=== PATIENT | female | born 1995 | race Hispanic/Latino ===

== ENCOUNTER 2017-08-23 21:55 | Emergency (ER) | payer OTHER, SELFPAY ==
--- NOTE | 2017-08-24 00:22 | EDPHYS ---
Physician Documentation [facility] Unit Name: Patricia Monroe Age: 21 yrs Sex: Female : 1995 Arrival Date: 08/23/2017 Time: 21:58 Bed 25 Private MD: ED Physician Cricket Umanzor HPI: 08/23 23:00 This 21 yrs old Female presents to ER via Ambulatory with complaints of Fever, jr8 Sore Throat, BODY ACHES 13 WEEKS PREG. 23:00 The patient reports fever, not measured (subjective). Onset: The symptoms/episode jr8 began/occurred acutely, today. Modifying factors: there are no obvious modifying factors. Associated signs and symptoms: Pertinent positives: chills, earache, sinus congestion, sore throat. Severity of symptoms: At their worst the symptoms were mild in the emergency department the symptoms are unchanged. The patient has not experienced similar symptoms in the past. The patient has not recently seen a physician. 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 - Social history:: Smoking status: Patient/guardian denies using tobacco. - Ebola Screening: : Patient denies travel to an Ebola-affected area in the 21 days before illness onset. ROS: 23:00 Eyes: Negative for injury, pain, redness, and discharge, Neck: Negative for injury, jr8 pain, and swelling, Cardiovascular: Negative for chest pain, palpitations, and edema, Respiratory: Negative for shortness of breath, cough, wheezing, and pleuritic chest pain, Abdomen/GI: Negative for abdominal pain, nausea, vomiting, diarrhea, and constipation, Back: Negative for injury and pain, MS/Extremity: Negative for injury and deformity, Skin: Negative for injury, rash, and discoloration, Neuro: Negative for headache, weakness, numbness, tingling, and seizure. 23:00 Constitutional: Positive for body aches, chills. 23:00 ENT: Positive for sinus congestion, sore throat. Exam: 23:00 Head/Face: Normocephalic, atraumatic. Eyes: Pupils equal round and reactive to light, jr8 extra-ocular motions intact. Lids and lashes normal. Conjunctiva and sclera are non-icteric and not injected. Cornea within normal limits. Periorbital areas with no swelling, redness, or edema. ENT: Nares patent. No nasal discharge, no septal abnormalities noted. Tympanic membranes are normal and external auditory canals are clear. Oropharynx with no redness, swelling, or masses, exudates, or evidence of obstruction, uvula midline. Mucous membranes moist. Neck: Trachea midline, no thyromegaly or masses palpated, and no cervical lymphadenopathy. Supple, full range of motion without nuchal rigidity, or vertebral point tenderness. No Meningismus. Cardiovascular: Regular rate and rhythm with a normal S1 and S2. No gallops, murmurs, or rubs. Normal PMI, no JVD. No pulse deficits. Respiratory: Lungs have equal breath sounds bilaterally, clear to auscultation and percussion. No rales, rhonchi or wheezes noted. No increased work of breathing, no retractions or nasal flaring. Abdomen/GI: Soft, non-tender, with normal bowel sounds. No distension or tympany. No guarding or rebound. No evidence of tenderness throughout. Back: No spinal tenderness. No costovertebral tenderness. Full range of motion. Skin: Warm, dry with normal turgor. Normal color with no rashes, no lesions, and no evidence of cellulitis. MS/ Extremity: Pulses equal, no cyanosis. Neurovascular intact. Full, normal range of motion. Neuro: Awake and alert, GCS 15, oriented to person, place, time, and situation. Cranial nerves II-XII grossly intact. Motor strength 5/5 in all extremities. Sensory grossly intact. Cerebellar exam normal. Normal gait. Vital Signs: 22:09 BP 105 / 67; Pulse 108; Resp 20; Temp 97.9(O); Pulse Ox 96% on R/A; Weight 51.26 kg aj1 (R); Height 4 ft. 11 in. (149.86 cm) (R); Pain 10/10; 23:49 BP 109 / 70; Pulse 102; Resp 17; Pulse Ox 100% ; kr2 07/09 00:19 BP 117 / 74; Pulse 80; Resp 17; Pulse Ox 98% on R/A; kr2 08/23 22:09 Body Mass Index 22.82 (51.26 kg, 149.86 cm) aj1 MDM: 08/23 22:[address] [facility] 08/24 00:21 Data reviewed: vital signs, nurses notes, lab test result(s), and as a result, I will jr8 discharge patient. Data interpreted: Pulse oximetry: on room air is 98 %. Interpretation: normal. Counseling: I had a detailed discussion with the patient and/or guardian regarding: the historical points, exam findings, and any diagnostic results supporting the discharge/admit diagnosis, lab results, the need for outpatient follow up, a family practitioner, to return to the emergency department if symptoms worsen or persist or if there are any questions or concerns that arise at home. 08/23 22:47 Order name: Influenza Screen (a \T\ B); Complete Time: 23:58 [facility] 08/23 23:21 Order name: Urine Dipstick--Ancillary (enter results) rg2 08/23 22:47 Order name: Urine Dipstick-Ancillary (obtain specimen); Complete Time: 23:14 [facility] 08/23 23:21 Order name: Urine --Ancillary (enter results) rg2 Administered Medications: No medications were administered Disposition: 09:30 Co-signature as Attending Physician, Cricket Umanzor MD I agree with the assessment and [facility] plan of care. Disposition: 08/24/17 00:21 Discharged to Home. Impression: Viral infection, unspecified. - Condition is Stable. - Discharge Instructions: Viral Infections. - Medication Reconciliation Form, Thank You Letter, Antibiotic Education, Prescription Opioid Use form. - Follow up: Private Physician; When: 2 - 3 days; Reason: Recheck today's complaints, Continuance of care, Re-evaluation by your physician. - Problem is new. - Symptoms have improved. Signatures: Dispatcher [employer] Christiane Barrera, RN RN aj1 Cricket Umanzor MD MD cha Roszak, Josh, PA PA jr8 Enedelia Lucero RN RN kr2 Corrections: (The following items were deleted from the chart) 00:29 00:21 08/24/2017 00:21 Discharged to Home. Impression: Viral infection, unspecified. kr2 Condition is Stable. Forms are Medication Reconciliation Form, Thank You Letter, Antibiotic Education, Prescription Opioid Use. Follow up: Private Physician; When: 2 - 3 days; Reason: Recheck today's complaints, Continuance of care, Re-evaluation by your physician. Problem is new. Symptoms have improved. jr8
--- NOTE | 2017-08-24 00:22 | ER ---
Nurse's Notes [facility] Name: Patricia Monroe Age: 21 yrs Sex: Female : 1995 Arrival Date: 08/23/2017 Time: 21:58 Bed 25 Private MD: Diagnosis: Viral infection, unspecified Presentation: 08/23 22:05 Presenting complaint: Patient states: "I have runny nose, runny eyes, I feel congested. aj1 I was running fever, I have the chills. I've been taking Mucinex all day." Reports the highest her fever got was to 100.0 Patient reports that she is 13 weeks [address] see Dr. Darby in [place]. Denies N/V/D. Transition of care: patient was not received from another setting of care. Onset of symptoms was August 22, 2017. Risk Assessment: Do you want to hurt yourself or someone else? Patient reports no desire to harm self or others. Initial Sepsis Screen: Does the patient meet any 2 criteria? HR > 90 bpm. No. Patient's initial sepsis screen is negative. Does the patient have a suspected source of infection? No. Patient's initial sepsis screen is negative. Care prior to arrival: None. 22:05 Method Of Arrival: Ambulatory aj1 22:05 Acuity: WALTER 4 aj1 Triage Assessment: 22:09 General: Appears in no apparent distress. uncomfortable, Behavior is calm, cooperative, aj1 appropriate for age. Pain: Complains of pain in face Pain currently is 10 out of 10 on a pain scale. Quality of pain is described as sore, aching. EENT: Reports nasal congestion nasal discharge sore throat, ear pain. Neuro: Level of Consciousness is awake, alert, obeys commands, Speech is normal, Facial symmetry appears normal. Cardiovascular: Patient's skin is warm and dry. Respiratory: Airway is patent Respiratory effort is even, unlabored, Respiratory pattern is regular, symmetrical. GI: Patient currently denies diarrhea, nausea, vomiting. Derm: Skin is pink, warm \\T\\ dry. normal. 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 - Social history:: Smoking status: Patient/guardian denies using tobacco. - Ebola Screening: : Patient denies travel to an Ebola-affected area in the 21 days before illness onset. Screenin:42 Abuse screen: Denies threats or abuse. Denies injuries from another. Nutritional kr2 screening: No deficits noted. Tuberculosis screening: No symptoms or risk factors identified. Fall Risk None identified. Assessment: 22:40 General: Appears in no apparent distress. uncomfortable, well groomed, well developed, kr2 well nourished, Behavior is calm, cooperative, appropriate for age. Pain: Complains of pain in entire body Pain currently is 5 out of 10 on a pain scale. Quality of pain is described as aching, Is continuous, Alleviated by medications, rest. Neuro: Level of Consciousness is awake, alert, obeys commands, Oriented to person, place, time, situation, Appropriate for age. Cardiovascular: Capillary refill < 3 seconds in bilateral fingers Patient's skin is warm and dry. Respiratory: Reports cough that is non-productive, dry, since yesterday Airway is patent Respiratory effort is even, unlabored, Respiratory pattern is regular, symmetrical, Breath sounds are clear bilaterally. GI: Abdomen is round non-distended. : Denies burning with urination. EENT: Oral mucosa is moist. Throat is pink. Derm: Skin is intact, is healthy with good turgor, Skin is pink, warm \\T\\ dry. Musculoskeletal: Circulation, motion, and sensation intact. 23:14 Reassessment: Patient appears in no apparent distress at this time. Patient and/or kr2 family updated on plan of care and expected duration. Pain level reassessed. Patient is alert, oriented x 3, equal unlabored respirations, skin warm/dry/pink. 23:49 Reassessment: Patient appears in no apparent distress at this time. Patient and/or kr2 family updated on plan of care and expected duration. Pain level reassessed. Patient is alert, oriented x 3, equal unlabored respirations, skin warm/dry/pink. 08/24 00:19 Reassessment: Patient appears in no apparent distress at this time. Patient and/or kr2 family updated on plan of care and expected duration. Pain level reassessed. Patient is alert, oriented x 3, equal unlabored respirations, skin warm/dry/pink. Pain has decreased. Vital Signs: 08/23 22:09 BP 105 / 67; Pulse 108; Resp 20; Temp 97.9(O); Pulse Ox 96% on R/A; Weight 51.26 kg aj (R); Height 4 ft. 11 in. (149.86 cm) (R); Pain 10/10; 23:49 BP 109 / 70; Pulse 102; Resp 17; Pulse Ox 100% ; kr2 08/24 00:19 BP 117 / 74; Pulse 80; Resp 17; Pulse Ox 98% on R/A; kr2 08/23 22:09 Body Mass Index 22.82 (51.26 kg, 149.86 cm) [facility] ED Course: 08/23 21:58 Patient arrived in ED. al2 22:07 Triage completed. aj1 22:09 Arm band placed on Patient placed in an exam room. aj1 22:27 Enedelia Lucero RN is Primary Nurse. kr2 22:29 Kenn Hays PA is PHCP. jr8 22:29 Cricket Umanzor MD is Attending Physician. jr8 22:42 Patient has correct armband on for positive identification. Bed in low position. Call kr2 light in reach. Side rails up X 1. Pulse ox on. NIBP on. Door closed. Verbal reassurance given. Head of bed elevated. 23:14 Urine collected: clean catch specimen, clear, Flu and/or RSV swab sent to lab. kr2 08/24 00:28 No provider procedures requiring assistance completed. Patient did not have IV access kr2 during this emergency room visit. Administered Medications: No medications were administered Outcome: 00:21 Discharge ordered by . jr8 00:28 Discharged to home ambulatory, with family. kr2 00:28 Condition: good 00:28 Discharge instructions given to patient, family, Instructed on discharge instructions, follow up and referral plans. Demonstrated understanding of instructions, follow-up care. 00:29 Patient left the ED. kr2 Signatures: Christiane Perkins RN RN aj1 Kenn Hays PA PA jr8 Enedelia Lucero RN RN kr2 Claudine Rousseau [facility]
[2017-08-24 01:21] LABS: Urine Blood NEGATIVE (NEG); Urine Glucose NEGATIVE (NEG); Urine Protein NEGATIVE (NEG); Urine Specific Gravity 1.015 (1.005-1.030); Urine pH 6.5 (5.0-7.0)
== END 2017-08-24 00:29 | disposition home or self-care (01) ==
LOC: ER 21:55
DX: O98.511 Other viral diseases complicating pregnancy, first trimester (principal); J45.909 Unspecified asthma, uncomplicated; Z3A.13 13 weeks gestation of pregnancy
CPT/HCPCS: 81003; 81025; 87804; 99283

== ENCOUNTER 2019-07-03 01:15 | Emergency (ER) | payer OTHER, SELFPAY ==
--- OUTSIDE RECORDS SUMMARY | 2019-07-03 01:17 | XMS REPORT | Summary of Care ---
:1995 Author Organization [facility] Address [address] [place] [id number] Care Team Providers Name Role Phone Tere Ventura [facility] Primary Care Provider Reason for Visit Reason Comments Appointment Encounter Details Date Type Department Care Team Description [facility] [address] [place] [address] [address] [facility] [phone] [facility] [place] [place] [address] Allergies No Known Allergiesdocumented as of this encounter (statuses as of 06/28/2019) Medications Medication Sig Dispensed Refills Start Date End Date Status PNV 67-iron ps-folate Take 1 tablet 30 capsule 12 06/25/2017 Active no.1-dha (VITAFOL ULTRA) by mouth daily. 29 mg iron- 1 mg-200 mg CapIndications: Supervision of high risk , antepartum docusate calcium 240 mg Take 1 capsule 60 capsule 1 02/21/2018 Active capsule by mouth once daily as needed for Constipation. ibuprofen 600 mg tablet Take 1 tablet 60 tablet 1 02/21/2018 Active by mouth every 6 (six) hours as needed for Pain (scale 1-3) or Pain (scale 4-6) (Pain). Take with food or milk. ferrous sulfate 325 mg Take 1 tablet 90 tablet 2 02/21/2018 Active (65 mg iron) tablet by mouth 3 (three) times daily with meals. cyclobenzaprine HCl Take by mouth. 0 Active (FLEXERIL ORAL) butalbital-acetaminophen Take 1 tablet 0 Active -caff 50-325-40 mg by mouth every tablet 4 (four) hours as needed for Headache. documented as of this encounter (statuses as of 06/28/2019) Active Problems Problem Noted Date Well woman exam 04/05/2018 Contraceptive management 04/05/2018 Asthma 02/20/2018 Obesity (BMI 30-39.9) 02/11/2018 Neck muscle spasm 09/02/2017 documented as of this encounter (statuses as of 06/28/2019) Resolved Problems Problem Noted Date Resolved Date 39 weeks gestation of 02/20/2018 04/05/19 19 Anemia, 02/20/2018 04/05/2018 34 weeks gestation of 01/21/2018 04/05/19 19 33 weeks gestation of 01/14/2018 01/22/20 18 25 weeks gestation of 11/18/2017 01/15/20 18 12 weeks gestation of 08/17/2017 11/19/19 18 11 weeks gestation of 08/13/2017 11/19/19 18 Threatened miscarriage in early 07/21/2017 04/05/2018 headache, second trimester 07/02/2017 History of labor 07/02/2017 04/05/2018 Spina bifida, child of prior , currently , 06/25/2017 04/05/2018 unspecified trimester Prior with congenital cardiac defect, antepartum 0 06/25/2017 04/05/2018 Depo-Provera contraceptive status 07/23/20162017 Heartburn during , antepartum 07/23/2016 0 04/05/2018 Normal spontaneous vaginal delivery 05/29/201603/19 Liveborn infant by vaginal delivery 05/28/201603/19 Late deceleration of heart rate 05/27/2016 37 weeks gestation of 05/27/2016 07/24/19 17 Vaginal discharge during in third trimester 201607/23/2016 Heartburn during in third trimester 05/21/2016 04/05/2018 Difficulty swallowing pills 05/21/2016 04/05/2018 34 weeks gestation of 05/08/2016 05/28/19 17 Gastroenteritis presumed infectious 05/08/2016 06/08/2016 Hypokalemia, gastrointestinal losses 05/08/201608/2016 High-risk , third trimester 05/02/201608/2016 Supervision of high risk in second trimester 05/0201/21/2018 Influenza A 04/12/2016 07/23/2016 Pelvic pressure in , second trimester 03/28/2016 05/27/2016 Abnormal MSAFP (maternal serum alpha-fetoprotein), elevated 02/01/2016 04/05/2018 High-risk , second trimester 01/29/2016 History of delivery, currently in second 05/02/2016 trimester Supervision of high risk in first trimester 201502/26/2016 History of neural tube defect in in prior , 11/23/2015 04/05/2018 currently Supervision of other normal 10/25/2015 documented as of this encounter (statuses as of 06/28/2019) Immunizations Name Administration Dates Next Due Influenza Virus Vaccine Quad IM 3+ YRS 11/23/2015 Influenza Virus Vaccine Quad IM Multi-dose 6+ MO 12/21/2017 Tdap 12/07/2017, 03/28/2016 documented as of this encounter Social History Tobacco Use Types Packs/Day Years Used Date Never Smoker Smokeless Tobacco: Never Used Alcohol Use Drinks/Week oz/Week Comments No 0 Standard drinks or equivalent 0.0 Sex Assigned at Date Recorded Not on file Job Start Date Occupation Industry Not on file Not on file Not on file Travel History Travel Start Travel End No recent travel history available. documented as of this encounter Last Filed Vital Signs Not on filedocumented in this encounter Plan of Treatment Date Type Specialty Care Team Description 06/28/2019 Office Visit [facility] Amina Brown, ADOPTION COORDINATOR [address] [place] [address] [phone] Health Maintenance Due Date Last Done Comments PNEUMOCOCCAL 0-64 YEARS 2002 COMBINED SERIES (1 of 1 - PPSV23) MENINGOCOCCAL B VACCINES (1 2006 of 2 - Risk Bexsero 2-dose series) HPV VACCINES (1 - Female 12/26/2007 2-dose series) CHLAMYDIA SCREENING 04/05/2019 04/05/2018, 06/25/2017, 05/14/2016, Additional history exists INFLUENZA VACCINE (Season 10/18/2019 12/21/2017, 11/23/2015 Ended) PAP SMEAR 04/05/2021 04/05/2018 DTaP,Tdap,and Td Vaccines (3 12/08/2027 12/07/2017, 017 - Td) MENINGOCOCCAL VACCINE Aged Out No longer eligible based on patient 's age to complete this topic documented as of this encounter Results Not on filedocumented in this encounter Insurance Payer Benefit Plan Subscriber ID Effective Phone Address Typ e / Group Dates [place] [place] [employer] [place] xxxxxxxxx 2019-Prese [phone] [place] X Medicaid WOMEN WOMEN nt 00 [id number] [place] [address] documented as of this encounter Advance Directives Name Relationship Healthcare Agent Communication Relationship Hema Monroe Spouse Primary healthcare agent Marques Carrillo Father First [facility] agent (Mobile)
--- OUTSIDE RECORDS SUMMARY | 2019-07-03 01:17 | XMS REPORT ---
:1995 Author Organization [facility] t Address [address] [place] [place] [address] Care Team Providers Name Role Phone Provider, Temp Attending Clinician Unavailable Problems This patient has no known problems. Allergies, Adverse Reactions, Alerts This patient has no known allergies or adverse reactions. Medications This patient has no known medications. Procedures This patient has no known procedures. Encounters Start End Encounter Admission Attending Care Care Encounter Source Date/Time Date/Time Type Type Clinicians Facility Department ID 2019-07-01 2019-07-01 Office Provider, [facility] [id number] 09:04:44 09:45:26 Visit Marianna MECHANICAL INTEGRITY SPECIALIST [id number] [facility] [id number] MATERNAL [id number] & CHILD [address] [place] [address] Results This patient has no known results.
--- OUTSIDE RECORDS SUMMARY | 2019-07-03 01:18 | XMS REPORT | Summary of Care ---
:1995 Author Organization [facility] Address [address] [place] [id number] Care Team Providers Name Role Phone Tere Ventura SAMIRA Primary Care Provider Reason for Visit Reason Comments Pelvic Pain Encounter Details Date Type Department Care Team Description 06/28/2019 Telemedicine Visit [facility]- Amina Brown Pain pelvic [place] R, PATIENT CARE PROVIDER (Primary Dx) [address] [place] [address] [place], [place] [phone] Allergies No Known Allergiesdocumented as of this [...] 04/05/2018 Normal spontaneous vaginal delivery 05/29/201603/19 Liveborn by vaginal delivery 05/28/201603/19 Late deceleration of [...] 201502/26/2016 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 Communication with patient was conducted via Telephone due to patient unable to obtain video call option. Location of Patient: Home Location of Provider: Home Date of Service: 06/28/2019 Chief Complaint: Pelvic Pain via Tele Health HPI: Patricia Monroe is a 23 year old female with Past Medical History: Diagnosis Date 25 weeks gestation of 11/18/2017 Abnormal uterine bleeding Anemia 02/20/2018 Asthma ROS See Note TELEHEALTH EXAM Constitutional: Alert and no distress Respiratory: Breathing comfortably Neurology: Answers questions appropriately Psychological: Affect Normal ASSESSMENT/ PLAN After visit summary (AVS ) documentation will be available through [employer] for this encounter. A total of 15 minutes was spent on the Telephone due to patient unable to obtain video call option. Amina Brown, PATIENT CARE PROVIDER HPI Patient is a LAF here for a tele health visit for pelvic pain. Patient reports she went to an urgent care last night (06/27/2019) due to severe pelvic pain. Patient states she was told she had severe swollen veins near both of her ovaries. Patient reports she has DVD of CT findings from visit.Patient also verbalized that they told her she needed to have immediate surgery to get the veins clipped. Patient advised to report to clinic to sign release of medical records. Patient also advised that WWE is due. Patient denies current or past physical, sexual or emotional abuse. Histories OB History Para Term AB Living 3 3 2 1 0 3 SAB TAB Ectopic Multiple Live Births 0 0 0 0 3 # Outcome Date GA Lbr Rush/2nd Weight Sex Delivery Anes PTL Lv 3 Term 02/20/18 39w0d 7 lb 7.2 oz (3.38 kg) F VAGINAL EPI SHABANA Comments: screen #1: 02/21/2018 NORMAL. (IDS) Maternal Age: 21; :3; Parity:3 Mother's Blood Type:O pos Baby's Blood Type:O pos, MORAIMA negative Maternal Serological Test:normal Maternal Group B Strep Screening:negative; Adequate Treatment:not 2 Term 05/28/16 37w2d 5 lb (2.268 kg) F VAGINAL IV narcotic SHABANA Comments: Maternal Age: 19 years old, G 2, P 2 Mother's Blood Type: O+ Baby's Blood Type: Cord blood not sent Maternal Serological Test: Negative Maternal Group B Strep Screening: Negative Complications: Elevated maternal serum AFP SROM at delivery with clear fluid. Labor Complications: None problems: None OAE: passed Hepatitis B Vaccine: Most Recent Immunizations Administered Date(s) Administered Hep B, Adol or Pedi Dosage 05/28/2016 [place] screen drawn, results pending. CCHD screen: passed 1 01/26/14 36w0d 5 lb 2 oz (2.325 kg) F NORMAL SP[place] Y [place]NA Past Medical History: Diagnosis Date 25 weeks gestation of 11/18/2017 Abnormal uterine bleeding Anemia 02/20/2018 Asthma Family History Problem Relation Age of Onset Diabetes Paternal Grandmother Hypertension Paternal Grandmother Cancer Paternal Grandfather unsure what kind Hypertension Maternal Uncle Diabetes Maternal Uncle Diabetes Paternal Uncle Arthritis NoFHx Asthma NoFHx defects NoFHx Breast Cancer NoFHx Colon Cancer NoFHx Ovarian Cancer NoFHx Uterine Cancer NoFHx Depression NoFHx Genetic NoFHx Heart NoFHx High cholesterol NoFHx Mental retardation NoFHx Neurological NoFHx Osteoporosis NoFHx Psychiatry NoFHx Family Status Relation Name Status PGMo Alive PGFa Alive Mo Alive Fa Alive MUnc Alive PUnc Alive NoFHx (Not Specified) No past surgical history on file. Social History Socioeconomic History Marital status: Spouse name: Not on file Number of children: Not on file Years of education: Not on file Highest education level: Not on file Occupational History Not on file Social Needs Financial resource strain: Not on file Food insecurity: Worry: Not on file Inability: Not on file Transportation needs: Medical: Not on file Non-medical: Not on file Tobacco Use Smoking status: Never Smoker Smokeless tobacco: Never Used Substance and Sexual Activity Alcohol use: No Alcohol/week: 0.0 standard drinks Drug use: No Sexual activity: Yes Partners: Male control/protection: Condom Comment: last sexual intercourse 04/02/2018 Lifestyle Physical activity: Days per week: Not on file Minutes per session: Not on file Stress: Not on file Relationships Social connections: Talks on phone: Not on file Gets together: Not on file Attends catholic service: Not on file Active member of club or organization: Not on file Attends meetings of clubs or organizations: Not on file Relationship status: Not on file Intimate partner violence: Fear of current or ex partner: Not on file Emotionally abused: Not on file Physically abused: Not on file Forced sexual activity: Not on file Other Topics Concern Not on file Social History Narrative Restoration: Holiness Patient lives with family. Patient has 2 dogs. Social History Substance and Sexual Activity Sexual Activity Yes Partners: Male control/protection: Condom Comment: last sexual intercourse 04/02/2018 Labs No new labs Radiology No new radiology. Allergies Patricia has No Known Allergies. Medications Patricia has a current medication list which includes the following prescription(s): gylznldjne-bdgwsgimbcytt-lool, cyclobenzaprine hcl, docusate calcium, ferrous sulfate, ibuprofen, and pnv 67-iron ps-folate no.1-dha. Review of Systems Genitourinary: Positive for pelvic pain. There were no vitals taken for this visit. Pregravid BMI: Could not be calculated Physical Exam See Tele Health Assessment/Plan Pain pelvic (primary encounter diagnosis) Comment: See HPI Plan: Patient advised to continue pain medication that urgent care gave and schedule for WWE on Thursday08/01/2019). Return to clinic for WWE. Discussed treatment options. Medications as ordered. This visit did not involve counseling and coordination that comprised more than 50% of the visit time. LUCIANO Rojas 06/28/2019 3:43 PM documented in this encounter Plan of Treatment Date Type Specialty Care Team Description 07/01/2019 [facility] Due Date Last Done Comments [...] Results Not on filedocumented in this encounter Visit Diagnoses Diagnosis Pain pelvic - Primary Unspecified symptom associated with fema le genital organs documented in this encounter Insurance Payer Benefit Plan Subscriber ID Effective Phone Address Typ e / Group Dates [facility] xxxxxxxxx 2019-Prese [phone] Medicaid WOMEN [address] [place] [address] documented as of this encounter Advance Directives Name Relationship Healthcare Agent Communication Relationship Hema Monroe Spouse Primary healthcare agent Marques Carrillo Father [place] [phone] agent (Mobile)
--- OUTSIDE RECORDS SUMMARY | 2019-07-03 01:19 | XMS REPORT | Summary of Care ---
:1995 Author Organization [facility] Address [address] [place] [id number] Care Team Providers Name Role Phone Tere Ventura [facility] Primary Care Provider Reason for Visit Reason Comments Well Woman Exam Encounter Details Date Type Department Care Team Description 07/01/2019 Office Visit [facility] Jaja Gorman [facility] [address] [place], [place] [id number] Well woman exam (Primary Dx); [place] [facility] [address] [place] [address] Allergies No Known Allergiesdocumented as of this encounter (statuses as of 07/01/2019) Medications Medication Sig Dispensed Refills Start Date End Date Status PNV 67-iron ps-folate Take 1 tablet 30 capsule 06/25/2017 Active no.1-dha (VITAFOL ULTRA) by mouth [...] as of this encounter (statuses as of 07/01/2019) Active Problems Problem Noted Date Well woman exam 04/05/2018 Contraceptive management 04/05/2018 Asthma 02/20/2018 Obesity (BMI 30-39.9) 02/11/2018 Neck muscle spasm 09/02/2017 documented as of this encounter (statuses as of 07/01/2019) Resolved Problems Problem Noted Date Resolved Date [...] 04/05/2018 34 weeks gestation of 05/08/2016 05/28/19 Gastroenteritis presumed infectious 05/08/201608/2016 Hypokalemia, gastrointestinal losses 05/08/201608/2016 High-risk , third [...] as of this encounter (statuses as of 07/01/2019) Immunizations Name Administration Dates Next Due Influenza [...] Travel End No recent travel history available. COVID-19 Exposure Response Date Recorded In the last month, have you been in contact with No / Unsure 07/01/2019 9:08 AM CDT someone who was confirmed or suspected to have Coronavirus / COVID-19? documented as of this encounter Last Filed Vital Signs Vital Sign Reading Time Taken Comments Blood Pressure 110/78 07/01/2019 9:18 AM CDT Pulse 77 07/01/2019 9:18 AM CDT Temperature 36.4 C (97.5 F) 07/01/2019 9:18 AM CDT Respiratory Rate 16 07/01/2019 9:18 AM CDT Oxygen Saturation - - Inhaled Oxygen Concentration - - Weight 55.6 kg (122 lb 8 oz) 07/01/2019 9:18 AM CDT Height 149.9 cm (4' 11") 07/01/2019 9:18 AM CDT Body Mass Index 24.74 07/01/2019 9:18 AM CDT documented in this encounter Patient Instructions Patient InstructionsRiya Mehta LVN - 07/01/2019 9:00 AM CDT Patient Education Clinical Breast Exam Many health organizations recommend a yearly clinical breast exam. This exam may be done by a medical art therapist, family healthcare provider, nurse practitioner, nurse ship erector, or specially trained nurse. Yearly breast exams help tomake surethat breast conditions are found early. Your healthcare providers role A healthcare professional knows the tests and follow-up care needed if a problem is found. Your clinical exam is also a great time to ask questions about breast self-exams. You can find out if yourechecking your breasts in the best way. Or you may want to ask how , breast implants, or breast reduction surgery affect the way you should check your breasts. Diagnostic tests If a clinical exam reveals a breast change, you may have other tests to find out more. These tests may include: Mammography. A low-dose X-ray of your breast tissue. Ultrasound. An imaging test that uses sound waves to create images of your breast. Biopsy. A small amount of breast tissue is removed by needle or by a cut (incision). The tissue is then checked under a microscope. Guidelines for having clinical breast exams The [employer] recommends that starting at age 29, you should have a clinical breast exam every 1 to 3 years. After age 40, have a clinical breast exam each year. If youre at higher risk for breast cancer, you may need exams more often. Risk factors for breast cancer may include: Being over 50 or postmenopausal Having a family history of breast cancer Having the BRCA1 or BRCA2 gene mutation or certain other gene mutations Having more menstrual periods due to starting menstruation early(before age 12) or having a late menopause (after age 55) Having no pregnancies Having a first after age 30 Being obese Having a history of radiation treatment to your chest area Exposure to CONNIE during your mother's Not being active Drinking too much alcohol Having dense breast tissue Taking hormone therapy after menopause Other health organizations have different recommendations. Talk with your healthcare provider about what is best for you. [employer] reviewed this educational content on 09/16/201619995078-4996 [employer] [address] [place] [address]. All rights reserved. This information is not intended as a substitute for professional medical care. Always follow your healthcare professional's instructions. Patient Education Breast Health: Breast Self-Awareness What is breast self-awareness? Breast self-awareness is knowing how your breasts normally look and feel. Your breasts change as yougo through different stages of your life. So its important to learn what is normal for your breasts. Knowing about your breasts helps you spot any changes in them right away. Tell your healthcare provider about any changes. Why is breast self-awareness important? Many experts now say that women should focus on breast self-awareness instead of doing a breast self-examination (BSE). These experts include the [employer] and the [place] [employer]. Some experts even advise not teaching women to do a BSE. Thats because research hasnt shown a clear benefit to doing BSEs. Breast self-awareness is different than a BSE. It isnt about following a certain method and schedule. Its about knowing what's normal for your breasts. That way you can spot even small changes right away. If you see any changes, tell your healthcare provider. Changes to look for Call your healthcare provider if you find any changes in your breasts that worry you. These changes may be: A lump Nipple discharge other than breastmilk, especially if it's bloody Swelling A change in size or shape Skin changes, such as redness, thickening, or dimpling of the skin Swollen lymph nodes in the armpit Nipple problems, such as pain or redness If you find a lump Call your provider if you find lumpiness in one breast. Also call if you feel something different inthe tissue or feel a definite lump. Sometimes lumpiness may be due to menstrual changes. But there may be reason for concern. Your provider may want to see you right away if you have: Nipple discharge that is bloody Skin changes on your breast, such as dimpling or puckering Its okay to be upset if you find a lump. Be sure to call your provider right away. Remember that most breast lumps are benign. This means they are not cancer. [employer] last reviewed this educational content on 09/16/201619990786-9633 [employer]. [address] [place] [address], [place] [address]. All rights reserved. This information is not intended as a substitute for professional medical care. Always follow your healthcare professional's instructions. Patient Education Prevention Guidelines,Women Ages 18 to 39 Screening tests and vaccines are an important part of managing your health. A screening test is doneto find possible disorders or diseases in people who don't have any symptoms. The goal is to find a disease early so lifestyle changes can be made and you can be watched more closely to reduce the riskof disease, or to detect it early enough to treat it most effectively. Screening tests are not considered diagnostic, but are used to determine if more testing is needed. Health counseling is essential, too. Below are guidelines for these, for women ages 18 to 39. Talk with your healthcare provider tomake sure youre up-to-date on what you need. Screening Who needs it How often Alcohol misuse All women in this age group At routine exams Blood pressure All women in this age group Yearly checkup if your blood pressure is normal Normal blood pressure is less than 120/80 mm Hg If your blood pressure reading is higher than normal, follow the advice of your healthcare provider Breast cancer All women in this age group should talk with their healthcare providers about the needfor clinical breast exams (CBE)1 Clinical breast exam every 3 years1 Cervical cancer Women ages 21 and older Women between ages 21 and 29 should have a Pap test every 3 years; women between ages 30 and 65 are advised to have a Pap test plus an HPV test every 5 years Chlamydia Sexually active women ages 25 and younger, and women at increased risk for infection (suchas having multiple sex partners) Every year if you're at risk or have symptoms Depression All women in this age group At routine exams Type 2 diabetes, prediabetes All women with no symptoms who are overweight or obese and have 1 or more other risk factors for diabetes At least every 3 years. Also, testing for diabetes during after the 24th week. Type 2 diabetes, prediabetes All women diagnosed with gestational diabetes Lifelong testing every 3 years Type 2 diabetes All women with prediabetes Every year Gonorrhea Sexually active women at increased risk for infection At routine exams Hepatitis C Anyone at increased risk At routine exams HIV All women should be tested at least once for HIV between the ages of 13 and 64 At routine exams.Those with risk factors for HIV should be tested at least annually. Obesity All women in this age group At routine exams Syphilis Women at increased risk for infection should talk with their healthcare provider At routineexams Tuberculosis Women at increased risk for infection should talk with their healthcare provider Ask your healthcare provider Vision All women in this age group At least 1 complete exam in your 20s, and 2 in your 30s Vaccine2 Who needs it How often Chickenpox (varicella) All women in this age group who have no record of this infection or vaccine 2doses; the second dose should be given 4 to 8 weeks after the first dose Hepatitis A Women at increased risk for infection should talk with their healthcare provider 2 dosesgiven at least 6 months apart Hepatitis B Women at increased risk for infection should talk with their healthcare provider 3 dosesover 6 months; second dose should be given 1 month after the first dose; the third dose should be given at least 2 months after the second dose and at least 4 months after the first dose Haemophilus influenzaeType B (HIB) Women at increased risk for infection should talk with their healthcare provider 1 to 3 doses Human papillomavirus (HPV) All women in this age group up to age 26 3 doses; the second dose should be given 1 to 2 months after the first dose and the third dose given 6 months after the first dose Influenza (flu) All women in this age group Once a year Measles, mumps, rubella (MMR) All women in this age group who have no record of these infections or vaccines 1 or 2 doses Meningococcal Women at increased risk for infection should talk with their healthcare provider 1 or more doses Pneumococcal conjugate vaccine (PCV13)and pneumococcal polysaccharidevaccine(PPSV23) Women at increased risk for infection should talk with their healthcare provider PCV13: 1 dose ages 19 to 65 (protects against 13 types of pneumococcal bacteria) PPSV23: 1 to2 doses through age 64, or 1 dose at 65 or older (protects against 23 types of pneumococcal bacteria) Tetanus/diphtheria/pertussis (Td/Tdap) booster All women in this age group Td every 10 years, or a one-time dose of Tdap instead of a Td booster after age 18, then Td every 10 years Counseling Who needs it How often BRCA gene mutation testing for breast and ovarian cancer susceptibility Women with increased risk for having gene mutation When your risk is known Breast cancer and chemoprevention Women at high risk for breast cancer When your risk is known Diet and exercise Women who are overweight or obese When diagnosed, and then at routine exams Domestic violence Women at the age in which they are able to have children At routine exams Sexually transmitted infection prevention Women who are sexually active At routine exams Skin cancer Prevention of skin cancer in fair-skinned adults At routine exams Use of tobacco and the health effects it can cause All women in this age group Every visit 1 According to the ACS, women ages 20 to 39 years should have a clinical breast exam (CBE) as part of their routine health exam every 3 years. Breast self-exams are an option for women starting in their 20s.But the USPSTF does not recommend CBE. [employer] last reviewed this educational content on 11/16/201619995337-7304 [employer]. [address] [place] [address]. All rights reserved. This information is not intended as a substitute for professional medical care. Always follow your healthcare professional's instructions. Patient Education Understanding STIs When it comes to sex, nothing is risk-free. Any sexual contact with the penis, vagina, anus, or mouth can spread a sexually transmitted infection (STI). These include chlamydia, gonorrhea, herpes, HIV,and genital warts. STIs are also known as sexually transmitted diseases (STDs). The only sure way toprevent STIs is not having sex (abstinence). But there are ways to make sex safer. Use a latex condom each time you have sex. And choose your partner wisely. Use condoms for safer sex If you have sex, latex condoms provide the best protection against STIs. Latex condoms stop the exchange of body fluids that carry certain STIs. They also limit contact with affected skin. Be aware that a condom doesnt cover all skin. So affected skin that isn't covered can still transfer disease. But youre safer with a condom than without one. Use a condom even if you use other control. control methods such as the pill or IUD help prevent , but they don't protect against STIs. Choose the right condom Condoms made of latex prevent disease best. If youre allergic to latex, use polyurethane condoms instead. Male condoms fit over the penis. Female condoms line the vagina. Before buying a condom, read the label to be sure it prevents disease. Some novelty condoms dont. The right lubricant helps Buy lubricated condoms or use lubricant. This provides greater comfort and reduces the risk for condom breakage. Use only water-based lubricants. Dont use oil, lotion, or petroleum jelly. They can weaken the condom, causing breakage. Also, you may want to choose lubricants without nonoxynol-9. This spermicide may cause irritation. It can raise the risk for certain STIs. Use condoms correctly For condoms to work, they must be used the right way. Keep these tips in mind: Use a new latex condom each time you have sex. Slip the condom on the penis before any contact ismade. When ready to withdraw, hold the rim of the condom as the penis pulls out. This prevents the condom from slipping off. Check the expiration date before using a condom. Dont store condoms in places that can get hot, such as a car or a wallet that is carried in a back pocket. Get to know your partner Safer sex is a process. It involves getting to know your partner and making informed choices. Ask each other how many partners you have had in the past, and how many you have now. Find out if either ofyou has HIV or any other STI. If you decide to have sex, use a condom each time. Dont stop using condoms unless youre sure neither of you has other partners and youve both been tested to confirm you dont have HIV or other STIs. Then stay free of disease by having sex only with each other (monogamy). Keep your cool Dont let alcohol or drugs cloud your judgment. They could lead you to have sex with someone you wouldnt have chosen if you were sober. Or you might forget to use a condom. If you do plan to have sex, keep a latex condom with you. Dont wait until youre in the heat of passion to try to find one. Consider abstinence The only way to be sure you wont get an STI is to abstain from sex. Abstinence is a choice that many people make at some point in their life. Maybe you want to wait until you are sure youre readybefore you have sex. Maybe youd like a break from the responsibilities of sex for a while. Or maybe you just want to know your partner better before taking the next step. Abstinence is a choice you can make now to protect your future. [employer] last reviewed this educational content on 01/16/201819996437-3350 [employer] [address] [place] [address], [place] [address]. All rights reserved. This information is not intended as a substitute for professional medical care. Always follow your healthcare professional's instructions. Patient Education Understanding HIV and AIDS It's important to know how HIV can get into your body and what happens once its there. Then youll be better prepared to protect yourself or others against this virus. A person with HIV can look and feel perfectly healthy. But that person can give HIV to others as soon as he or she is infected with the virus. Having unsafe or unprotected sex or sharing needles puts you at risk for HIV. Talk with your healthcare provider about ways to protect yourself or a loved one from getting HIV. How HIV infection progresses After HIV enters the body, it attacks the immune system in the stages below. A person with HIV can infect others once the virus gets into the blood. HIV with no symptoms. A person with HIV may have no symptoms for years. The only sign of infection may be a positive blood test for HIV 2 weeks to 3 months or later after HIV enters the body. HIV with symptoms. Some people develop an illness similar to mono (mononucleosis) 2 to 4 weeks after the virus enters the body. This is called acute retroviral syndrome. Symptoms may include swollen lymph glands, chills, fever, night sweats, weakness, weight loss, skin rashes, mouth ulcers, or sore t hroat. Symptoms may be mild or the person can feel quite sick. Even without treatment the symptoms almost always go away in a few days or up to 2 to 3 weeks. Then the person has no symptoms, often for years. But over time the immune system starts to get weaker and symptoms start appearing. People at this stage may have a yeast infection in the mouth (oral thrush), shingles, skin problems, pneumonia, diarrhea that keeps coming back, or weight loss. AIDS. AIDS is the most advanced stage of HIV infection, when the immune system is severely weakened.Certain rare diseases and cancers that normally would not occur, now can occur because the body can no longer fight them well enough. It is often these diseases that cause in people with AIDS. HIV may also directly attack the brain and nervous system. This causes seizures and loss of memory and body movement. It also affects many other parts of the body. This leads to problems such as anemia, low white blood cell count, diarrhea, belly pain, skin problems, and many others. How HIV enters the body HIV is carried in semen, vaginal fluid, blood, and breastmilk. During sex, HIV can enter the body. It gets in through the fragile tissue and linings, sores, or cuts in or around the vagina, penis, anus, and mouth. During drug use, tattooing, or body piercing, the virus can enter the blood through an infected needle. A mother who has HIV can infect her child during , childbirth, and . [employer] last reviewed this educational content on 07/17/201819995542-5039 [employer]. [address] [place] [address]. All rights reserved. This information is not intended as a substitute for professional medical care. Always follow your healthcare professional's instructions. Patient Education Eating Heart-Healthy Foods Eating has a big impact on your heart health. In fact, eating healthier can improve several of your heart risks at once. For instance, it helps you manage weight, cholesterol, and blood pressure. Here are ideas to help you make heart- healthy changes without giving up allthe foods and flavors you love. Getting started Talk with your healthcare provider about eating plans, such as the DASH or Mediterranean diet. You may also be referred to a dietitian. Change a few things at a time. Give yourself time to get used to a few eating changes before adding more. Work to create a tasty, healthy eating plan that you can stick to for the rest of your life. Goals for healthy eating Below are some tips to improve your eating habits: Limit saturated fats and trans fats. Saturated fats raise your levels of cholesterol, so keep these fats to a minimum. They are found in foods such as fatty meats, whole milk, cheese, and palm and coconut oils. Avoid trans fats because they lower good cholesterol as well as raise bad cholesterol. Trans fats are most often found in processed foods. Reduce sodium (salt) intake. Eating too much salt may increase your blood pressure. Limit your sodium intake to 2,300 milligrams (mg) per day(the amount in 1 teaspoon of salt), or less if your healthcare provider recommends it. Dining out less often and eating fewer processed foods are two great ways to decrease the amount of salt you consume. Managing calories. A calorie is a unit of energy. Your body ramirez calories for fuel, but if you eat more calories than your body ramirez, the extras are stored as fat. Your healthcare provider can help you create a diet plan to manage your calories. This will likely include eating healthier foods as well as exercising regularly. To help you track your progress, keep a diary to record what you eat and how often you exercise. Choose the right foods Aim to make these foods dell of your diet. If you have diabetes, you may have different recommendations than what is listed here: Fruits and vegetables provide plenty of nutrients without a lot of calories. At meals, fill half your plate with these foods. Split the other half of your plate between whole grains and lean protein. Whole grains are high in fiber and rich in vitamins and nutrients. Good choices include whole-wheat bread, pasta, and brown rice. Lean proteins give you nutrition with less fat. Good choices include fish, skinless chicken, and beans. Low-fat or nonfat dairy provides nutrients without a lot of fat. Try low-fat or nonfat milk, cheese, or yogurt. Healthy fats can be good for you in small amounts. These are unsaturated fats, such as olive oil,nuts, and fish. Try to have at least 2 servings per week of fatty fish, such as salmon, sardines, mackerel, rainbow trout, and albacore tuna. These contain omega-3 fatty acids, which are good for your heart. Flaxseed is another source of a heart-healthy fat. More on heart-healthy eating Read food labels Healthy eating starts at the grocery store. Be sure to pay attention to food labels on packaged foods. Look for products that are high in fiber and protein, and low in saturated fat, cholesterol, and sodium. Avoid products that contain trans fat. And pay close attention to serving size. For instance, if you plan to eat two servings, double all the numbers on the label. Prepare food right A vogel part of healthy cooking is cutting down on added fat and salt. Look on the internet for lower-fat, lower-sodium recipes. Also, try these tips: Remove fat from meat and skin from poultry before cooking. Skim fat from the surface of soups and sauces. Broil, boil, bake, steam, grill, and microwave food without added fats. Choose ingredients that spice up your food without adding calories, fat, or sodium. Try these items: horseradish, hot sauce, lemon, mustard, nonfat salad dressings, and vinegar. For salt-free herbs and spices, try basil, cilantro, cinnamon, pepper, and megan. [employer] last reviewed this educational content on 11/16/201619999998-1273 [employer]. [address] [place] [address]. All rights reserved. This information is not intended as a substitute for professional medical care. Always follow your healthcare professional's instructions. Patient Education Understanding [employer] MyPlate The USDA (U.S. Department of Agriculture) has guidelines to help you make healthy food choices. These are called MyPlate. MyPlate shows the food groups that make up healthy meals using the image of a place setting. Before you eat, think about the healthiest choices for what to put onto your plate or into your cup or bowl. To learn more about building a healthy plate, visit www.choosemyplate.gov. The food groups Fruits. Any fruit or 100% fruit juice counts as part of the Fruit Group. Fruits may be fresh, canned, frozen, or dried, and may be whole, cut-up, or pureed. Make half your plate fruits and vegetables. Vegetables. Any vegetable or 100% vegetable juice counts as a member of the Vegetable Group. Vegetables may be fresh, frozen, canned, or dried. They can be served raw or cooked and may be whole, cut-up, or mashed. Make half your plate fruits and vegetables. Grains. All foods made from grains are part of the Grains Group. These include wheat, rice, oats,cornmeal, and barley such as bread, pasta, oatmeal, cereal, tortillas, and grits. Grains should be no more than a quarter of your plate. At least half of your grains should be whole grains. Protein. This group includes meat, poultry, seafood, beans and peas, eggs, processed soy products(like tofu), nuts (including nut butters), and seeds. Make protein choices no more than a quarter ofyour plate. Meat and poultry choices should be lean or low fat. Dairy. All fluid milk products and foods made from milk that contain calcium, like yogurt and cheese, are part of the Dairy Group. (Foods that have little calcium, such as cream, butter, and cream cheese, are not part of the group.) Most dairy choices should be low-fat or fat-free. Oils. These are fats that are liquid at room temperature. They include canola, corn, olive, soybean, and sunflower oil. Foods that are mainly oil include mayonnaise, certain salad dressings, and soft margarines. You should have only 5 to 7 teaspoons of oils a day. You probably already get this muchfrom the food you eat. [employer] last reviewed this educational content on 09/16/201619991001-2127 The [employer]. [address] [place] [address]. All rights reserved. This information is not intended as a substitute for professional medical care. Always follow your healthcare professional's instructions. documented in this encounter Progress Notes Pattie Gorman, WHSAMIRA - 07/01/2019 9:00 AM CDT Chief complaint: Chief Complaint Patient presents with Well Woman Exam HPI Patient presents for WWE today. She uses condoms for BCM. She does not desire to change methods today. Patient was seen in local urgent care recently, and per patient was told she needs urgent pelvic surgery for venous congestion. Patient brought DVD from urgent care which I was unable to review. I advised that if this patient begins to have severe pain again, that she should report to the ER. Histories OB History Para Term AB Living 3 3 2 1 0 3 SAB TAB Ectopic Multiple Live Births 0 0 0 0 3 # Outcome Date GA Lbr Rush/2nd Weight Sex Delivery Anes PTL Lv 3 Term 02/20/18 39w0d 7 lb 7.2 oz (3.38 kg) F VAGINAL EPI SHABANA Comments: [place] screen #1: 02/21/2018 NORMAL. (IDS) Maternal Age: [...] Hep B, Adol or Pedi Dosage 05/28/2016 screen drawn, results pending. CCHD screen: passed [...] MUnc Alive PUnc Alive NoFHx (Not Specified) History reviewed. No pertinent surgical history. Social History Socioeconomic History Marital status: Spouse [...] Male control/protection: Condom Comment: last sexual intercourse 06/27/2019 Lifestyle Physical activity: Days per week: Not on file Minutes per session: Not on file Stress: Not on file Relationships Social connections: Talks on phone: Not on file Gets together: Not on file Attends taoist service: Not on file Active member of [...] Concern Not on file Social History Narrative Religious: Jehovah'S Witness Patient lives with family. Patient has 2 dogs. Social History Substance and Sexual Activity Sexual Activity Yes Partners: Male control/protection: Condom Comment: last sexual intercourse 06/27/2019 Labs Labs are pending. Radiology No new radiology. Allergies Patricia has No Known Allergies. Medications Patricia has a current medication list which includes the following prescription(s): mnlchlmnqv-tckxlcbgctqqd-aplx, cyclobenzaprine hcl, docusate calcium, ferrous sulfate, ibuprofen, and pnv 67-iron ps-folate no.1-dha. Review of Systems Constitutional: Negative. HENT: Negative. Respiratory: Negative. Cardiovascular: Negative. Gastrointestinal: Negative. Genitourinary: Negative. Musculoskeletal: Negative. Psychiatric/Behavioral: Negative. BP 110/78 (BP Location: Right arm, Patient Position: Sitting, BP CUFF SIZE: Adult Medium) | Pulse 77 | Temp 36.4 C (97.5 F) (Oral) | Resp 16 | Ht 4' 11" (1.499 m) | Wt 122 lb 8 oz (55.6 kg) |LMP 06/17/2019 (Exact Date) | No | BMI 24.74 kg/m Pregravid BMI: Could not be calculated Physical Exam Vitals reviewed. Constitutional: She is oriented to person, place, and time. She appears well- developed, well-nourished and well-groomed. Cardiovascular: Regular rate and rhythm. Pulmonary/Chest: Normal inspiratory effort. Neuro/Psychiatric: She has a normal mood and affect. She is oriented to person, place, and time. Assessment/Plan Well woman exam (primary encounter diagnosis) Comment: Appears to be in stable condition at this time Plan: GC & CHLAMYDIA AMPLIFIED ASSAY, URINE CULTURE Pain pelvic Comment: Pelvic venous congestion Plan: Referral to ER if pain increases This visit did not involve counseling and coordination that comprised more than 50% of the visit time. Riya Mehta LVN - 07/01/2019 9:00 AM CDT23 year old presented to the clinic for WWE. 1) Previous BCM:condoms 2) Desired BCM:condoms 3) LMP:06/17/2019 4) Last [place]: 06/27/2019 5) Last Pap:04/05/2018 Results:negative 6) Tdap in last 10 years?12/07/2017 HPV?not interested 7) C/O Was told in ER had swollen veins around ovaries on 06/27/2019 , pelvic pain and abdomen, clear thick to thin discharge x 3 days. 8) Patient denies history of physical, emotional, or sexual abuse. Patient states she currently feels safe at home. documented in this encounter Plan of Treatment Name Type Priority Associated Diagnoses Date/Ti me GC & CHLAMYDIA AMPLIFIED LAB Routine Well woman exam 07/01/2019 10:27 AM CDT ASSAY URINE CULTURE LAB Routine Well woman exam 07/01/2019 10:27 AM CDT Name Type Priority Associated Diagnoses Order S chedule GC & CHLAMYDIA AMPLIFIED LAB Routine Well woman exam Expected: 07/01/2019, ASSAY Expires: 2020 Health Maintenance Due Date Last Done Comments [...] filedocumented in this encounter Visit Diagnoses Diagnosis Well woman exam - Primary Routine general medical examination at a health care facility Pain pelvic Unspecified symptom associated with fema le genital organs documented in this encounter Insurance Payer Benefit Plan Subscriber ID Effective Phone Address Typ e / Group Dates [facility] xxxxxxxxx 2019-Prese [phone] Medicaid WOMEN nt [address] [place] [address] documented as of this encounter Advance Directives Name Relationship Healthcare Agent Communication Relationship Hema Monroe Spouse Primary healthcare agent Marques Carrillo Father [place] [phone] agent (Mobile)
--- OUTSIDE RECORDS SUMMARY | 2019-07-03 01:19 | XMS REPORT | Summary of Care ---
:1995 Author Organization [facility] Address [address] [place] [id number] Care Team Providers Name Role Phone Tere Ventura [facility] Primary Care Provider Reason for Visit Reason Comments Well Woman Exam Encounter Details Date Type Department Care Team Description 07/01/2019 Office Visit [facility]- Jaja Gorman [facility] [address] [place], [place] [id number] Well woman exam (Primary Dx); [place] [facility] Temp Pain pelvic [address] [place] [address] Allergies No Known Allergiesdocumented as [...] This exam may be done by a mulling machine operator, family healthcare provider, nurse practitioner, nurse clinical resource manager, or specially trained nurse. Yearly breast exams [...] Guidelines for having clinical breast exams The [employer] recommends that [...] provider about what is best for you. [employer] win[employer] reviewed this educational content on 09/16/201619998102-5341 The [employer]asing [employer]. [address] [place] [address]. All rights reserved. This information is not [...] breast self-examination (BSE). These experts include the [employer] and the [place] [employer] Gynecologists. Some experts [...] benign. This means they are not cancer. [employer] last reviewed this educational content on 09/16/201619991434-6026 [employer]. [address] [place] [address], [place] [address]. All rights reserved. This information is not [...] 20s.But the USPSTF does not recommend CBE. [employer] last reviewed this educational content on 11/16/201619994357-7381 [employer]. [address] [place] [address]. All rights reserved. This information is not [...] can make now to protect your future. [employer] last reviewed this educational content on 01/16/201819993893-8383 [employer]. [address] [place] [address], [place] [address]. All rights reserved. This information is not [...] her child during , childbirth, and . [employer] last reviewed this educational content on 07/17/201819994106-9375 [employer]. [address] [place] [address]. All rights reserved. This information is not [...] try basil, cilantro, cinnamon, pepper, and megan. [employer] last reviewed this educational content on 11/16/201619996635-5115 [employer]. [address] [place] [address]. All rights reserved. This information is not intended as a substitute for professional medical care. Always follow your healthcare professional's instructions. Patient Education Understanding [employer] MyPlate The USDA (U.S. Department of Agriculture) [...] get this muchfrom the food you eat. [employer] last reviewed this educational content on 09/16/201619998410-4668 [employer]. [address] [place] [address]. All rights reserved. This information is not [...] (3.38 kg) F VAGINAL EPI SHABANA Comments: [place] screen #1: 02/21/2018 NORMAL. (IDS) Maternal Age: [...] file Gets together: Not on file Attends restorationism service: Not on file Active member of [...] Concern Not on file Social History Narrative Jew: Yarsanism Patient lives with family. Patient has 2 dogs. Social History Substance and Sexual Activity Sexual Activity Yes Partners: Male control/protection: Condom Comment: last sexual intercourse 06/27/2019 Labs Labs are pending. Radiology No new radiology. Allergies Patricia has No Known Allergies. Medications Patricia has a current medication list which includes the following prescription(s): nxzohqksba-xloauxmlvbjlg-ahgg, cyclobenzaprine hcl, docusate calcium, ferrous sulfate, ibuprofen, [...] 2) Desired BCM:condoms 3) LMP:06/17/2019 4) Last [place]: 06/27/2019 5) Last Pap:04/05/2018 Results:negative 6) Tdap [...] Address Typ e / Group Dates [facility] xxxxxxxxx 2019-Prese [phone] Medicaid WOMEN nt [address] [place] [address] documented as of this encounter Advance Directives Name Relationship Healthcare Agent Communication Relationship Hema Monroe Spouse Primary healthcare agent Marques Carrillo Father First [place] [phone] agent (Mobile)
[2019-07-03 01:47] LABS: Absolute Lymphocytes (CBC) 2.6 K/uL (0.7-4.9); Basophils % 0.6 % (0-1.3); Hematocrit 40.5 % (36.0-45.0); Lymphocytes % 30.1 % (15.3-44.8); MPV 9.2 fL (7.6-11.3); RBC Red Blood Cell Count 4.55 M/uL (3.86-4.86)
[2019-07-03] MEDS ORDERED: NA CHLORIDE 0.9% 1,000 ML ONE (01:53)
[2019-07-03 02:01] LABS: BUN Blood Urea Nitrogen 16 mg/dL (7-18); Bicarbonate 25 mmol/L (21-32); Glucose Level 100 mg/dL (74-106); Potassium 3.8 mmol/L (3.5-5.1); Sodium Level 139 mmol/L (136-145)
[2019-07-03 02:02] LABS: Urine Blood NEGATIVE (NEG); Urine Glucose NEGATIVE (NEG); Urine Protein NEGATIVE (NEG); Urine Specific Gravity 1.025 (1.005-1.030); Urine pH 7.5 (5.0-7.0)
[2019-07-03 02:07] LABS: Urine Bacteria >50 /HPF (<20); Urine Culture Reflex Order NOT NEEDED; Urine Mucus 2+ /HPF (NONE SEEN)
--- NOTE | 2019-07-03 03:44 | EDPHYS ---
Physician Documentation [facility] Name: Patricia Carrillo Age: 23 yrs Sex: Female : 1995 Arrival Date: 07/03/2019 Time: 01:19 Bed 8 Private MD: LAZARUS Physician Cricket Umanzor HPI: 07/02 01:33 This 23 yrs old Female presents to ER via Unassigned with complaints of maru Ovarian Pain. 01:33 The patient presents with pelvic pain, that is located in/on the right lower quadrant maru and left lower quadrant, urinary symptoms. Onset: The symptoms/episode began/occurred 3 day(s) ago. Modifying factors: The symptoms are alleviated by remaining still, the symptoms are aggravated by movement. Associated signs and symptoms: Pertinent positives: cramping. Severity of symptoms: At their worst the symptoms were mild, moderate, in the emergency department the symptoms are unchanged. The patient is sexually active, reportedly has a single partner. The patient's method of control includes nothing. The patient has not experienced similar symptoms in the past. 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 - Social history:: Smoking status: Patient denies any tobacco usage or history of. - Family history:: not pertinent. ROS: 01:35 Constitutional: Negative for fever, chills, and weight loss, Eyes: Negative for injury, maru pain, redness, and discharge, ENT: Negative for injury, pain, and discharge, Neck: Negative for injury, pain, and swelling, Cardiovascular: Negative for chest pain, palpitations, and edema, Respiratory: Negative for shortness of breath, cough, wheezing, and pleuritic chest pain, Abdomen/GI: Negative for abdominal pain, nausea, vomiting, diarrhea, and constipation, Back: Negative for injury and pain, MS/Extremity: Negative for injury and deformity, Skin: Negative for injury, rash, and discoloration, Neuro: Negative for headache, weakness, numbness, tingling, and seizure, Psych: Negative for depression, anxiety, suicide ideation, homicidal ideation, and hallucinations, Allergy/Immunology: Negative for hives, rash, and allergies, Endocrine: Negative for neck swelling, polydipsia, polyuria, polyphagia, and marked weight changes, Hematologic/Lymphatic: Negative for swollen nodes, abnormal bleeding, and unusual bruising. 01:35 : Positive for pelvic pain. Exam: 01:35 Constitutional: This is a well developed, well nourished patient who is awake, alert, maru and in no acute distress. Head/Face: Normocephalic, atraumatic. Eyes: Pupils equal round and reactive to light, extra-ocular motions intact. Lids and lashes normal. Conjunctiva and sclera are non-icteric and not injected. Cornea within normal limits. Periorbital areas with no swelling, redness, or edema. ENT: Nares patent. No nasal discharge, no septal abnormalities noted. Tympanic membranes are normal and external auditory canals are clear. Oropharynx with no redness, swelling, or masses, exudates, or evidence of obstruction, uvula midline. Mucous membranes moist. Neck: Trachea midline, no thyromegaly or masses palpated, and no cervical lymphadenopathy. Supple, full range of motion without nuchal rigidity, or vertebral point tenderness. No Meningismus. Chest/axilla: Normal chest wall appearance and motion. Nontender with no deformity. No lesions are appreciated. Cardiovascular: Regular rate and rhythm with a normal S1 and S2. No gallops, murmurs, or rubs. Normal PMI, no JVD. No pulse deficits. Respiratory: Lungs have equal breath sounds bilaterally, clear to auscultation and percussion. No rales, rhonchi or wheezes noted. No increased work of breathing, no retractions or nasal flaring. Back: No spinal tenderness. No costovertebral tenderness. Full range of motion. Skin: Warm, dry with normal turgor. Normal color with no rashes, no lesions, and no evidence of cellulitis. MS/ Extremity: Pulses equal, no cyanosis. Neurovascular intact. Full, normal range of motion. Neuro: Awake and alert, GCS 15, oriented to person, place, time, and situation. Cranial nerves II-XII grossly intact. Motor strength 5/5 in all extremities. Sensory grossly intact. Cerebellar exam normal. Normal gait. Psych: Awake, alert, with orientation to person, place and time. Behavior, mood, and affect are within normal limits. 01:35 Abdomen/GI: Inspection: abdomen appears normal, Bowel sounds: normal, Palpation: mild abdominal tenderness, in the right lower quadrant and left lower quadrant, Liver: no appreciated palpable abnormalities, Hernia: not appreciated. 03:45 Back: pain, is absent, ROM is normal, normal spinal alignment noted, CVA tenderness, is maru absent, muscle spasm, is not present. Vital Signs: 01:34 BP 115 / 77; Pulse 101; Resp 16; Temp 98.5(O); Pulse Ox 100% ; Weight 54.43 kg; Height tl1 4 ft. 11 in. (149.86 cm); Pain 10/10; 02:41 BP 105 / 75; Pulse 95; Resp 18; Pulse Ox 100% on R/A; mg2 03:40 BP 110 / 68; Pulse 89; Resp 18; Pulse Ox 100% on R/A; mg2 01:34 Body Mass Index 24.24 (54.43 kg, 149.86 cm) tl1 MDM: 01:22 Patient medically screened. maru 01:36 Data reviewed: vital signs, nurses notes, diagnostic data from outside facility, [facility] radiologic studies, CT scan, lab test result(s), EKG, radiologic studies, plain films, ultrasound. 03:40 Differential diagnosis: dysmenorrhea, menometrorrhagia, menorrhea, nonspecific maru abdominal pain, ovarian cyst, pelvic inflammatory disease, urinary tract infection. Data interpreted: auto service dispatcher: not applicable for this patient encounter. Pulse oximetry: on room air is 100 %. Test interpretation: by ED physician or midlevel provider: usg, pelvic, small ovarian cyst. Counseling: I had a detailed discussion with the patient and/or guardian regarding: the historical points, exam findings, and any diagnostic results supporting the discharge/admit diagnosis, lab results, radiology results, the need for outpatient follow up, for definitive care, an OB/Gyne specialist. Medication response: Toradol markedly relieved the patient's pain. 03:42 ED course: pt explained results, will follow up , return if worse. [facility] 07/02 01:32 Order name: Abo/rh Typing; Complete Time: 03:[address] [facility] 07/02 01:32 Order name: Basic Metabolic Panel; Complete Time: 03:[address] [facility] 07/02 01:32 Order name: CBC with Diff; Complete Time: 03:[address] [facility] 07/02 01:32 Order name: Sed Rate; Complete Time: 03:[address] [facility] 07/02 01:47 Order name: Urine Culture wi 07/02 01:47 Order name: Urine Microscopic Only; Complete Time: 03:39 wi 07/02 01:32 Order name: Urine Test (obtain specimen); Complete Time: 01:[address] [facility] 07/02 01:32 Order name: IV Saline Lock; Complete Time: 01:[address] [facility] 07/02 01:32 Order name: US Transvaginal Study (Probe) [facility] 07/02 01:55 Order name: Urine Dipstick--Ancillary (enter results); Complete Time: 03:39 [facility] 07/02 01:55 Order name: Urine --Ancillary (enter results); Complete Time: 03:39 [facility] 07/02 01:32 Order name: Labs collected and sent; Complete Time: 01:[address] [facility] 07/02 01:32 Order name: NPO; Complete Time: 01:[address] [facility] 07/02 01:32 Order name: Urine Dipstick-Ancillary (obtain specimen); Complete Time: 01:[address] [facility] Administered Medications: 01:53 Drug: NS 0.9% 1000 ml Route: IV; Rate: 1 bolus; Site: right antecubital; mg2 03:18 Follow up: Response: No adverse reaction; IV Status: Completed infusion; IV Intake: mg2 1000ml 03:48 Drug: Rocephin 1 grams Route: IV; Rate: per protocol; Site: right antecubital; mg2 04:02 Follow up: Response: No adverse reaction; IV Status: Completed infusion mg2 04:02 Not Given (Patient Refused): TORadol 30 mg IVP once mg2 Disposition: 07/03/19 03:44 Discharged to Home. Impression: Unspecified ovarian cysts, Urinary tract infection, site not specified. - Condition is Stable. - Discharge Instructions: Dysuria, Ovarian Cyst, Urinary Tract Infection, Adult, Urinary Tract Infection, Adult, Zmcz-nu-Sutp, Ovarian Cyst, Kczk-rl-Kbus. - Prescriptions for Cipro 250 mg Oral Tablet - take 1 tablet by ORAL route every 12 hours; 14 tablet. Motrin IB 200 mg Oral Tablet - take 2 tablet by ORAL route every 6 hours As needed as needed with food; 30 tablet. - Medication Reconciliation Form, Thank You Letter, Antibiotic Education, Prescription Opioid Use form. - Follow up: Private Physician; When: 2 - 3 days; Reason: Recheck today's complaints, Continuance of care, Re-evaluation by your physician. Follow up: Indigo Myers MD; When: 2 - 3 days; Reason: Recheck today's complaints, Re-evaluation by your physician. - Problem is new. - Symptoms have improved. Signatures: Dispatcher [employer] EDMS Cricket Umanzor MD MD cha Lasagna, Tonya RN RN tl1 Ilir Rubio RN RN mg2 Corrections: (The following items were deleted from the chart) 04:03 03:44 07/03/2019 03:44 Discharged to Home. Impression: Unspecified ovarian cysts; mg2 Urinary tract infection, site not specified. Condition is Stable. Forms are Medication Reconciliation Form, Thank You Letter, Antibiotic Education, Prescription Opioid Use. Follow up: Private Physician; When: 2 - 3 days; Reason: Recheck today's complaints, Continuance of care, Re-evaluation by your physician. Follow up: Indigo Myers; When: 2 - 3 days; Reason: Recheck today's complaints, Re-evaluation by your physician. Problem is new. Symptoms have improved. maru
--- NOTE | 2019-07-03 03:44 | ER ---
Nurse's Notes [facility] Name: Patricia Carrillo Age: 23 yrs Sex: Female : 1995 Arrival Date: 07/03/2019 Time: :19 Bed 8 Private MD: Diagnosis: Unspecified ovarian cysts;Urinary tract infection, site not specified Presentation: 07/02 01:31 Chief complaint: Patient states: I was diagnosed with pelvic congestion and was told to 1 go to the ER with any pain. Coronavirus screen: Proceed with normal triage. Patient denies a cough. Patient denies shortness of breath or difficulty breathing. Patient denies measured and/or subjective temperature greater than 100.4F prior to today's visit. Patient denies travel on a cruise ship or to a country the [facility] currently lists as an affected area. Patient denies contact with known and/or suspected case of COVID-19. Ebola Screen: Patient negative for fever greater than or equal to 101.5 degrees Fahrenheit, and additional compatible Ebola Virus Disease symptoms Patient denies exposure to infectious person. Patient denies travel to an Ebola-affected area in the 21 days before illness onset. Initial Sepsis Screen: Does the patient meet any 2 criteria? HR > 90 bpm. Does the patient have a suspected source of infection? No. Patient's initial sepsis screen is negative. Risk Assessment: Do you want to hurt yourself or someone else? Patient reports no desire to harm self or others. Onset of symptoms. 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 - Social history:: Smoking status: Patient denies any tobacco usage or history of. - Family history:: not pertinent. Screenin:54 Abuse screen: Denies threats or abuse. Denies injuries from another. Nutritional mg2 screening: No deficits noted. Tuberculosis screening: No symptoms or risk factors identified. Fall Risk IV access (20 points). Assessment: 01:53 General: Appears in no apparent distress. comfortable, Behavior is calm, cooperative. mg2 Pain: Complains of pain in abdomen. Neuro: Level of Consciousness is awake, alert, obeys commands, Oriented to person, place, time, situation. Cardiovascular: Capillary refill < 3 seconds. Respiratory: Airway is patent Respiratory effort is even, unlabored, Respiratory pattern is regular, symmetrical. GI: Abdomen is. :. : Reports pain in bilateral lower quadrant(s). EENT: No signs and/or symptoms were reported regarding the EENT system. Derm: Skin is intact, is healthy with good turgor, Skin is pink, warm \T\ dry. normal. Musculoskeletal: Circulation, motion, and sensation intact. Capillary refill < 3 seconds. 02:35 Reassessment: Patient appears in no apparent distress at this time. Patient and/or mg2 family updated on plan of care and expected duration. Pain level reassessed. Patient is alert, oriented x 3, equal unlabored respirations, skin warm/dry/pink. 02:41 Reassessment: patient states pain is tolerable. mg2 03:40 Reassessment: Patient appears in no apparent distress at this time. Patient and/or mg2 family updated on plan of care and expected duration. Pain level reassessed. Patient is alert, oriented x 3, equal unlabored respirations, skin warm/dry/pink. Vital Signs: 01:34 BP 115 / 77; Pulse 101; Resp 16; Temp 98.5(O); Pulse Ox 100% ; Weight 54.43 kg; Height tl1 4 ft. 11 in. (149.86 cm); Pain 10/10; 02:41 BP 105 / 75; Pulse 95; Resp 18; Pulse Ox 100% on R/A; mg2 03:40 BP 110 / 68; Pulse 89; Resp 18; Pulse Ox 100% on R/A; mg2 01:34 Body Mass Index 24.24 (54.43 kg, 149.86 cm) tl1 ED Course: 01:19 Patient arrived in ED. ds1 01:22 Cricket Umanzor MD is Attending Physician. maru 01:34 Triage completed. tl1 01:35 Arm band placed on right wrist. tl1 01:43 Gardose, Ilir, RN is Primary Nurse. mg2 01:48 Inserted saline lock: 20 gauge in right antecubital area, using aseptic technique. pa Blood collected. 01:54 Patient has correct armband on for positive identification. mg2 01:54 No provider procedures requiring assistance completed. mg2 03:33 Ultrasound completed. Patient tolerated well. Notified ED Physician cuco. sg3 03:33 US Transvaginal Study (Probe) In Process Unspecified. EDMS 03:43 Indigo Myers MD is Referral Physician. maru 04:02 IV discontinued, intact, bleeding controlled, No redness/swelling at site. Pressure mg2 dressing applied. Administered Medications: 01:53 Drug: NS 0.9% 1000 ml Route: IV; Rate: 1 bolus; Site: right antecubital; mg2 03:18 Follow up: Response: No adverse reaction; IV Status: Completed infusion; IV Intake: mg2 1000ml 03:48 Drug: Rocephin 1 grams Route: IV; Rate: per protocol; Site: right antecubital; mg2 04:02 Follow up: Response: No adverse reaction; IV Status: Completed infusion mg2 04:02 Not Given (Patient Refused): TORadol 30 mg IVP once mg2 Intake: 03:18 IV: 1000ml; Total: 1000ml. mg2 Outcome: 03:44 Discharge ordered by . maru 04:02 Discharged to home ambulatory. mg2 04:02 Condition: stable 04:02 Discharge instructions given to patient, Instructed on discharge instructions, follow up and referral plans. medication usage, Demonstrated understanding of instructions, follow-up care, medications, Prescriptions given X 2. 04:03 Patient left the ED. mg2 Addendum: 07/06/2019 07:46 Addendum: Culture Results: Positive urine culture. No further action required. Bacteria i w sensitive to prescribed antibiotic. Signatures: Dispatcher [employer] EDNH Cricket Umanzor MD MD cha Sanford, Demi ds1 Yelitza Marley, JOZEF HASKINS Helen Hobson RN RN tl1 Aminta Lopez pa Jeff Felizah sg3 Ilir Rubio, JOZEF HASKINS mg2
[2019-07-03] MEDS ORDERED: CEFTRIAXONE/SWI 1gm 1 GM/10 ML SYR ONE (03:51)
[2019-07-03] MEDS ORDERED: KETOROLAC 30 MG/ML INJ ONE (03:56)
[2019-07-03 04:24] VITALS: TEMP 98.5; O2SAT 100
[2019-07-03 04:27] VITALS: BP 110/68
--- NOTE | 2019-07-03 09:39 | RAD REPORT ---
EXAM DESCRIPTION: US - Transvaginal Study Probe - 07/03/2019 3:33 am CLINICAL HISTORY: Pelvic pain COMPARISON: none FINDINGS: The uterus measures 8 x 4 x 5cm. A fibroid is not seen. Endometrial stripe measures 7 mill imeters The ovaries are normal in size and echotexture. 1.8 centimeter right ovarian follicle No significant free fluid is seen. Right and left adnexal unremarkable IMPRESSION: No significant abnormalities displayed
== END 2019-07-03 04:03 | disposition home or self-care (01) ==
LOC: ER 01:15
DX: N83.209 Unspecified ovarian cyst, unspecified side (principal); N39.0 Urinary tract infection, site not specified
CPT/HCPCS: 36415; 76830; 80048; 81003; 81015; 81025; 85025; 85652; 86900; 86901; 87077; 87086; 87088; 87186; 96361; 96374; 99284; J0696; J7030

== ENCOUNTER 2020-12-19 04:33 | Emergency (ER) | payer OTHER, SELFPAY ==
[2020-12-19] MEDS ORDERED: ACETAMINOPHEN 325 MG TABLET ONE (05:07)
[2020-12-19] MEDS ORDERED: ACETAMINOPHEN 160 MG/5 ML UCUP ONE (05:13)
[2020-12-19 06:22] LABS: SARS-COV-2 RT PCR NEGATIVE (NEGATIVE)
--- NOTE | 2020-12-19 06:38 | ER ---
Nurse's Notes [facility] Name: Patricia Carrillo Age: 24 yrs Sex: Female : 1995 Arrival Date: 12/19/2020 Time: 04:38 Bed 13 Private MD: Diagnosis: Acute sinusitis, unspecified;Viral Syndrome Presentation: 12/19 04:42 Chief complaint: Patient states: sinus congestion and vomiting. Coronavirus screen: df1 Vaccine status: Patient reports being unvaccinated. Client presents with at least one sign or symptom that may indicate coronavirus-19. Standard/surgical mask placed on the client. Coronavirus screen: Client denies travel out of the [place] in the last 14 days. Ebola Screen: Patient negative for fever greater than or equal to 101.5 degrees Fahrenheit, and additional compatible Ebola Virus Disease symptoms Patient denies exposure to infectious person. Patient denies travel to an Ebola-affected area in the 21 days before illness onset. Initial Sepsis Screen: Does the patient meet any 2 criteria? No. Patient's initial sepsis screen is negative. Does the patient have a suspected source of infection? No. Patient's initial sepsis screen is negative. Risk Assessment: Do you want to hurt yourself or someone else? Patient reports no desire to harm self or others. Onset of symptoms was December 13, 2020. 04:42 Method Of Arrival: Ambulatory df1 04:46 Note Pt states sinus congestion x 1 week. Yesterday had virtual appt and started on df1 Amoxicillin and steroids. Today pt states today vomiting, right ear pain, lumbar pain, headache. States can't keep prescriptions down. 04:49 Acuity: WALTER 3 df1 Triage Assessment: 04:50 General: Appears in no apparent distress. slender, well groomed, Behavior is calm, dc2 cooperative. Pain: Complains of pain in throat , face. 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 - Social history:: Smoking status: Patient denies any tobacco usage or history of. Screenin:50 Abuse screen: Denies threats or abuse. Denies injuries from another. Nutritional dc2 screening: No deficits noted. Tuberculosis screening: No symptoms or risk factors identified. Never had TB. Fall Risk None identified. No fall in past 12 months (0 pts). Vital Signs: 04:42 BP 120 / 81; Pulse 86; Resp 18; Temp 97.8; Pulse Ox 100% on R/A; Weight 54.43 kg; df1 Height 4 ft. 11 in. (149.86 cm); Pain 10/10; 06:28 BP 118 / 76; Pulse 68; Resp 16; Pulse Ox 99% ; Pain 7/10; dc2 06:48 BP 115 / 78; Pulse 84; Resp 16; Temp 97.9; Pulse Ox 100% ; Pain 3/10; dc2 04:42 Body Mass Index 24.24 (54.43 kg, 149.86 cm) df1 ED Course: 04:38 Patient arrived in ED. bp1 04:44 Triage completed. df1 04:50 No provider procedures requiring assistance completed. dc2 04:50 Patient did not have IV access during this emergency room visit. dc2 04:50 Arm band placed on right wrist. dc2 04:50 Bed in low position. Call light in reach. Side rails up X 1. Pulse ox on. NIBP on. dc2 04:51 Miguel Vasques MD is Attending Physician. mh7 04:52 Sheela Campos, RN is Primary Nurse. dc2 05:19 X-ray(s) taken. dc2 05:25 Chest Single View XRAY In Process Unspecified. EDMS Administered Medications: 05:21 Not Given (Patient Refused; cannot swallow pills ): Tylenol 650 mg PO once dc2 05:39 Drug: Acetaminophen 650 mg {Note: given in liquid form .} Route: PO; dc2 06:50 Follow up: Response: No adverse reaction dc2 Outcome: 06:38 Discharge ordered by . 7 06:48 Discharged to home ambulatory. dc2 06:48 Condition: stable 06:48 Discharge instructions given to Instructed on discharge instructions, follow up and referral plans. Demonstrated understanding of instructions, follow-up care, medications, Prescriptions given X 1. 06:48 Patient left the ED. dc2 Signatures: Dispatcher [employer] EDMS Shanna Booker [facility] Miguel Vasques MD MD 7 Joselin Quiros df1 Sheela Campos RN RN dc2 Corrections: (The following items were deleted from the chart) 04:45 04:44 Home Meds: Tylenol #3 Oral; df1 df1 04:49 04:42 Acuity: WALTER 4 df1 df1 05:20 05:06 Tylenol 650 mg PO dc2 dc2 05:22 05:21 To radiology for Chest Single View+RAD.RAD.BRZ. dc2 dc2
--- NOTE | 2020-12-19 06:39 | EDPHYS ---
Physician Documentation [facility] Name: Patricia Carrillo Age: 24 yrs Sex: Female : 1995 Arrival Date: 12/19/2020 Time: 04:38 Bed 13 Private MD: ED Physician Miguel Vasques HPI: 12/19 05:07 This 24 yrs old Female presents to ER via Ambulatory with complaints of Sinus mh7 Congestion. 05:07 The patient or guardian reports cough, that is intermittent, described as mild, with no mh7 sputum, Sore throat, sinus congestion. Onset: The symptoms/episode began/occurred 2 week(s) ago. Severity of symptoms: At their worst the symptoms were moderate, 7 day(s) ago, in the emergency department the symptoms have improved, moderately. Modifying factors: The symptoms are alleviated by nothing, the symptoms are aggravated by nothing. Associated signs and symptoms: Pertinent positives: earache, rhinorrhea, sore throat, vomiting, After taking amoxicillin and steroids x1, Pertinent negatives: chest pain, diarrhea, fever, nausea. Patient states that she is a sinus congestion, sore throat, cough, runny nose for about 2 weeks. She recently had a virtual visit with a doctor who prescribed amoxicillin and steroids for sinusitis. She states that she had 1 episode of vomiting after taking the medication last night. She currently denies any nausea, vomiting, fever, chest pain, abdominal pain, diarrhea, shortness of breath, dysuria, dizziness, numbness/tingling, weakness.. 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 - Social history:: Smoking status: Patient denies any tobacco usage or history of. ROS: 05:07 Back: Negative for injury and pain, : Negative for injury, bleeding, discharge, and mh7 swelling, MS/Extremity: Negative for injury and deformity, Skin: Negative for injury, rash, and discoloration, Neuro: Negative for headache, weakness, numbness, tingling, and seizure, Psych: Negative for depression, anxiety, suicide ideation, homicidal ideation, and hallucinations, Allergy/Immunology: Negative for hives, rash, and allergies, Endocrine: Negative for neck swelling, polydipsia, polyuria, polyphagia, and marked weight changes, Hematologic/Lymphatic: Negative for swollen nodes, abnormal bleeding, and unusual bruising. 05:07 Constitutional: Negative for fever, chills, and weight loss, Eyes: Negative for injury, pain, redness, and discharge, Neck: Negative for injury, pain, and swelling, Cardiovascular: Negative for chest pain, palpitations, and edema. 05:07 Respiratory: Negative for dyspnea on exertion, hemoptysis, orthopnea, pleurisy, shortness of breath, sputum production, wheezing. 05:07 Abdomen/GI: Negative for abdominal pain, diarrhea, constipation, abdominal cramps, abdominal distension, anorexia, dysphagia, hematemesis, black/tarry stool, rectal pain, rectal bleeding, bowel incontinence, flatulence. Exam: 05:07 Constitutional: This is a well developed, well nourished patient who is awake, alert, mh7 and in no acute distress. 05:07 Eyes: Pupils equal round and reactive to light, extra-ocular motions intact. Lids and lashes normal. Conjunctiva and sclera are non-icteric and not injected. Cornea within normal limits. Periorbital areas with no swelling, redness, or edema. ENT: Nares patent. No nasal discharge, no septal abnormalities noted. Tympanic membranes are normal and external auditory canals are clear. Oropharynx with no redness, swelling, or masses, exudates, or evidence of obstruction, uvula midline. Mucous membranes moist. Neck: Trachea midline, no thyromegaly or masses palpated, and no cervical lymphadenopathy. Supple, full range of motion without nuchal rigidity, or vertebral point tenderness. No Meningismus. Chest/axilla: Normal chest wall appearance and motion. Nontender with no deformity. No lesions are appreciated. Cardiovascular: Regular rate and rhythm with a normal S1 and S2. No gallops, murmurs, or rubs. Normal PMI, no JVD. No pulse deficits. Respiratory: Lungs have equal breath sounds bilaterally, clear to auscultation and percussion. No rales, rhonchi or wheezes noted. No increased work of breathing, no retractions or nasal flaring. Abdomen/GI: Soft, non-tender, with normal bowel sounds. No distension or tympany. No guarding or rebound. No evidence of tenderness throughout. Back: No spinal tenderness. No costovertebral tenderness. Full range of motion. Skin: Warm, dry with normal turgor. Normal color with no rashes, no lesions, and no evidence of cellulitis. MS/ Extremity: Pulses equal, no cyanosis. Neurovascular intact. Full, normal range of motion. Neuro: Awake and alert, GCS 15, oriented to person, place, time, and situation. Cranial nerves II-XII grossly intact. Motor strength 5/5 in all extremities. Sensory grossly intact. Cerebellar exam normal. Normal gait. Psych: Awake, alert, with orientation to person, place and time. Behavior, mood, and affect are within normal limits. 05:07 Head/face: Sinus tenderness, that is mild, is located over the right frontal sinus, left frontal sinus, right maxillary sinus and left maxillary sinus. Vital Signs: 04:42 BP 120 / 81; Pulse 86; Resp 18; Temp 97.8; Pulse Ox 100% on R/A; Weight 54.43 kg; df1 Height 4 ft. 11 in. (149.86 cm); Pain 10/10; 06:28 BP 118 / 76; Pulse 68; Resp 16; Pulse Ox 99% ; Pain 7/10; dc2 06:48 BP 115 / 78; Pulse 84; Resp 16; Temp 97.9; Pulse Ox 100% ; Pain 3/10; dc2 04:42 Body Mass Index 24.24 (54.43 kg, 149.86 cm) df1 MDM: 06:34 Differential Diagnosis: Bronchitis Influenza Upper Respiratory Infection Sinusitis mh7 Pharyngitis Viral Syndrome Pneumonia. Data reviewed: vital signs, nurses notes, lab test result(s), Flu: negative radiologic studies, plain films. Data interpreted: Pulse oximetry: on room air is 99 %. Interpretation: normal. Counseling: I had a detailed discussion with the patient and/or guardian regarding: the historical points, exam findings, and any diagnostic results supporting the discharge/admit diagnosis, lab results, radiology results, to return to the emergency department if symptoms worsen or persist or if there are any questions or concerns that arise at home. Response to treatment: the patient's symptoms have resolved after treatment, the patient's blood pressure is in an acceptable range, mental status has returned to baseline, the patient no longer shows bradycardia, the patient is not short of breath, the patient is not tachycardic, the patient's pain is gone, the patient's temperature has normalized. 06:38 Patient medically screened. [facility] 12/19 05:06 Order name: Rapid Strep; Complete Time: 05:44 [facility] 12/19 05:06 Order name: Chest Single View XRAY [facility] 12/19 05:24 Order name: COVID-19/FLU A+B; Complete Time: 06:24 [facility] 12/19 05:44 Order name: Throat Culture [facility] 12/19 05:53 Order name: PO challenge; Complete Time: 06:21 [facility] Administered Medications: 05:21 Not Given (Patient Refused; cannot swallow pills ): Tylenol 650 mg PO once dc2 05:39 Drug: Acetaminophen 650 mg {Note: given in liquid form .} Route: PO; dc2 06:50 Follow up: Response: No adverse reaction dc2 Disposition Summary: 12/19/20 06:38 Discharge Ordered Location: Home [facility] Problem: an ongoing problem [facility] Symptoms: have improved [facility] Condition: Stable [facility] Diagnosis - Acute sinusitis, unspecified [facility] - Viral Syndrome [facility] Followup: [facility] - With: Private Physician - When: 1 - 2 days - Reason: Worsening of condition, Recheck today's complaints, Re-evaluation by your physician Discharge Instructions: - Discharge Summary Sheet [facility] - Sinusitis, Adult, [id number] [facility] - Viral Respiratory Infection, [id number] [facility] Forms: - Medication Reconciliation Form [facility] - Thank You Letter [facility] - Antibiotic Education [facility] - Prescription Opioid Use [facility] Prescriptions: - Afrin (oxymetazoline) 0.05 % Nasal spray,non-aerosol - spray 2 spray by INTRANASAL route 2 times per day for 3 days; 1 bottle; [facility] Refills: 0, Product Selection Permitted Signatures: Dispatcher [employer] Miguel Grayson MD MD [facility] Joselin Quiros df1 Sheela Campos RN RN dc2 Corrections: (The following items were deleted from the chart) 04:45 04:44 Home Meds: Tylenol #3 Oral; df1 df1 05:24 05:07 Influenza Screen (A \T\ B)+BA.LAB.TANK ordered. EDMS EDMS 05:24 05:07 CORONAVIRUS+MR.LAB.TANK ordered. EDMS EDMS
[2020-12-19 06:57] VITALS: BP 115/78; TEMP 97.9; O2SAT 100
--- NOTE | 2020-12-19 07:52 | RAD REPORT ---
EXAM DESCRIPTION: [place] Single View12/19/2020 5:25 am CLINICAL HISTORY: Cough COMPARISON: none FINDINGS: The lungs appear clear of acute infiltrate. The heart is normal size IMPRESSION: No acute abnormalities displayed
--- OUTSIDE RECORDS SUMMARY | 2020-12-29 08:46 | XMS REPORT | Continuity of Care Document ---
:1995 Author Organization [facility] t Address Formerly [facility], [facility] [place] [address] Care Team Providers Name Role Phone Aline MARIE R Attending Clinician Doctor Unassigned, Name Attending Clinician Unavailable Cy Gandara DO Attending Clinician Kevin WOLF R Attending Clinician Audrey WHCNP, C Attending Clinician Sherif WHCNP Attending Clinician Provider, Temp Attending Clinician Unavailable SHERIF Attending Clinician Unavailable Yessy DHILLON Attending Clinician Unavailable Payers Payer Name Policy Type Policy Number Effective Date Expiration Date S ource Advance Directives Directive Decision Effective Termination Comments Source Date Date Healthcare Agents on N/A [facility] FileNameRelationshipHealthcare [facility] Agent Medical RelationshipCommunicationSt. Rose [facility] Care [phone] (Mobile) [facility] [phone] (Mobile) Problems Condition Condition Condition Status Onset Resolution Last Treating Co mments Source Name Details Category Date Date Treatment Clinician Date Contracept Contracept Disease Active 2019-0 U nivleighann helga helga 2-18 [place] [address] [place] [address] Branch Asthma Asthma Disease Active 2019-0 Univers 1-05 ity of 00:00: [address] Obesity Obesity Disease Active 2017-02 Univers (BMI (BMI 2-27 ity of 30-39.9) 30-39.9) 00:00: [address] Neck Neck Disease Active Univers muscle muscle 7-18 ity of spasm spasm 00:00: [address] Allergies, Adverse Reactions, Alerts Allergy Allergy Status Severity Reaction(s) Onset Inactive Treating Comm ents Source Name Type Date Date Clinician NO KNOWN Drug Active Univers ALLERGIE Class ity of S [facility] Social History Social Habit Start Date Stop Date Quantity Comments Source Exposure to Not sure [facility] SARS-CoV-2 [facility] (event) [place] Tobacco use and 2020-07-04 2020-07-04 Never used Universit y of exposure 00:00:00 00:00:00 [facility] Alcohol intake 2020-07-04 2020-07-04 Current University of 00:00:00 00:00:00 non-drinker of [facility] alcohol [place] (finding) Sex Ass[birth year] At [birth year] Universit y of 00:00:00 00:00:00 [facility] Smoking Status Start Date Stop Date Source Never smoker [facility] Medications Ordered Filled Start Stop Current Ordering Indication Dosage Frequency Signature Comments Components Source Medication Medication Date Date Medication? Clinician (SIG) Name Name iopamidol 2020- No [id number] 120mL 120 mL, Univers (ISOVUE 07-04 Intravenou ity o f 370-500 mL) 23:15: 23:15 s, ONCE, 1 [place] injection 00 :00 dose, Thu Medic al 120 mL 07/04/20 at Branch 1815, Routine NaCl 0.9% 2020- No 1000mL at 999 Uni vers (NS) bolus 07-04 mL/hr, ity of infusion 21:45: 23:54 1,000 mL, [place] 1,000 mL 00 :00 IV Medical Infusion, [place] ONCE, 1 dose, 07/04/20 at 1645, EDITH ketorolac 2020- No 15mg 15 mg, Unive rs (TORADOL) 07-04 Slow IV ity of injection 21:45: 20:40 Push, [place] 15 mg 00 :00 ONCE, 1 Medical dose, Wed Branch 07/04/20 at 1645, [facility] : NURY MONTOYA NaCl 0.9% 1000mL at 999 Uni vers (NS) bolus 07-04 05-19 mL/hr, ity of infusion 20:45: 21:47 1,000 mL, [place] 1,000 mL 00 :00 IV Medical Infusion, Branch ONCE, 1 dose, 07/04/20 at 1545, EDITH sodium Yes 5mL 5 mL, Univers chloride - Intravenou ity o f (NS) 20:30: s, PRN, [place] injection 5 16 Starting Medi nadira mL Wed Branch 07/04/20 at 1530, Until Discontinu ed, Routine, IV line flushing ibuprofen Yes [id number] 600mg Take 1 U nivers 600 mg 5- tablet by ity of tablet 00:00: mouth [place] 00 every 6 Medical (six) Branch hours as needed for Pain (scale 4-6). ciprofloxac 2020- No [id number] 500mg Take 1 Univers in HCl 500 07-04-27 tablet by ity of mg tablet 00:00: 04:59 [place] (two) Medical times Branch daily for 7 days. amoxicillin No [id number] 500mg Take 1 Univers 500 mg 5-20 05-31 capsule by ity of capsule 00:00: 04:59 mouth 2 [place] 00 :00 (two) Medical times Branch daily for 10 days. amoxicillin 2019- No [id number] 500mg Take 1 Univers 500 mg 5-20 05-31 capsule by ity of capsule 00:00: 04:59 mouth 2 [place] 00 :00 (two) Medical times Branch daily for 10 days. amoxicillin 2019- No [id number] 500mg Take 1 Univers 500 mg 5-20 05-31 capsule by ity of capsule 00:00: 04:59 mouth 2 [place] 00 :00 (two) Medical times Branch daily for 10 days. butalbital- Yes 1{tbl} Take 1 Un cindy acetaminoph 2-18 tablet by ity of en-caff 21:48: mouth [place] 50-325-40 41 every 4 Medical mg tablet (four) Branch hours as needed for Headache. butalbital- 0 Yes 1{tbl} Take 1 Un cindy acetaminoph 2-18 tablet by ity of en-caff 21:48: mouth [place] 50-325-40 41 every 4 Medical mg tablet (four) Branch hours as needed for Headache. butalbital- 0 Yes 1{tbl} Take 1 Un cindy acetaminoph 2-18 tablet by ity of en-caff 21:48: mouth [place] 50-325-40 41 every 4 Medical mg tablet (four) Branch hours as needed for Headache. butalbital- 0 Yes 1{tbl} Take 1 Un cindy acetaminoph 2-18 tablet by ity of en-caff 21:48: mouth [place] 50-325-40 41 every 4 Medical mg tablet (four) Branch hours as needed for Headache. butalbital- 0 Yes 1{tbl} Take 1 Un cindy acetaminoph 2-18 tablet by ity of en-caff 21:48: mouth [place] 50-325-40 41 every 4 Medical mg tablet (four) Branch hours as needed for Headache. butalbital- 0 Yes 1{tbl} Take 1 Un cindy acetaminoph 2-18 tablet by ity of en-caff 21:48: mouth [place] 50-325-40 41 every 4 Medical mg tablet (four) Branch hours as needed for Headache. butalbital- 0 Yes 1{tbl} Take 1 Un cindy acetaminoph 2-18 tablet by ity of en-caff 21:48: mouth [place] 50-325-40 41 every 4 Medical mg tablet (four) Branch hours as needed for Headache. butalbital- 2018-0 Yes 1{tbl} Take 1 Un cindy acetaminoph 2-18 tablet by ity of en-caff 21:48: mouth [place] 50-325-40 41 every 4 Medical mg tablet (four) Branch hours as needed for Headache. butalbital- 0 Yes 1{tbl} Take 1 Un cindy acetaminoph 2-18 tablet by ity of en-caff 21:48: mouth [place] 50-325-40 41 every 4 Medical mg tablet (four) Branch hours as needed for Headache. butalbital- 2018-0 Yes 1{tbl} Take 1 Un cindy acetaminoph 2-18 tablet by ity of en-caff 21:48: mouth [place] 50-325-40 41 every 4 Medical mg tablet (four) Branch hours as needed for Headache. butalbital- 2018- Yes 1{tbl} Take 1 Un cindy acetaminoph 2-18 tablet by ity of en-caff 21:48: mouth [place] 50-325-40 41 every 4 Medical mg tablet (four) Branch hours as needed for Headache. butalbital- Yes 1{tbl} Take 1 Un cindy acetaminoph 2-18 tablet by ity of en-caff 21:48: mouth [place] 50-325-40 41 every 4 Medical mg tablet (four) Branch hours as needed for Headache. butalbital- Yes 1{tbl} Take 1 Un cindy acetaminoph 2-18 tablet by ity of en-caff 21:48: mouth [place] 50-325-40 41 every 4 Medical mg tablet (four) Branch hours as needed for Headache. butalbital- Yes 1{tbl} Take 1 Un cindy acetaminoph 2-18 tablet by ity of en-caff 21:48: mouth [place] 50-325-40 41 every 4 Medical mg tablet (four) Branch hours as needed for Headache. butalbital- 0 Yes 1{tbl} Take 1 Un cindy acetaminoph 2-18 tablet by ity of en-caff 21:48: mouth [place] 50-325-40 41 every 4 Medical mg tablet (four) Branch hours as needed for Headache. cyclobenzap 2018- Yes Take by Un cindy rine HCl 2-18 mouth. ity of (FLEXERIL 21:47: [place] ORAL) 38 Medical Branch cyclobenzap 2019-0 Yes Take by Un cindy rine HCl 2-18 mouth. ity of (FLEXERIL 21:47: [place] ORAL) 38 Medical Branch cyclobenzap 2018-0 Yes Take by Un cindy rine HCl 2-18 mouth. ity of (FLEXERIL 21:47: [place] ORAL) 38 Medical Branch cyclobenzap 2019-0 Yes Take by Un cindy rine HCl 2-18 mouth. ity of (FLEXERIL 21:47: [place] ORAL) 38 Medical Branch cyclobenzap Yes Take by Un cindy rine HCl 2-18 mouth. ity of (FLEXERIL 21:47: [place] ORAL) 38 Medical Branch cyclobenzap Yes Take by Un cindy rine HCl 2-18 mouth. ity of (FLEXERIL 21:47: [place] ORAL) 38 Medical Branch cyclobenzap Yes Take by Un cindy rine HCl 2-18 mouth. ity of (FLEXERIL 21:47: [place] ORAL) 38 Medical Branch cyclobenzap Yes Take by Un cindy rine HCl 2-18 mouth. ity of (FLEXERIL 21:47: [place] ORAL) 38 Medical Branch cyclobenzap Yes Take by Un cindy rine HCl 2-18 mouth. ity of (FLEXERIL 21:47: [place] ORAL) 38 Medical Branch cyclobenzap Yes Take by Un cindy rine HCl 2-18 mouth. ity of (FLEXERIL 21:47: [place] ORAL) 38 Medical Branch cyclobenzap Yes Take by Un cindy rine HCl 2-18 mouth. ity of (FLEXERIL 21:47: [place] ORAL) 38 Medical Branch cyclobenzap Yes Take by Un cindy rine HCl 2-18 mouth. ity of (FLEXERIL 21:47: [place] ORAL) 38 Medical Branch cyclobenzap Yes Take by Un cindy rine HCl 2-18 mouth. ity of (FLEXERIL 21:47: [place] ORAL) 38 Medical Branch cyclobenzap Yes Take by Un cindy rine HCl 2-18 mouth. ity of (FLEXERIL 21:47: [place] ORAL) 38 Medical Branch cyclobenzap Yes Take by Un cindy rine HCl 2-18 mouth. ity of (FLEXERIL 21:47: [place] ORAL) 38 Medical Branch docusate Yes 240mg Take 1 Univer s calcium 240 1-06 capsule by it y of mg capsule 00:00: mouth [place] 00 daily as Medical needed for Branch Constipati on. ibuprofen Yes 600mg Take 1 Unive rs 600 mg 1-06 tablet by ity of tablet 00:00: mouth [place] 00 every 6 Medical (six) Branch hours as needed for Pain (scale 1-3) or Pain (scale 4-6) (Pain). Take with food or milk. ferrous 2019-0 Yes 325mg Take 1 Univers sulfate 325 1-06 tablet by ity of mg (65 mg 00:00: mouth 3 [place] iron) 00 (three) Medical tablet times Branch daily with meals. docusate 2019-0 Yes 240mg Take 1 Univer s calcium 240 1-06 capsule by it y of mg capsule 00:00: mouth once [place] 00 daily as Medical needed for Branch Constipati on. ibuprofen 2019-0 Yes 600mg Take 1 Unive rs 600 mg 1-06 tablet by ity of tablet 00:00: mouth [place] 00 every 6 Medical (six) Branch hours as needed for Pain (scale 1-3) or Pain (scale 4-6) (Pain). Take with food or milk. ferrous 2019-0 Yes 325mg Take 1 Univers sulfate 325 1-06 tablet by ity of mg (65 mg 00:00: mouth 3 [place] iron) 00 (three) Medical tablet times Branch daily with meals. docusate 2019-0 Yes 240mg Take 1 Univer s calcium 240 1-06 capsule by it y of mg capsule 00:00: mouth [place] 00 daily as Medical needed for Branch Constipati on. ibuprofen 2019-0 Yes 600mg Take 1 Unive rs 600 mg 1-06 tablet by ity of tablet 00:00: mouth [place] 00 every 6 Medical (six) Branch hours as needed for Pain (scale 1-3) or Pain (scale 4-6) (Pain). Take with food or milk. ferrous 2019-0 Yes 325mg Take 1 Univers sulfate 325 1-06 tablet by ity of mg (65 mg 00:00: mouth 3 [place] iron) 00 (three) Medical tablet times Branch daily with meals. docusate 2019-0 Yes 240mg Take 1 Univer s calcium 240 1-06 capsule by it y of mg capsule 00:00: mouth once [place] 00 daily as Medical needed for Branch Constipati on. ibuprofen 2019-0 Yes 600mg Take 1 Unive rs 600 mg 1-06 tablet by ity of tablet 00:00: mouth [place] 00 every 6 Medical (six) Branch hours as needed for Pain (scale 1-3) or Pain (scale 4-6) (Pain). Take with food or milk. ferrous 2019-0 Yes 325mg Take 1 Univers sulfate 325 1-06 tablet by ity of mg (65 mg 00:00: mouth 3 [place] iron) 00 (three) Medical tablet times Branch daily with meals. docusate 2019-0 Yes 240mg Take 1 Univer s calcium 240 1-06 capsule by it y of mg capsule 00:00: mouth once [place] 00 daily as Medical needed for Branch Constipati on. ibuprofen 2019-0 Yes 600mg Take 1 Unive rs 600 mg 1-06 tablet by ity of tablet 00:00: mouth [place] 00 every 6 Medical (six) Branch hours as needed for Pain (scale 1-3) or Pain (scale 4-6) (Pain). Take with food or milk. ferrous 2019-0 Yes 325mg Take 1 Univers sulfate 325 1-06 tablet by ity of mg (65 mg 00:00: mouth 3 [place] iron) 00 (three) Medical tablet times Branch daily with meals. docusate 2019-0 Yes 240mg Take 1 Univer s calcium 240 1-06 capsule by it y of mg capsule 00:00: mouth once [place] 00 daily as Medical needed for Branch Constipati on. ibuprofen 2019-0 Yes 600mg Take 1 Unive rs 600 mg 1-06 tablet by ity of tablet 00:00: mouth [place] 00 every 6 Medical (six) Branch hours as needed for Pain (scale 1-3) or Pain (scale 4-6) (Pain). Take with food or milk. ferrous 2019-0 Yes 325mg Take 1 Univers sulfate 325 1-06 tablet by ity of mg (65 mg 00:00: mouth 3 [place] iron) 00 (three) Medical tablet times Branch daily with meals. docusate 2019-0 Yes 240mg Take 1 Univer s calcium 240 1-06 capsule by it y of mg capsule 00:00: mouth once [place] 00 daily as Medical needed for Branch Constipati on. ibuprofen 2019-0 Yes 600mg Take 1 Unive rs 600 mg 1-06 tablet by ity of tablet 00:00: mouth [place] 00 every 6 Medical (six) Branch hours as needed for Pain (scale 1-3) or Pain (scale 4-6) (Pain). Take with food or milk. ferrous 2019-0 Yes 325mg Take 1 Univers sulfate 325 1-06 tablet by ity of mg (65 mg 00:00: mouth 3 [place] iron) 00 (three) Medical tablet times Branch daily with meals. docusate 20190 Yes 240mg Take 1 Univer s calcium 240 1-06 capsule by it y of mg capsule 00:00: mouth once [place] 00 daily as Medical needed for Branch Constipati on. ibuprofen 2019-0 Yes 600mg Take 1 Unive rs 600 mg 1-06 tablet by ity of tablet 00:00: mouth [place] 00 every 6 Medical (six) Branch hours as needed for Pain (scale 1-3) or Pain (scale 4-6) (Pain). Take with food or milk. ferrous 2019-0 Yes 325mg Take 1 Univers sulfate 325 1-06 tablet by ity of mg (65 mg 00:00: mouth 3 [place] iron) 00 (three) Medical tablet times Branch daily with meals. docusate 0 Yes 240mg Take 1 Univer s calcium 240 1-06 capsule by it y of mg capsule 00:00: mouth once [place] 00 daily as Medical needed for Branch Constipati on. ibuprofen 2018-0 Yes 600mg Take 1 Unive rs 600 mg 1-06 tablet by ity of tablet 00:00: mouth [place] 00 every 6 Medical (six) Branch hours as needed for Pain (scale 1-3) or Pain (scale 4-6) (Pain). Take with food or milk. ferrous 2019-0 Yes 325mg Take 1 Univers sulfate 325 1-06 tablet by ity of mg (65 mg 00:00: mouth 3 [place] iron) 00 (three) Medical tablet times Branch daily with meals. docusate 0 Yes 240mg Take 1 Univer s calcium 240 1-06 capsule by it y of mg capsule 00:00: mouth once [place] 00 daily as Medical needed for Branch Constipati on. ibuprofen 2019-0 Yes 600mg Take 1 Unive rs 600 mg 1-06 tablet by ity of tablet 00:00: mouth [place] 00 every 6 Medical (six) Branch hours as needed for Pain (scale 1-3) or Pain (scale 4-6) (Pain). Take with food or milk. ferrous 2019-0 Yes 325mg Take 1 Univers sulfate 325 1-06 tablet by ity of mg (65 mg 00:00: mouth 3 [place] iron) 00 (three) Medical tablet times Branch daily with meals. docusate 2019-0 Yes 240mg Take 1 Univer s calcium 240 1-06 capsule by it y of mg capsule 00:00: mouth once [place] 00 daily as Medical needed for Branch Constipati on. ibuprofen 2019-0 Yes 600mg Take 1 Unive rs 600 mg 1-06 tablet by ity of tablet 00:00: mouth [place] 00 every 6 Medical (six) Branch hours as needed for Pain (scale 1-3) or Pain (scale 4-6) (Pain). Take with food or milk. ferrous 2019-0 Yes 325mg Take 1 Univers sulfate 325 1-06 tablet by ity of mg (65 mg 00:00: mouth 3 [place] iron) 00 (three) Medical tablet times Branch daily with meals. docusate 2019-0 Yes 240mg Take 1 Univer s calcium 240 1-06 capsule by it y of mg capsule 00:00: mouth once [place] 00 daily as Medical needed for Branch Constipati on. ibuprofen 2019-0 Yes 600mg Take 1 Unive rs 600 mg 1-06 tablet by ity of tablet 00:00: mouth [place] 00 every 6 Medical (six) Branch hours as needed for Pain (scale 1-3) or Pain (scale 4-6) (Pain). Take with food or milk. ferrous 2019-0 Yes 325mg Take 1 Univers sulfate 325 1-06 tablet by ity of mg (65 mg 00:00: mouth 3 [place] iron) 00 (three) Medical tablet times Branch daily with meals. docusate 2019-0 Yes 240mg Take 1 Univer s calcium 240 1-06 capsule by it y of mg capsule 00:00: mouth once [place] 00 daily as Medical needed for Branch Constipati on. ibuprofen 2019-0 Yes 600mg Take 1 Unive rs 600 mg 1-06 tablet by ity of tablet 00:00: mouth [place] 00 every 6 Medical (six) Branch hours as needed for Pain (scale 1-3) or Pain (scale 4-6) (Pain). Take with food or milk. ferrous 2019-0 Yes 325mg Take 1 Univers sulfate 325 1-06 tablet by ity of mg (65 mg 00:00: mouth 3 [place] iron) 00 (three) Medical tablet times Branch daily with meals. docusate 2019-0 Yes 240mg Take 1 Univer s calcium 240 1-06 capsule by it y of mg capsule 00:00: mouth once [place] 00 daily as Medical needed for Branch Constipati on. ibuprofen Yes 600mg Take 1 Unive rs 600 mg 1-06 tablet by ity of tablet 00:00: mouth [place] 00 every 6 Medical (six) Branch hours as needed for Pain (scale 1-3) or Pain (scale 4-6) (Pain). Take with food or milk. ferrous 2019 Yes 325mg Take 1 Univers sulfate 325 1-06 tablet by ity of mg (65 mg 00:00: mouth 3 [place] iron) 00 (three) Medical tablet times Branch daily with meals. docusate Yes 240mg Take 1 Univer s calcium 240 1-06 capsule by it y of mg capsule 00:00: mouth once [place] 00 daily as Medical needed for Branch Constipati on. ibuprofen Yes 600mg Take 1 Unive rs 600 mg 1-06 tablet by ity of tablet 00:00: mouth [place] 00 every 6 Medical (six) Branch hours as needed for Pain (scale 1-3) or Pain (scale 4-6) (Pain). Take with food or milk. ferrous Yes 325mg Take 1 Univers sulfate 325 1-06 tablet by ity of mg (65 mg 00:00: mouth 3 [place] iron) 00 (three) Medical tablet times Branch daily with meals. PNV 67-iron Yes [id number] 1{tbl} Take 1 Univers ps-folate 5-10 tablet by ity o f no.1-dha 00:00: mouth [place] (VITAFOL 00 daily. Medical ULTRA) 29 Branch mg iron- 1 mg-200 mg Cap PNV 67-iron Yes [id number] 1{tbl} Take 1 Univers ps-folate 5-10 tablet by ity o f no.1-dha 00:00: mouth [place] (VITAFOL 00 daily. Medical ULTRA) 29 Branch mg iron- 1 mg-200 mg Cap PNV 67-iron Yes [id number] 1{tbl} Take 1 Univers ps-folate 5-10 tablet by ity o f no.1-dha 00:00: mouth [place] (VITAFOL 00 daily. Medical ULTRA) 29 Branch mg iron- 1 mg-200 mg Cap PNV 67-iron Yes [id number] 1{tbl} Take 1 Univers ps-folate 5-10 tablet by ity o f no.1-dha 00:00: mouth [place] (VITAFOL 00 daily. Medical ULTRA) 29 Branch mg iron- 1 mg-200 mg Cap PNV 67-iron 2018-0 Yes [id number] 1{tbl} Take 1 Univers ps-folate 5-10 tablet by ity o f no.1-dha 00:00: mouth [place] (VITAFOL 00 daily. Medical ULTRA) 29 Branch mg iron- 1 mg-200 mg Cap PNV 67-iron 2018-0 Yes [id number] 1{tbl} Take 1 Univers ps-folate 5-10 tablet by ity o f no.1-dha 00:00: mouth [place] (VITAFOL 00 daily. Medical ULTRA) 29 Branch mg iron- 1 mg-200 mg Cap PNV 67-iron 2018-0 Yes [id number] 1{tbl} Take 1 Univers ps-folate 5-10 tablet by ity o f no.1-dha 00:00: mouth [place] (VITAFOL 00 daily. Medical ULTRA) 29 Branch mg iron- 1 mg-200 mg Cap PNV 67-iron 2018-0 Yes [id number] 1{tbl} Take 1 Univers ps-folate 5-10 tablet by ity o f no.1-dha 00:00: mouth [place] (VITAFOL 00 daily. Medical ULTRA) 29 Branch mg iron- 1 mg-200 mg Cap PNV 67-iron 2017-0 Yes [id number] 1{tbl} Take 1 Univers ps-folate 5-10 tablet by ity o f no.1-dha 00:00: mouth [place] (VITAFOL 00 daily. Medical ULTRA) 29 Branch mg iron- 1 mg-200 mg Cap PNV 67-iron 2018-0 Yes [id number] 1{tbl} Take 1 Univers ps-folate 5-10 tablet by ity o f no.1-dha 00:00: mouth [place] (VITAFOL 00 daily. Medical ULTRA) 29 Branch mg iron- 1 mg-200 mg Cap PNV 67-iron 2018-0 Yes [id number] 1{tbl} Take 1 Univers ps-folate 5-10 tablet by ity o f no.1-dha 00:00: mouth [place] (VITAFOL 00 daily. Medical ULTRA) 29 Branch mg iron- 1 mg-200 mg Cap PNV 67-iron 2018-0 Yes [id number] 1{tbl} Take 1 Univers ps-folate 5-10 tablet by ity o f no.1-dha 00:00: mouth [place] (VITAFOL 00 daily. Medical ULTRA) 29 Branch mg iron- 1 mg-200 mg Cap PNV 67-iron 2017-0 Yes [id number] 1{tbl} Take 1 Univers ps-folate 5-10 tablet by ity o f no.1-dha 00:00: mouth [place] (VITAFOL 00 daily. Medical ULTRA) 29 Branch mg iron- 1 mg-200 mg Cap PNV 67-iron 0 Yes [id number] 1{tbl} Take 1 Univers ps-folate 5-10 tablet by ity o f no.1-dha 00:00: mouth [place] (VITAFOL 00 daily. Medical ULTRA) 29 Branch mg iron- 1 mg-200 mg Cap PNV 67-iron Yes [id number] 1{tbl} Take 1 Univers ps-folate 5-10 tablet by ity o f no.1-dha 00:00: mouth [place] (VITAFOL 00 daily. Medical ULTRA) 29 Branch mg iron- 1 mg-200 mg Cap Immunizations Ordered Filled Immunization Date Status Comments [facility] e Immunization Name Name Influenza Virus 2017-12-21 Completed Universit y of Vaccine Quad IM 00:00:00 [place] Med ical Multi-dose 6+ MO Branch Influenza Virus 2017-12-21 Completed Universit y of Vaccine Quad IM 00:00:00 [place] Med ical Multi-dose 6+ MO Branch Influenza Virus 2017-12-21 Completed Universit y of Vaccine Quad IM 00:00:00 [place] Med ical Multi-dose 6+ MO Branch Influenza Virus 2017-12-21 Completed Universit y of Vaccine Quad IM 00:00:00 [place] Med ical Multi-dose 6+ MO Branch Influenza Virus 2017-12-21 Completed Universit y of Vaccine Quad IM 00:00:00 [place] Med ical Multi-dose 6+ MO Branch Influenza Virus 2017-12-21 Completed Universit y of Vaccine Quad IM 00:00:00 [place] Med ical Multi-dose 6+ MO Branch Influenza Virus 2017-12-21 Completed Universit y of Vaccine Quad IM 00:00:00 [place] Med ical Multi-dose 6+ MO Branch Influenza Virus 2017-12-21 Completed Universit y of Vaccine Quad IM 00:00:00 [place] Med ical Multi-dose 6+ MO Branch Influenza Virus 2017-12-21 Completed Universit y of Vaccine Quad IM 00:00:00 [place] Med ical Multi-dose 6+ MO Branch Influenza Virus 2017-12-21 Completed Universit y of Vaccine Quad IM 00:00:00 [place] Med ical Multi-dose 6+ MO Branch Influenza Virus 2017-12-21 Completed Universit y of Vaccine Quad IM 00:00:00 [place] Med ical Multi-dose 6+ MO Branch Influenza Virus 2017-12-21 Completed Universit y of Vaccine Quad IM 00:00:00 [place] Med ical Multi-dose 6+ MO Branch Influenza Virus 2017-12-21 Completed Universit y of Vaccine Quad IM 00:00:00 [place] Med ical Multi-dose 6+ MO Branch Influenza Virus 2017-12-21 Completed Universit y of Vaccine Quad IM 00:00:00 [place] Med ical Multi-dose 6+ MO Branch Influenza Virus 2017-12-21 Completed Universit y of Vaccine Quad IM 00:00:00 [place] Med ical Multi-dose 6+ MO Branch Tdap 2017-12-07 Completed University of 00:00:00 [facility] Branch Tdap 2017-12-07 Completed University of 00:00:00 [facility] Branch Tdap 2017-12-07 Completed University of 00:00:00 [facility] Branch Tdap 2017-12-07 Completed University of 00:00:00 [facility] Branch Tdap 2017-12-07 Completed University of 00:00:00 [facility] Branch Tdap 2017-12-07 Completed University of 00:00:00 [facility] Branch TDAP 2017-12-07 Completed University of 00:00:00 [place] [facility] TDAP 2017-12-07 Completed University of 00:00:00 [place] [facility] TDAP 2017-12-07 Completed University of 00:00:00 [place] [facility] TDAP 2017-12-07 Completed University of 00:00:00 [facility] Branch Tdap 2017-12-07 Completed University of 00:00:00 [place] [facility] Tdap 2017-12-07 Completed University of 00:00:00 [facility] Branch Tdap 2017-12-07 Completed University of 00:00:00 [facility] Branch Tdap 2017-12-07 Completed University of 00:00:00 [facility] Branch Tdap 2017-12-07 Completed University of 00:00:00 [facility] Branch Tdap 2016-03-28 Completed University of 00:00:00 [facility] Tdap 2016-03-28 Completed University of 00:00:00 [facility] Tdap 2016-03-28 Completed University of 00:00:00 [facility] Tdap 2016-03-28 Completed University of 00:00:00 [facility] Tdap 2016-03-28 Completed University of 00:00:00 [facility] Tdap 2016-03-28 Completed University of 00:00:00 [facility] TDAP 2016-03-28 Completed University of 00:00:00 [facility] TDAP 2016-03-28 Completed University of 00:00:00 [facility] TDAP 2016-03-28 Completed [facility] of 00:00:00 [facility] TDAP 2016-03-28 Completed [facility] of 00:00:00 [facility] Tdap 2016-03-28 Completed [facility] of 00:00:00 [facility] Tdap 2016-03-28 Completed [facility] of 00:00:00 [facility] Tdap 2016-03-28 Completed [facility] of 00:00:00 [facility] Tdap 2016-03-28 Completed [facility] of 00:00:00 [facility] Tdap 2016-03-28 Completed [facility] of 00:00:00 [facility] Influenza Virus 2015-11-23 Completed Universit y of Vaccine Quad IM 3+ 00:00:00 [facility] Influenza Virus 2015-11-23 Completed Universit y of Vaccine Quad IM 3+ 00:00:00 [facility] Influenza Virus 2015-11-23 Completed Universit y of Vaccine Quad IM 3+ 00:00:00 [facility] Influenza Virus 2015-11-23 Completed Universit y of Vaccine Quad IM 3+ 00:00:00 [facility] Influenza Virus 2015-11-23 Completed Universit y of Vaccine Quad IM 3+ 00:00:00 [facility] Influenza Virus 2015-11-23 Completed Universit y of Vaccine Quad IM 3+ 00:00:00 [facility] Influenza Virus 2015-11-23 Completed Universit y of Vaccine Quad IM 3+ 00:00:00 [facility] Influenza Virus 2015-11-23 Completed Universit y of Vaccine Quad IM 3+ 00:00:00 [facility] Influenza Virus 2015-11-23 Completed Universit y of Vaccine Quad IM 3+ 00:00:00 [facility] Influenza Virus 2015-11-23 Completed Universit y of Vaccine Quad IM 3+ 00:00:00 [facility] Influenza Virus 2015-11-23 Completed Universit y of Vaccine Quad IM 3+ 00:00:00 [facility] Influenza Virus 2015-11-23 Completed Universit y of Vaccine Quad IM 3+ 00:00:00 [facility] Influenza Virus 2015-11-23 Completed Universit y of Vaccine Quad IM 3+ 00:00:00 [facility] Influenza Virus 2015-11-23 Completed Universit y of Vaccine Quad IM 3+ 00:00:00 [facility] Influenza Virus 2015-11-23 Completed Universit y of Vaccine Quad IM 3+ 00:00:00 [facility] Vital Signs Vital Name Observation Time Observation Value Comments Source Systolic blood 2020-07-04 23:00:00 106 mm[Hg] Univer sity of pressure [facility] Diastolic blood 2020-07-04 23:00:00 75 mm[Hg] Unive rsity of pressure [facility] Heart rate 2020-07-04 23:00:00 78 /min Universi ty of [facility] Respiratory rate 2020-07-04 23:00:00 16 /min [facility] Oxygen saturation in 2020-07-04 23:00:00 100 /min [facility] Arterial blood by [facility] Pulse oximetry [place] Body temperature 2020-07-04 20:28:[address] [facility] height 2020-07-04 20:28:00 149.9 cm Universi ty [facility] Body weight 2020-07-04 20:28:00 54.432 kg Universi ty [facility] BMI 2020-07-04 20:28:00 24.24 kg/m2 Universi ty [facility] Systolic blood 2019-07-01 14:18:00 110 mm[Hg] Univer sity of pressure [facility] Diastolic blood 2019-07-01 14:18:00 78 mm[Hg] Unive rsity of pressure [facility] Heart rate 2019-07-01 14:18:00 77 /min Universi ty [facility] Body temperature 2019-07-01 14:18:[address] [facility] ersity of [facility] Respiratory rate 2019-07-01 14:18:00 16 /min [facility] Body height 2019-07-01 14:18:00 149.9 cm Universi ty of [facility] Body weight 2019-07-01 14:18:00 55.566 kg Universi ty [facility] BMI 2019-07-01 14:18:00 24.74 kg/m2 Universi ty [facility] Systolic blood 2019-07-01 14:18:00 110 mm[Hg] Univer sity of pressure [facility] Diastolic blood 2019-07-01 14:18:00 78 mm[Hg] [facility] Heart rate 2019-07-01 14:18:00 77 /min Universi ty [facility] Body temperature 2019-07-01 14:18:[address] [facility] Respiratory rate 2019-07-01 14:18:00 16 /min [facility] Body height 2019-07-01 14:18:00 149.9 cm Universi ty [facility] Body weight 2019-07-01 14:18:00 55.566 kg Universi ty [facility] BMI 2019-07-01 14:18:00 24.74 kg/m2 Universi ty [facility] Procedures Procedure Date / Time Performed Performing Clinician Sour e CT ABDOMEN PELVIS W 2020-07-04 22:06:19 Nury Montoya [facility] CBC WITH DIFF 2020-07-04 21:00:00 [place], [facility] LIPASE 2020-07-04 20:39:00 Dupree, [facility] COMP. METABOLIC PANEL 2020-07-04 20:39:[address] [facility] ([id number] URINALYSIS 2020-07-04 20:39:00 Dupree, [facility] POCT TEST 2020-07-04 20:35:00 Marques Dupree [facility] NOTICE OF PRIVACY 2020-07-04 20:23:42 Doctor Unassigned, No Univ [facility] PRACTICES Name Medical Branch CONSENT/REFUSAL FOR 2020-07-04 20:23:23 [facility]igned, [facility] AND Name Medical Branch TREATMENT Encounters Start End Encounter Admission Attending Care Care Encounter Source Date/Time Date/Time Type Type Clinicians Facility Department ID 2020-12-16 Emergency [facility] [id number] Univers 20:06:42 ity of [facility] 2020-07-04 2020-07-04 Emergency [facility] [id number] Univers 15:27:00 18:58:00 Nury [place] 350.1.13.10 i [place] [phone] [facility] 084 [place] 2020-07-04 2020-07-04 Orders Doctor YESENIA [id number] Univers 00:00:00 00:00:00 Only Unassigned, KAYE 350.1.13.10 ity of [place] [facility] 4.2.7.2.686 Petey as [phone] [facility] 009 Branch 2020-05-08 2020-05-08 [facility] [id number] Univers 00:00:00 00:00:00 Outreach Kenneth PRIMARY [id number] i ty of [facility] [place].2.[place] [phone] [address] 2019-07-20 2019-07-20 Telephone [facility] [id number] Univers 00:00:00 00:00:00 Amina Krishnamurthy [employer] [id number] ity of [facility] 4.2.7.2.686 Pet[place] as MATERNAL [phone] Med ical & CHILD [address] [place] [address] 2019-07-20 2019-07-20 Patient Doctor [facility] [id number] Univers 00:00:00 00:00:00 Secure Msg Unassigned, [employer] [id number] ity of [place] [facility] 4.2.7.2.686 Petey as MATERNAL [phone] Med ical & CHILD [address] [place] [address] 2019-07-07 2019-07-07 Telephone [facility] [id number] Univers 00:00:00 00:00:00 Dian Carranza [employer] [id number] ity of REGIONAL 4.2.7.2.686 [place] as MATERNAL [phone] Med ical & CHILD 107 [facility] 2019-07-07 2019-07-07 Letter [facility] [id number] Univers 00:00:00 00:00:00 (Out) Dian Carranza [employer] 350.1.13.10 ity of REGIONAL 4.2.7.2.686 [place] as MATERNAL [phone] Med ical & CHILD 107 [facility] 2019-07-06 2019-07-06 Case [facility] [id number] Univers 00:00:00 00:00:00 Management Pattie [employer] 350.1.13.10 ity of [facility] 4.2.7.2.686 [place] as MATERNAL [phone] Med ical & CHILD 124 [facility] 2019-07-01 2019-07-01 Office Provider, [facility] 1 .2.840.114 [id number] Univers 09:04:44 09:45:26 Visit Pattie Gorman [employer] 350.1.13.10 ity of [facility] 4.2.7.2.686 [place] as MATERNAL [phone] Med ical & CHILD [address] [place] [address] 2019-07-01 2019-07-01 Office Provider, [facility] [id number] 09:04:44 09:45:26 Visit [facility] [employer] 350.1.13.10 [facility] 4.2.7.2.686 MATERNAL [phone] & CHILD [address] [place] [address] 2019-07-01 2019-07-01 Outpatient R [facility] [id number] Univers 09:00:00 09:00:00 [id number] ity of [facility] 2019-07-01 2019-07-01 Outpatient R SHERIF [facility] [id number] Univers 09:00:00 09:00:[address] [facility] 2019-06-29 2019-06-29 Patient Doctor [facility] [id number] Univers 00:00:00 00:00:00 Secure Msg Unassigned, [employer] 350.1.13.10 ity of [place] [facility] 4.2.7.2.686 Petey as MATERNAL [phone] [address] 2019-06-28 2019-06-28 Telemedici [facility] [id number] Univers 15:04:17 15:39:02 ne Visit [facility] R [employer] 350.1.13.10 ity of [facility] 4.2.7.2.686 [place] as MATERNAL [phone] [address] 2019-06-28 2019-06-28 Outpatient [facility] [id number] Univers 15:30:00 15:30:00 [facility] [id number] ity o [facility] 2019-06-28 2019-06-28 Outpatient R [facility] [id number] Univers 15:30:00 15:30:00 [facility] itjessica [facility] 2019-06-28 2019-06-28 Telephone [facility] [place] 1.2.840.114 [id number] Univers 00:00:00 00:00:00 Dian Carranza [employer] 350.1.13.10 ity of [facility] 4.2.7.2.686 [place] as MATERNAL [phone] [address] Results Test Description Test Time Test Comments Results Result [facility] e Comments CT ABDOMEN 2020-06-16 No acute University of PELVIS W 9 intra-abdominal or [place] [facility] CONTRAST 22:46:38 pelvic abnormality. [facility] RL: [id number] Patient name: MANA VALENZUELA: 1995 24 years EXAMINATION: CT ABDOMEN PELVIS W CONTRAST Ordering Physician: NURY MONTOYA CLINICAL HISTORY:Abdominal pain, acute, nonlocalized COMPARISON:None TECHNIQUE:Helical CT images of the abdomen and pelvis were performed from the lungbases to the proximal femurs using 5 mm slice thickness after theadministration of IV contrast. Coronal and sagittal reconstruction wasperformed. Dose reduction technology was utilized.. FINDINGS:The liver is normal in size and morphology without discrete lesions. Nocalcified gallstones. The spleen is normal. No pancreatic lesions orinflammatory changes. The adrenal glands are normal. Both kidneys enhance symmetrically without discrete lesions. No stones orhydronephrosis. Urinary bladder is grossly normal. Small cyst in left ovarymeasures 2.2 cm. Uterus is normal. No hiatal hernia or esophageal thickening. No discrete gastric thickeningor surrounding inflammatory changes. The large and small bowel are normalin caliber and wall thickness. The appendix is normal. Small amount of pelvic free fluid without abscess.. No adenopathy. Aorta isnormal in caliber. No acute osseous abnormality. No acute process in the subcutaneous softtissues. The lung bases are clear. [facility], Radiant Results Inft User - 07/04/2020 5:47 PM CDTPatient name: MANA DAVISZAC: 1995 24 years EXAMINATION: CT ABDOMEN PELVIS W CONTRASTOrdering Physician: NURY MONTOYA CLINICAL HISTORY:Abdominal pain, acute, nonlocalized COMPARISON:NoneTECHNI QUE:Helical CT images of the abdomen and pelvis were performed from the lungbases to the proximal femurs using 5 mm slice thickness after theadministration of IV contrast. Coronal and sagittal reconstruction wasperformed. Dose reduction technology was utilized..FINDINGS:Th e liver is normal in size and morphology without discrete lesions. Nocalcified gallstones. The spleen is normal. No pancreatic lesions orinflammatory changes. The adrenal glands are normal.Both kidneys enhance symmetrically without discrete lesions. No stones orhydronephrosis. Urinary bladder is grossly normal. Small cyst in left ovarymeasures 2.2 cm. Uterus is normal.No hiatal hernia or esophageal thickening. No discrete gastric thickeningor surrounding inflammatory changes. The large and small bowel are normalin caliber and wall thickness. The appendix is normal.Small amount of pelvic free fluid without abscess.. No adenopathy. Aorta isnormal in caliber.No acute osseous abnormality. No acute process in the subcutaneous softtissues. The lung bases are clear.IMPRESSIONNo acute intra-abdominal or pelvic abnormality.RL: [id number] Urinalysis 2020-07-04 21:17:07 Test Item Value Reference Range Interpretation Comme nts APPEARANCE (test code = Hazy Clear A 3840302337) COLOR (test code = 3128275007) Yellow Yellow PH (test code = 9365595188) 4.8-8.0 SP GRAVITY (test code = 1.003-1.030 0872350032) GLU U QUAL (test code = Normal Normal 9592857237) BLOOD (test code = 5657372836) Negative Negative KETONES (test code = 6429597987) 80 mg/dL Negative A PROTEIN (test code = 2887-8) Negative Negative UROBILIN (test code = Normal Normal 4757202378) BILIRUBIN (test code = Negative Negative 9849528647) NITRITE (test code = 9471298956) Negative Negative LEUK ROBBI (test code = 500/uL Negative A 1063604170) RBC/HPF (test code = 4639293486) See_Comment H [Automated message] The system which ge nerated this result transmit carole reference range: 0 - 3 HP F. The reference range was not used to interpret th is result as normal/abnormal . WBC/HPF (test code = 9052827139) See_Comment H [Automated message] The system which ge nerated this result transmit carole reference range: 0 - 5 HP F. The reference range was not used to interpret th is result as normal/abnormal . BACTERIA (test code = Few Negative A 3400068982) MUCOUS (test code = 1136738339) Marked Negative LPF A SQ EPITH (test code = HPF 9547141073) Lab Interpretation (test code = Abnormal 77604-0) [facility] [id number] 21:08:25 Test Item Value Reference Range Interpretation Comments NA (test code = 138 mmol/L 135-145 3102741550) K (test code = 3.9 mmol/L 3.5-5.0 8664675822) CL (test code = 102 mmol/L 98-108 8515843730) CO2 TOTAL (test code = 25 mmol/L 23-31 8825053917) AGAP (test code = 2-16 8559467645) BUN (test code = 12 mg/dL 7-23 8962214912) GLUCOSE (test code = 110 mg/dL 70-110 5930499072) CREATININE (test code = 0.61 mg/dL 0.50-1.04 8355043365) TOTAL BILI (test code = 1.0 mg/dL 0.1-1.1 6922013941) CALCIUM (test code = 10.1 mg/dL 8.6-10.6 4862385980) T PROTEIN (test code = 8.5 g/dL 6.3-8.2 H 7691151423) ALBUMIN (test code = 5.0 g/dL 3.5-5.0 3652276172) ALK PHOS (test code = 75 U/L 34-122 2956163775) ALTv (test code = 16 U/L 5-35 2-6) AST(SGOT) (test code = 39 U/L 13-40 0575327723) eGFR (test code = mL/min/1.73m2 0377102421) CHARU (test code = CHARU) Association of Glomerular Filtration Rate (GFR) and Staging of Kidney Disease* + --+ --+ ------+| GFR (mL/min/1.73 m2) ?| With Kidney Damage ?| ?Without Kidney Damage+ --------+ --------+ +| ?>90 ?| ?Stage one ?| ? Normal ?+ ---+ ---+ -------+| ?60-89 ?| ?Stage two ?| ? Decreased GFR ? + --+ --+ ------+| ?30-59 ?| ?Stage three ?| ? Stage three ? + --+ --+ ------+| ?15-29 ?| ?Stage four ? | ? Stage four ?+ ---+ ---+ -------+| ?<15 (or dialysis) ? ?| ?Stage five ? | ? Stage five ?+ ---+ ---+ -------+ *Each stage assumes the associated GFR level has been in effect for at least three months. ?Stages 1 to 5, with or without kidney disease, indicate chronic kidney disease. Notes: Determination of stages one and two (with eGFR >59mL/min/1.73 m2) requires estimation of kidney damage for at least three months as defined by structural or functional abnormalities of the kidney, manifested by either:Pathological abnormalities or Markers of kidney damage (including abnormalities in the composition of the blood or urine or abnormalities in imaging tests). Lab Interpretation Abnormal (test code = 41262-5) [facility], [id number] 21:08:04 Test Item Value Reference Range Interpretation Comments LIPASE (test code = 0695686583) 24 U/L 0-220 Lab Interpretation (test code = Normal 15514-9) [facility] with [id number] 21:07:18 Test Item Value Reference Range Interpretation Comments WBC (test code = See_Comment L [Automated 6690-2) message] The sy stem which generated this result transmitted reference range : 4.30 - 11.10 10*3/?L. The reference range was not used to interpret this result as normal/abnormal . RBC (test code = See_Comment [Automated 789-8) message] The sy stem which generated this result transmitted reference range : 3.93 - 5.25 10*6/?L. The reference range was not used to interpret this result as normal/abnormal . HGB (test code = 12.2 g/dL 11.6-15.0 718-7) HCT (test code = 36.2 % 35.7-45.2 4544-3) MCV (test code = 90.7 fL 80.6-95.5 787-2) MCH (test code = 30.6 pg 25.9-32.8 785-6) MCHC (test code = 33.7 g/dL 31.6-35.1 786-4) RDW-SD (test code = 39.7 fL 39.0-49.9 27982-2) RDW-CV (test code = 11.9 % 12.0-15.5 L 788-0) PLT (test code = See_Comment [Automated 777-3) message] The sy stem which generated this result transmitted reference range : 166 - 358 10*3/ ?L. The reference r mickey was not used to interpret this result as normal/abnormal . MPV (test code = 11.0 fL 9.5-12.9 74966-6) NRBC/100 WBC (test See_Comment [Automat ed code = 2222280396) message] The system which generated this result transmitted reference range : 0.0 - 10.0 /100 WBCs. The refer ence range was not u sed to interpret th is result as normal/abnormal . NRBC x10^3 (test code <0.01 See_Comment [Auto mated = 1840592374) message] The s ystem which generated this result transmitted reference range : 10*3/?L. The reference range was not used to interpret this result as normal/abnormal . GRAN MAT (NEUT) % 69.8 % (test code = 770-8) IMM GRAN % (test code 1.00 % = 5235377422) LYMPH % (test code = 20.4 % 736-9) MONO % (test code = 7.5 % 5905-5) EOS % (test code = 1.0 % 713-8) BASO % (test code = 0.3 % 706-2) GRAN MAT x10^3(ANC) 2.78 10*3/uL 1.88-7.09 (test code = 9646721740) IMM GRAN x10^3 (test 0.04 10*3/uL 0.00-0.06 code = 3070537306) LYMPH x10^3 (test code 0.81 10*3/uL 1.32-3.29 L = 731-0) MONO x10^3 (test code 0.30 10*3/uL 0.33-0.92 L = 742-7) EOS x10^3 (test code = 0.04 10*3/uL 0.03-0.39 711-2) BASO x10^3 (test code <0.03 0.01-0.07 = 704-7) Lab Interpretation Abnormal (test code = 50353-7) [facility] [id number] 20:35:00 Test Item Value Reference Range Interpretation Comments POCT PREG (test code = 1605) negative On board controls acceptable with present C Line (test code = 3574) POCT PREG LOT # (test code = 3575) [id number] POCT PREG TEST DATE (test 2022-01-15 code = 3576) Lab Interpretation (test code = Normal 23893-7) [facility]"
== END 2020-12-19 06:48 | disposition home or self-care (01) ==
LOC: ER 04:33
DX: J01.90 Acute sinusitis, unspecified (principal); B34.9 Viral infection, unspecified; Z20.822 Contact with and (suspected) exposure to COVID-19
CPT/HCPCS: 87070; 87081; 0240U; 71045; 99284

== ENCOUNTER 2021-03-06 06:44 | Emergency (ER) | payer OTHER ==
--- OUTSIDE RECORDS SUMMARY | 2021-03-06 06:47 | XMS REPORT | Continuity of Care Document ---
:1995 Author Organization [facility] t Address [address] [place]incon [address] [place] [address] Care Team Providers Name Role Phone [email or web address]_D Attending Clinician Unavailable [email or web address]_D Admitting Clinician Unavailable Payers Payer Name Policy Type Policy Number Effective Date Expiration Date [facility] [id number] Problems This patient has no known problems. Allergies, Adverse Reactions, Alerts This patient has no known allergies or adverse reactions. Medications This patient has no known medications. Procedures This patient has no known procedures. Encounters Start End Encounter Admission Attending Care Care Encounter Source Date/Time Date/Time Type Type Clinicians Facility Department ID 2020-08-15 2020-08-15 Outpatient GC_[facility]_ PRIV PRIV [id number] [facility] 04:42:00 04:42:00 Black_D [id number] Medica l Results This patient has no known results.
[2021-03-06] MEDS ORDERED: NA CHLORIDE 0.9% 1,000 ML ONE (07:06)
[2021-03-06] MEDS ORDERED: ACETAMINOPHEN 500 MG TAB ONE (07:06)
[2021-03-06 07:27] LABS: Urine Blood Negative (Negative); Urine Glucose Negative (Negative); Urine Protein Negative (Negative)
[2021-03-06 07:32] LABS: Absolute Lymphocytes (CBC) 0.3 K/uL (0.7-4.9); Hematocrit 33.3 % (36.0-45.0); Lymphocytes % 6.3 % (15.3-44.8); MPV 9.5 fL (7.6-11.3); RBC Red Blood Cell Count 3.68 M/uL (3.86-4.86)
[2021-03-06 07:33] LABS: Protime INR 1.09
[2021-03-06 07:35] LABS: Urine Bacteria NONE SEEN /HPF (<20); Urine RBC NONE SEEN /HPF (NONE SEEN)
[2021-03-06 07:43] LABS: BUN Blood Urea Nitrogen 12 mg/dL (7-18); Bicarbonate 22 mmol/L (21-32); Glucose Level 102 mg/dL (74-106); Potassium 3.5 mmol/L (3.5-5.1); Sodium Level 137 mmol/L (136-145)
--- NOTE | 2021-03-06 08:23 | RAD REPORT ---
EXAM DESCRIPTION: RAD - Chest Single View - 03/06/2021 8:04 am CLINICAL HISTORY: Cough;Fever COMPARISON: Chest Single View dated 12/19/2020 FINDINGS: Lines: None. Lungs: No evidence of edema or pneumonia. Pleural: No significant pleural effusions or pneumothorax. Cardiac: The heart size is within normal limits. Bones: No acute fractures. Other: IMPRESSION: No acute cardiopulmonary disease.
[2021-03-06 09:33] LABS: SARS-COV-2 RT PCR POSITIVE (NEGATIVE)
--- NOTE | 2021-03-06 09:45 | ER ---
Nurse's Notes [facility] Name: Patricia Monroe Age: 25 yrs Sex: Female : 1995 Arrival Date: 03/06/2021 Time: 06:45 Bed 18 Private MD: Diagnosis: SARS-associated coronavirus as the cause of diseases classified elsewhere;Headache Presentation: 03/06 06:46 Chief complaint: Patient states: "I've had a fever and a cough...yeah, I was here a few zoya weeks ago...I thought I had Covid...". Coronavirus screen: Vaccine status: Patient reports being unvaccinated. Ebola Screen: Patient negative for fever greater than or equal to 101.5 degrees Fahrenheit, and additional compatible Ebola Virus Disease symptoms Patient denies exposure to infectious person. Patient denies travel to an Ebola-affected area in the 21 days before illness onset. Initial Sepsis Screen: Does the patient meet any 2 criteria? No. Patient's initial sepsis screen is negative. Risk Assessment: Do you want to hurt yourself or someone else? Patient reports no desire to harm self or others. Onset of symptoms was March 05, 2021. 06:46 Method Of Arrival: EMS: [facility] zoya 06:46 Acuity: WALTER 3 zoya 06:57 Initial Sepsis Screen: Does the patient have a suspected source of infection? No. zoya Patient's initial sepsis screen is negative. Triage Assessment: 06:50 General: Appears in no apparent distress. General: Behavior is calm, cooperative. Pain: zoya Complains of pain in face. 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 - Social history:: Smoking status: Patient/guardian denies using. Screenin:51 Abuse screen: Denies threats or abuse. Denies injuries from another. Nutritional zoya screening: No deficits noted. Tuberculosis screening: No symptoms or risk factors identified. Fall Risk None identified. Assessment: 06:51 General: Appears in no apparent distress. comfortable, Behavior is calm, cooperative. zoya General: The pt reports having KAUR and fever x 1 day. She took Ibuprofen \\T\\ approx 0600, prior to EMS arriving to bring her to us. They gave her Toradol and about 500cc of NS. Pt was afebrile when we recv'd her and her VS are unremarkable. She traveled to us about 2 weeks ago, as she "thought she had Covid". . Pain: Complains of pain in face. Neuro: No deficits noted. Cardiovascular: No deficits noted. Respiratory: No deficits noted. 07:48 Reassessment: pt decline strep test. kaur Vital Signs: 06:46 BP 102 / 70; Pulse 118; Resp 18; Temp 98.6; Pulse Ox 99% on R/A; zoya 06:51 BP 103 / 60; Pulse 116; Resp 18; Temp 98.6; Pulse Ox 98% on R/A; zoya 07:49 BP 95 / 64; Pulse 98; Resp 18; Pulse Ox 100% on R/A; kaur ED Course: 06:45 Patient arrived in ED. wm 06:45 Anabela Villatoro RN is Primary Nurse. zoya 06:49 Cricket Yan PA is PHCP. cp 06:49 Jose Aquino MD is Attending Physician. cp 06:50 Triage completed. zoya 06:51 Patient has correct armband on for positive identification. Bed in low position. Side zoya rails up X 1. Pulse ox on. NIBP on. 06:51 [address] Placed by EMS, to pt's left AC. 18gauge. zoya 06:57 No provider procedures requiring assistance completed. zoya 07:19 Kelton Herrera MD is Attending Physician. cp 07:27 Crowley Screen Profile Sent. kaur 07:27 BMP Sent. kaur 07:27 CBC with Diff Sent. kaur 07:27 PT-INR Sent. kaur 07:27 Urine Microscopic Only Sent. kaur 07:29 Arm band placed on. kaur 08:04 XRAY Chest (1 view) In Process Unspecified. EDMS 09:58 IV discontinued, bleeding controlled, Pressure dressing applied. kaur Administered Medications: 07:27 Drug: Tylenol 1000 mg Route: PO; kaur 07:28 Follow up: Response: No adverse reaction kaur 07:28 Drug: NS 0.9% 1000 ml Route: IV; Rate: 1 bolus; Site: left antecubital; kaur 08:33 Follow up: IV Status: Completed infusion kaur Outcome: 06:57 Condition: stable zoya 09:44 Discharge ordered by MD. diamond 09:58 Discharged to home kaur 09:58 Condition: good 09:58 Discharge instructions given to patient, Prescriptions given X 1. 09:59 Patient left the ED. kaur Signatures: Dispatcher [employer] EDMS Cricket Yan PA PA cp Marsh, Wendy wm O'Farrell, Brenda, RN RN bo Au-Mya Augustine RN RN ha
--- NOTE | 2021-03-06 09:45 | EDPHYS ---
Physician Documentation [facility] Name: Patricia Monroe Age: 25 yrs Sex: Female : 1995 Arrival Date: 03/06/2021 Time: 06:45 Bed 18 Private MD: ED Physician Kelton Herrera HPI: 03/06 07:00 This 25 yrs old Female presents to ER via EMS with complaints of Pain - SPINE, cp Fever. 07:00 Onset: The symptoms/episode began/occurred yesterday. cp 07:00 Associated signs and symptoms: Pertinent negatives: abdominal pain, altered mental cp status, chest pain, diarrhea, skin rash, shortness of breath, vomiting. 07:00 Patient reports she has not been vaccinated against COVID-19. 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 - Social history:: Smoking status: Patient/guardian denies using. ROS: 07:10 Constitutional: Positive for body aches, Negative for fever, poor PO intake. cp 07:10 Eyes: Negative for injury, pain, redness, and discharge. cp 07:10 ENT: Positive for sore throat, Negative for drainage from ear(s), ear pain, difficulty swallowing, difficulty handling secretions. 07:10 Cardiovascular: Negative for chest pain. 07:10 Respiratory: Negative for cough, shortness of breath, wheezing. 07:10 Abdomen/GI: Negative for abdominal pain, vomiting, diarrhea, constipation. 07:10 Back: Positive for pain at rest, pain with movement. 07:10 Skin: Negative for rash. 07:10 Neuro: Positive for headache, Negative for altered mental status, weakness. 07:10 All other systems are negative. Exam: 07:15 Constitutional: The patient appears in no acute distress, alert, awake, non-toxic, well cp developed, well nourished. 07:15 Head/Face: Normocephalic, atraumatic. cp 07:15 Eyes: Periorbital structures: appear normal, Conjunctiva: normal, no exudate, no injection, Lids and lashes: appear normal, bilaterally. 07:15 ENT: External ear(s): are unremarkable, Ear canal(s): are normal, clear, TM's: dullness, bilaterally, Nose: is normal, Mouth: Lips: moist, Oral mucosa: moist, Posterior pharynx: Airway: no evidence of obstruction, patent, Tonsils: no enlargement, no exudate, erythema, that is mild, exudate, is not appreciated. 07:15 Neck: ROM/movement: pain, that is mild, with any movement, limited range of motion, is not appreciated, Meningeal signs: are not present, nuchal rigidity, is not appreciated. 07:15 Chest/axilla: Inspection: normal. 07:15 Cardiovascular: Rate: tachycardic, Rhythm: regular. 07:15 Respiratory: the patient does not display signs of respiratory distress, Respirations: normal, no use of accessory muscles, no retractions, labored breathing, is not present, Breath sounds: are clear throughout, no decreased breath sounds, no stridor, no wheezing. 07:15 Abdomen/GI: Inspection: abdomen appears normal, Palpation: abdomen is soft and non-tender, in all quadrants. 07:15 Neuro: Orientation: to person, place \T\ time. Mentation: is normal, Motor: moves all fours, strength is normal, Sensation: is normal. Vital Signs: 06:46 BP 102 / 70; Pulse 118; Resp 18; Temp 98.6; Pulse Ox 99% on R/A; zoya 06:51 BP 103 / 60; Pulse 116; Resp 18; Temp 98.6; Pulse Ox 98% on R/A; zoya 07:49 BP 95 / 64; Pulse 98; Resp 18; Pulse Ox 100% on R/A; finley MDM: 06:53 Patient medically screened. cp 07:15 Differential diagnosis: viral Infection, bacterial infection, URI, bronchitis, cp pneumonia UTI, gastroenteritis, meningitis. 09:42 Data reviewed: vital signs, nurses notes, lab test result(s), radiologic studies, plain cp films. Counseling: I had a detailed discussion with the patient and/or guardian regarding: the historical points, exam findings, and any diagnostic results supporting the discharge/admit diagnosis, lab results, radiology results, to return to the emergency department if symptoms worsen or persist or if there are any questions or concerns that arise at home. ED course: VSS. Patient resting comfortably in exam room. Appears non-toxic and no signs of respiratory distress. Will discharge to home for continued monitoring. 03/06 06:53 Order name: Urine Microscopic Only; Complete Time: 09:38 cp 03/06 09:38 Interpretation: Reviewed. 03/06 06:53 Order name: Strep cp 03/06 06:53 Order name: Howard Screen Profile; Complete Time: 08:23 03/06 09:14 Interpretation: MONO NEG; Reviewed. 03/06 06:53 Order name: CBC with Diff; Complete Time: 07:36 03/06 07:36 Interpretation: Normal except: RBC 3.68; HGB 11.3; HCT 33.3; LEANN% 82.0; LYM% 6.3; LYMA cp 0.3. 03/06 06:53 Order name: BMP; Complete Time: 08:23 03/06 09:14 Interpretation: CA 8.3; Reviewed. 03/06 06:53 Order name: Urine Dipstick-Ancillary (obtain specimen); Complete Time: 07:27 03/06 06:53 Order name: PT-INR; Complete Time: 07:36 03/06 06:54 Order name: Urine Microscopic Only; Complete Time: 07:36 EDMS 03/06 07:36 Interpretation: Reviewed. 03/06 07:11 Order name: XRAY Chest (1 view); Complete Time: 08:37 03/06 08:37 Interpretation: Report review. 03/06 07:27 Order name: Urine Dipstick-Ancillary; Complete Time: 07:36 EDMS 03/06 07:36 Interpretation: Normal except: UKET 3+. 03/06 06:53 Order name: Urine Test (obtain specimen); Complete Time: 07:27 cp Administered Medications: 07:27 Drug: Tylenol 1000 mg Route: PO; finley 07:28 Follow up: Response: No adverse reaction finley 07:28 Drug: NS 0.9% 1000 ml Route: IV; Rate: 1 bolus; Site: left antecubital; finley 08:33 Follow up: IV Status: Completed infusion finley Disposition: 15:38 Co-signature as Attending Physician, Kelton Herrera MD I agree with the assessment and kdr plan of care. Disposition Summary: 01/19/22 09:44 Discharge Ordered Location: Home cp Problem: new cp Symptoms: have improved cp Condition: Stable cp Diagnosis - SARS-associated coronavirus as the cause of diseases classified elsewhere cp - Headache cp Followup: cp - With: Private Physician - When: 2 - 3 days - Reason: Worsening of condition Discharge Instructions: - Discharge Summary Sheet cp - Migraine Headache cp - COVID-19 cp - Things to Know about the COVID-19 Pandemic - [facility] cp - 10 Things You Can Do to Manage Your COVID-19 Symptoms at Home - [facility] cp - COVID-19: Quarantine vs. 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 cp cp
[2021-03-06 10:06] VITALS: TEMP 98.6
[2021-03-06 10:09] VITALS: BP 95/64; O2SAT 100
== END 2021-03-06 09:59 | disposition home or self-care (01) ==
LOC: ER 06:44
DX: U07.1 COVID-19 (principal)
CPT/HCPCS: 85025; 80048; 36415; 86308; 85610; 0241U; 71045; J7030; 81003; 81015; 96360; 99284

== ENCOUNTER 2021-10-25 17:06 | Emergency (ER) | payer BC, OTHER ==
--- OUTSIDE RECORDS SUMMARY | 2021-10-25 17:09 | XMS REPORT | Continuity of Care Document ---
:1995 Author Organization [facility] t Address [address] [place] [address] Care Team Providers Name Role Phone MARIO SANCHEZ Primary Care Physician Unavailable Karyna CANSECO Attending Clinician Unavailable Karyna Read Attending Clinician Symone Booker MD Attending Clinician AMBREEN_FARHANA Attending Clinician Unavailable GC_SWHAOMC_Black_D Attending Clinician Unavailable sebastian_k Attending Clinician Unavailable Provider, Ang-Rmchp Temp Attending Clinician Unavailable AMBREEN_FARHANA Admitting Clinician Unavailable GC_SWHAOMC_Black_D Admitting Clinician Unavailable sebastian_k Admitting Clinician Unavailable Payers Payer Name Policy Type Policy Number Effective Date Expiration Date S jackherman [facility] - [id number] 2021 OUT OF STATE 00:00:00 [facility] [id number] Problems Condition Condition Condition Status Onset Resolution Last Treating Co mments Source Name Details Category Date Date Treatment Clinician Date Dyspnea on Dyspnea on Disease Active 2021-0 U nivers exertion exertion 10-18 ity of 00:00: [address] Branch Palpitatio Palpitatio Disease Active 2021-0 U nivers ns ns 10-18 ity of 00:00: [address] Branch Contracept Contracept Disease Active 2018-0 U nivers helga helag 2-18 [place] [address] [facility] Asthma Asthma Disease Active Univers 1-05 ity of 00:00: [place] [facility] Obesity Obesity Disease Active 2017-02 Univers (BMI (BMI 2-27 ity of 30-39.9) 30-39.9) 00:00: [place] [facility] Neck Neck Disease Active Univers muscle muscle 7-18 ity of spasm spasm 00:00: [address] Allergies, Adverse Reactions, Alerts Allergy Allergy Status Severity Reaction(s) Onset Inactive Treating Comm ents Source Name Type Date Date Clinician NO KNOWN Drug Active Univers ALLERGIE Class ity of S [facility] Social History Social Habit Start Date Stop Date Quantity Comments Source Exposure to 2021-10-14 2021-10-24 Yes [facility] SARS-CoV-2 00:00:00 15:31:00 [facility] [place] [facility] (event) [place] Alcohol intake 2021-10-18 2021-10-18 0 /d University of 00:00:00 00:00:00 [facility] Tobacco use and 2021-10-18 2021-10-18 Smokeless tobacco Un iversity of exposure 00:00:00 00:00:00 non-user [facility] Sex Ass[birth year] Universit y of 00:00:00 00:00:00 [facility] Smoking Status Start Date Stop Date Source Never smoked tobacco [facility] Medications Ordered Filled Start Stop Current Ordering Indication Dosage Frequency Signature Comments Components Source Medication Medication Date Date Medication? Clinician (SIG) Name Name benzonatate Yes [id number] 200mg Take 1 Univers 200 mg 9-08 capsule by ity of capsule 00:00: mouth 3 [place] 00 (three) Medical times Branch daily as needed for Cough for up to 20 doses. ibuprofen Yes [id number] 600mg Take 1 Univers 600 mg 9-08 tablet by ity of tablet 00:00: mouth [place] 00 every 6 Medical (six) Branch hours as needed for Pain (scale 4-6). metoprolol Yes [id number] 25mg Take 1 Univers succinate 9-02 tablet by ity o f XL 25 mg 24 00:00: [place] tablet 00 the Medical morning. Branch metoprolol Yes [id number] 25mg Take 1 Univers succinate 9-02 tablet by ity o f XL 25 mg 24 00:[place] 00 the Medical morning. Branch metoprolol 2021- No [id number] 12.5mg Take 0.5 Univers succinate 6-28 - tablets by ity of XL 25 mg 24 00:[place] :00 daily. Medical Branch vitamin Yes [id number] 1{tbl} Take 1 U nivers D3-folic 6-26 tablet by ity of acid 125 00:00: mouth [place] mcg (5,000 00 daily. Medical unit)-1 mg Branch Tab nirmatrelvi Yes [id number] 3{tbl} Take 3 Univers r-ritonavir 6-26 tablets by it y of (PAXLOVID, 00:00[place] EUA,) 150 00 (two) Medical mg x 2- 100 times Branch mg tablet daily. chlorphenir Yes [id number] 4mg Take 1 Univers amine 4 mg 6-26 tablet by ity of tablet 00:00: mouth [place] 00 every 6 Medical (six) Branch hours as needed for Allergies or Runny nose. calcium/mag Yes [id number] 1{each} Take 1 Univers nesium/zinc 6-26 Each by ity o f (CALCIUM-MA 00:00: mouth [place] GNESUIUM-ZI 00 daily. Medica l NC) Branch 333-133-5 mg Tab benzonatate Yes [id number] 100mg Take 1 Univers 100 mg 6-26 capsule by ity of capsule 00:00: mouth 3 [place] 00 (three) Medical times Branch daily as needed for Cough. vitamin Yes [id number] 1{tbl} Take 1 U nivers D3-folic 6-26 tablet by ity of acid 125 00:00: mouth [place] mcg (5,000 00 daily. Medical unit)-1 mg Branch Tab nirmatrelvi 0 Yes [id number] 3{tbl} Take 3 Univers r-ritonavir 6-26 tablets by it y of (PAXLOVID, 00:00: [place] EUA,) 150 00 (two) Medical mg x 2- 100 times Branch mg tablet daily. chlorphenir Yes [id number] 4mg Take 1 Univers amine 4 mg 6-26 tablet by ity of tablet 00:00: mouth [place] 00 every 6 Medical (six) Branch hours as needed for Allergies or Runny nose. calcium/mag Yes [id number] 1{each} Take 1 Univers nesium/zinc 6-26 Each by ity o f (CALCIUM-MA 00:00: mouth [place] GNESUIUM-ZI 00 daily. Medica l NC) Branch 333-133-5 mg Tab benzonatate Yes [id number] 100mg Take 1 Univers 100 mg 6-26 capsule by ity of capsule 00:00: mouth 3 [place] 00 (three) Medical times Branch daily as needed for Cough. ibuprofen Yes [id number] 600mg Take 1 U nivers 600 mg 5-19 tablet by ity of tablet 00:00: mouth [place] 00 every 6 Medical (six) Branch hours as needed for Pain (scale 4-6). ibuprofen Yes [id number] 600mg Take 1 U nivers 600 mg 5-19 tablet by ity of tablet 00:00: mouth [place] 00 every 6 Medical (six) Branch hours as needed for Pain (scale 4-6). butalbital- Yes 1{tbl} Take 1 Un cindy acetaminoph 2-18 tablet by ity of en-caff 15:48: mouth [place] 50-325-40 41 every 4 Medical mg tablet (four) Branch hours as needed for Headache. butalbital- Yes 1{tbl} Take 1 Un [place]indy acetaminoph 2-18 tablet by ity of en-caff 15:48: mouth [place] 50-325-40 41 every 4 Medical mg tablet (four) Branch hours as needed for Headache. cyclobenzap Yes Take by Uni vers rine HCl 2-18 mouth. ity of (FLEXERIL 15:47: [place] ORAL) 38 Medical Branch cyclobenzap Yes Take by Uni vers rine HCl 2-18 mouth. ity of (FLEXERIL 15:47: [place] ORAL) 38 Medical Branch docusate Yes [...] Branch daily with meals. PNV 67-iron Yes [id number] 1{tbl} Take 1 Univers ps-folate 5-10 tablet by ity o f no.1-dha 00:00: mouth [place] (VITAFOL 00 daily. Medical ULTRA) 29 Branch mg iron- 1 mg-200 mg Cap PNV 67-iron Yes [id number] 1{tbl} Take 1 Univers ps-folate 5-10 tablet by ity o f no.1-dha 00:00: mouth [place] (VITAFOL 00 daily. Medical ULTRA) 29 Branch mg iron- 1 mg-200 mg Cap Immunizations Ordered Filled Immunization Date Status Comments [facility] Immunization Name Name Influenza Virus 2017-12-21 Completed Universit y of Vaccine Quad IM 00:00:00 [place] Med ical Multi-dose 6+ MO Branch Influenza Virus 2017-12-21 Completed Universit y of Vaccine Quad IM 00:00:00 [place] Med ical Multi-dose 6+ MO Branch TDAP 2017-12-07 Completed University of 00:00:00 [facility] TDAP 2017-12-07 Completed University of 00:00:00 [facility] TDAP 2016-03-28 Completed University of 00:00:00 [facility] TDAP 2016-03-28 Completed University of 00:00:00 [facility] Influenza Virus 2015-11-23 Completed Universit y of Vaccine Quad IM 3+ 00:00:00 [facility] Influenza Virus 2015-11-23 Completed Universit y of Vaccine Quad IM 3+ 00:00:00 [facility] Vital Signs Vital Name Observation Time Observation Value Comments Source Systolic blood 2021-10-24 22:56:34 104 mm[Hg] Univer sity of pressure [facility] Diastolic blood 2021-10-24 22:56:34 82 mm[Hg] Unive rsity of [facility] Heart rate 2021-10-24 22:56:34 105 /min Universi ty [facility] [place] [facility] Respiratory rate 2021-10-24 22:56:34 18 /min [facility] Oxygen saturation in 2021-10-24 22:56:34 98 /min [facility] Arterial blood by [facility] [place] [facility] Pulse oximetry Branch Body temperature 2021-10-24 20:31:[address] [facility] Body height 2021-10-24 20:31:00 149.9 cm Universi ty [facility] [place] [facility] Body weight 2021-10-24 20:31:00 54.432 [facility] BMI 2021-10-24 20:31:00 24.24 kg/m2 Universi [facility] Systolic blood 2021-10-18 14:26:00 113 mm[Hg] Univer sity of pressure [facility] Diastolic blood 2021-10-18 14:26:00 74 mm[Hg] Unive rsity of pressure [facility] Heart rate 2021-10-18 14:26:00 84 /min Universi ty [facility] [place] [facility] Body temperature 2021-10-18 14:26:[address] [facility] Body height 2021-10-18 14:26:00 149.9 cm Universi ty [facility] [place] [facility] Body weight 2021-10-18 14:26:00 56.7 kg Universi ty [facility] [place] [facility] BMI 2021-10-18 14:26:00 25.25 kg/m2 Universi [facility] Oxygen saturation in 2021-10-18 14:26:00 99 /min University Arterial blood by [facility] [place] [facility] Pulse oximetry [place] Procedures Procedure Date / Time Performed Performing Clinician Sourc e XR CHEST 1 VW 2021-10-24 21:51:00 Karyna Canseco [facility] o f [facility] POCT TEST 2021-10-24 20:47:00 Karyna Canseco [facility] URINALYSIS 2021-10-24 20:46:00 Karyna Canseco [facility] o f [facility] RAPID STREP SCREEN FOR 2021-10-24 20:46:00 Karyna Canseco [facility] GROUP A [facility] Branch COVID-19 (ID NOW RAPID 2021-10-24 20:46:00 Karyna Canseco [facility] TESTING) [facility] CONSENT/REFUSAL FOR 2021-10-24 20:21:12 Doctor Unassigned, No Un [facility] DIAGNOSIS AND Name Medical [place] TREATMENT Encounters Start End Encounter Admission Attending Care Care Encounter Source Date/Time Date/Time Type Type Clinicians Facility Department ID 2021-10-24 2021-10-24 Emergency X Karyna CANSECO [facility] ERT [id number] Univers 15:37:00 17:57:00 ity of [facility] 2021-10-24 2021-10-24 Emergency Karyna Canseco [facility] [id number] Univers 15:37:00 17:57:00 Alejandra WRIGHT [id number] i ty of [id number] [id number] [facility] 084 Branch 2021-10-18 2021-10-18 Office Jhony, [facility] [id number] Univers 09:40:00 09:41:47 Visit Symone WRIGHT [id number] ity [facility] [id number] PROF[place] [id number] [facility] 059 [facility] 2021-08-28 2021-08-28 Outpatient AMBREEN_[facility] [id number] [place] 04:20:00 04:20:00 RAHAT [id number] [facility] 2021-06-19 2021-06-19 Outpatient GC_S[facility]AOM[facility]_ PRIV PRIV [id number] [facility] 10:10:00 10:10:00 Black_D [id number] Medica l 2021-06-18 2021-06-18 Outpatient GC_SWHAOM[facility]_ PRIV PRIV [id number] [facility] 10:09:00 10:09:00 Black_D [id number] Medica l 2021-06-17 2021-06-17 Outpatient GC_[facility]OM[facility]_ PRIV PRIV [id number] [facility] 11:36:00 11:36:00 Black_D [id number] Medica l 2020-08-15 2020-08-15 Outpatient GC_SWHAOMC_ PRIV PRIV [id number] [facility] 04:42:00 04:42:00 Black_D [id number] Medica l 2020-06-11 2020-06-11 Outpatient sebastian_k MMG MM[facility] [id number] 01:17:00 01:17:00 [id number] Medical Group 2019-07-01 2019-07-01 Office Provider, [facility] [id number] 09:04:44 09:45:26 Visit [facility] DIGITAL ASSET MANAGER [id number] [facility] [id number] MATERNAL [id number] & CHILD [address] [place] [address] Results Test Description Test Time Test Comments Results Result Comments Source POCT TEST 2021-10-24 20:47:00 Test Item Value Reference Range Interpretation Comme nts POCT PREG (test code = 1605) Negative On board controls acceptable with C Line (test code = 3574) Present POCT PREG LOT # (test code = 3575) [id number] POCT PREG TEST DATE (test code = 3576) 01/15/2023 Lab Interpretation (test code = 74130-5) Normal [facility], THINPREP, [id number] 17:38:20 Test Item Value Reference Range Interpretation Comments SOURCE: (test Cervical/Endo code = 8001) cervical SLIDES: (test 1 code = 8011) LMP: (test code = 06/30/2021 8021) SPECIMEN (NOTE) Satisfactory f or ADEQUACY: (test evaluation. Endocervical code = 48980) cells/transfor mation zone component present. INTERPRETATION: NILM/NO (test code = EPITH. --------- 02882) ABNORMALITY;S -------- EE BELOW NEGATIVE FO R INTRAEPITHELIAL LESION OR MALIGNANCY ( NILM) --------- --------- --------- - MIDDLE SCHOOL COUNSELOR: Cherie Neal (test code = 8101) LOCATION: (test (NOTE) Specimens pr ocessed and code = 13629) interpreted at [facility] [address], , CLIA: [id number] CPT: (test code = (NOTE) 97509 UNLE SS OTHERWISE 8140) INDICATED, COMP UTER AIDED AND CYTOTECHNOLOGIS T SCREENING PERFO RMED. The Pap test is a s creening test with an in herent, but low probabi lity of error. Your pat ient should be remin ded to consult you imm ediately if she experien susy any suspicious sign s or symptoms, regar dless of her Pap test re sult. An alternate repor t format containing imag es or consolidated pr ior Pap history is prashanth johnston as applicable. HPV HIGH RISK WITH GENOTYPE, [id number] 17:35:09 Test Item Value Reference Range Interpretation Comments HPV HIGH RISK INTERP NEGATIVE NEGATIVE (test code = 98272) HPV 16 (test code = NEGATIVE 12396) HPV 18 (test code = NEGATIVE 80017) HPV, HR, OTHER NEGATIVE Testing meth odology is GENOTYPES (test code real-ti me PCR utilizing = 54033) hydrolysis prob es with the Bianka Chucky 4800 system. The morales t individually de tects genotypes 16 an d 18, as well as the oth er 12 high risk types (31,33,35,39,45 ,51,52,56 ,58,59,66,68). The expected result is negative. A neg ative result does not rule out the presence of HPV not included in the genotype set, a low leve l of infection or sp ecimen sampling error. UNLESS OTHERWISE INDIC ATED, ALL TESTING PERFORM ED ATCLINICAL PATH [facility], [facility]. [address] [place] [address] LABORATORY DIRE CTOR: Desiree CHRISTIAN NUMBER [id number] [facility] NO. VAGINAL PATHOGENS DNA [id number] 16:12:33 Test Item Value Reference Range Interpretation Comments VENKAT SPECIES (test NEGATIVE NEGATIVE code = 76637) G. VAGINALIS (test NEGATIVE NEGATIVE code = 65711) T. VAGINALIS (test NEGATIVE NEGATIVE UNLESS O THERWISE code = 01158) INDICATED, ALL TESTING PERFORMED ATCLI NICAL PATHOLOGY LABOR [facility], [facility], [facility]. [address], [place] [address] LABORATORY DIRE CTOR: EVERARDO BRANTLEY M.D. CLIA NUMBER [id number] [facility] ACCREDIT[facility] ON NO.
[2021-10-25 19:39] LABS: Urine Blood Trace-intact (Negative); Urine Glucose Negative (Negative); Urine Protein Negative (Negative); Urine Specific Gravity 1.025 (1.005-1.030)
[2021-10-25 20:44] LABS: Urine Specific Gravity/Preg 1.025 (1.005-1.030)
[2021-10-25] MEDS ORDERED: ACETAMINOPHEN 160 MG/5 ML UCUP ONE (21:26)
--- NOTE | 2021-10-25 22:32 | RAD REPORT ---
EXAM DESCRIPTION: US - Transvaginal OB - 10/25/2021 10:18 pm CLINICAL HISTORY: with abdominal pain COMPARISON: None. FINDINGS: The uterus measures 8 x 5 x 6 centimeters. The endometrial stripe measures 4 millimeters. A gestational sac is not seen. The right ovary not seen secondary to overlying bowel gas. Left ovary normal in size and echotexture The right and left adnexa unremarkable Small amount of free fluid in the cul-de-sac IMPRESSION: Nonvisualization of a gestational sac within the endometrium. These findings could represent an early intrauterine in which the gestational sac is not se en. and even an ectopic can also result in this appearance. This all should be cor related clinically and with serial beta HCG levels. Followup endovaginal sonogram in 1 week recommend ed
--- NOTE | 2021-10-25 22:36 | ER ---
Nurse's Notes [facility] Name: Patricia Monroe Age: 25 yrs Sex: Female : 1995 Arrival Date: 10/25/2021 Time: 17:10 Bed 10 Private MD: Diagnosis: state, incidental;Acute upper respiratory infection, unspecified;Threatened Presentation: 10/25 18:09 Chief complaint: Patient states: I went to [facility] yesterday because I have been bm7 feeling really bad. I have been having cramps and spotting. I took three at home tests and they were all positive. When I went to [facility] they told me that I wasn't but I know I am. Coronavirus screen: Client presents with at least one sign or symptom that may indicate coronavirus-19. Standard/surgical mask placed on the client. Ebola Screen: No symptoms or risks identified at this time. Initial Sepsis Screen: Does the patient meet any 2 criteria? No. Patient's initial sepsis screen is negative. Does the patient have a suspected source of infection? No. Patient's initial sepsis screen is negative. Risk Assessment: Do you want to hurt yourself or someone else? Patient reports no desire to harm self or others. Onset of symptoms is unknown. 18:09 Method Of Arrival: Ambulatory 7 18:09 Acuity: WALTER 3 bm7 Triage Assessment: 18:11 General: Appears in no apparent distress. uncomfortable, Behavior is calm, cooperative, bm7 appropriate for age. Pain: Complains of pain in groin and suprapubic area. EENT: No deficits noted. No signs and/or symptoms were reported regarding the EENT system. Neuro: No deficits noted. Cardiovascular: No deficits noted. Respiratory: No deficits noted. GI: Abdomen is round non-distended, Bowel sounds present X 4 quads. Abd is soft X 4 quads Abdomen is tender to palpation in suprapubic area, right lower quadrant and left lower quadrant Reports nausea. : Reports cramping, vaginal bleeding that is bright red. Derm: No deficits noted. No signs and/or symptoms reported regarding the dermatologic system. Musculoskeletal: No deficits noted. No signs and/or symptoms reported regarding the musculoskeletal system. 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 - Social history:: Smoking status: Patient denies any tobacco usage or history of. Screenin:10 Abuse screen: Denies threats or abuse. Nutritional screening: No deficits noted. bb Tuberculosis screening: No symptoms or risk factors identified. Fall Risk None identified. Assessment: 20:10 General: Appears in no apparent distress. uncomfortable, Behavior is cooperative, bb anxious. Neuro: Level of Consciousness is awake, alert, obeys commands, Oriented to person, place, time, situation. Cardiovascular: Capillary refill < 3 seconds Patient's skin is warm and dry. Respiratory: Respiratory effort is even, unlabored, Respiratory pattern is regular. GI: Abdomen is non-distended. Derm: Skin is pink, warm \T\ dry. Musculoskeletal: Circulation, motion, and sensation intact. 22:25 Reassessment: Patient is alert, oriented x 3, equal unlabored respirations, skin bb warm/dry/pink. pt awaiting diagnostic results. 22:58 Reassessment: Patient is alert, oriented x 3, equal unlabored respirations, skin bb warm/dry/pink. pt running low temp provider notified is aware pt has acute respiratory infection will continue tylenol at home. Pt verbalized understanding of and agrees to plan of care discharge instructions given pt ambulated with steady gait to exit. Vital Signs: 18:09 BP 108 / 77; Pulse 108; Resp 18; Temp 99.4(O); Pulse Ox 100% on R/A; Weight 56.7 kg bm7 (R); Height 4 ft. 11 in. (149.86 cm); Pain 9/10; 22:59 BP 107 / 69; Pulse 118; Resp 18 S; Temp 100.8(O); Pulse Ox 98% on R/A; bb 18:09 Body Mass Index 25.25 (56.70 kg, 149.86 cm) bm7 ED Course: 17:10 Patient arrived in ED. rg4 17:56 [facility]C [facility] snw 17:56 Cricket Umanzor MD is Attending Physician. snw 18:11 Triage completed. bm7 18:11 Arm band placed on right wrist. Patient placed in waiting room, Patient notified of bm7 wait time. 20:10 Patient has correct armband on for positive identification. Call light in reach. bb 20:16 Anabela Olivera, RN is Primary Nurse. bb 20:40 Test, Serum Sent. zm 20:40 Urine --Ancillary (enter results) Sent. zm 22:20 Transvaginal OB US In Process Unspecified. EDMS 22:59 No provider procedures requiring assistance completed. Patient did not have IV access bb during this emergency room visit. Administered Medications: 21:17 Drug: Tylenol Liquid 320 mg Route: PO; bb 22:58 Not Given (Patient Refused): Tylenol Liquid 320 mg PO once; T 100.2 bb Medication: 20:10 VIS not applicable for this client. bb Outcome: 22:36 Discharge ordered by . snw 23:00 Discharged to home ambulatory. bb 23:00 Condition: stable 23:00 Discharge instructions given to patient, Instructed on discharge instructions, follow up and referral plans. medication usage, Demonstrated understanding of instructions, follow-up care, medications. 23:00 Patient left the ED. bb Signatures: Dispatcher [employer] EDMS Gina Russell FNP-C MATERIAL YARD CLERK-Csnw Anabela Olivera RN RN bb Garcia, Rubi 4 Shanna Alonso RN RN banner Amarilys Lawrence
--- NOTE | 2021-10-25 22:36 | EDPHYS ---
Physician Documentation [facility] Name: Patricia Monroe Age: 25 yrs Sex: Female : 1995 Arrival Date: 10/25/2021 Time: 17:10 Bed 10 Private MD: ED Physician Cricket Umanzro HPI: 10/25 20:11 This 25 yrs old Female presents to ER via Ambulatory with complaints of snw Abdominal Cramping, Unknown Weeks . 20:11 The patient presents with abdominal pain in the lower abdomen. Onset: The snw symptoms/episode began/occurred gradually. The symptoms do not radiate. Associated signs and symptoms: Pertinent positives: pt states she is . The symptoms are described as crampy. Severity of pain: At its worst the pain was moderate in the emergency department the pain is unchanged. The patient has experienced a previous episode, seen at [place] [facility] and they told her the test was negative. The patient has been recently seen by a physician: with similar presenting complaints, and apparently given a diagnosis of no . 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 - Social history:: Smoking status: Patient denies any tobacco usage or history of. ROS: 20:10 Constitutional: Negative for fever, chills, and weight loss, Eyes: Negative for injury, snw pain, redness, and discharge, ENT: Negative for injury, pain, and discharge, Neck: Negative for injury, pain, and swelling, Cardiovascular: Negative for chest pain, palpitations, and edema, Respiratory: Negative for shortness of breath, cough, wheezing, and pleuritic chest pain, Back: Negative for injury and pain, : Negative for injury, bleeding, discharge, and swelling, MS/Extremity: Negative for injury and deformity, Skin: Negative for injury, rash, and discoloration, Neuro: Negative for headache, weakness, numbness, tingling, and seizure, Psych: Negative for depression, anxiety, suicide ideation, homicidal ideation, and hallucinations. 20:10 Abdomen/GI: Positive for abdominal cramps, pt states she did 4 home tests that were positive. Exam: 20:09 Constitutional: This is a well developed, well nourished patient who is awake, alert, snw and in no acute distress. Head/Face: Normocephalic, atraumatic. Eyes: Pupils equal round and reactive to light, extra-ocular motions intact. Lids and lashes normal. Conjunctiva and sclera are non-icteric and not injected. Cornea within normal limits. Periorbital areas with no swelling, redness, or edema. ENT: Nares patent. No nasal discharge, no septal abnormalities noted. Tympanic membranes are normal and external auditory canals are clear. Oropharynx with no redness, swelling, or masses, exudates, or evidence of obstruction, uvula midline. Mucous membranes moist. Neck: Trachea midline, no thyromegaly or masses palpated, and no cervical lymphadenopathy. Supple, full range of motion without nuchal rigidity, or vertebral point tenderness. No Meningismus. Chest/axilla: Normal chest wall appearance and motion. Nontender with no deformity. No lesions are appreciated. Cardiovascular: Regular rate and rhythm with a normal S1 and S2. No gallops, murmurs, or rubs. Normal PMI, no JVD. No pulse deficits. Respiratory: Lungs have equal breath sounds bilaterally, clear to auscultation and percussion. No rales, rhonchi or wheezes noted. No increased work of breathing, no retractions or nasal flaring. Abdomen/GI: Soft, non-tender, with normal bowel sounds. No distension or tympany. No guarding or rebound. No evidence of tenderness throughout. Back: No spinal tenderness. No costovertebral tenderness. Full range of motion. Skin: Warm, dry with normal turgor. Normal color with no rashes, no lesions, and no evidence of cellulitis. MS/ Extremity: Pulses equal, no cyanosis. Neurovascular intact. Full, normal range of motion. Neuro: Awake and alert, GCS 15, oriented to person, place, time, and situation. Cranial nerves II-XII grossly intact. Motor strength 5/5 in all extremities. Sensory grossly intact. Cerebellar exam normal. Normal gait. 20:09 Psych: pt has been to two facilities with a negative urine test. Pt is adamant that she is . I told pt that we will do a blood test but if it is negative, she must hear that she is not . Vital Signs: 18:09 BP 108 / 77; Pulse 108; Resp 18; Temp 99.4(O); Pulse Ox 100% on R/A; Weight 56.7 kg bm7 (R); Height 4 ft. 11 in. (149.86 cm); Pain 9/10; 22:59 BP 107 / 69; Pulse 118; Resp 18 S; Temp 100.8(O); Pulse Ox 98% on R/A; bb 18:09 Body Mass Index 25.25 (56.70 kg, 149.86 cm) bm7 MDM: 19:24 Patient medically screened. snw 22:00 Data reviewed: vital signs, nurses notes. Data interpreted: Pulse oximetry: on room air snw is 100 %. Interpretation: normal. Counseling: I had a detailed discussion with the patient and/or guardian regarding: the historical points, exam findings, and any diagnostic results supporting the discharge/admit diagnosis, lab results, radiology results. Response to treatment: There is no appreciated change of the patient's symptoms at this time. 22:38 Special discussion: Based on the patient's Hx, exam, and Dx evaluation, there is no snw indication for emergent surgery or inpatient Tx. It is understood by the patient/guardian that if the Sx's persist or worsen they need to return immediately for re-evaluation. Based on the history and exam findings, there is no indication for further emergent testing or inpatient evaluation. I discussed with the patient/guardian the need to see the OB Gyne specialist for further evaluation of the symptoms. ED course: Pt understands need for repeat quant. We discussed abdominal pain in , risks of ectopic. Pt previously dx with viral illness yesterday. + low grade fever in ED today. 10/25 19:38 Order name: Urine --Ancillary (enter results); Complete Time: 20:54 ds4 10/25 19:39 Order name: Urine Dipstick-Ancillary; Complete Time: 19:40 EDMS 10/25 20:08 Order name: Test, Serum; Complete Time: 21:11 snw 10/25 21:26 Order name: Add On-Lab snw 10/25 21:30 Order name: HCG, Quantitative; Complete Time: 21:54 EDMS 10/25 21:14 Order name: Transvaginal OB US; Complete Time: 22:34 snw Administered Medications: 21:17 Drug: Tylenol Liquid 320 mg Route: PO; bb 22:58 Not Given (Patient Refused): Tylenol Liquid 320 mg PO once; T 100.2 bb Disposition Summary: 10/25/21 22:36 Discharge Ordered Location: Home snw Condition: Stable snw Diagnosis - state, incidental snw - Acute upper respiratory infection, unspecified snw - Threatened snw Followup: snw - With: Emergency Department - When: As needed - Reason: Worsening of condition Followup: snw - With: Private Physician - When: 2 - 3 days - Reason: Recheck today's complaints, Continuance of care, Re-evaluation by your physician Discharge Instructions: - Discharge Summary Sheet snw - Abdominal Pain During snw - Acetaminophen Dosage Chart, Pediatric snw - Threatened Miscarriage snw - Upper Respiratory Infection, Adult snw - Care snw - Ultrasound snw Forms: - Medication Reconciliation Form snw - Thank You Letter snw - Antibiotic Education snw - Prescription Opioid Use snw Signatures: Dispatcher [employer] EDMS Gina Russell FNP-C RADIATION THERAPY TECHNOLOGIST-Csnw Anabela Olivera, RN RN bb Shanan Alonso, RN RN bm7 Corrections: (The following items were deleted from the chart) 22:20 17:56 OB Limited+US.RAD.TANK ordered. EDMS EDMS
[2021-10-26 03:56] VITALS: BP 107/69; TEMP 100.8; O2SAT 98
== END 2021-10-25 23:00 | disposition home or self-care (01) ==
LOC: ER 17:06
DX: O20.0 Threatened abortion (principal); O99.511 Diseases of the respiratory system complicating pregnancy, first trimester; J06.9 Acute upper respiratory infection, unspecified; Z3A.01 Less than 8 weeks gestation of pregnancy
CPT/HCPCS: 36415; 76817; 81003; 81025; 84702; 84703; 99283

== ENCOUNTER 2021-10-28 02:09 | Emergency (ER) | payer BC ==
--- OUTSIDE RECORDS SUMMARY | 2021-10-28 02:12 | XMS REPORT | Continuity of Care Document ---
:1995 Author Organization [facility] t Address [address] [place] [address] Care Team Providers Name Role Phone MARIO SANCHEZ Primary Care Physician Unavailable PRAMOD JOHNSON Attending Clinician Unavailable PRAMOD JOHNSON Attending Clinician Unavailable Karyna CANSECO Attending Clinician Unavailable Karyna Read Attending Clinician Symone Booker MD Attending Clinician SHARMIN Attending Clinician Unavailable YESICA_ERIKA_Black_D Attending Clinician Unavailable sebastian_k Attending Clinician Unavailable Provider, Ang-Rmchp Temp Attending Clinician Unavailable AMBREEN_MARY GRACE Admitting Clinician Unavailable GC_ERIKA_Black_D Admitting Clinician Unavailable sebastian_k Admitting Clinician Unavailable Payers Payer Name Policy Type Policy Number Effective Date Expiration Date S [facility] - [id number] 2021 OUT OF STATE 00:00:00 [facility] [id number] Problems Condition Condition Condition Status Onset Resolution Last Treating Co mments Source Name Details Category Date Date Treatment Clinician Date Dyspnea on Dyspnea on Disease Active 2021-0 U nivers exertion exertion 10-18 ity of 00:00: [address] Branch Palpitatio Palpitatio Disease Active 0 U nivers ns ns 10-18 ity of 00:00: [address] Branch Contracept Contracept Disease Active 2019-0 U nivers helga helga 2-18 [place] [facility] [place] Asthma Asthma Disease Active 2018- Univers 1-05 ity of 00:00: [address] Obesity Obesity Disease Active 2017-02 Univers (BMI (BMI 2-27 ity of 30-39.9) 30-39.9) 00:00: [place] [facility] Neck Neck Disease Active Univers muscle muscle 7-18 ity of spasm spasm 00:00: [address] Allergies, Adverse Reactions, Alerts Allergy Allergy Status Severity Reaction(s) Onset Inactive Treating Comm ents Source Name Type Date Date Clinician NO KNOWN Drug Active Univers ALLERGIE Class ity of S [facility] Social History Social Habit Start Date Stop Date Quantity Comments Source Exposure to 2021-10-14 2021-10-24 Yes [facility] SARS-CoV-2 00:00:00 15:31:00 [facility] [place] [facility] (event) [place] Tobacco use and 2021-10-18 2021-10-18 Smokeless tobacco Un iversity of exposure 00:00:00 00:00:00 non-user [facility] Alcohol intake 2021-10-18 2021-10-18 0 /d University of 00:00:00 00:00:00 [facility] Sex [birth year] Universit y of 00:00:00 00:00:00 [facility] Smoking Status Start Date Stop Date Source Never smoked tobacco [facility] Medications Ordered Filled Start Stop Current Ordering Indication Dosage Frequency Signature Comments Components Source Medication Medication Date Date Medication? Clinician (SIG) Name Name benzonatate Yes [id number] 200mg Take 1 Univers 200 mg 9-08 capsule by ity of capsule 00:00: mouth 3 [place] 00 (three) Medical times Branch daily as needed for Cough for up to 20 doses. ibuprofen Yes [id number] 600mg Take 1 Univers 600 mg 9-08 tablet by ity of tablet 00:00: mouth [place] 00 every 6 Medical (six) Branch hours as needed for Pain (scale 4-6). metoprolol Yes [id number] 25mg Take 1 Univers succinate 9-02 tablet by ity o f XL 25 mg 24 00:00: mouth [place] hr tablet 00 the Medical morning. Branch metoprolol Yes [id number] 25mg Take 1 Univers succinate 9-02 tablet by ity o f XL 25 mg 24 00:00: mouth [place] tablet 00 the Medical morning. Branch metoprolol 2021- No [id number] 12.5mg Take 0.5 Univers succinate 6-28 09-02 tablets by ity of XL 25 mg 24 00:[place] :00 daily. Medical Branch vitamin Yes [id number] 1{tbl} Take 1 U nivers D3-folic 6-26 tablet by ity of acid 125 00:00: mouth [place] mcg (5,000 00 daily. Medical unit)-1 mg Branch Tab nirmatrelvi Yes [id number] 3{tbl} Take 3 Univers r-ritonavir 6-26 tablets by it y of (PAXLOVID, 00:00[place] EUA,) 150 00 (two) Medical mg x 2- 100 times Branch mg tablet daily. chlorphenir Yes [id number] 4mg Take 1 Univers amine 4 mg 6-26 tablet by ity of tablet 00:00: mouth [place] 00 every 6 Medical (six) Branch hours as needed for Allergies or Runny nose. calcium/mag Yes [id number] 1{each} Take 1 Univers nesium/zinc 6-26 Each by ity o f (CALCIUM-MA 00:00: mouth [place] GNESUIUM-ZI 00 daily. Medica l ND) Branch 333-133-5 mg Tab benzonatate Yes [id number] 100mg Take 1 Univers 100 mg 6-26 capsule by ity of capsule 00:00: mouth 3 [place] 00 (three) Medical times Branch daily as needed for Cough. vitamin Yes [id number] 1{tbl} Take 1 U nivers D3-folic 6-26 tablet by ity of acid 125 00:00: mouth [place] mcg (5,000 00 daily. Medical unit)-1 mg Branch Tab nirmatrelvi Yes [id number] 3{tbl} Take 3 Univers r-ritonavir 6-26 tablets by it y of (PAXLOVID, 00:00: [place] EUA,) 150 00 (two) Medical mg x 2- 100 times Branch mg tablet daily. chlorphenir Yes [id number] 4mg Take 1 Univers amine 4 mg 6-26 tablet by ity of tablet 00:00: mouth [place] 00 every 6 Medical (six) Branch hours as needed for Allergies or Runny nose. calcium/mag Yes [id number] 1{each} Take 1 Univers nesium/zinc 6-26 Each by ity o f (CALCIUM-MA 00:00: mouth [place] GNESUIUM-ZI 00 daily. Medica l NC) Branch 333-133-5 mg Tab benzonatate Yes [id number] 100mg Take 1 Univers 100 mg 6-26 capsule by ity of capsule 00:00: mouth 3 [place] 00 (three) Medical times Branch daily as needed for Cough. ibuprofen Yes [id number] 600mg Take 1 U nivers 600 mg 5-19 tablet by ity of tablet 00:00: mouth [place] 00 every 6 Medical (six) Branch hours as needed for Pain (scale 4-6). ibuprofen Yes [id number] 600mg Take 1 U nivers 600 mg [...] 15:47: [place] ORAL) 38 Medical Branch cyclobenzap 2018-0 Yes Take by Uni vers rine HCl 2-18 mouth. ity of (FLEXERIL 15:47: [place] ORAL) 38 Medical Branch docusate 2019-0 Yes 240mg Take 1 Univer [...] Branch daily with meals. PNV 67-iron Yes [id number] 1{tbl} Take 1 Univers ps-folate 5-10 tablet by ity o f no.1-dha 00:00: mouth [place] (VITAFOL 00 daily. Medical ULTRA) 29 Branch mg iron- 1 mg-200 mg Cap PNV 67-iron Yes [id number] 1{tbl} Take 1 Univers ps-folate 5-10 tablet by ity o f no.1-dha 00:00: mouth [place] (VITAFOL 00 daily. Medical ULTRA) 29 Branch mg iron- 1 mg-200 mg Cap Immunizations Ordered Filled Immunization Date Status Comments [facility] e Immunization Name Name Influenza Virus 2017-12-21 Completed Universit y of Vaccine Quad IM 00:00:00 [place] ical Multi-dose 6+ MO Branch Influenza Virus 2017-12-21 Completed Universit y of Vaccine Quad IM 00:00:00 [place] Med ical Multi-dose 6+ MO Branch TDAP 2017-12-07 Completed University of 00:00:00 [facility] [place] [facility] Branch TDAP 2017-12-07 Completed University of 00:00:00 [facility] [place] [facility] Branch TDAP 2016-03-28 Completed University of 00:00:00 [facility] [place] [facility] Branch TDAP 2016-03-28 Completed University of 00:00:00 [facility] Influenza Virus 2015-11-23 Completed Universit y of Vaccine Quad IM 3+ 00:00:00 [facility] Branch Influenza Virus 2015-11-23 Completed Universit y of Vaccine Quad IM 3+ 00:00:00 [facility] Vital Signs Vital Name Observation Time Observation Value Comments Source Systolic blood 2021-10-24 22:56:34 104 mm[Hg] Univer sity of pressure [facility] Diastolic blood 2021-10-24 22:56:34 82 mm[Hg] Unive rsity of [facility] Heart rate 2021-10-24 22:56:34 105 /min Universi ty [facility] Respiratory rate 2021-10-24 22:56:34 18 /min [facility] Oxygen saturation in 2021-10-24 22:56:34 98 /min [facility] Arterial blood by [facility] Pulse oximetry Branch Body temperature 2021-10-24 20:31:00 37.78 Fatemeh [facility] Body height 2021-10-24 20:31:00 149.9 cm Universi ty [facility] Body weight 2021-10-24 20:31:00 54.432 kg Universi ty [facility] BMI 2021-10-24 20:31:00 24.24 kg/m2 Universi ty [facility] Systolic blood 2021-10-18 14:26:00 113 mm[Hg] Univer sity of pressure [facility] Diastolic blood 2021-10-18 14:26:00 74 mm[Hg] Unive rsity of pressure [facility] Heart rate 2021-10-18 14:26:00 84 /min Universi ty [facility] Body temperature 2021-10-18 14:26:00 36.67 Fatemeh [facility] Body height 2021-10-18 14:26:00 149.9 cm Universi ty [facility] Body weight 2021-10-18 14:26:00 56.7 kg [facility] BMI 2021-10-18 14:26:00 25.25 kg/m2 [facility] Oxygen saturation in 2021-10-18 14:26:00 99 /min University Arterial blood by [facility] Pulse oximetry Branch Procedures Procedure Date / Time Performed Performing Clinician Sourc e XR CHEST 1 VW 2021-10-24 21:51:00 Karyna Canseco Alejandra [place] o f [facility] POCT TEST 2021-10-24 20:47:00 Karyna Canseco [facility] URINALYSIS 2021-10-24 20:46:00 Karyna Canseco Alejandra [place] [address] [place] o f [facility] RAPID STREP SCREEN FOR 2021-10-24 20:46:00 [facility] Medical Branch COVID-19 (ID NOW RAPID 2021-10-24 20:46:00 Karyna Canseco [facility] TESTING) Medical Branch CONSENT/REFUSAL FOR 2021-10-24 20:21:12 Doctor Unassigned, No Un [facility] DIAGNOSIS AND Name Medical Branch TREATMENT Encounters Start End Encounter Admission Attending Care Care Encounter Source Date/Time Date/Time Type Type Clinicians Facility Department ID 2021-10-29 2021-10-29 Outpatient R PRAMOD JOHNSON [facility] B [id number] Univers 13:00:00 13:00:00 PRAMOD JOHNSON [id number] ity of [facility] 2021-10-24 2021-10-24 Emergency X Karyna CANSECO [facility] ERT [id number] Univers 15:37:00 17:57:00 ity of [facility] 2021-10-24 2021-10-24 Emergency Karyna Canseco [facility] [id number] Univers 15:37:00 17:57:00 Alejandra WRIGHT [id number] i ty [facility] [id number] [facility] [id number] [facility] 084 Branch 2021-10-18 2021-10-18 Office Jhony [facility] [id number] Univers 09:40:00 09:41:47 Visit Symone [place] [id number] [facility] [id number] Emma ALEXANDER [id number] [facility] 059 [facility] 2021-08-28 2021-08-28 Outpatient [facility] [id number] [place] 04:20:00 04:20:00 HANA [id number] [facility] 2021-06-19 2021-06-19 Outpatient GC_SWHAOMC_ PRIV PRIV [id number] [facility] 10:10:00 10:10:00 Black_D [id number] Medica l 2021-06-18 2021-06-18 Outpatient GC_SWHAOMC_ PRIV PRIV [id number] [facility] 10:09:00 10:09:00 Black_D [id number] Medica l 2021-06-17 2021-06-17 Outpatient GC_SWHAOMC_ PRIV PRIV [id number] [facility] 11:36:00 11:36:00 Black_D [id number] Medica l 2020-08-15 2020-08-15 Outpatient GC_SWHAOMC_ PRIV PRIV [id number] [facility] 04:42:00 04:42:00 Black_D [id number] Medica l 2020-06-11 2020-06-11 Outpatient sebastian_k [facility] [id number] [place] 01:17:00 01:17:00 [id number] Medical Group 2019-07-01 2019-07-01 Office Provider, [facility] [id number] 09:04:44 09:45:26 Visit [facility] SPIRAL WINDER [id number] [facility] [id number] MATERNAL [id number] & CHILD [address] [place] [address] Results Test Description Test Time Test Comments Results Result Comments Source POCT TEST 2021-10-24 20:47:00 Test Item Value Reference Range Interpretation Comme nts POCT PREG (test code = 1605) Negative On board controls acceptable with C Line (test code = 3574) Present POCT PREG LOT # (test code = 3575) [id number] POCT PREG TEST DATE (test code = 3576) 01/15/2023 Lab Interpretation (test code = 17958-4) [facility], [id number] 17:38:20 Test Item Value Reference Range Interpretation Comments SOURCE: (test Cervical/Endo code = 8001) cervical SLIDES: (test 1 code = 8011) LMP: (test code = 06/30/2021 8021) SPECIMEN (NOTE) Satisfactory f or ADEQUACY: (test evaluation. Endocervical code = 76671) cells/transfor mation zone component present. INTERPRETATION: NILM/NO (test code = EPITH. --------- 15627) ABNORMALITY;S -------- EE BELOW NEGATIVE FO R INTRAEPITHELIAL LESION OR MALIGNANCY ( NILM) --------- --------- --------- - LOADING MACHINE OPERATOR HELPER: Cherie Neal (test code = 8101) LOCATION: (test (NOTE) Specimens pr ocessed and code = 01215) interpreted at [facility] [address], , CLIA: [id number] CPT: (test code = (NOTE) 56503 UNLE SS OTHERWISE 8140) INDICATED, COMP UTER [...] or consolidated pr ior Pap history is avai lable as applicable. HPV HIGH RISK WITH GENOTYPE, [id number] 17:35:09 Test Item Value Reference Range Interpretation Comments HPV HIGH RISK INTERP NEGATIVE NEGATIVE (test code = 15864) HPV 16 (test code = NEGATIVE 47973) HPV 18 (test code = NEGATIVE 42017) HPV, HR, OTHER NEGATIVE Testing meth odology is GENOTYPES (test code real-ti me PCR utilizing = 64815) hydrolysis prob es with the [employer] Chucky 4800 system. The morales t individually [...] ATED, ALL TESTING PERFORM ED ATCLINICAL PATH [facility], [facility]. [address] [place] [address] LABORATORY DIRE CTOR: EVERARDO BRANTLEY M.D. CLIA NUMBER [id number] [facility] ACCREDITATI ON NO. VAGINAL PATHOGENS DNA [id number] 16:12:33 Test Item Value Reference Range Interpretation Comments VENKAT SPECIES (test NEGATIVE NEGATIVE code = ) G. VAGINALIS (test NEGATIVE NEGATIVE code = 14342) T. VAGINALIS (test NEGATIVE NEGATIVE UNLESS O THERWISE code = 64737) INDICATED, ALL TESTING PERFORMED ATCLI NICAL PATHOLOGY [facility], [facility] [address] [place], [place] [address] LABORATORY DIRE CTOR: EVERARDO BRANTLEY M.D. CLIA NUMBER [id number] [place]. [id number]
--- NOTE | 2021-10-28 03:41 | ER ---
Nurse's Notes [facility] Name: Patricia Monroe Age: 25 yrs Sex: Female : 1995 Arrival Date: 10/28/2021 Time: 02:12 Bed 14 Private MD: Diagnosis: Encounter for test, result positive; related conditions, unspecified Presentation: 10/28 02:17 Chief complaint: Patient states: I was told to come back and recheck my HCG. ha1 Coronavirus screen: Vaccine status: Patient reports receiving the 2nd dose of the covid vaccine. Ebola Screen: No symptoms or risks identified at this time. Risk Assessment: Do you want to hurt yourself or someone else? Patient reports no desire to harm self or others. Onset of symptoms was October 28, 2021. 02:17 Method Of Arrival: Ambulatory [facility] 02:46 Acuity: WALTER 4 ke1 02:46 Initial Sepsis Screen: Does the patient meet any 2 criteria? No. Patient's initial ke1 sepsis screen is negative. Does the patient have a suspected source of infection? No. Patient's initial sepsis screen is negative. Triage Assessment: 02:17 General: Appears in no apparent distress. Behavior is calm, cooperative. Pain: Denies [facility] pain. 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 - Social history:: Smoking status: Patient denies any tobacco usage or history of. Screenin:26 Abuse screen: Denies threats or abuse. Nutritional screening: No deficits noted. ke1 Tuberculosis screening: No symptoms or risk factors identified. Fall Risk None identified. Vital Signs: 02:32 BP 102 / 72; Pulse 92; Resp 16 S; Temp 98.4; Pulse Ox 100% on R/A; Weight 56.7 kg; ha1 Height 5 ft. 3 in. (160.02 cm); 02:32 Body Mass Index 22.14 (56.70 kg, 160.02 cm) 1 ED Course: 02:12 Patient arrived in ED. ja2 02:13 Franklin Bradshaw DO is Attending Physician. ms3 02:17 Arm band placed on right wrist. ha1 02:24 Buck Bowers, RN is Primary Nurse. ke1 02:46 Triage completed. ke1 02:46 Inserted saline lock: 20 gauge in right antecubital area, using aseptic technique. ke1 02:47 Bed in low position. Call light in reach. ke1 Administered Medications: No medications were administered Outcome: 03:41 Discharge ordered by MD. ms3 03:55 Patient left the ED. ke1 Signatures: Franklin Bradshaw DO DO ms3 Medina Francois2 Buck Bowers, RN RN ke1 Dianelys Lundberg RN RN ha1
--- NOTE | 2021-10-28 03:41 | EDPHYS ---
Physician Documentation [facility] Name: Patricia Monroe Age: 25 yrs Sex: Female : 1995 Arrival Date: 10/28/2021 Time: 02:12 Bed 14 Private MD: ED Physician Franklin Bradshaw HPI: 10/28 02:24 This 25 yrs old Female presents to ER via Ambulatory with complaints of ms3 Recheck HCG. 02:24 25-year-old female with no past medical history presents for a repeat beta hCG level. ms3 Patient states she was seen in the ED emergency department on Thursday. At that time her beta hCG was 60. Patient was told to return to the emergency department today for a repeat. Patient states her abdominal cramping has improved since her last visit. Patient states her discomfort is a 4 out of 10 and cramping in the lower abdomen at this time. Patient denies alleviating or inciting factors.. 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 - Social history:: Smoking status: Patient denies any tobacco usage or history of. ROS: 02:24 Constitutional: Negative for fever, and chills. ENT: Negative for injury, pain, and ms3 discharge, Neck: Negative for injury, pain, and swelling, Cardiovascular: Negative for chest pain, and palpitations. Respiratory: Negative for shortness of breath, cough, wheezing, and pleuritic chest pain. 02:24 Back: Negative for injury and pain, Neuro: Negative for headache, weakness, numbness, tingling. Psych: Negative for depression, anxiety, suicide ideation, homicidal ideation, and hallucinations. 02:24 Abdomen/GI: Positive for abdominal pain. 02:24 All other systems are negative. Exam: 02:24 Constitutional: This is a well developed, well nourished patient who is awake, alert, ms3 and in no acute distress. Head/Face: Normocephalic, atraumatic. Eyes: Pupils equal round and reactive to light, extra-ocular motions intact. Lids and lashes normal. Conjunctiva and sclera are non-icteric and not injected. Periorbital areas with no swelling, redness, or edema. Neck: Trachea midline, no cervical lymphadenopathy. Supple, full range of motion without nuchal rigidity, or vertebral point tenderness. No Meningismus. Chest/axilla: Normal chest wall appearance and motion. Nontender with no deformity. Cardiovascular: Regular rate and rhythm with a normal S1 and S2. No gallops, murmurs, or rubs. Normal PMI, no JVD. No pulse deficits. Respiratory: Lungs have equal breath sounds bilaterally, clear to auscultation and percussion. No rales, rhonchi or wheezes noted. No increased work of breathing, no retractions or nasal flaring. Abdomen/GI: Soft, non-tender, with normal bowel sounds. No distension or tympany. No guarding or rebound. No evidence of tenderness throughout. Skin: Warm, dry with normal turgor. Normal color with no rashes, no lesions, and no evidence of cellulitis. MS/ Extremity: Pulses equal, no cyanosis. Neurovascular intact. Full, normal range of motion. Psych: Awake, alert, with orientation to person, place and time. Behavior, mood, and affect are within normal limits. Vital Signs: 02:32 BP 102 / 72; Pulse 92; Resp 16 S; Temp 98.4; Pulse Ox 100% on R/A; Weight 56.7 kg; ha1 Height 5 ft. 3 in. (160.02 cm); 02:32 Body Mass Index 22.14 (56.70 kg, 160.02 cm) ha1 MDM: 02:23 Patient medically screened. ms3 03:44 Data reviewed: vital signs, nurses notes, lab test result(s), and as a result, I will ms3 discharge patient. Counseling: I had a detailed discussion with the patient and/or guardian regarding: the historical points, exam findings, and any diagnostic results supporting the discharge/admit diagnosis, lab results, the need for outpatient follow up. Special discussion: I discussed with the patient/guardian in detail that at this point there is no indication for admission to the hospital. It is understood, however, that if the symptoms persist or worsen the patient needs to return immediately for re-evaluation. ED course: Appropriately rising beta hCG with patient. Patient follow-up with her order to delivery supervisor in 2 to 3 days. Patient states please plan. All questions were answered. Return precautions discussed include worsening symptoms, or any other concerns.. 10/28 02:31 Order name: HCG-Quantitative; Complete Time: 03:38 ke1 Administered Medications: No medications were administered Disposition Summary: 10/28/21 03:41 Discharge Ordered Location: Home ms3 Condition: Stable ms3 Diagnosis - Encounter for test, result positive ms3 - related conditions, unspecified ms3 Followup: ms3 - With: Private Physician - When: 2 - 3 days - Reason: Recheck today's complaints Discharge Instructions: - Discharge Summary Sheet ms3 - Abdominal Pain During ms3 - First Trimester of ms3 Forms: - Medication Reconciliation Form ms3 - Thank You Letter ms3 - Antibiotic Education ms3 - Prescription Opioid Use ms3 Signatures: Dispatcher [employer] EDFranklin Rogers DO DO ms3 Buck Bowers RN RN ke1 Dianelys Lundberg RN RN ha1
[2021-10-28 05:35] VITALS: BP 102/72; TEMP 98.4; O2SAT 100
== END 2021-10-28 03:55 | disposition home or self-care (01) ==
LOC: ER 02:09
DX: Z32.01 Encounter for pregnancy test, result positive (principal)
CPT/HCPCS: 36415; 84702; 99282

== ENCOUNTER 2022-03-20 18:59 | Emergency (ER) | payer BC ==
--- OUTSIDE RECORDS SUMMARY | 2022-03-20 19:07 | XMS REPORT | Continuity of Care Document ---
:1995 Author Organization [facility] t Address [address] [place] [address] Care Team Providers Name Role Phone PCP, PATIENT DOES NOT HAVE A Primary Care Physician UnavailZEYAD Oleary Attending Clinician Unavailable SYMONE FRANK Attending Clinician Unavailable Zeyad Miller MD Attending Clinician Doctor Unassigned, [place] Attending Clinician Unavailable Julianne Evangelista RN Attending Clinician Unavailable LINDA MAYORGA Attending Clinician Unavailable Linda Mayorga MD Attending Clinician Pob, [facility] Main Attending Clinician Unavailable PRAMOD JOHNSON Attending Clinician Unavailable PRAMOD JOHNSON Attending Clinician Unavailable Symone Frank MD Attending Clinician FELY STERN Attending Clinician Unavailable Fely Tate Attending Clinician 2, [facility] Attending Clinician Unavailable Karyna CANSECO Attending Clinician Unavailable Karyna Read Attending Clinician KERRY_MARY GRACE Attending Clinician Unavailable MARQUES DUPREE Attending Clinician Unavailable Marques Dupree DO Attending Clinician GC_[email or web address]_D Attending Clinician Unavailable Drea Hoffman Attending Clinician viry Attending Clinician Unavailable Kenneth Gandara DO Attending Clinician Kevin [facility]M [employer] TECHNICIANAmina Attending Clinician Audrey CNPDian Attending Clinician [phone] Sherif [facility] Attending Clinician Provider, [facility] Tem Attending Clinician Unavailable PATTIE GORMAN Attending Clinician Unavailable AMINA DHILLON Attending Clinician Unavailable ZEYAD MILLER Admitting Clinician Unavailable Zeyad Miller MD Admitting Clinician LINDA MAYORGA Admitting Clinician Unavailable FELY STERN Admitting Clinician Unavailable Karyna CANSECO Admitting Clinician Unavailable SHARMIN Admitting Clinician Unavailable MARQUES DUPREE Admitting Clinician Unavailable SYMONE FRANK Admitting Clinician Unavailable [email or web address] Admitting Clinician Unavailable viry Admitting Clinician Unavailable Payers Payer Name Policy Type Policy Number Effective Date Expiration Date S [facility] - [id number] 2021 OUT OF STATE 00:00:00 [facility] [id number] Problems Condition Condition Condition Status Onset Resolution Last Treating Co mments Source Name Details Category Date Date Treatment Clinician Date S/P D&C S/P D&C Disease Active 2021-02 Univers (status (status 1-18 ity of post post 00:00: [place] dilation dilation 00 Medica l and and Branch curettage) curettage) Missed Missed Disease Active 2021-02 Overview: Univer s 1-16 Formattin ity of 00:00: g of this [place] 00 note Medical might be Branch different from the original. Added automatic ally from request for surgery [id number] History of History of Disease Active 2021-02 U nivers 0-03 ity of delivery, delivery, 00:00: Emma porter currently currently 00 Medi nadira Branch Disease Active Uni vers of unknown of unknown 9-19 it y of anatomic anatomic 00:00: [place] location location 00 Medica l Branch High risk High risk Disease Active Uni vers , , 9-19 it y of antepartum antepartum 00:[place] [facility] [place] Dyspnea on Dyspnea on Disease Active U nivers exertion exertion 9- ity of 00:: [place] [facility] Palpitatio Palpitatio Disease Active U nivers ns ns 10-18 ity of 00:00: [place] [facility] Unspecifie Unspecifie Disease Active U nivers d d 2-18 ity of 00:00: [place] screening screening [facility] Asthma Asthma Disease Active Univers 1-05 ity of 00:00: [place] [address] Medical Branch Obesity Obesity Disease Active 2017-02 Univers (BMI (BMI 2-27 ity of 30-39.9) 30-39.9) 00:00: [place] [facility] Neck Neck Disease Active Univers muscle muscle 7-18 ity of spasm spasm 00:00: [address] Allergies, Adverse Reactions, Alerts Allergy Allergy Status Severity Reaction(s) Onset Inactive Treating Comm ents Source Name Type Date Date Clinician NO KNOWN Drug Active Univers ALLERGIE Class ity of S [facility] Social History Social Habit Start Date Stop Date Quantity Comments Source ASSERTION 2021-10-10 [facility] 00:00:00 [facility] Exposure to 2022-01-27 2022-02-06 Not sure [facility] SARS-CoV-2 00:00:00 13:09:00 [facility] [place] [facility] (event) [place] Alcohol intake 2022-02-06 2022-02-06 Ex-drinker [facility] 00:00:00 00:00:00 (finding) [facility] Tobacco use and 2021-10-18 2021-10-18 Smokeless tobacco Un iversity of exposure 00:00:00 00:00:00 non-user [facility] Sex Assigned At [birth year] Universit y of 00:00:00 00:00:00 [facility] Smoking Status Start Date Stop Date Source Never smoked tobacco [facility] Medications Ordered Filled Start Stop Current Ordering Indication Dosage Frequency Signature Comments Components Source Medication Medication Date Date Medication? Clinician (SIG) Name Name 2021-02- Take by Unive rs 25/iron 03-26 12-08 mouth. ity of fum/folic/d 13:47: 00:00 [place] finley 16 :00 Medical (-1 Branch ORAL) 2021-02 No Take by Unive rs 25/iron 2-08 12-08 mouth. ity of fum/folic/d 13:47: 00:00 [place] finley 16 :00 Medical (-1 Branch ORAL) acetaminoph 2021-02- No 650mg Take 650 Univers en 325 mg 2-08 12-08 mg by ity of tablet 13:47: 00:00 mouth [place] 07 :00 every 6 Medical (six) Branch hours as needed. acetaminoph 2021-02 No 650mg Take 650 Univers en 325 mg 2-08 12-08 mg by ity of tablet 13:47: 00:00 mouth [place] 07 :00 every 6 Medical (six) Branch hours as needed. doxycycline 2021-02 No 100mg 100 mg, U nivers hyclate 03-0918 Oral, ity of (Vibramycin 06:00: 13:12 PRE-PROCED [place] ) capsule 00 :00 URE ONCE, Medic al 100 mg 1 dose, Branch Starting on Thu01/07/22 at 0000, Until Thu01/03/22 at 0712, EDITH, Surgery/Pr ocedure, DSU Pre-op
Reason for Anti-Infec tive: Surgical Prophylaxi s
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
Duration of therapy: within 24 hours of surgery doxycycline 2021-02 No 100mg 100 mg, U nivers hyclate 03-09 Oral, ity of (Vibramycin 06:00: 13:12 PRE-PROCED [place] ) capsule 00 :00 URE ONCE, Medic al 100 mg 1 dose, Branch Starting on Thu01/07/22 at 0000, Until Thu01/03/22 at 0712, EDITH, Surgery/Pr ocedure, DSU Pre-op
Reason for Anti-Infec tive: Surgical Prophylaxi s
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
Duration of therapy: within 24 hours of surgery FENTanyl PF 2021-02 Yes 25ug 25 mcg, Uni vers (SUBLIMAZE 1-18 Slow IV ity of (PF)) 14:48: Push, [place] injection 16 Q5MIN PRN, Medi nadira 25 mcg 4 doses, Branch Starting on Thu01/03/22 at 0848, Until Discontinu ed, Routine, Pain (scale 7-10), PACU FENTanyl PF 2021-02 Yes 25ug 25 mcg, Uni vers (SUBLIMAZE 1-18 Slow IV ity of (PF)) 14:48: Push, [place] injection 16 Q5MIN PRN, Medi nadira 25 mcg 4 doses, Branch Starting on Thu01/03/22 at 0848, Until Discontinu ed, Routine, Pain (scale 4-6), PACU ondansetron 2021-02 Yes 4mg 4 mg, Slow Univers (ZOFRAN 1-18 IV Push, ity of (PF)) 14:48: PRN, 1 [place] injection 4 16 dose, Medical mg Starting Branch on Thu01/03/22 at 0848, Until Discontinu ed, Routine, Nausea and Vomiting (N/V), PACU FENTanyl PF 2021-02- No 25ug 25 mcg, Un cindy (SUBLIMAZE 1-18 11-18 Slow IV ity o f (PF)) 14:48: 18:27 Push, [place] injection 16 :53 Q5MIN PRN, Medi nadira 25 mcg 4 doses, Branch Starting on Thu01/03/22 at 0848, Until Thu01/03/22 at 1227, Routine, Pain (scale 7-10), PACU FENTanyl PF 2021-02- No 25ug 25 mcg, Un cindy (SUBLIMAZE 1-18 11-18 Slow IV ity o f (PF)) 14:48: 18:27 Push, [place] injection 16 :53 Q5MIN PRN, Medi nadira 25 mcg 4 doses, Branch Starting on Thu01/03/22 at 0848, Until Thu01/03/22 at 1227, Routine, Pain (scale 4-6), PACU ondansetron 2021-02- No 4mg 4 mg, Slow Univers (ZOFRAN 1-18 11-18 IV Push, ity of (PF)) 14:48: 18:27 PRN, 1 [place] injection 4 16 :53 dose, Medical mg Starting Branch on Thu01/03/22 at 0848, Until Thu01/03/22 at 1227, Routine, Nausea and Vomiting (N/V), PACU silver 2021-02 Yes PRN, Univers nitrate -18 Starting ity of applicator 14:23: on Fri [place] 00 01/03/22 Medical at 0823, Branch Until Discontinu ed, Routine, Intra-op silver 2021-02- No PRN, Univers nitrate -18 01-03 Starting ity of applicator 14:23: 18:27 [place] Fri [place] 00 :53 01/03/22 Medical at 0823, Branch Until Thu01/03/22 at 1227, Routine, Intra-op ferric 2021-02 Yes PRN, Univers subsulfate 18 Starting ity o f (MONSEL'S 14:12: on Fri [place] SOLUTION) 00 01/03/22 Medica l solution at 0812, Branch Until Discontinu ed, Routine, Intra-op sodium 2021-02 Yes PRN, Univers chloride 18 Starting ity of 0.9 % 14:12: on Fri [place] irrigation 00 01/03/22 Medic al solution at 0812, Branch Until Discontinu ed, Intra-op ferric 2021-02- No PRN, Univers subsulfate 03-05 Starting ity of (MONSEL'S 14:12: 18:27 on Fri [place] SOLUTION) 00 :53 01/03/22 Medica l solution at 0812, Branch Until Thu01/03/22 at 1227, Routine, Intra-op sodium 2021-02- No PRN, Univers chloride 18 01-03 Starting ity of 0.9 % 14:12: 18:27 on Fri [place] irrigation 00 :53 01/03/22 Medic al solution at 0812, Branch Until Thu01/03/22 at 1227, Intra-op 2021-02 Yes Take by Univer s 25/iron 1-18 mouth. ity of fum/folic/d 10:27: [place] [address] Medical (-1 Branch ORAL) acetaminoph 2021-02 Yes 650mg Take 650 U nivers en 325 mg 1-18 mg by ity of tablet 10:27: mouth [place] [id number] every 6 Medical (six) Branch hours as needed. 2021-02 Yes Take by Univer s 25/iron 1-18 mouth. ity of fum/folic/d 10:27: [facility] 51 Medical (-1 Branch ORAL) acetaminoph 2021-02 Yes 650mg Take 650 U nivers en 325 mg 1-18 mg by ity of tablet 10:27: mouth [place] 51 every 6 Medical (six) Branch hours as needed. 2021-02 Yes Take by Univer s 25/iron 1-18 mouth. ity of fum/folic/d 10:27: [place] [address] Medical (-1 Branch ORAL) acetaminoph 2021-02 Yes 650mg Take 650 U nivers en 325 mg 1-18 mg by ity of tablet 10:27: mouth [place] 51 every 6 Medical (six) Branch hours as needed. 2021-02 Yes Take by Univer s 25/iron 1-18 mouth. ity of fum/folic/d 10:27: [facility] 51 Medical (-1 Branch ORAL) acetaminoph 2021-02 Yes 650mg Take 650 U nivers en 325 mg 1-18 mg by ity of tablet 10:27: mouth [place] 51 every 6 Medical (six) Branch hours as needed. 2021-02 Yes Take by Univer s 25/iron 1-18 mouth. ity of fum/folic/d 10:27: [place] [address] Medical (-1 Branch ORAL) acetaminoph 2021-02 Yes 650mg Take 650 U nivers en 325 mg 1-18 mg by ity of tablet 10:27: mouth [place] 51 every 6 Medical (six) Branch hours as needed. ibuprofen 2021-02 Yes [id number] 600mg Take 1 Univers 600 mg 1-18 tablet by ity of tablet 00:00: mouth [place] 00 every 6 Medical (six) Branch hours as needed for Pain (scale 1-3) or Pain (scale 4-6). ibuprofen 2021-02 Yes [id number] 600mg Take 1 Univers 600 mg 1-18 tablet by ity of tablet 00:00: mouth [place] 00 every 6 Medical (six) Branch hours as needed for Pain (scale 1-3) or Pain (scale 4-6). ibuprofen 2021-02 Yes [id number] 600mg Take 1 Univers 600 mg 1-18 tablet by ity of tablet 00:00: mouth [place] 00 every 6 Medical (six) Branch hours as needed for Pain (scale 1-3) or Pain (scale 4-6). ibuprofen 2021-02 Yes [id number] 600mg Take 1 Univers 600 mg 1-18 tablet by ity of tablet 00:00: mouth [place] 00 every 6 Medical (six) Branch hours as needed for Pain (scale 1-3) or Pain (scale 4-6). ibuprofen 2021-02 Yes [id number] 600mg Take 1 Univers 600 mg 1-18 tablet by ity of tablet 00:00: mouth [place] 00 every 6 Medical (six) Branch hours as needed for Pain (scale 1-3) or Pain (scale 4-6). ibuprofen 2021-02- No [id number] 600mg Take 1 Univers 600 mg 1-18 12-08 tablet by ity of tablet 00:00: 00:00 mouth [place] 00 :00 every 6 Medical (six) Branch hours as needed for Pain (scale 1-3) or Pain (scale 4-6). ibuprofen 2021-02- No [id number] 600mg Take 1 Univers 600 mg 1-18 12-08 tablet by ity of tablet 00:00: 00:00 mouth [place] 00 :00 every 6 Medical (six) Branch hours as needed for Pain (scale 1-3) or Pain (scale 4-6). doxycycline 2021-02- Yes [id number] 200mg Take 2 Univers hyclate 100 1-18 11-19 capsules ity of mg capsule 00:00: 05:59 by mouth [place] 00 :00 once now Medical for 1 Branch dose. doxycycline 2021-02- Yes [id number] 200mg Take 2 Univers hyclate 100 1-18 11-19 capsules ity of mg capsule 00:00: 05:59 by mouth [place] 00 :00 once now Medical for 1 Branch dose. doxycycline 2021-02- No [id number] 200mg Take 2 Univers hyclate 100 1-18 11-19 capsules ity of mg capsule 00:00: 05:59 by mouth [place] 00 :00 once now Medical for 1 Branch dose. 2021-02 Yes Take by Univer s 25/iron 1-16 mouth. ity of fum/folic/d 14:51: [place] 27 Medical (-1 Branch ORAL) acetaminoph 2021-02 Yes 650mg Take 650 U nivers en 325 mg 1-16 mg by ity of tablet 14:51: mouth [place] 27 every 6 Medical (six) Branch hours as needed. 2021-02 Yes Take by Univer s 25/iron 1-16 mouth. ity of fum/folic/d 14:51: [facility] 27 Medical (-1 Branch ORAL) acetaminoph 2021-02 Yes 650mg Take 650 U nivers en 325 mg 1-16 mg by ity of tablet 14:51: mouth [place] 27 every 6 Medical (six) Branch hours as needed. 2021-02 Yes Take by Univer s 25/iron 1-16 mouth. ity of fum/folic/d 14:51: [facility] 27 Medical (-1 Branch ORAL) acetaminoph 2021-02 Yes 650mg Take 650 U nivers en 325 mg 1-16 mg by ity of tablet 14:51: mouth [place] 27 every 6 Medical (six) Branch hours as needed. 2021-02 Yes Take by Univer s 25/iron 1-16 mouth. ity of fum/folic/d 14:51: [place] [address] Medical (-1 Branch ORAL) acetaminoph 2021-02 Yes 650mg Take 650 U nivers en 325 mg 1-16 mg by ity of tablet 14:51: mouth [place] 27 every 6 Medical (six) Branch hours as needed. 2021-02 Yes Take by [employer] Holdinger s 25/iron 1-16 mouth. ity of fum/folic/d 14:51: [facility] 27 Medical (-1 Branch ORAL) acetaminoph 2021-02 Yes 650mg Take 650 U nivers en 325 mg 1-16 mg by ity of tablet 14:51: mouth [place] 27 every 6 Medical (six) Branch hours as needed. NaCl 0.9% 2021-02- No 1000mL at 999 Uni vers (NS) bolus 1-15 11-15 mL/hr, ity of infusion 14:30: 14:45 1,000 mL, [place] as 1,000 mL 00 :00 IV Medical Piggyback, Branch ONCE, 1 dose, On Thu12/31/21 at 0830, STAT ibuprofen 2021-02 Yes [id number] 600mg Take 1 U nivers 600 mg 1-15 tablet by ity of tablet 00:00: mouth [place] 00 every 6 Medical (six) Branch hours as needed for Pain (scale 1-3) or Pain (scale 4-6). ibuprofen 2021-02 Yes [id number] 600mg Take 1 U nivers 600 mg 1-15 tablet by ity of tablet 00:00: mouth [place] 00 every 6 Medical (six) Branch hours as needed for Pain (scale 1-3) or Pain (scale 4-6). ibuprofen 2021-02 Yes [id number] 600mg Take 1 U nivers 600 mg 1-15 tablet by ity of tablet 00:00: mouth [place] 00 every 6 Medical (six) Branch hours as needed for Pain (scale 1-3) or Pain (scale 4-6). ibuprofen 2021-02 Yes [id number] 600mg Take 1 U nivers 600 mg 1-15 tablet by ity of tablet 00:00: mouth [place] 00 every 6 Medical (six) Branch hours as needed for Pain (scale 1-3) or Pain (scale 4-6). ibuprofen 2021-02 Yes [id number] 600mg Take 1 U nivers 600 mg 1-15 tablet by ity of tablet 00:00: mouth [place] 00 every 6 Medical (six) Branch hours as needed for Pain (scale 1-3) or Pain (scale 4-6). ibuprofen 2021-02 Yes [id number] 600mg Take 1 U nivers 600 mg 1-15 tablet by ity of tablet 00:00: mouth [place] 00 every 6 Medical (six) Branch hours as needed for Pain (scale 1-3) or Pain (scale 4-6). ibuprofen 2021-02 Yes [id number] 600mg Take 1 U nivers 600 mg 1-15 tablet by ity of tablet 00:00: mouth [place] 00 every 6 Medical (six) Branch hours as needed for Pain (scale 1-3) or Pain (scale 4-6). ibuprofen 2021-02 Yes [id number] 600mg Take 1 U nivers 600 mg 1-15 tablet by ity of tablet 00:00: mouth [place] 00 every 6 Medical (six) Branch hours as needed for Pain (scale 1-3) or Pain (scale 4-6). ibuprofen 2021-02 No [id number] 600mg Take 1 Univers 600 mg 1-15 11-18 tablet by ity of tablet 00:00: 00:00 mouth [place] 00 :00 every 6 Medical (six) Branch hours as needed for Pain (scale 1-3) or Pain (scale 4-6). ibuprofen 2021-02- No [id number] 600mg Take 1 Univers 600 mg 1-15 11-18 tablet by ity of tablet 00:00: 00:00 mouth [place] 00 :00 every 6 Medical (six) Branch hours as needed for Pain (scale 1-3) or Pain (scale 4-6). labetaloL 2021-02 Yes [id number] 50mg Take 0.5 Univers 100 mg 0-24 tablets by ity of tablet 00:00: mouth [place] 00 every 12 Medical (twelve) Branch hours. labetaloL 2021-02 Yes [id number] 50mg Take 0.5 Univers 100 mg 0-24 tablets by ity of tablet 00:00: mouth [place] 00 every 12 Medical (twelve) Branch hours. labetaloL 1 Yes [id number] 50mg Take 0.5 Univers 100 mg 0-24 tablets by ity of tablet 00:00: mouth [place] 00 every 12 Medical (twelve) Branch hours. labetaloL 2021-02 Yes [id number] 50mg Take 0.5 Univers 100 mg 0-24 tablets by ity of tablet 00:00: mouth [place] 00 every 12 Medical (twelve) Branch hours. labetaloL 2021-02 Yes [id number] 50mg Take 0.5 Univers 100 mg 0-24 tablets by ity of tablet 00:00: mouth [place] 00 every 12 Medical (twelve) Branch hours. labetaloL 2021-02 Yes [id number] 50mg Take 0.5 Univers 100 mg 0-24 tablets by ity of tablet 00:00: mouth [place] 00 every 12 Medical (twelve) Branch hours. labetaloL 2021-02 Yes [id number] 50mg Take 0.5 Univers 100 mg 0-24 tablets by ity of tablet 00:00: mouth [place] 00 every 12 Medical (twelve) Branch hours. labetaloL 1 Yes [id number] 50mg Take 0.5 Univers 100 mg 0-24 tablets by ity of tablet 00:00: mouth [place] 00 every 12 Medical (twelve) Branch hours. labetaloL 2021-1 Yes [id number] 50mg Take 0.5 Univers 100 mg 0-24 tablets by ity of tablet 00:00: mouth [place] 00 every 12 Medical (twelve) Branch hours. labetaloL 2021-1 Yes [id number] 50mg Take 0.5 Univers 100 mg 0-24 tablets by ity of tablet 00:00: mouth [place] 00 every 12 Medical (twelve) Branch hours. labetaloL 2021-1 Yes [id number] 50mg Take 0.5 Univers 100 mg 0-24 tablets by ity of tablet 00:00: mouth [place] 00 every 12 Medical (twelve) Branch hours. labetaloL 2021-1 Yes [id number] 50mg Take 0.5 Univers 100 mg 0-24 tablets by ity of tablet 00:00: mouth [place] 00 every 12 Medical (twelve) Branch hours. labetaloL 2021-1 Yes [id number] 50mg Take 0.5 Univers 100 mg 0-24 tablets by ity of tablet 00:00: mouth [place] 00 every 12 Medical (twelve) Branch hours. labetaloL 2021-1 Yes [id number] 50mg Take 0.5 Univers 100 mg 0-24 tablets by ity of tablet 00:00: mouth [place] 00 every 12 Medical (twelve) Branch hours. labetaloL 2021-1 Yes [id number] 50mg Take 0.5 Univers 100 mg 0-24 tablets by ity of tablet 00:00: mouth [place] 00 every 12 Medical (twelve) Branch hours. labetaloL 2021-1 Yes [id number] 50mg Take 0.5 Univers 100 mg 0-24 tablets by ity of tablet 00:00: mouth [place] 00 every 12 Medical (twelve) Branch hours. labetaloL 2021-1 Yes [id number] 50mg Take 0.5 Univers 100 mg 0-24 tablets by ity of tablet 00:00: mouth [place] 00 every 12 Medical (twelve) Branch hours. labetaloL 2021-1 Yes [id number] 50mg Take 0.5 Univers 100 mg 0-24 tablets by ity of tablet 00:00: mouth [place] 00 every 12 Medical (twelve) Branch hours. labetaloL 2021-1 Yes [id number] 50mg Take 0.5 Univers 100 mg 0-24 tablets by ity of tablet 00:00: mouth [place] 00 every 12 Medical (twelve) Branch hours. labetaloL 2021-1 Yes [id number] 50mg Take 0.5 Univers 100 mg 0-24 tablets by ity of tablet 00:00: mouth [place] 00 every 12 Medical (twelve) Branch hours. labetaloL 2021-1 Yes [id number] 50mg Take 0.5 Univers 100 mg 0-24 tablets by ity of tablet 00:00: mouth [place] 00 every 12 Medical (twelve) Branch hours. labetaloL 2021-1 Yes [id number] 50mg Take 0.5 Univers 100 mg 0-24 tablets by ity of tablet 00:00: mouth [place] 00 every 12 Medical (twelve) Branch hours. labetaloL 2021-1 Yes [id number] 50mg Take 0.5 Univers 100 mg 0-24 tablets by ity of tablet 00:00: mouth [place] 00 every 12 Medical (twelve) Branch hours. labetaloL 1 Yes [id number] 50mg Take 0.5 Univers 100 mg 0-24 tablets by ity of tablet 00:00: mouth [place] 00 every 12 Medical (twelve) Branch hours. labetaloL 2021-1 Yes [id number] 50mg Take 0.5 Univers 100 mg 0-24 tablets by ity of tablet 00:00: mouth [place] 00 every 12 Medical (twelve) Branch hours. labetaloL 1 Yes [id number] 50mg Take 0.5 Univers 100 mg 0-24 tablets by ity of tablet 00:00: mouth [place] 00 every 12 Medical (twelve) Branch hours. labetaloL 1 Yes [id number] 50mg Take 0.5 Univers 100 mg 0-24 tablets by ity of tablet 00:00: mouth [place] 00 every 12 Medical (twelve) Branch hours. labetaloL 1 Yes [id number] 50mg Take 0.5 Univers 100 mg 0-24 tablets by ity of tablet 00:00: mouth [place] 00 every 12 Medical (twelve) Branch hours. labetaloL 1 Yes [id number] 50mg Take 0.5 Univers 100 mg 0-24 tablets by ity of tablet 00:00: mouth [place] 00 every 12 Medical (twelve) Branch hours. labetaloL 2021-1 Yes [id number] 50mg Take 0.5 Univers 100 mg 0-24 tablets by ity of tablet 00:00: mouth [place] 00 every 12 Medical (twelve) Branch hours. cephALEXin 2021- No 500mg 500 mg, Un cindy (KEFLEX) 11-09 Oral, ONCE ity of capsule 500 03:00: 02:08 NOW, 1 [place] as mg 00 :00 dose, On Medical Fri Branch 11/08/21 at 2200, EDITH
Re ason for Anti-Infec tive: Documented Infection< br>Documen carole Infection Site: Urine
D uration of Therapy: 7 days cephALEXin 2021- No [id number] 500mg Take 1 Univers (KEFLEX) 11-08 capsule by ity of 500 mg 00:00: 04:59 mouth in [place] capsule 00 :00 the Medical morning Branch and 1 capsule in the evening. Do all this for 7 days. cephALEXin 2021- No [id number] 500mg Take 1 Univers (KEFLEX) 11-08 capsule by ity of 500 mg 00:00: 04:59 mouth in [place] capsule 00 :00 the Medical morning Branch and 1 capsule in the evening. Do all this for 7 days. cephALEXin 2021- No [id number] 500mg Take 1 Univers (KEFLEX) 11-08 capsule by ity of 500 mg 00:00: 04:59 mouth in [place] capsule 00 :00 the Medical morning Branch and 1 capsule in the evening. Do all this for 7 days. cyclobenzap 2021- No Take by Un cindy rine HCl 11-04 mouth. ity of (FLEXERIL 18:05: 00:00 [place] ORAL) 52 :00 [facility] Branch cyclobenzap 2021- No Take by Un cindy rine HCl 11-04 mouth. ity of (FLEXERIL 18:05: 00:00 [place] ORAL) 52 :00 Medical Branch butalbital- 2021- No 1{tbl} Take 1 U nivers acetaminoph 11-04 tablet by it y of en-caff 18:05: 00:00 mouth [place] 50-325-40 49 :00 every 4 Medical mg tablet (four) Branch hours as needed for Headache. butalbital- 2021-2021- No 1{tbl} Take 1 U nivers acetaminoph 11-04 tablet by it y of en-caff 18:05: 00:00 mouth [place] 50-325-40 49 :00 every 4 Medical mg tablet (four) Branch hours as needed for Headache. 2021-0 Yes Take by Univer s 25/iron 9-19 mouth. ity of fum/folic/d 14:13: [facility] 49 Medical (-1 Branch ORAL) 202-0 Yes Take by Univer s 25/iron 9-19 mouth. ity of fum/folic/d 14:13: [facility] 49 Medical (-1 Branch ORAL) 202-0 Yes Take by Univer s 25/iron 9-19 mouth. ity of fum/folic/d 14:13: [facility] 49 Medical (-1 Branch ORAL) 202-0 Yes Take by Univer s 25/iron 9-19 mouth. ity of fum/folic/d 14:13: [facility] 49 Medical (-1 Branch ORAL) 2021-0 Yes Take by Univer s 25/iron 9-19 mouth. ity of fum/folic/d 14:13: [facility] 49 Medical (-1 Branch ORAL) 2021-0 Yes Take by Univer s 25/iron 9-19 mouth. ity of fum/folic/d 14:13: [facility] 49 Medical (-1 Branch ORAL) 2021-0 Yes Take by Univer s 25/iron 9-19 mouth. ity of fum/folic/d 14:13: [facility] 49 Medical (-1 Branch ORAL) 2021-0 Yes Take by Univer s 25/iron 9-19 mouth. ity of fum/folic/d 14:13: [facility] 49 Medical (-1 Branch ORAL) 2021-0 Yes Take by Univer s 25/iron 9-19 mouth. ity of fum/folic/d 14:13: [facility] 49 Medical (-1 Branch ORAL) 202-0 Yes Take by Univer s 25/iron 9-19 mouth. ity of fum/folic/d 14:13: [facility] 49 Medical (-1 Branch ORAL) 202-0 Yes Take by Univer s 25/iron 9-19 mouth. ity of fum/folic/d 14:13: [facility] 49 Medical (-1 Branch ORAL) 202-0 Yes Take by Univer s 25/iron 9-19 mouth. ity of fum/folic/d 14:13: [facility] 49 Medical (-1 Branch ORAL) 2022-0 Yes Take by Univer s 25/iron 9-19 mouth. ity of fum/folic/d 14:13: [place] [id number] Medical (-1 Branch ORAL) 2021-0 Yes Take by Univer s 25/iron 9-19 mouth. ity of fum/folic/d 14:13: [place] [address] Medical (-1 Branch ORAL) 2021-0 Yes Take by Univer s 25/iron 9-19 mouth. ity of fum/folic/d 14:13: [place] [id number] Medical (-1 Branch ORAL) 2021-0 Yes Take by [facility] 25/iron 9-19 mouth. ity of fum/folic/d 14:13: [place] [id number] Medical (-1 Branch ORAL) 2021-0 Yes Take by [facility] 25/iron 9-19 mouth. ity of fum/folic/d 14:13: [place] [id number] Medical (-1 Branch ORAL) 2021-0 Yes Take by [facility] 25/iron 9-19 mouth. ity of fum/folic/d 14:13: [place] [id number] Medical (-1 Branch ORAL) 2021-0 Yes Take by [facility] 25/iron 9-19 mouth. ity of fum/folic/d 14:13: [place] [id number] Medical (-1 Branch ORAL) 2021-0 Yes Take by [facility] 25/iron 9-19 mouth. ity of fum/folic/d 14:13: [place] [id number] Medical (-1 Branch ORAL) 2021-0 Yes Take by [facility] 25/iron 9-19 mouth. ity of fum/folic/d 14:13: [place] [id number] Medical (-1 Branch ORAL) 2021-0 Yes Take by [facility] 25/iron 9-19 mouth. ity of fum/folic/d 14:13: [place] [id number] Medical (-1 Branch ORAL) 2021-0 Yes Take by [facility] 25/iron 9-19 mouth. ity of fum/folic/d 14:13: [place] [id number] Medical (-1 Branch ORAL) 2022-0 Yes Take by [facility] 25/iron 9-19 mouth. ity of fum/folic/d 14:13: [place] [facility] (-1 Branch ORAL) 2021-0 Yes Take by Un[facility] 25/iron 9-19 mouth. ity of fum/folic/d 14:13: [facility] 49 Medical (-1 Branch ORAL) 2021-0 Yes Take by Univer s 25/iron 9-19 mouth. ity of fum/folic/d 14:13: [facility] 49 Medical (-1 Branch ORAL) benzonatate 2021-0 Yes [id number] 200mg Take 1 Univers 200 mg 9-08 capsule by ity of capsule 00:00: mouth 3 (three) Medical times Branch daily as needed for Cough for up to 20 doses. benzonatate 2021-0 Yes [id number] 200mg Take 1 [facility] 200 mg 9-08 capsule by ity of capsule 00:00: mouth (three) Medical times Branch daily as needed for Cough for up to 20 doses. benzonatate 2021-0 Yes [id number] 200mg Take 1 [facility] 200 mg 9-08 capsule by ity of capsule 00:00: mouth (three) Medical times Branch daily as needed for Cough for up to 20 doses. ibuprofen 2021-0 Yes [id number] 600mg Take 1 [facility] 600 mg 9-08 tablet by ity of tablet 00:00: mouth 00 every 6 Medical (six) Branch hours as needed for Pain (scale 4-6). benzonatate 2021-0 Yes [id number] 200mg Take 1 [facility] 200 mg 9-08 capsule by ity of capsule 00:00: mouth 3 (three) Medical times Branch daily as needed for Cough for up to 20 doses. ibuprofen 2022-0 Yes [id number] 600mg Take 1 [facility] 600 mg 9-08 tablet by ity of tablet 00:00: mouth [place] 00 every 6 Medical (six) Branch hours as needed for Pain (scale 4-6). benzonatate 2022-0 Yes [id number] 200mg Take 1 [facility] 200 mg 9-08 capsule by ity of capsule 00:00: mouth (three) Medical times Branch daily as needed for Cough for up to 20 doses. benzonatate 2022-0 Yes [id number] 200mg Take 1 [facility] 200 mg 9-08 capsule by ity of capsule 00:00: mouth (three) Medical times Branch daily as needed for Cough for up to 20 doses. benzonatate 2022-0 Yes [id number] 200mg Take 1 [facility] 200 mg 9-08 capsule by ity of capsule 00:00: mouth (three) Medical times Branch daily as needed for Cough for up to 20 doses. benzonatate 2022-0 Yes [id number] 200mg Take 1 [facility] 200 mg 9-08 capsule by ity of capsule 00:00: mouth (three) Medical times Branch daily as needed for Cough for up to 20 doses. benzonatate 2022-0 Yes [id number] 200mg Take 1 [facility] 200 mg 9-08 capsule by ity of capsule 00:00: mouth (three) Medical times Branch daily as needed for Cough for up to 20 doses. benzonatate 2022-0 Yes [id number] 200mg Take 1 [facility] 200 mg 9-08 capsule by ity of capsule 00:00: mouth (three) Medical times Branch daily as needed for Cough for up to 20 doses. benzonatate 2022-0 Yes [id number] 200mg Take 1 [facility] 200 mg 9-08 capsule by ity of capsule 00:00: mouth (three) Medical times Branch daily as needed for Cough for up to 20 doses. benzonatate 2022-0 Yes [id number] 200mg Take 1 [facility] 200 mg 9-08 capsule by ity of capsule 00:00: mouth (three) Medical times Branch daily as needed for Cough for up to 20 doses. benzonatate 2022-0 Yes [id number] 200mg Take 1 [facility] 200 mg 9-08 capsule by ity of capsule 00:00: mouth (three) Medical times Branch daily as needed for Cough for up to 20 doses. benzonatate 2022-0 Yes [id number] 200mg Take 1 [facility] 200 mg 9-08 capsule by ity of capsule 00:00: mouth (three) Medical times Branch daily as needed for Cough for up to 20 doses. benzonatate 2022-0 Yes [id number] 200mg Take 1 [facility] 200 mg 9-08 capsule by ity of capsule 00:00: mouth (three) Medical times Branch daily as needed for Cough for up to 20 doses. benzonatate 2022-0 Yes [id number] 200mg Take 1 [facility] 200 mg 9-08 capsule by ity of capsule 00:00: mouth (three) Medical times Branch daily as needed for Cough for up to 20 doses. benzonatate 2021-0 Yes [id number] 200mg Take 1 [facility] 200 mg 9-08 capsule by ity of capsule 00:00: mouth (three) Medical times Branch daily as needed for Cough for up to 20 doses. benzonatate 2021-0 Yes [id number] 200mg Take 1 [facility] 200 mg 9-08 capsule by ity of capsule 00:00: mouth (three) Medical times Branch daily as needed for Cough for up to 20 doses. benzonatate 2021-0 Yes [id number] 200mg Take 1 [facility] 200 mg 9-08 capsule by ity of capsule 00:00: mouth (three) Medical times Branch daily as needed for Cough for up to 20 doses. benzonatate 2021-0 Yes [id number] 200mg Take 1 [facility] 200 mg 9-08 capsule by ity of capsule 00:00: mouth () Medical times Branch daily as needed for Cough for up to 20 doses. benzonatate 2021-0 Yes [id number] 200mg Take 1 [facility] 200 mg 9-08 capsule by ity of capsule 00:00: mouth (three) Medical times Branch daily as needed for Cough for up to 20 doses. benzonatate 2021-0 Yes [id number] 200mg Take 1 [facility] 200 mg 9-08 capsule by ity of capsule 00:00: mouth (three) Medical times Branch daily as needed for Cough for up to 20 doses. benzonatate 2021-0 Yes [id number] 200mg Take 1 [facility] 200 mg 9-08 capsule by ity of capsule 00:00: mouth (three) Medical times Branch daily as needed for Cough for up to 20 doses. benzonatate 2021-0 Yes [id number] 200mg Take 1 [facility] 200 mg 9-08 capsule by ity of capsule 00:00: mouth (three) Medical times Branch daily as needed for Cough for up to 20 doses. benzonatate 2021-0 2022- No [id number] 200mg Take 1 [facility] 200 mg 9-08 11-15 capsule by ity of capsule 00:00: 00:00 mouth 3 [place] 00 :00 (three) Medical times Branch daily as needed for Cough for up to 20 doses. benzonatate 2021- No [id number] 200mg Take 1 [facility] 200 mg 10-24 capsule by ity of capsule 00:00: 00:00 mouth 3 [place] 00 :00 (three) Medical times Branch daily as needed for Cough for up to 20 doses. benzonatate 2021- No [id number] 200mg Take 1 [facility] 200 mg 10-24 capsule by ity of capsule 00:00: 00:00 mouth 3 [place] 00 :00 (three) Medical times Branch daily as needed for Cough for up to 20 doses. ibuprofen 2021- No [id number] 600mg Take 1 [facility] 600 mg 10-24 tablet by ity of tablet 00:00: 00:00 mouth [place] 00 :00 every 6 Medical (six) Branch hours as needed for Pain (scale 4-6). ibuprofen 2021-2021- No [id number] 600mg Take 1 [facility] 600 mg 10-24 tablet by ity of tablet 00:00: 00:00 mouth [place] 00 :00 every 6 Medical (six) Branch hours as needed for Pain (scale 4-6). metoprolol 2021-0 Yes [id number] 25mg Take 1 [facility] succinate 9-02 tablet by ity o f XL 25 mg 24 00:00: mouth in [place] hr tablet 00 the Medical morning. Branch metoprolol 2021-0 Yes [id number] 25mg Take 1 [facility] succinate 9-02 tablet by ity o f XL 25 mg 24 00:00: mouth in [place] hr tablet 00 the Medical morning. Branch metoprolol 2021-0 Yes [id number] 25mg Take 1 [facility] succinate 9-02 tablet by ity o f XL 25 mg 24 00:00: mouth in [place] hr tablet 00 the Medical morning. Branch metoprolol 2021-0 Yes [id number] 25mg Take 1 [facility] succinate 9-02 tablet by ity o f XL 25 mg 24 00:00: mouth in [place] hr tablet 00 the Medical morning. Branch metoprolol 2021-0 Yes [id number] 25mg Take 1 [facility] succinate 9-02 tablet by ity o f XL 25 mg 24 00:00: mouth in [place] hr tablet 00 the Medical morning. Branch metoprolol 2021-0 Yes [id number] 25mg Take 1 [facility] succinate 9-02 tablet by ity o f XL 25 mg 24 00:00: mouth in [place] hr tablet 00 the Medical morning. Branch metoprolol 2021-0 Yes [id number] 25mg Take 1 [facility] succinate 9-02 tablet by ity o f XL 25 mg 24 00:00: mouth in [place] hr tablet 00 the Medical morning. Branch metoprolol 2021-0 Yes [id number] 25mg Take 1 [facility] succinate 9-02 tablet by ity o f XL 25 mg 24 00:00: mouth in [place] hr tablet 00 the Medical morning. Branch metoprolol 2021-0 Yes [id number] 25mg Take 1 [facility] succinate 9-02 tablet by ity o f XL 25 mg 24 00:00: mouth in [place] hr tablet 00 the Medical morning. Branch metoprolol 2021-0 Yes [id number] 25mg Take 1 [facility] succinate 9-02 tablet by ity o f XL 25 mg 24 00:00: mouth in [place] hr tablet 00 the Medical morning. Branch metoprolol 2021-0 Yes [id number] 25mg Take 1 [facility] succinate 9-02 tablet by ity o f XL 25 mg 24 00:00: mouth in [place] hr tablet 00 the Medical morning. Branch metoprolol 2021-0 Yes [id number] 25mg Take 1 [facility] succinate 9-02 tablet by ity o f XL 25 mg 24 00:00: mouth in [place] hr tablet 00 the Medical morning. Branch metoprolol 2021-0 Yes [id number] 25mg Take 1 [facility] succinate 9-02 tablet by ity o f XL 25 mg 24 00:00: mouth in [place] hr tablet 00 the Medical morning. Branch metoprolol 2021-0 2021- No [id number] 25mg Take 1 [facility] succinate 9-02 10-24 tablet by ity of XL 25 mg 24 00:00: 00:00 mouth in [place] hr tablet 00 :00 the Medical morning. Branch metoprolol 2021-2021- No [id number] 12.5mg Take 0.5 [facility] succinate 6-28 09-02 tablets by ity of XL 25 mg 24 00:00: 00:00 mouth [place] hr tablet 00 :00 daily. Medical Branch benzonatate 0 Yes [id number] 100mg Take 1 [facility] 100 mg 6-26 capsule by ity of capsule 00:00: mouth 3 [place] 00 (three) Medical times Branch daily as needed for Cough. benzonatate 0 Yes [id number] 100mg Take 1 [facility] 100 mg 6-26 capsule by ity of capsule 00:00: mouth 3 [place] 00 (three) Medical times Branch daily as needed for Cough. vitamin 2021- Yes [id number] 1{tbl} Take 1 U nivers D3-folic 6-26 tablet by ity of acid 125 00:00: mouth [place] mcg (5,000 00 daily. Medical unit)-1 mg Branch Tab nirmatrelvi Yes [id number] 3{tbl} Take 3 [facility] r-ritonavir 6-26 tablets by it y of (PAXLOVID, 00:00: mouth [place] EUA,) 150 00 (two) Medical mg x 2- 100 times Branch mg tablet daily. chlorphenir 0 Yes [id number] 4mg Take 1 [facility] amine 4 mg 6-26 tablet by ity of tablet 00:00: mouth [place] 00 every 6 Medical (six) Branch hours as needed for Allergies or Runny nose. calcium/mag 0 Yes [id number] 1{each} Take 1 Univers nesium/zinc 6-26 Each by ity o f (CALCIUM-MA 00:00: mouth [place] GNESUIUM-ZI 00 daily. Medica l [place]) Branch 333-133-5 mg Tab benzonatate 0 Yes [id number] 100mg Take 1 [facility] 100 mg 6-26 capsule by ity of capsule 00:00: mouth 3 [place] 00 (three) Medical times Branch daily as needed for Cough. vitamin 2021-0 Yes [id number] 1{tbl} Take 1 U nivers D3-folic 6-26 tablet by ity of acid 125 00:00: mouth [place] mcg (5,000 00 daily. Medical unit)-1 mg Branch Tab nirmatrelvi 0 Yes [id number] 3{tbl} Take 3 [facility] r-ritonavir 6-26 tablets by it y of (PAXLOVID, 00:00: mouth [place] EUA,) 150 00 (two) Medical mg x 2- 100 times Branch mg tablet daily. chlorphenir 2022-0 Yes [id number] 4mg Take 1 [facility] amine 4 mg 6-26 tablet by ity of tablet 00:00: mouth [place] 00 every 6 Medical (six) Branch hours as needed for Allergies or Runny nose. calcium/mag 2022-0 Yes [id number] 1{each} Take 1 [facility] nesium/zinc 6-26 Each by ity o f (CALCIUM-MA 00:00: mouth [place] GNESUIUM-ZI 00 daily. Medica l [place]) Branch 333-133-5 mg Tab benzonatate 2022-0 Yes [id number] 100mg Take 1 [facility] 100 mg 6-26 capsule by ity of capsule 00:00: mouth 3 [place] 00 (three) Medical times Branch daily as needed for Cough. vitamin 2022-0 Yes [id number] 1{tbl} Take 1 U nivers D3-folic 6-26 tablet by ity of acid 125 00:00: mouth [place] mcg (5,000 00 daily. Medical unit)-1 mg Branch Tab nirmatrelvi 2022-0 Yes [id number] 3{tbl} Take 3 [facility] r-ritonavir 6-26 tablets by it y of (PAXLOVID, 00:00: mouth 2 [place] EUA,) 150 00 (two) Medical mg x 2- 100 times Branch mg tablet daily. chlorphenir 2022-0 Yes [id number] 4mg Take 1 [facility] amine 4 mg 6-26 tablet by ity of tablet 00:00: mouth [place] 00 every 6 Medical (six) Branch hours as needed for Allergies or Runny nose. calcium/mag 2022-0 Yes [id number] 1{each} Take 1 [facility] nesium/zinc 6-26 Each by ity o f (CALCIUM-MA 00:00: mouth [place] GNESUIUM-ZI 00 daily. Medica l [place]) Branch 333-133-5 mg Tab benzonatate 2022-0 Yes [id number] 100mg Take 1 [facility] 100 mg 6-26 capsule by ity of capsule 00:00: mouth 3 [place] 00 (three) Medical times Branch daily as needed for Cough. benzonatate 2022-0 Yes [id number] 100mg Take 1 [facility] 100 mg 6-26 capsule by ity of capsule 00:00: mouth (three) Medical times Branch daily as needed for Cough. benzonatate 2-0 Yes [id number] 100mg Take 1 [facility] 100 mg 6-26 capsule by ity of capsule 00:00: mouth 3 (three) Medical times Branch daily as needed for Cough. benzonatate 2022-0 Yes [id number] 100mg Take 1 [facility] 100 mg 6-26 capsule by ity of capsule 00:00: mouth (three) Medical times Branch daily as needed for Cough. benzonatate 2022-0 Yes [id number] 100mg Take 1 [facility] 100 mg 6-26 capsule by ity of capsule 00:00: mouth (three) Medical times Branch daily as needed for Cough. benzonatate 2-0 Yes [id number] 100mg Take 1 [facility] 100 mg 6-26 capsule by ity of capsule 00:00: mouth (three) Medical times Branch daily as needed for Cough. benzonatate 2-0 Yes [id number] 100mg Take 1 [facility] 100 mg 6-26 capsule by ity of capsule 00:00: mouth (three) Medical times Branch daily as needed for Cough. benzonatate 2-0 Yes [id number] 100mg Take 1 [facility] 100 mg 6-26 capsule by ity of capsule 00:00: mouth (three) Medical times Branch daily as needed for Cough. benzonatate 2-0 Yes [id number] 100mg Take 1 [facility] 100 mg 6-26 capsule by ity of capsule 00:00: mouth (three) Medical times Branch daily as needed for Cough. benzonatate 2-0 Yes [id number] 100mg Take 1 [facility] 100 mg 6-26 capsule by ity of capsule 00:00: mouth (three) Medical times Branch daily as needed for Cough. benzonatate 2022-0 Yes [id number] 100mg Take 1 [facility] 100 mg 6-26 capsule by ity of capsule 00:00: mouth 3 (three) Medical times Branch daily as needed for Cough. benzonatate 2022-0 Yes [id number] 100mg Take 1 [facility] 100 mg 6-26 capsule by ity of capsule 00:00: mouth [place] (three) Medical times Branch daily as needed for Cough. benzonatate 2-0 Yes [id number] 100mg Take 1 [facility] 100 mg 6-26 capsule by ity of capsule 00:00: mouth [place] (three) Medical times Branch daily as needed for Cough. benzonatate 2-0 Yes [id number] 100mg Take 1 [facility] 100 mg 6-26 capsule by ity of capsule 00:00: mouth [place] (three) Medical times Branch daily as needed for Cough. benzonatate 2-0 Yes [id number] 100mg Take 1 [facility] 100 mg 6-26 capsule by ity of capsule 00:00: mouth [place] (three) Medical times Branch daily as needed for Cough. benzonatate 2-0 Yes [id number] 100mg Take 1 [facility] 100 mg 6-26 capsule by ity of capsule 00:00: mouth [place] (three) Medical times Branch daily as needed for Cough. benzonatate 2-0 Yes [id number] 100mg Take 1 [facility] 100 mg 6-26 capsule by ity of capsule 00:00: mouth [place] (three) Medical times Branch daily as needed for Cough. benzonatate 2021-0 Yes [id number] 100mg Take 1 [facility] 100 mg 6-26 capsule by ity of capsule 00:00: mouth [place] (three) Medical times Branch daily as needed for Cough. benzonatate 2-0 Yes [id number] 100mg Take 1 [facility] 100 mg 6-26 capsule by ity of capsule 00:00: mouth [place] (three) Medical times Branch daily as needed for Cough. benzonatate 2-0 Yes [id number] 100mg Take 1 [facility] 100 mg 6-26 capsule by ity of capsule 00:00: mouth [place] (three) Medical times Branch daily as needed for Cough. benzonatate 2-0 Yes [id number] 100mg Take 1 [facility] 100 mg 6-26 capsule by ity of capsule 00:00: mouth 3 [place] (three) Medical times Branch daily as needed for Cough. benzonatate 2022-0 2022- No [id number] 100mg Take 1 [facility] 100 mg 6-26 11-15 capsule by ity of capsule 00:00: 00:00 mouth 3 [place] 00 :00 (three) Medical times Branch daily as needed for Cough. benzonatate 2021-2021- No [id number] 100mg Take 1 [facility] 100 mg 6- 11-15 capsule by ity of capsule 00:00: 00:00 mouth 3 [place] 00 :00 (three) Medical times Branch daily as needed for Cough. benzonatate 2021-0 2021- No [id number] 100mg Take 1 [facility] 100 mg 6- 11-15 capsule by ity of capsule 00:00: 00:00 mouth 3 [place] 00 :00 (three) Medical times Branch daily as needed for Cough. vitamin 2021- No [id number] 1{tbl} Take 1 [facility] D3-folic -11-04 tablet by ity o f acid 125 00:00: 00:00 mouth [place] mcg (5,000 00 :00 daily. Medical unit)-1 mg Branch Tab nirmatrelvi 2021- No [id number] 3{tbl} Take 3 [facility] r-ritonavir 08-11 tablets by i ty of (PAXLOVID, 00:00: 00:00 mouth 2 [place] EUA,) 150 00 :00 (two) Medical mg x 2- 100 times Branch mg tablet daily. chlorphenir 2021- No [id number] 4mg Take 1 [facility] amine 4 mg 08-11 tablet by ity of tablet 00:00: 00:00 mouth [place] 00 :00 every 6 Medical (six) Branch hours as needed for Allergies or Runny nose. calcium/mag 2021- No [id number] 1{each} Take 1 [facility] nesium/zinc 08-11 Each by ity of (CALCIUM-MA 00:00: 00:00 mouth [place] GNESUIUM-ZI 00 :00 daily. Medica l [place]) Branch 333-133-5 mg Tab vitamin 2021- No [id number] 1{tbl} Take 1 [facility] D3-folic -11-04 tablet by ity o f acid 125 00:00: 00:00 mouth [place] mcg (5,000 00 :00 daily. Medical unit)-1 mg Branch Tab nirmatrelvi 2021- No [id number] 3{tbl} Take 3 [facility] r-ritonavir 08-11 tablets by i ty of (PAXLOVID, 00:00: 00:00 mouth 2 [place] EUA,) 150 00 :00 (two) Medical mg x 2- 100 times Branch mg tablet daily. chlorphenir 2021- No [id number] 4mg Take 1 [facility] amine 4 mg 08-11 tablet by ity of tablet 00:00: 00:00 mouth [place] 00 :00 every 6 Medical (six) Branch hours as needed for Allergies or Runny nose. calcium/mag 2021- No [id number] 1{each} Take 1 [facility] nesium/zinc 08-11 Each by ity of (CALCIUM-MA 00:00: 00:00 mouth [place] GNESUIUM-ZI 00 :00 daily. Medica l [place]) Branch 333-133-5 mg Tab ibuprofen Yes [id number] 600mg Take 1 U nivers 600 mg 5-19 tablet by ity of tablet 00:00: mouth [place] 00 every 6 Medical (six) Branch hours as needed for Pain (scale 4-6). ibuprofen Yes [id number] 600mg Take 1 U nivers 600 mg 5-19 tablet by ity of tablet 00:00: mouth [place] 00 every 6 Medical (six) Branch hours as needed for Pain (scale 4-6). ibuprofen Yes [id number] 600mg Take 1 U nivers 600 mg 5-19 tablet by ity of tablet 00:00: mouth [place] 00 every 6 Medical (six) Branch hours as needed for Pain (scale 4-6). ibuprofen 2021- No [id number] 600mg Take 1 [facility] 600 mg 5-19 -19 tablet by ity of tablet 00:00: 00:00 mouth [place] 00 :00 every 6 Medical (six) Branch hours as needed for Pain (scale 4-6). ibuprofen 2021- No [id number] 600mg Take 1 [facility] 600 mg 5-19 -19 tablet by ity of tablet 00:00: 00:00 mouth [place] 00 :00 every 6 Medical (six) Branch hours as needed for Pain (scale 4-6). butalbital- 2019-0 Yes 1{tbl} Take 1 Un cindy acetaminoph [...] tablet times Branch daily with meals. docusate 2022- No 240mg Take 1 Unive rs calcium 240 02-21- capsule by i ty of mg capsule 00:00: 00:00 mouth once [place] 00 :00 daily as Medical needed for Branch Constipati on. ibuprofen 2021- No 600mg Take 1 Univ ers 600 mg 02-21-19 tablet by ity of tablet 00:00: 00:00 mouth [place] 00 :00 every 6 Medical (six) Branch hours as needed for Pain (scale 1-3) or Pain (scale 4-6) (Pain). Take with food or milk. ferrous 2018- 202- No 325mg Take 1 Univer s sulfate 325 -07 25-19 tablet by it y of mg (65 mg 00:00: 00:00 mouth 3 [place] iron) 00 :00 (three) Medical tablet times Branch daily with meals. docusate 2021- No 240mg Take 1 Unive rs calcium 240 -07 25- capsule by i ty of mg capsule 00:00: 00:00 mouth once [place] 00 :00 daily as Medical needed for Branch Constipati on. ibuprofen 2021- No 600mg Take 1 Univ ers 600 mg 02-21 tablet by ity of tablet 00:00: 00:00 mouth [place] 00 :00 every 6 Medical (six) Branch hours as needed for Pain (scale 1-3) or Pain (scale 4-6) (Pain). Take with food or milk. ferrous 2021- No 325mg Take 1 Univer s sulfate 325 02-21 tablet by it y of mg (65 mg 00:00: 00:00 mouth 3 [place] iron) 00 :00 (three) Medical tablet times Branch daily with meals. PNV 67-iron Yes [id number] 1{tbl} Take 1 Univers ps-folate 5-10 tablet by ity o f no.1-dha 00:00: mouth [place] (VITAFOL 00 daily. Medical ULTRA) 29 Branch mg iron- 1 mg-200 mg Cap PNV 67-iron Yes [id number] 1{tbl} Take 1 [facility] ps-folate 5-10 tablet by ity o f no.1-dha 00:00: mouth [place] (VITAFOL 00 daily. Medical ULTRA) 29 Branch mg iron- 1 mg-200 mg Cap PNV 67-iron Yes [id number] 1{tbl} Take 1 [facility] ps-folate 5-10 tablet by ity o f no.1-dha 00:00: mouth [place] (VITAFOL 00 daily. Medical ULTRA) 29 Branch mg iron- 1 mg-200 mg Cap PNV 67-iron 2021- No [id number] 1{tbl} Take 1 [facility] ps-folate 5-10 11-04 tablet by ity of no.1-dha 00:00: 00:00 mouth [place] (VITAFOL 00 :00 daily. Medical ULTRA) 29 Branch mg iron- 1 mg-200 mg Cap PNV 67-iron 2021- No [id number] 1{tbl} Take 1 [facility] ps-folate 5-10 11-04 tablet by ity of no.1-dha 00:00: 00:00 mouth [place] (VITAFOL 00 :00 daily. Medical ULTRA) 29 Branch mg iron- 1 mg-200 mg Cap Immunizations Ordered Filled Immunization Date Status Comments [facility] e Immunization Name Name Influenza Virus [...] Branch TDAP 2017-12-07 Completed [facility] of 00:00:00 [facility] TDAP 2017-12-07 Completed University of 00:00:00 [facility] TDAP 2017-12-07 Completed University of 00:00:00 [facility] TDAP 2017-12-07 Completed University of 00:00:00 [facility] TDAP 2017-12-07 Completed University of 00:00:00 [facility] [place] [facility] Branch TDAP 2017-12-07 Completed University of 00:00:00 [facility] [place] [facility] Branch TDAP 2017-12-07 Completed University of 00:00:00 [facility] TDAP 2017-12-07 Completed University of 00:00:00 [facility] TDAP 2017-12-07 Completed University of 00:00:00 [facility] TDAP 2017-12-07 Completed University of 00:00:00 [facility] TDAP 2017-12-07 Completed University of 00:00:00 [place] [facility] TDAP 2017-12-07 Completed University of 00:00:00 [place] [facility] TDAP 2017-12-07 Completed University of 00:00:00 [place] [facility] TDAP 2017-12-07 Completed University of 00:00:00 [place] [facility] TDAP 2017-12-07 Completed University of 00:00:00 [place] [facility] TDAP 2017-12-07 Completed University of 00:00:00 [place] [facility] TDAP 2017-12-07 Completed University of 00:00:00 [place] [facility] TDAP 2017-12-07 Completed University of 00:00:00 [place] [facility] TDAP 2017-12-07 Completed University of 00:00:00 [place] [facility] TDAP 2017-12-07 Completed University of 00:00:00 [place] [facility] TDAP 2017-12-07 Completed University of 00:00:00 [place] [facility] TDAP 2017-12-07 Completed University of 00:00:00 [place] [facility] TDAP 2017-12-07 Completed University of 00:00:00 [place] [facility] TDAP 2017-12-07 Completed University of 00:00:00 [place] [facility] TDAP 2017-12-07 Completed University of 00:00:00 [place] [facility] TDAP 2017-12-07 Completed University of 00:00:00 [place] [facility] TDAP 2017-12-07 Completed University of 00:00:00 [place] [facility] TDAP 2017-12-07 Completed University of 00:00:00 [place] [facility] TDAP 2017-12-07 Completed University of 00:00:00 [place] [facility] TDAP 2017-12-07 Completed University of 00:00:00 [place] [facility] TDAP 2017-12-07 Completed University of 00:00:00 [place] [facility] TDAP 2017-12-07 Completed University of 00:00:00 [place] [facility] TDAP 2017-12-07 Completed University of 00:00:00 [place] [facility] TDAP 2017-12-07 Completed University of 00:00:00 [place] [facility] TDAP 2017-12-07 Completed [facility] of 00:00:00 [facility] TDAP 2017-12-07 Completed University of 00:00:00 [facility] TDAP 2017-12-07 Completed University of 00:00:00 [facility] TDAP 2017-12-07 Completed University of 00:00:00 [facility] TDAP 2017-12-07 Completed University of 00:00:00 [facility] TDAP 2017-12-07 Completed University of 00:00:00 [facility] TDAP 2017-12-07 Completed University of 00:00:00 [facility] TDAP 2017-12-07 Completed University of 00:00:00 [facility] TDAP 2017-12-07 Completed University of 00:00:00 [facility] TDAP 2016-03-28 Completed University of 00:00:00 [facility] TDAP 2016-03-28 Completed University of 00:00:00 [facility] TDAP 2016-03-28 Completed University of 00:00:00 [facility] TDAP 2016-03-28 Completed University of 00:00:00 [facility] TDAP 2016-03-28 Completed University of 00:00:00 [facility] TDAP 2016-03-28 Completed University of 00:00:00 [facility] TDAP 2016-03-28 Completed University of 00:00:00 [facility] TDAP 2016-03-28 Completed University of 00:00:00 [facility] TDAP 2016-03-28 Completed University of 00:00:00 [facility] TDAP 2016-03-28 Completed University of 00:00:00 [facility] TDAP 2016-03-28 Completed University of 00:00:00 [facility] TDAP 2016-03-28 Completed University of 00:00:00 [facility] TDAP 2016-03-28 Completed University of 00:00:00 [facility] TDAP 2016-03-28 Completed University of 00:00:00 [facility] TDAP 2016-03-28 Completed University of 00:00:00 [facility] TDAP 2016-03-28 Completed University of 00:00:00 [facility] TDAP 2016-03-28 Completed University of 00:00:00 [facility] TDAP 2016-03-28 Completed University of 00:00:00 [facility] TDAP 2016-03-28 Completed University of 00:00:00 [facility] TDAP 2016-03-28 Completed University of 00:00:00 [facility] TDAP 2016-03-28 Completed University of 00:00:00 [facility] TDAP 2016-03-28 Completed [facility] of 00:00:00 [facility] TDAP 2016-03-28 Completed University of 00:00:00 [facility] TDAP 2016-03-28 Completed University of 00:00:00 [facility] TDAP 2016-03-28 Completed University of 00:00:00 [facility] TDAP 2016-03-28 Completed University of 00:00:00 [facility] TDAP 2016-03-28 Completed University of 00:00:00 [facility] TDAP 2016-03-28 Completed University of 00:00:00 [facility] TDAP 2016-03-28 Completed University of 00:00:00 [facility] TDAP 2016-03-28 Completed University of 00:00:00 [facility] TDAP 2016-03-28 Completed University of 00:00:00 [facility] TDAP 2016-03-28 Completed University of 00:00:00 [facility] TDAP 2016-03-28 Completed University of 00:00:00 [facility] TDAP 2016-03-28 Completed University of 00:00:00 [facility] TDAP 2016-03-28 Completed University of 00:00:00 [facility] TDAP 2016-03-28 Completed University of 00:00:00 [facility] TDAP 2016-03-28 Completed University of 00:00:00 [facility] TDAP 2016-03-28 Completed University of 00:00:00 [facility] TDAP 2016-03-28 Completed University of 00:00:00 [facility] TDAP 2016-03-28 Completed University of 00:00:00 [facility] TDAP 2016-03-28 Completed University of 00:00:00 [facility] TDAP 2016-03-28 Completed University of 00:00:00 [facility] TDAP 2016-03-28 Completed University of 00:00:00 [facility] Influenza Virus 2015-11-23 Completed Universit y of [facility]+ 00:00:00 [facility] Influenza Virus 2015-11-23 Completed Universit y of [facility] 3+ 00:00:00 [facility] Influenza Virus 2015-11-23 Completed Universit y of [facility] 3+ 00:00:00 [facility] Influenza Virus 2015-11-23 Completed Universit y of [facility] 3+ 00:00:00 [facility] Influenza Virus 2015-11-23 Completed Universit y of [facility] 3+ 00:00:00 [facility] Influenza Virus 2015-11-23 Completed Universit y of [facility] 3+ 00:00:00 [facility] Influenza Virus 2015-11-23 Completed Universit y of [facility] 3+ 00:00:00 [facility] Influenza Virus 2015-11-23 Completed Universit y of [facility] 3+ 00:00:00 [facility] Influenza Virus 2015-11-23 Completed Universit y of [facility] 3+ 00:00:00 [facility] Influenza Virus 2015-11-23 Completed Universit y of [facility] 3+ 00:00:00 [facility] Influenza Virus 2015-11-23 Completed Universit y of [facility] 3+ 00:00:00 [facility] Influenza Virus 2015-11-23 Completed Universit y of [facility] 3+ 00:00:00 [facility] Influenza Virus 2015-11-23 Completed Universit y of [facility] 3+ 00:00:00 [facility] Influenza Virus 2015-11-23 Completed Universit y of [facility] 3+ 00:00:00 [facility] Influenza Virus 2015-11-23 Completed Universit y of [facility] 3+ 00:00:00 [facility] Influenza Virus 2015-11-23 Completed Universit y of [facility] 3+ 00:00:00 [facility] Influenza Virus 2015-11-23 Completed Universit y of [facility] 3+ 00:00:00 [facility] Influenza Virus 2015-11-23 Completed Universit y of [facility] 3+ 00:00:00 [facility] Influenza Virus 2015-11-23 Completed Universit y of [facility]+ 00:00:00 [facility] Influenza Virus 2015-11-23 Completed Universit y of [facility]+ 00:00:00 [facility] Influenza Virus 2015-11-23 Completed Universit y of [facility]+ 00:00:00 [facility] Influenza Virus 2015-11-23 Completed Universit y of [facility] 3+ 00:00:00 [facility] Influenza Virus 2015-11-23 Completed Universit y of [facility] 3+ 00:00:00 [facility] Influenza Virus 2015-11-23 Completed Universit y of [facility]+ 00:00:00 [facility] Influenza Virus 2015-11-23 Completed Universit y of [facility]+ 00:00:00 [facility] Influenza Virus 2015-11-23 Completed Universit y of [facility]+ 00:00:00 [facility] Influenza Virus 2015-11-23 Completed Universit y of [facility]+ 00:00:00 [facility] Influenza Virus 2015-11-23 Completed Universit y of [facility] 3+ 00:00:00 [facility] Influenza Virus 2015-11-23 Completed Universit y of [facility] 3+ 00:00:00 [facility] Influenza Virus 2015-11-23 Completed Universit y of [facility] 3+ 00:00:00 [facility] Influenza Virus 2015-11-23 Completed Universit y of [facility]+ 00:00:00 [facility] Influenza Virus 2015-11-23 Completed Universit y of [facility]+ 00:00:00 [facility] Influenza Virus 2015-11-23 Completed Universit y of [facility]+ 00:00:00 [facility] Influenza Virus 2015-11-23 Completed Universit y of [facility]+ 00:00:00 [facility] Influenza Virus 2015-11-23 Completed Universit y of [facility]+ 00:00:00 [facility] Influenza Virus 2015-11-23 Completed Universit y of [facility]+ 00:00:00 [facility] Influenza Virus 2015-11-23 Completed Universit y of [facility] 3+ 00:00:00 [facility] Influenza Virus 2015-11-23 Completed Universit y of [facility] 3+ 00:00:00 [facility] Influenza Virus 2015-11-23 Completed Universit y of [facility]+ 00:00:00 [facility] Influenza Virus 2015-11-23 Completed Universit y of [facility] 3+ 00:00:00 [facility] Influenza Virus 2015-11-23 Completed Universit y of [facility]+ 00:00:00 [facility] Influenza Virus 2015-11-23 Completed Universit y of [facility]+ 00:00:00 [facility] Influenza Virus 2015-11-23 Completed Universit y of [facility]+ 00:00:00 [facility] Vital Signs Vital Name Observation Time Observation Value Comments Source Systolic blood 2022-02-06 19:28:00 112 mm[Hg] Univer sity of pressure [facility] Diastolic blood 2022-02-06 19:28:00 75 mm[Hg] Unive rsity of pressure [facility] Heart rate 2022-02-06 19:28:00 73 /min Universi ty of [facility] [place] Body temperature 2022-02-06 19:28:00 36.56 Fatemeh Univ ersity of [facility] Respiratory rate 2022-02-06 19:28:00 18 /min Univ ersity of [facility] Body height 2022-02-06 19:28:00 149.9 cm Universi ty of [facility] [place] Body weight 2022-02-06 19:28:00 58.968 kg Universi ty of [facility] BMI 2022-02-06 19:28:00 26.26 kg/m2 Universi ty of [facility] Systolic blood 2022-01-23 19:15:00 104 mm[Hg] Univer sity of pressure [facility] Diastolic blood 2022-01-23 19:15:00 75 mm[Hg] Unive rsity of pressure [facility] Heart rate 2022-01-23 19:15:00 90 /min Universi ty of [facility] [place] Body temperature 2022-01-23 19:15:00 36.61 Fatem[place] Univ ersity of [facility] Body weight 2022-01-23 19:15:00 57.879 kg Universi ty of [facility] BMI 2022-01-23 19:15:00 25.77 kg/m2 Universi ty of [facility] Systolic blood 2022-01-03 16:05:00 102 mm[Hg] Univer sity of pressure [facility] Diastolic blood 2022-01-03 16:05:00 61 mm[Hg] Unive rsity of pressure [facility] Heart rate 2022-01-03 16:05:00 92 /min Universi ty of [facility] Respiratory rate 2022-01-03 16:05:00 17 /min Univ ersity of [facility] Oxygen saturation in 2022-01-03 16:05:00 98 /min University of Arterial blood by [facility] Pulse oximetry Branch Body temperature 2022-01-03 14:46:00 36.5 Fatemeh Univ ersity of [facility] Systolic blood 2022-01-03 16:05:00 102 mm[Hg] Univer sity of [facility] Diastolic blood 2022-01-03 16:05:00 61 mm[Hg] Unive rsity of pressure [facility] Heart rate 2022-01-03 16:05:00 92 /min Universi ty of [facility] Respiratory rate 2022-01-03 16:05:00 17 /min Univ ersity of [facility] Oxygen saturation in 2022-01-03 16:05:00 98 /min University of Arterial blood by [place] [facility] Pulse oximetry Branch Body temperature 2022-01-03 14:46:00 36.5 Fatem[place] Univ ersity of [facility] Systolic blood 2021-12-31 21:21:00 111 mm[Hg] Univer sity of pressure [facility] Diastolic blood 2021-12-31 21:21:00 77 mm[Hg] Unive rsity of pressure [facility] Heart rate 2021-12-31 21:21:00 88 /min Universi ty of [facility] Body temperature 2021-12-31 21:21:00 36.72 Fatemeh Univ ersity [facility] Respiratory rate 2021-12-31 21:21:00 17 /min Univ ersity of [facility] Body height 2021-12-31 21:21:00 149.9 cm Universi ty of [facility] Body weight 2021-12-31 21:21:00 59.603 kg Universi ty of [facility] BMI 2021-12-31 21:21:00 26.54 kg/m2 Universi ty of [facility] Systolic blood 2021-12-31 13:39:00 107 mm[Hg] Univer sity of [facility] Diastolic blood 2021-12-31 13:39:00 63 mm[Hg] Unive rsity of pressure [facility] Heart rate 2021-12-31 13:39:00 102 /min [facility]i ty [facility] Respiratory rate 2021-12-31 13:39:00 17 /min Univ ersity of [facility] Oxygen saturation in 2021-12-31 13:39:00 100 /min University of Arterial blood by [place] Pulse oximetry Branch Body temperature 2021-12-31 11:20:00 37 Fatemeh Univ [facility] Body height 2021-12-31 11:20:00 149.9 cm Universi ty of [facility] [place] Body weight 2021-12-31 11:20:00 61.236 kg Universi ty of [facility] BMI 2021-12-31 11:20:00 27.27 kg/m2 Universi ty of [facility] Systolic blood 2021-12-16 18:04:00 110 mm[Hg] Univer sity of pressure [facility] Diastolic blood 2021-12-16 18:04:00 74 mm[Hg] Unive rsity of pressure [facility] Heart rate 2021-12-16 18:04:00 85 /min Universi ty of [facility] Body temperature 2021-12-16 18:04:00 8.11 [place] Univ ersity of [facility] Respiratory rate 2021-12-16 18:04:00 16 /min Univ ersity of [facility] Body height 2021-12-16 18:04:00 149.9 cm Universi ty of [facility] Body weight 2021-12-16 18:04:00 60.691 kg Universi ty of [facility] BMI 2021-12-16 18:04:00 27.02 kg/m2 Universi ty of [facility] Oxygen saturation in 2021-12-16 18:04:00 100 /min [facility] Arterial blood by [facility] Pulse oximetry Branch Systolic blood 2021-11-18 18:24:00 103 mm[Hg] Univer sity of pressure [facility] Diastolic blood 2021-11-18 18:24:00 70 mm[Hg] Unive rsity of pressure [facility] Heart rate 2021-11-18 18:24:00 78 /min Universi ty of [facility] [place] Body temperature 2021-11-18 18:24:00 37.06 Fatem[place] Univ ersity of [facility] Body height 2021-11-18 18:24:00 149.9 cm Universi ty of [facility] [place] Body weight 2021-11-18 18:24:00 58.06 kg Universi ty of [facility] BMI 2021-11-18 18:24:00 25.85 kg/m2 Universi ty of [facility] Systolic blood 2021-11-08 23:04:00 107 mm[Hg] Univer sity of [facility] Diastolic blood 2021-11-08 23:04:00 68 mm[Hg] Unive rsity of pressure [facility] Heart rate 2021-11-08 23:04:00 94 /min Universi ty of [facility] Body temperature 2021-11-08 23:04:00 37.11 [place] Univ ersity of [facility] Respiratory rate 2021-11-08 23:04:00 17 /min Univ ersity of [facility] Body height 2021-11-08 23:04:00 149.9 cm [facility] ty [facility] Body weight 2021-11-08 23:04:00 57.607 kg [facility] BMI 2021-11-08 23:04:00 25.65 kg/m2 Universi ty of [facility] Oxygen saturation in 2021-11-08 23:04:00 100 /min University of Arterial blood by [facility] Pulse oximetry Branch Systolic blood 2021-11-04 19:20:00 107 mm[Hg] Univer sity of pressure [facility] Diastolic blood 2021-11-04 19:20:00 69 mm[Hg] Unive rsity of pressure [facility] Heart rate 2021-11-04 19:20:00 93 /min [facility] Body temperature 2021-11-04 19:20:00 36.78 Fatem[place] Univ [facility] Respiratory rate 2021-11-04 19:20:00 18 /min Univ ersity of [facility] Body height 2021-11-04 19:20:00 149.9 cm [facility] Body weight 2021-11-04 19:20:00 57.698 kg [facility] BMI 2021-11-04 19:20:00 25.69 kg/m2 [facility] Systolic blood 2021-10-24 22:56:34 104 mm[Hg] Univer sity of [facility] Diastolic blood 2021-10-24 22:56:34 82 mm[Hg] Unive rsity of pressure [facility] Heart rate 2021-10-24 22:56:34 105 /min [facility]i ty [facility] Respiratory rate 2021-10-24 22:56:34 18 /min Univ ersity of [facility] Oxygen saturation in 2021-10-24 22:56:34 98 /min University of Arterial blood by [facility] Pulse oximetry Branch Body temperature 2021-10-24 20:31:00 37.78 Fatemeh [facility] ersity of [facility] Body height 2021-10-24 20:31:00 149.9 cm Universi ty of [facility] [place] Body weight 2021-10-24 20:31:00 54.432 kg Universi ty of [facility] [place] BMI 2021-10-24 20:31:00 24.24 kg/m2 Universi ty of [facility] Systolic blood 2021-10-18 14:26:00 113 mm[Hg] Univer sity of pressure [facility] Diastolic blood 2021-10-18 14:26:00 74 mm[Hg] [facility] Heart rate 2021-10-18 14:26:00 84 /min Universi ty of [facility] Body temperature 2021-10-18 14:26:00 36.67 Fatemeh [facility] height 2021-10-18 14:26:00 149.9 cm Universi ty [facility] [place] Body weight 2021-10-18 14:26:00 56.7 kg Universi ty of [facility] BMI 2021-10-18 14:26:00 25.25 kg/m2 Universi ty of [facility] Oxygen saturation in 2021-10-18 14:26:00 99 /min University of Arterial blood by [facility] Pulse oximetry Branch Procedures Procedure Date / Time Performing Clinician Source Performed POCT TEST 2022-02-06 00:00:00 [facility] POCT TEST 2022-01-23 00:00:00 [facility] DAY SURGERY [facility] 2022-01-07 06:01:00 Doctor Unassigned, N o [facility] DILATION AND CURETTAGE 2022-01-03 13:41:00 Zeyad Millere [facility] DAY SURGERY - [facility] 2022-01-03 06:01:00 [facility], [facility] > 2021-12-31 13:37:47 Linda Mayorga [facility] 14 WEEKS [facility] Branch HB ABO GROUPING 2021-12-31 12:06:00 Linda Mayorga [facility] TOTAL BETA HCG ASSAY 2021-12-31 12:02:00 Linda Mayorga [facility] URINALYSIS 2021-12-31 11:27:00 Linda Mayorga [facility] CONSENT/REFUSAL FOR 2021-12-31 10:58:37 Doctor Unassigned, No Un [facility] [place] [facility] SCANNED LAB RESULTS 2021-12-17 05:01:00 [facility]igned, [facility] W/O 2021-12-16 00:00:00 Pramod Johnson [facility] SPECIFIC [facility] POCT URINALYSIS W/O 2021-11-18 00:00:00 Zeyad Miller [facility] SPECIFIC GRAVITY [facility] US FIRST 2021-11-14 16:40:00 Zeyad Miller [facility] TRIMESTER LESS THAN 14 [place] WEEKS WITH TRANSVAGINAL TOTAL BETA HCG ASSAY 2021-11-09 00:53:00 Fely Stern [facility] CBC WITH DIFF 2021-11-09 00:53:00 Fely Stern [facility] URINALYSIS 2021-11-09 00:53:00 [facility] 2021-11-09 00:53:00 Fely Stern [facility] US FIRST 2021-11-09 00:02:00 Fely Stern [facility] TRIMESTER LESS THAN 14 [place] WEEKS WITH TRANSVAGINAL CONSENT/REFUSAL FOR 2021-11-08 22:29:54 Doctor Unassigned, No [facility] [place] [facility] POCT TEST 2021-11-04 00:00:00 Zeyad Miller [facility] POCT URINALYSIS W/O 2021-11-04 00:00:00 Zeyad Miller [facility] XR CHEST 1 VW 2021-10-24 21:51:00 Karyna Canseco [place] [facility] POCT TEST 2021-10-24 20:47:00 [facility] URINALYSIS 2021-10-24 20:46:00 Karyna Canseco [place] [facility] RAPID STREP SCREEN FOR 2021-10-24 20:46:00 [facility] A [facility] COVID-19 (ID NOW RAPID 2021-10-24 20:46:00 Karyna Casneco [facility] Medical Branch CONSENT/REFUSAL FOR 2021-10-24 20:21:12 Doctor Unassigned, No Un [facility] DIAGNOSIS AND TREATMENT Name Medical Branch Encounters Start End Encounter Admission Attending Care Care Encounter Source Date/Time Date/Time Type Type Clinicians Facility Department ID 2020-12-16 Emergency [facility] [id number] [facility] 2022-02-13 Outpatient R JHONY [facility] [id number] Univers 13:20:00 13:20:00 SANDEEPCAMMY [facility] 2022-02-06 2022-02-06 Outpatient R ZEYAD MILLER [facility] [id number] Univers 13:15:00 [facility]37[facility] 2022-02-06 2022-02-06 Office [facility] [id number] Univers 13:15:00 13:37:34 Visit Elliott WRIGHT [id number] i ty [facility] [id number] [id number] [place]ical [place] [address] Branch BUILDING 2022-01-23 2022-01-23 Outpatient R ZEYAD MILLER [facility] [id number] Univers 13:00:00 13:34:31 ity [facility] 2022-01-23 2022-01-23 Office Paul Zeyad [facility] [id number] Univers 13:00:00 13:34:31 Visit Elliott WRIGHT [id number] i ty [id number] [id number] Al dical NAL 134 [facility] 2022-01-07 2022-01-07 Orders Doctor YESENIA [id number] Univers 00:00:00 00:00:00 Only Unassigned, KAYE [id number] ity of [place] [facility] [id number] Pet[place] as [id number] [facility] [address] [place] 2022-01-04 2022-01-04 Nurse YESENIA Evangelista [id number] Univers 00:00:00 00:00:00 Triage Julianne KAYE [id number] it y of HOSPITAL [id number] [place] as [id number] [facility] [address] [place] 2022-01-03 2022-01-03 Surgery Zeyad Miller [facility] [id number] Univers 07:50:00 10:17:00 Cam ADRIANA [id number] i ty [id number] [id number] [facility] 020 Branch 2022-01-03 2022-01-03 Outpatient R ZEYAD [facility] ENGINE[facility] [id number] Univers 06:58:00 10:17:00 ity of [facility] 2022-01-03 2022-01-03 Hospital Zeyad Miller [facility] [id number] Univers 06:58:00 10:17:00 Encounter Elliott WRIGHT [id number] ity [id number] [id number] [facility] 071 Branch 2022-01-03 2022-01-03 Orders Doctor YESENIA [id number] Univers 00:00:00 00:00:00 Only Unassigned, KAYE [id number] ity of [place] [facility] [id number] [place] as [phone] [facility] [address] 2022-01-02 2022-01-02 Telephone Zeyad Miller [facility] 1.2.840.114 [id number] Univers 00:00:00 00:00:00 Cam [place] 350.1.13.10 i ty of [place] [phone] [address] 2022-01-02 2022-01-02 Telephone Zeyad Miller [facility] 1.2.840.114 [id number] Univers 00:00:00 00:00:00 Cam [place] 350.1.13.10 i ty of [place] [phone] [address] 2022-01-01 2022-01-01 Telephone Zeyad Miller [facility] 1.2.840.114 [id number] Univers 00:00:00 00:00:00 Cam [place] 350.1.13.10 i ty of [place] [phone] [address] 2021-12-31 2021-12-31 Outpatient R ZEYAD MILLER [facility] [id number] Univers 15:00:00 16:10:03 ity of [facility] 2021-12-31 2021-12-31 Office Meagan MillerFormerly [facility] 1.2.486.622 [id number] Univers 15:00:00 16:10:03 Visit Cam [place] 350.1.13.10 i ty [facility] 4.2.7.2.[place] [phone] [address] 2021-12-31 2021-12-31 Emergency X CASSIE [facility] ERT [id number] Univers 05:23:00 08:48:00 LINDA ity [facility] 2021-12-31 2021-12-31 Emergency [facility] 1.2.840.114 [id number] Univers 05:23:00 08:48:00 Linda S [place] 350.1.13.10 i ty [place] [id number] [address] 2021-12-312021-12-31 Telephone Zeyad Miller [facility] 1.2.840.114 [id number] Univers 00:00:00 00:00:00 Cam [place] 350.1.13.10 i ty of [place] [phone] Al dical NAL 134 [facility] 2021-12-31 2021-12-31 Prep For Zeyad Miller [facility] 1.2.840.114 [id number] Univers 00:00:00 00:00:00 Surgery Cam [place] 350.1.13.10 i ty of [place] [phone] Al dical NAL 134 [facility] 2021-12-23 2021-12-23 Telephone Zeyad Miller [facility] 1.2.840.114 [id number] Univers 00:00:00 00:00:00 Cam [place] 350.1.13.10 i ty [facility] 4.2.7.2.[place] [phone] Al dical NAL 134 [facility] 2021-12-17 2021-12-17 Gallery Host Carlos A, Adc Lab Main [facility] 1.2.8 40.114 [id number] Univers 13:45:00 14:00:00 Visit Zeyad Miller 350.1.13.10 [place] of [place] [phone] Al dical NAL 353 [facility] 2021-12-17 2021-12-17 Outpatient R ZEYAD MILLER [facility] [id number] Univers 13:45:00 13:45:00 ity of [facility] 2021-12-17 2021-12-17 Orders Doctor YESENIA 1.2.840.114 [id number] Univers 00:00:00 00:00:00 Only Unassigned, KAYE 350.1.13.10 ity of [place] [facility] 4.2.7.2.686 Petey as [phone] [address] 2021-12-16 2021-12-16 Outpatient R PRAMOD JOHNSON [facility] B [id number] Univers 13:00:00 13:27:45 TRIPRAMOD GREGORY ity of [facility] 2021-12-16 2021-12-16 Routine [facility] 1.2.840.114 [id number] Univers 13:00:00 13:27:45 Pramod QURESHI 350.1.13.10 i ty of [place] [phone] [address] 2021-12-11 2021-12-11 Telephone [facility] 1.2.840.114 [id number] Univers 00:00:00 00:00:00 Cam KIERA 350.1.13.10 it y of [place] [phone] [address] 2021-12-09 2021-12-09 Patient [facility] 1.2.840.114 [id number] Univers 00:00:00 00:00:00 Secure Msg Symone WRIGHT 350.1.13.10 ity of [place] [id number] Al dical NAL [address] [place] [address] 2021-12-09 2021-12-09 Telephone Zeyad Miller [facility] 1.2.840.114 [id number] Univers 00:00:00 00:00:00 Elliott WRIGHT 350.1.13.10 i ty of [place] [id number] Al dical NAL [address] [place] [address] 2021-12-06 2021-12-06 Telephone [facility] 1.2.660.539 [id number] Univers 00:00:00 00:00:00 Symone WRIGHT 350.1.13.10 ity of [place] [id number] Al dical NAL [address] [place] [address] 2021-11-18 2021-11-18 Outpatient R ZEYAD MILLER [facility] [id number] Univers 13:15:00 14:25:26 ity of [facility] 2021-11-18 2021-11-18 Routine [facility] 1.2.438.497 [id number] Univers 13:15:00 14:25:26 Cam [place] 350.1.13.10 ity of [place] [phone] Al dic[address] 2021-11-15 2021-11-15 Outpatient R PAUL [facility] [id number] Univers 11:00:00 11:00:00 ity of [facility] 2021-11-14 2021-11-14 Outpatient R PAUL [facility] [id number] Univers 10:59:59 23:59:00 ity of [facility] 2021-11-14 2021-11-14 [facility] 1.2.840.114 [id number] Univers 10:59:59 23:59:00 Encounter Cam [place] 350.1.13.10 ity of [place] 4[place]2.[place] [phone] [address] 2021-11-12 2021-11-12 Outpatient R PALU [facility] [id number] Univers 13:00:00 13:00:00 ity [facility] 2021-11-11 2021-11-11 Outpatient R PAUL [facility] 02797 [id number] Univers 08:00:00 08:00:00 ity [facility] 2021-11-09 2021-11-09 Telephone [facility] 1.2.840.114 [id number] Univers 00:00:00 00:00:00 Cam [place] 350.1.13.10 i ty of [place] [phone] Al dic[address] 2021-11-08 2021-11-08 Emergency X JARRED, [facility] ERT [id number] Univers 18:06:00 21:13:00 [facility] 2021-11-08 2021-11-08 Emergency [place] [facility] 1.2.840.114 [id number] Univers 18:06:00 21:13:00 Fely ADRIANA 350.1.13.10 i ty of [facility] 4.2.7.2.[place] [phone] [address] 2021-11-08 2021-11-08 Outpatient R PAUL ZEYAD [facility] [id number] Univers 11:15:00 11:15:00 ity of [facility] 2021-11-08 2021-11-08 Telephone Meagan MillerFormerly [facility] 1.2.840.114 [id number] Univers 00:00:00 00:00:00 Elliott WR[place] 350.1.13.10 i ty of [facility] 4.2.7.2.[place] [phone] Al dical NAL [address] [place] [address] 2021-11-06 2021-11-06 Gallery Host 2, Adc Lab [facility] 1.2.840.114 [id number] Univers 11:15:00 11:30:00 Visit Meagan Millerjeanie [place] 350.1.13.10 ity of [facility] 4.2.7.2.[place] [phone] Al dical NAL 353 [facility] 2021-11-06 2021-11-06 Outpatient R PAUL ZEYAD [facility] [id number] Univers 11:15:00 11:15:00 ity of [facility] 2021-11-06 2021-11-06 Case [facility] 1.2.215.206 [id number] Univers 00:00:00 00:00:00 Management Elliott WR[place] 350.1.13.10 ity of [place] [phone] Al dical NAL 134 [facility] 2021-11-04 2021-11-04 Gallery Host 2, Adc Lab [facility] 1.2.840.114 [id number] Univers 15:15:00 15:15:00 Visit Zeyad Miller ADRIANA 350.1.13.10 ity of [place] [phone] Al dical NAL 353 [facility] 2021-11-04 2021-11-04 Outpatient R ZEYAD MILLER [facility] [id number] Univers 15:15:00 15:05:11 ity of [facility] 2021-11-04 2021-11-04 Initial Zeyad Miller [facility] 1.2.866.570 [id number] Univers 14:00:00 14:59:36 Mariangel Gallagher IVONNEKRISTEN 350.1.13.10 ity of [place] [phone] Al dical NAL 134 [facility] 2021-10-29 2021-10-29 Outpatient R ELIZABETH PRAMOD [facility] B [id number] Univers 13:00:00 13:00:00 ELIZABETHMARYBENIGNO itjessica [facility] 2021-10-24 2021-10-24 Emergency X Karyna CANSECO [facility] ERT [id number] Univers 15:37:00 17:57:00 ity [facility] 2021-10-24 2021-10-24 Emergency Karyna Canseoc [facility] 1.2.840.114 [id number] Univers 15:37:00 17:57:00 Alejandra WR[place] 350.1.13.10 i ty of [place]2.7.2.[place] [phone] [facility] [address] 2021-10-18 2021-10-18 Outpatient R JHONY [facility] [id number] Univers 09:40:00 09:41:47 SYMONE ward o f [facility] 2021-10-18 2021-10-18 Office [facility] 1.2.840.114 [id number] Univers 09:40:00 09:41:47 Visit Symone WRIGHT 350.1.13.10 ity of [place] [phone] Al dical NAL 059 [facility] 2021-08-28 2021-08-28 Outpatient AMBREEN_CHIRAG FLKARYN [facility] [address] [place] 04:20:00 04:20:00 RAHAT 0713 [facility] 2021-08-28 2021-08-28 Telephone [facility] 1.2.378.574 [id number] Univers 00:00:00 00:00:00 Symone WRIGHT 350.1.13.10 ity of [place] [id number] [address] 2021-08-12 2021-08-12 Telephone [facility] 1.2.126.041 [id number] Univers 00:00:00 00:00:00 Davidadalidcammy CORONADOKRISTEN 350.1.13.10 ity of [place] [id number] [address] 2021-08-11 2021-08-11 Emergency X , [facility] ERT [id number] Univers 02:31:00 06:46:00 MARQUES ward [facility] 2021-08-11 2021-08-11 Emergency [facility] 1.2.667.575 [id number] Univers 02:31:00 06:46:00 Marques ADRIANA 350.1.13.10 i ty of [place] 4.2.[place] [phone] [facility] [address] 2021-08-11 2021-08-11 Orders Doctor YESENIA 1.2.840.114 [id number] Univers 00:00:00 00:00:00 Only Unassigned, KAYE 350.1.13.10 ity of [place] [facility] 4.2.7.2.686 Petey as [phone] [facility] [address] 2021-08-09 2021-08-09 Telephone [facility] 1.2.615.916 [id number] Univers 00:00:00 00:00:00 Sandeepcammy ADRIANA 350.1.13.10 ity of [place] [phone] [address] 2021-08-02 2021-08-02 Outpatient R JHONY [facility] [id number] Univers 08:00:00 08:00:00 SYMONE ward o f [facility] 2021-08-01 2021-08-01 Outpatient R JHONY, [facility] [id number] Univers 08:00:00 23:59:00 SYMONE antunez [facility] 2021-07-11 2021-07-11 Outpatient R [facility] [id number] Univers 09:00:00 09:33:26 SYMONE antunez [facility] 2021-07-11 2021-07-11 Office [facility] 1.2.840.114 [id number] Univers 09:00:00 09:33:26 Visit Symone WRIGHT 350.1.13.10 ity of [place] [phone] Al dical NAL [address] [place] [address] 2021-07-11 2021-07-11 Outpatient R [facility] [id number] Univers 09:00:00 09:33:26 SYMONE antunez [facility] 2021-07-11 2021-07-11 Outpatient R [facility] [id number] Univers 09:00:00 09:33:26 SYMONE antunez [facility] 2021-07-11 2021-07-11 Orders Doctor YESENIA 1.2.840.114 [id number] Univers 00:00:00 00:00:00 Only Unassigned, KAYE 350.1.13.10 ity of [place] [facility] 4.2.7.2.686 Petey as [phone] [address] 2021-07-08 2021-07-08 Telephone [facility] 1.2.113.644 [id number] Univers 00:00:00 00:00:00 Symone WRIGHT 350.1.13.10 ity of [facility] 4.2.7.2.[place] [phone] Al dical NAL 059 [facility] 2021-06-19 2021-06-19 Outpatient GC_SWHAOMC_ PRIV PRIV 220 [id number] [facility] 10:10:00 10:10:00 Black_D [id number] Medica l 2021-06-18 2021-06-18 Outpatient GC_SWHAOMC_ PRIV PRIV 220 [id number] [facility] 10:09:00 10:09:00 Black_D [id number] Medica l 2021-06-17 2021-06-17 Outpatient GC_SWOMC_ PRIV PRIV 220 [id number] [facility] 11:36:00 11:36:00 Black_D [id number] Medica l 2020-08-15 2020-08-15 Outpatient GC_SWOMC_ PRIV PRIV 220 34615-5 [facility] 04:42:00 04:42:00 Black_D [id number] Medica l 2020-07-04 2020-07-[address] [facility] 1.2.909.103 [id number] Univers 15:27:00 18:58:00 Drea Wright 350.1.13.10 i ty of [place].2.[place] [phone] [facility] [address] 2020-07-04 2020-07-04 Orders Doctor YESENIA 1.2.840.114 [id number] Univers 00:00:00 00:00:00 Only Unassigned, KAYE 350.1.13.10 [facility] 4.2.7.2.686 Petey as [phone] [facility] [address] 2020-06-11 2020-06-11 Outpatient janette_karyna [facility] [address] [place] 01:17:00 01:17:00 0426 [facility] 2020-05-08 2020-05-08 Patient [facility] 1.2.840.114 [id number] Univers 00:00:00 00:00:00 Outreach Kenneth SUBRAMANIAN 350.1.13.10 i ty of [facility] 4.2.7.2.[place] [phone] Al dical [address] 2019-07-20 2019-07-20 Telephone Kevin [facility] 1.2.451.808 [id number] Univers 00:00:00 00:00:00 Amina Krishnamurthy SENIOR MANUFACTURING TECHNICIAN 350.1.13.10 ity of [facility] 4.2.7.2.686 Petey as MATERNAL [phone] Med ical & CHILD 107 [facility] 2019-07-20 2019-07-20 Patient Doctor [facility] 1.2.840.114 [id number] Univers 00:00:00 00:00:00 Secure Msg Unassigned, SENIOR MANUFACTURING TECHNICIAN 350.1.13.10 ity of [place] [facility] 4.2.7.2.686 Petey as MATERNAL [phone] Med ical & CHILD 107 [facility] 2019-07-07 2019-07-07 Telephone Kbsydni [facility] 1.2.840.114 [id number] Univers 00:00:00 00:00:00 Dian C SENIOR MANUFACTURING TECHNICIAN 350.1.13.10 ity of [facility] 4.2.7.2.686 Petey as MATERNAL [phone] Med ical & CHILD 107 [facility] 2019-07-07 2019-07-07 Letter Kbsydni [facility] 1.2.207.982 [id number] Univers 00:00:00 00:00:00 (Out) Dian Carranza SENIOR MANUFACTURING TECHNICIAN 350.1.13.10 ity of [facility] 4.2.7.2.686 Petey as MATERNAL [phone] Med ical & CHILD [address] [place] [address] 2019-07-06 2019-07-06 Case Sherif [facility] 1.2.115.668 [id number] Univers 00:00:00 00:00:00 Management Pattie SENIOR MANUFACTURING TECHNICIAN 350.1.13.10 ity of [facility] 4.2.7.2.686 Petey as MATERNAL [phone] Med ical & CHILD 124 [facility] 2019-07-01 2019-07-01 Office Provider, [facility] 1 .2.840.114 [id number] [facility] 09:04:44 09:45:26 Visit Pattie Gorman SENIOR MANUFACTURING TECHNICIAN 350.1.13.10 ity of [facility] 4.2.7.2.686 Petey as MATERNAL [phone] Med ical & CHILD 107 [facility] 2019-07-01 2019-07-01 Office Provider, [facility] 1.2.018.629 [id number] 09:04:44 09:45:26 Visit Marianna SENIOR MANUFACTURING TECHNICIAN 350.1.13.10 Temp [facility] 4.2.7.2.686 MATERNAL [phone] & CHILD [address] [place] [address] 2019-07-01 2019-07-01 Outpatient R SHERIF [facility] [id number] Univers 09:00:00 09:00:00 PATTIE antunez [facility] 2019-06-29 2019-06-29 Patient Doctor [facility] 1.2.840.114 [id number] Univers 00:00:00 00:00:00 Secure Msg Unassigned, SENIOR MANUFACTURING TECHNICIAN 350.1.13.10 ity of [place] [facility] 4.2.7.2.686 Petey as MATERNAL [phone] [facility] & CHILD [address] [place] [address] 2019-06-28 2019-06-28 Telemedici [facility] 1.2.840.114 [id number] Univers 15:04:17 15:39:02 ne Visit Meenuguillaumeashwin Yessy SENIOR MANUFACTURING TECHNICIAN 350.1.13.10 ity of [facility] 4.2.7.2.686 Petey as MATERNAL [phone] [facility] & CHILD [address] [place] [address] 2019-06-28 2019-06-28 Outpatient R DHILLON [facility] [id number] Univers 15:30:00 15:30:00 MEENUGUILLAUMEAshwin antunez [facility] 2019-06-28 2019-06-28 Telephone [facility] 1.2.840.114 [id number] Univers 00:00:00 00:00:00 Dian Carranza SENIOR MANUFACTURING TECHNICIAN 350.1.13.10 ity of [place] [address]..7.2.686 Petey as MATERNAL [phone] [facility] & CHILD [address] [place] [address] Results Test Description Test Time Test Comments Results Result Comments Source POCT TEST 2022-02-06 19:26:00 Test Item Value Reference Range Interpretation Comme nts POCT PREG (test code = 1605) Negative On board controls acceptable with C Line (test code = 3574) Yes POCT PREG LOT # (test code = 3575) POCT PREG TEST DATE (test code = 3576) [id number] 19:26:00 Test Item Value Reference Range Interpretation Comments POCT PREG (test code = 1605) Negative On board controls acceptable with C Yes Line (test code = 3574) POCT PREG LOT # (test code = 3575) POCT PREG TEST DATE (test code = 3576) [facility] [id number] 19:31:00 Test Item Value Reference Range Interpretation Comments POCT PREG (test code = 1605) Positive On board controls acceptable with C Yes Line (test code = 3574) POCT PREG LOT # (test code = 3575) POCT PREG TEST DATE (test code = 3576) [facility] [id number] 19:31:00 Test Item Value Reference Range Interpretation Comments POCT PREG (test code = 1605) Positive On board controls acceptable with C Yes Line (test code = 3574) POCT PREG LOT # (test code = 3575) POCT PREG TEST DATE (test code = 3576) [facility]A HCG [id number] 13:00:19 Test Item Value Reference Range Interpretation Comments BETA HCG (test See_Comment [Automated m essage] code = The system [facility] [id number]) generated this result transmit carole reference range : Non- fe male and male patien ts: <5 mIU/mL. The reference range was not used to interpret this result as normal/abnormal . CHARU (test code Gestational Age ? ? = CHARU) ?Range (mIU/mL) 1-10 ?Weeks ?82-84491748-37 Weeks ?42911-02522085-26 Weeks ?9471-01578316-19 Weeks ?6176-265195 Biotin has been reported to cause a negative bias, interpret results relative to patient's use of biotin. [facility] and Screen - ONCE [id number] 12:53:38 Test Item Value Reference Range Interpretation Comments ABO & RH (test code O Positive Performe d at [facility] = 20) Laboratory Serv [facility] [address] [place] [address]Monw Free: [phone] A No. [id number] IAT (test code = Negative Performed a t [facility] 1185) Laboratory Serv [facility] [address] [place] [address]Spyl Free: [phone] A No. [id number] [facility] URINALYSIS W/O SPECIFIC [id number] 18:51:00 Test Item Value Reference Range Interpretation Comments POCT PH U (test code = 3254) n/a 5-8 POCT U LEUK EST (test code = n/a Negative - Negative 3263) POCT U NIT (test code = 3262) n/a Negative - Negative POCT U PROT (test code = 3259) negative Negative - Negative POCT U GLU (test code = 3256) negative Negative - Negative POCT U KETONE (test code = 3258) n/a Negative - Negative POCT U BLD (test code = 3257) n/a Negative - Negative [facility] URINALYSIS W/O SPECIFIC [id number] 18:22:00 Test Item Value Reference Range Interpretation Comments POCT PH U (test code = 3254) 5 mg/dl 5-8 POCT U LEUK EST (test code = Negative Negative - Negative 3263) POCT U NIT (test code = 3262) Negative Negative - Negative POCT U PROT (test code = 3259) Negative Negative - Negative POCT U GLU (test code = 3256) Normal Negative - Negative POCT U KETONE (test code = 3258) Negative Negative - Negative POCT U BLD (test code = 3257) Negative Negative - Negative [facility] [id number] 01:57:44 Test Item Value Reference Range Interpretation Comments BETA HCG (test See_Comment [Automated m essage] code = The system [employer] [id number]) generated this result transmit carole reference range : Non- fe male and male patien ts: <5 mIU/mL. The reference range was not used to interpret this result as normal/abnormal . CHARU (test code Gestational Age ? ? = CHARU) ?Range (mIU/mL) 1-10 ?Weeks ?02-10830875-99 Weeks ?13778-29197258-16 Weeks ?5346-64014118-13 Weeks ?8126-700848 Biotin has been reported to cause a negative bias, interpret results relative to patient's use of biotin. [facility] WITH [id number] 01:00:42 Test Item Value Reference Range Interpretation Comments WBC (test code = See_Comment [Automated message] 6690-2) The system [employer] generated this result transmitted ref erence range: 4.30 - 1 1.10 10*3/?L. The re ference range was not u sed to interpret this result as normal/abnor mal. RBC (test code = See_Comment [Automated message] 859-8) The system [employer] generated this result transmitted ref erence range: 3.93 - 5 .25 10*6/?L. The re ference range was not u sed to interpret this result as normal/abnor mal. HGB (test code = 13.3 g/dL 11.6-15 718-7) HCT (test code = 38.5 % 35.7-45.2 4544-3) MCV (test code = 92.1 fL 80.6-95.5 787-2) MCH (test code = 31.8 pg 25.9-32.8 785-6) MCHC (test code = 34.5 g/dL 31.6-35.1 786-4) RDW-SD (test code 41.4 fL 39-49.9 = 87173-0) RDW-CV (test code 12.3 % 12-15.5 = 788-0) PLT (test code = See_Comment [Automated message] 447-3) The system [employer] generated this result transmitted ref erence range: 166 - 35 8 10*3/?L. The re ference range was not u sed to interpret this result as normal/abnor mal. MPV (test code = 10.5 fL 9.5-12.9 74345-1) NRBC/100 WBC (test See_Comment [Automat ed message] code = 5346281086) The [employer] m which generated this result transmitted ref erence range: 0.0 - 10 .0 /100 WBCs. The refer ence range was not u sed to interpret this result as normal/abnor mal. NRBC x10^3 (test See_Comment [Automated message] code = [id number]) The syste m which generated this result transmitted ref erence range: 10*3/?L. The reference range was not used to interpr et this result as normal/abnormal . GRAN MAT (NEUT) % 64.1 % (test code = 770-8) IMM GRAN % (test 0.40 % code = [id number]) LYMPH % (test code 24.1 % = 736-9) MONO % (test code 7.4 % = 5905-5) EOS % (test code = 3.5 % 713-8) BASO % (test code 0.5 % = 706-2) GRAN MAT 5.42 10*3/uL 1.88-7.09 x10^3(ANC) (test code = [id number]) IMM GRAN x10^3 0.03 10*3/uL 0-0.06 (test code = [id number]) LYMPH x10^3 (test 2.04 10*3/uL 1.32-3.29 code = 731-0) MONO x10^3 (test 0.63 10*3/uL 0.33-0.92 code = 742-7) EOS x10^3 (test 0.30 10*3/uL 0.03-0.39 code = 711-2) BASO x10^3 (test 0.04 10*3/uL 0.01-0.07 code = 704-7) [facility] [id number] 00:53:00 Test Item Value Reference Range Interpretation Comments POCT PREG (test code = 1605) positive Lab Interpretation (test code = Normal 79824-4) [facility] URINALYSIS W/O SPECIFIC [id number] 19:18:00 Test Item Value Reference Range Interpretation Comments POCT PH U (test code = 3254) n/a 5-8 POCT U LEUK EST (test code = n/a Negative - Negative 5753) POCT U NIT (test code = 3262) n/a Negative - Negative POCT U PROT (test code = 3259) negative Negative - Negative POCT U GLU (test code = 3256) negative Negative - Negative POCT U KETONE (test code = 3258) n/a Negative - Negative POCT U BLD (test code = 3257) n/a Negative - Negative [facility] URINALYSIS W/O SPECIFIC [id number] 19:18:00 Test Item Value Reference Range Interpretation Comments POCT PH U (test code = 3254) n/a 5-8 POCT U LEUK EST (test code = n/a Negative - Negative 3263) POCT U NIT (test code = 3262) n/a Negative - Negative POCT U PROT (test code = 3259) negative Negative - Negative POCT U GLU (test code = 3256) negative Negative - Negative POCT U KETONE (test code = 3258) n/a Negative - Negative POCT U BLD (test code = 3257) n/a Negative - Negative [facility] [id number] 19:16:00 Test Item Value Reference Range Interpretation Comments POCT PREG (test code = 1605) Positive On board controls acceptable with C Yes Line (test code = 3574) POCT PREG LOT # (test code = 3575) POCT PREG TEST DATE (test code = 3576) [id number]:16:00 Test Item Value Reference Range Interpretation Comments POCT PREG (test code = 1605) Positive On board controls acceptable with C Yes Line (test code = 3574) POCT PREG LOT # (test code = 3575) POCT PREG TEST DATE (test code = 3576) [facility] [id number] 20:47:00 Test Item Value Reference Range Interpretation Comments POCT PREG (test code = 1605) Negative On board controls acceptable with Present C Line (test code = 3574) POCT PREG LOT # (test code = 3575) [id number] POCT PREG TEST DATE (test 01/15/2023 code = 3576) Lab Interpretation (test code = Normal 13357-3) [facility] TEST, THINPREP, [id number] 17:38:20 Test Item Value Reference Range Interpretation Comments SOURCE: (test Cervical/Endo code = 8001) cervical SLIDES: (test 1 code = 8011) LMP: (test code = 06/30/2021 8021) SPECIMEN (NOTE) Satisfactory f or ADEQUACY: (test evaluation. Endocervical code = 85732) cells/transfor mation zone component present. INTERPRETATION: NILM/NO (test code = EPITH. --------- 88446) ABNORMALITY;S -------- EE BELOW NEGATIVE FO R INTRAEPITHELIAL LESION OR MALIGNANCY ( NILM) --------- --------- --------- - DENTAL SERVICE TECHNICIAN: Cherie Neal (test code = 8101) LOCATION: (test (NOTE) Specimens pr ocessed and code = 44379) interpreted at [facility], [address] [place], [place] [id number], , CLIA: [id number] CPT: (test code = (NOTE) 20352 UNLE SS OTHERWISE 8140) INDICATED, COMP UTER [...] as applicable. HPV HIGH RISK WITH GENOTYPE, [id number] 17:35:09 Test Item Value Reference Range Interpretation Comments HPV HIGH RISK INTERP NEGATIVE NEGATIVE (test code = 64525) HPV 16 (test code = NEGATIVE 99649) HPV 18 (test code = NEGATIVE 79251) HPV, HR, OTHER NEGATIVE Testing meth odology is GENOTYPES (test code real-ti me PCR utilizing = 67928) hydrolysis prob es with the [employer] Chucky 4800 system. The morales t individually de tects genotypes 16 an d 18, as well as the oth er 12 high risk types (31,33,35,39,45 ,51,52,56 ,58,59,66,68). The expected resul t is negative. A neg ative result does not rule out the presence of HPV not included in the genotype set, a low leve l of infection or sp ecimen sampling error. UNLESS OTHERWISE INDIC ATED, ALL TESTING PERFORM ED ATCLINICAL PATH OLOGY [facility], [facility]. [address] [place] [id number] LABORATORY DIRE CTOR: EVERARDO BRANTLEY M.D. CLIA NUMBER [id number] [facility] [place]. [id number] VAGINAL PATHOGENS DNA [id number] 16:12:33 Test Item Value Reference Range Interpretation Comments VENKAT SPECIES (test NEGATIVE NEGATIVE code = ) G. VAGINALIS (test NEGATIVE NEGATIVE code = 72941) T. VAGINALIS (test NEGATIVE NEGATIVE UNLESS O THERWISE code = ) INDICATED, ALL TESTING PERFORMED ATCLI NICAL PATHOLOGY LABOR [facility], [facility]. [address] [place] [id number] LABORATORY DIRE CTOR: EVERARDO BRANTLEY M.D. CLIA NUMBER [id number] [facility] [place] [id number]
--- NOTE | 2022-03-20 19:51 | RAD REPORT ---
EXAM DESCRIPTION: CT - Head Brain Wo Cont - 03/20/2022 7:43 pm CLINICAL HISTORY: headache COMPARISON: No comparisons TECHNIQUE: All CT scans are performed using dose optimization technique as appropriate and may inclu de automated exposure control or mA/KV adjustment according to patient size. FINDINGS: No intracranial hemorrhage, hydrocephalus or extra-axial fluid collection.No areas of brai n edema or evidence of midline shift. The paranasal sinuses and mastoids are clear. The calvarium is intact. IMPRESSION: No acute intracranial abnormality.
[2022-03-20] MEDS ORDERED: METOCLOPRAMIDE 10 MG/2mL INJ ONE (19:55)
[2022-03-20] MEDS ORDERED: DIPHENHYDRAMINE 50 MG/ML VIAL ONE (19:55)
[2022-03-20] MEDS ORDERED: KETOROLAC 30 MG/ML INJ ONE (19:56)
[2022-03-20] MEDS ORDERED: NA CHLORIDE 0.9% 1,000 ML ONE (19:56)
[2022-03-20] MEDS ORDERED: ACETAMINOPHEN 500 MG TAB ONE (19:56)
[2022-03-20 20:15] LABS: Absolute Lymphocytes (CBC) 1.8 K/uL (0.7-4.9); Hematocrit 39.9 % (36.0-45.0); Lymphocytes % 25.9 % (15.3-44.8); MCV 92.6 fL (80-100); MPV 9.3 fL (7.6-11.3); RBC Red Blood Cell Count 4.31 M/uL (3.86-4.86)
[2022-03-20 20:51] LABS: Albumin 4.2 g/dL (3.4-5.0); Bilirubin Total 0.3 mg/dL (0.2-1.0); Protein, Total 8.7 g/dL (6.4-8.2)
[2022-03-20 20:57] LABS: Potassium 4.1 mmol/L (3.5-5.1)
--- NOTE | 2022-03-20 21:26 | ER ---
Nurse's Notes [facility] Name: Patricia Monroe Age: 26 yrs Sex: Female : 1995 Arrival Date: 03/20/2022 Time: 19:05 Bed 5 Private MD: Diagnosis: Headache Presentation: 03/20 19:06 Chief complaint: EMS states: Pt c/o migraine, hx of migraines but has not had one in ap3 many years, reports that headache started about a week ago but became worse today, pt reports pain to frontal area, back of head and R temporal area, sensitivity to light and sound, denies N/V, states, " It feels like I'm having contractions in my brain". Coronavirus screen: Vaccine status: Patient reports being unvaccinated. Ebola Screen: No symptoms or risks identified at this time. Initial Sepsis Screen: Does the patient meet any 2 criteria? No. Patient's initial sepsis screen is negative. Does the patient have a suspected source of infection? No. Patient's initial sepsis screen is negative. Risk Assessment: Do you want to hurt yourself or someone else? Patient reports no desire to harm self or others. Onset of symptoms was March 20, 2022. 19:06 Method Of Arrival: EMS: [facility] ap3 19:06 Acuity: WALTER 3 ap3 Triage Assessment: 19:10 Headache History: The patient has had previous headaches and this one is different than ap3 previous episodes, and this one is more severe than previous episodes. General: Appears in no apparent distress. uncomfortable, well groomed, Behavior is calm, cooperative, appropriate for age, Denies fever, feeling ill. Pain: Complains of pain in forehead, right holiness, left occipital area and right occipital area Pain currently is 8 out of 10 on a pain scale. Pain began approx 1 week ago. Neuro: Level of Consciousness is awake, alert, obeys commands, Oriented to person, place, time, situation, Reports blurred vision headache frontal area, occipital area, that is the "worst ever". Cardiovascular: Capillary refill < 3 seconds in bilateral fingers Patient's skin is warm and dry. Respiratory: Airway is patent Respiratory effort is even, unlabored, Respiratory pattern is regular, symmetrical. GI: No signs and/or symptoms were reported involving the gastrointestinal system. Derm: Skin is intact, is healthy with good turgor, Skin is pink, warm \\T\\ dry. Musculoskeletal: Circulation, motion, and sensation intact. Historical: - Allergies: 19:09 No Known Allergies; ap3 - Home Meds: 19:09 beta basilia [Active]; ap3 - PMHx: 19:09 Asthma; Migraines; Tachycardia; ap3 - Immunization history:: Adult Immunizations unknown. - Social history:: Smoking status: Patient denies any tobacco usage or history of. - Family history:: not pertinent. Screenin:12 [facility] ED Fall Risk Assessment (Adult) History of falling in the last 3 months, pf1 including since admission No falls in past 3 months (0 pts) Confusion or Disorientation No (0 pts) Intoxicated or Sedated No (0 pts) Impaired Gait No (0 pts) Mobility Assist Device Used No (0 pt) Altered Elimination No (0 pt) Score/Fall Risk Level 0 - 2 = Low Risk Oriented to surroundings, Maintained a safe environment, Educated pt \\T\\ family on fall prevention, incl call for assistance when getting out of bed, Assessed \\T\\ reinforced patient's understanding of fall precautions, Provided non-skid footwear, Hourly rounding (assess needs \\T\\ fall precautionary measures) done, Used ambulatory aids as needed (educated on \\T\\ assisted with), Used gait belt as appropriate. Abuse screen: Denies threats or abuse. Nutritional screening: No deficits noted. Tuberculosis screening: No symptoms or risk factors identified. Assessment: 19:20 General: Appears in no apparent distress. uncomfortable, well groomed, well developed, pf1 Behavior is calm, cooperative, appropriate for age, quiet. 19:20 Pain: Complains of pain in forehead Pain currently is 9 out of 10 on a pain scale. Pain pf1 began 1week. Neuro: Level of Consciousness is awake, alert, obeys commands, Oriented to person, place, time, situation, Pupils are PERRLA, Pupil Size: 3mm Reports headache frontal area. Cardiovascular: No deficits noted. Capillary refill < 3 seconds Patient's skin is warm and dry. Respiratory: No deficits noted. Airway is patent Trachea midline Respiratory effort is even, unlabored, Respiratory pattern is regular, symmetrical. GI: No deficits noted. No signs and/or symptoms were reported involving the gastrointestinal system. : No deficits noted. No signs and/or symptoms were reported regarding the genitourinary system. EENT: No deficits noted. No signs and/or symptoms were reported regarding the EENT system. Derm: No deficits noted. No signs and/or symptoms reported regarding the dermatologic system. Musculoskeletal: No deficits noted. No signs and/or symptoms reported regarding the musculoskeletal system. 20:30 Reassessment: Patient appears in no apparent distress at this time. Patient and/or pf1 family updated on plan of care and expected duration. Pain level reassessed. Patient states feeling better. Patient states symptoms have improved. 20:59 Reassessment: Patient appears in no apparent distress at this time. Patient and/or pf1 family updated on plan of care and expected duration. Pain level reassessed. Patient is alert, oriented x 3, equal unlabored respirations, skin warm/dry/pink. Patient states feeling better. Patient states symptoms have improved. Patient ambulated with steady gait to restroom. Vital Signs: 19:06 BP 107 / 71; Pulse 93; Resp 18; Temp 97.7(O); Pulse Ox 100% on R/A; Weight 58.97 kg; ap3 Height 4 ft. 11 in. (149.86 cm); 20:00 BP 123 / 84; Pulse 101; Resp 18; Pulse Ox 100% on R/A; Pain 9/10; pf1 20:50 BP 101 / 59; Pulse 100; Resp 18; Pulse Ox 100% on R/A; Pain 4/10; pf1 19:06 Body Mass Index 26.26 (58.97 kg, 149.86 cm) ap3 ED Course: 19:05 Patient arrived in ED. ap3 19:08 Heber French MD is Attending Physician. rt 19:09 Triage completed. ap3 19:13 Arm band placed on Patient placed in an exam room. ap3 19:27 Brenda noriega RN is Primary Nurse. pf1 19:35 Inserted saline lock: 20 gauge in right antecubital area, using aseptic technique. pf1 Blood collected. 19:43 CT Head Brain wo Cont In Process Unspecified. EDMS 20:10 No provider procedures requiring assistance completed. pf1 20:12 CMP Sent. pf1 20:12 CBC with Diff Sent. pf1 21:32 Patient has correct armband on for positive identification. Bed in low position. Call ll3 light in reach. Side rails up X 1. Client placed on continuous cardiac and pulse oximetry monitoring. NIBP monitoring applied. 21:32 IV discontinued, intact, bleeding controlled, No redness/swelling at site. Pressure ll3 dressing applied. Administered Medications: 19:55 Drug: Reglan (metoCLOPramide) 10 mg Route: IVP; Site: right antecubital; pf1 20:31 Follow up: Response: No adverse reaction; Marked relief of symptoms; Pain is decreased; pf1 RASS: Alert and Calm (0) 19:55 Drug: Benadryl (diphenhydrAMINE) 25 mg Route: IVP; Site: right antecubital; pf1 20:31 Follow up: Response: No adverse reaction; Marked relief of symptoms; Pain is decreased; pf1 RASS: Alert and Calm (0) 19:55 Drug: NS 0.9% 1000 ml Route: IV; Rate: 1 bolus; Site: right antecubital; pf1 20:31 Follow up: Response: No adverse reaction; Marked relief of symptoms pf1 21:32 Follow up: Response: No adverse reaction; IV Status: Completed infusion; IV Intake: ll3 1000ml 19:55 Drug: Tylenol 500 mg Route: PO; pf1 20:31 Follow up: Response: No adverse reaction; Marked relief of symptoms; Pain is decreased pf1 19:55 Drug: Ketorolac 15 mg Route: IVP; Site: right antecubital; pf1 20:30 Follow up: Response: No adverse reaction; Marked relief of symptoms; Pain is decreased; pf1 RASS: Alert and Calm (0) Medication: 21:32 VIS not applicable for this client. ll3 Intake: 21:32 IV: 1000ml; Total: 1000ml. ll3 Outcome: 21:25 Discharge ordered by . rt 21:32 Discharged to home ambulatory, with significant other. ll3 21:32 Condition: stable 21:32 Discharge instructions given to patient, significant other, Instructed on discharge instructions, follow up and referral plans. Demonstrated understanding of instructions, follow-up care. 21:33 Patient left the ED. ll3 Signatures: Dispatcher [employer] EDMS Yesica Mar RN RN ap3 Alxy Lai RN RN ll3 Heber French MD MD rt noriega, Brenda, RN RN pf1
--- NOTE | 2022-03-20 21:26 | EDPHYS ---
Physician Documentation [facility] Name: Patricia Monroe Age: 26 yrs Sex: Female : 1995 Arrival Date: 03/20/2022 Time: 19:05 Bed 5 Private MD: ED Physician Heber French HPI: 03/21 00:32 This 26 yrs old Female presents to ER via EMS with complaints of Headache > rt 24hrs Old. 00:32 Patient with history of migraines, currently off of her preventative presents to the ED rt with about 1 week of intermittent right-sided headache. She says is similar in character to prior migraines, somewhat more intense. She reports pain to her right shoulder, right lateral neck but denies neck stiffness. The patient reports photosensitivity as well as photosensitivity. Denies other acute complaints at this time. Symptoms are moderate severity, aching nature, nonradiating, no other aggravating elevating factors.. Historical: - Allergies: 03/20 19:09 No Known Allergies; ap3 - Home Meds: 19:09 beta basilia [Active]; ap3 - PMHx: 19:09 Asthma; Migraines; Tachycardia; ap3 - Immunization history:: Adult Immunizations unknown. - Social history:: Smoking status: Patient denies any tobacco usage or history of. - Family history:: not pertinent. ROS: 03/21 00:32 Constitutional: Negative for fever, chills, and weight loss, Eyes: Negative for injury, rt pain, redness, and discharge, Cardiovascular: Negative for chest pain, palpitations, and edema, Respiratory: Negative for shortness of breath, cough, wheezing, and pleuritic chest pain, Abdomen/GI: Negative for abdominal pain, nausea, vomiting, diarrhea, and constipation, MS/Extremity: Negative for injury and deformity, Skin: Negative for injury, rash, and discoloration, Psych: Negative for depression, anxiety, suicide ideation, homicidal ideation, and hallucinations. Neuro: Positive for headache, Negative for altered mental status. Exam: 00:32 Constitutional: This is a well developed, well nourished patient who is awake, alert, rt and in no acute distress. Head/Face: Normocephalic, atraumatic. Chest/axilla: Normal chest wall appearance and motion. Nontender with no deformity. No lesions are appreciated. Cardiovascular: Regular rate and rhythm with a normal S1 and S2. No gallops, murmurs, or rubs. Normal PMI, no JVD. No pulse deficits. Respiratory: Lungs have equal breath sounds bilaterally, clear to auscultation and percussion. No rales, rhonchi or wheezes noted. No increased work of breathing, no retractions or nasal flaring. Abdomen/GI: Soft, non-tender, with normal bowel sounds. No distension or tympany. No guarding or rebound. No evidence of tenderness throughout. Skin: Warm, dry with normal turgor. Normal color with no rashes, no lesions, and no evidence of cellulitis. MS/ Extremity: Pulses equal, no cyanosis. Neurovascular intact. Full, normal range of motion. Psych: Awake, alert, with orientation to person, place and time. Behavior, mood, and affect are within normal limits. 00:32 Neck: Full range of motion, no meningismus. 00:32 Neuro: Cranial nerves II through XII intact, strength and sensation intact in upper and lower extremities.. Vital Signs: 03/20 19:06 BP 107 / 71; Pulse 93; Resp 18; Temp 97.7(O); Pulse Ox 100% on R/A; Weight 58.97 kg; ap3 Height 4 ft. 11 in. (149.86 cm); 20:00 BP 123 / 84; Pulse 101; Resp 18; Pulse Ox 100% on R/A; Pain 9/10; pf1 20:50 BP 101 / 59; Pulse 100; Resp 18; Pulse Ox 100% on R/A; Pain 4/10; pf1 19:06 Body Mass Index 26.26 (58.97 kg, 149.86 cm) ap3 MDM: 19:10 Patient medically screened. rt 03/21 00:32 Differential diagnosis: Meningitis, encephalitis, intracranial hemorrhage, tumor. Data rt reviewed: vital signs, nurses notes, lab test result(s), radiologic studies. I considered the following discharge prescriptions or medication management in the emergency department Medications were administered in the Emergency Department. See MAR. Independent interpretation of the following test(s) in the Emergency Department CT Scan: My interpretation is No obvious bleeding. Test considered but Not performed: Other Details Normal vital signs, normal neuro exam, symptoms not consistent with meningitis, subarachnoid hemorrhage, LP is not indicated.. Care significantly affected by the following chronic conditions: Migraine. Response to treatment: the patient's symptoms have resolved after treatment. 03/20 19:57 Order name: CBC with Diff; Complete Time: 21:02 rt 03/20 19:57 Order name: CMP; Complete Time: 21:02 rt 03/20 19:18 Order name: CT Head Brain wo Cont; Complete Time: 19:57 rt Administered Medications: 03/20 19:55 Drug: Reglan (metoCLOPramide) 10 mg Route: IVP; Site: right antecubital; pf1 20:31 Follow up: Response: No adverse reaction; Marked relief of symptoms; Pain is decreased; pf1 RASS: Alert and Calm (0) 19:55 Drug: Benadryl (diphenhydrAMINE) 25 mg Route: IVP; Site: right antecubital; pf1 20:31 Follow up: Response: No adverse reaction; Marked relief of symptoms; Pain is decreased; pf1 RASS: Alert and Calm (0) 19:55 Drug: NS 0.9% 1000 ml Route: IV; Rate: 1 bolus; Site: right antecubital; pf1 20:31 Follow up: Response: No adverse reaction; Marked relief of symptoms pf1 21:32 Follow up: Response: No adverse reaction; IV Status: Completed infusion; IV Intake: ll3 1000ml 19:55 Drug: Tylenol 500 mg Route: PO; pf1 20:31 Follow up: Response: No adverse reaction; Marked relief of symptoms; Pain is decreased pf1 19:55 Drug: Ketorolac 15 mg Route: IVP; Site: right antecubital; pf1 20:30 Follow up: Response: No adverse reaction; Marked relief of symptoms; Pain is decreased; pf1 RASS: Alert and Calm (0) Disposition Summary: 03/20/22 21:25 Discharge Ordered Location: Home rt Problem: an acute exacerbation rt Symptoms: are resolved rt Condition: Stable rt Diagnosis - Headache rt Followup: rt - With: Private Physician - When: 2 - 3 days - Reason: Discharge Instructions: - Discharge Summary Sheet ll3 - General Headache Without Cause rt Forms: - Family Work Release ll3 - Medication Reconciliation Form rt - Thank You Letter rt - Antibiotic Education rt - Prescription Opioid Use rt Signatures: Dispatcher [employer] Yesica Isbell RN RN ap3 Heber French MD MD rt Brenda noriega, JOZEF RN pf1 Alyx Lai RN ll3
[2022-03-20 21:52] VITALS: TEMP 97.7; O2SAT 100
[2022-03-20 21:59] VITALS: BP 101/59
== END 2022-03-20 21:33 | disposition home or self-care (01) ==
LOC: ER 18:59
DX: R51.9 Headache, unspecified (principal); M25.511 Pain in right shoulder
CPT/HCPCS: 96361; 85025; 36415; 80053; 70450; 96375; 96374; 99284; J2765; J1200; J7030

== ENCOUNTER 2022-04-12 22:00 | Emergency (ER) | payer BC ==
--- OUTSIDE RECORDS SUMMARY | 2022-04-12 22:08 | XMS REPORT | Continuity of Care Document ---
:1995 Author Organization [facility] t Address [address] [place] [address] Care Team Providers Name Role Phone PCP, PATIENT DOES NOT HAVE A Primary Care Physician UnavailZEYAD Oleary Attending Clinician Unavailable SYMONE FRANK Attending Clinician Unavailable Zeyad Miller MD Attending Clinician Doctor Unassigned, [place] Attending Clinician Unavailable Julianne Evangelista RN Attending Clinician Unavailable LINDA MAYORGA Attending Clinician Unavailable Linda Mayorga MD Attending Clinician Po, [facility] Attending Clinician Unavailable PRAMOD [...] Unavailable Kenneth Gandara DO Attending Clinician Kevin NURSE RN BSNAmina Attending Clinician Audrey CNPDian Attending Clinician [phone] Sherif MCLAREN FLINTPPattie Attending Clinician Provider, [facility] Temp Attending Clinician Unavailable PATTIE GORMAN Attending Clinician Unavailable AMINA DHILLON Attending Clinician Unavailable ZEYAD MILLER Admitting Clinician Unavailable Zeyad Miller MD Admitting Clinician LINDA MAYORGA Admitting Clinician Unavailable FELY STERN Admitting Clinician Unavailable Karyna CANSECO Admitting Clinician Unavailable SHARMIN Admitting Clinician Unavailable MARQUES DUPREE Admitting Clinician Unavailable SYMONE FRANK Admitting Clinician Unavailable [email or web address] Admitting Clinician Unavailable viry Admitting Clinician Unavailable Payers Payer Name Policy Type Policy Number Effective Date Expiration Date S [facility] - [id number] 2021 OUT OF STATE 00:00:00 [facility] [id number] Problems Condition Condition Condition Status Onset Resolution Last Treating Co mments Source Name Details Category Date Date Treatment Clinician Date S/P D&C S/P D&C Disease Active 2021-02 Univers (status (status 1-18 ity of post post 00:00: [place] dilation dilation 00 Medica l and and Branch curettage) curettage) Missed Missed Disease Active 2021-02 Overview: Univer s 1-16 Formattin ity of 00:00: g of this [place] 00 note Medical might be Branch different from the original. Added automatic ally from request for surgery [id number] History of History of Disease Active 2021-02 U nivers 0-03 ity of delivery, delivery, 00:00: Emma porter currently currently 00 Medi nadira Branch Disease Active Uni vers of unknown of unknown 9-19 it y of anatomic anatomic 00:00: [place] location location 00 Medica l Branch High risk High risk Disease Active Uni vers , , 9-19 it y of antepartum ante[place] [facility] [place] Dyspnea on Dyspnea on Disease Active U nivers exertion exertion 9- ity of :: [place] [facility] Palpitatio Palpitatio Disease Active U nivers ns ns 10-18 ity of 00:: [place] [facility] Unspecifie Unspecifie Disease Active U nivers d d 2-18 ity of 00:00: Peteyann-marie german screening screening 00 [facility] Asthma Asthma Disease Active Univers 1-05 ity of 00:00: [place] [address] Medical Branch Obesity Obesity Disease Active 2017-02 Univers (BMI (BMI 2-27 ity of 30-39.9) 30-39.9) 00:00: [place] [facility] Neck Neck Disease Active Univers muscle muscle 7-18 ity of spasm spasm 00:00: [address] Allergies, Adverse Reactions, Alerts Allergy Allergy Status Severity Reaction(s) Onset Inactive Treating Comm ents Source Name Type Date Date Clinician NO KNOWN Drug Active Univers ALLERGIE Class ity of S [facility] Social History Social Habit Start Date Stop Date Quantity Comments Source ASSERTION 2021-10-10 [facility] 00:00:00 [facility] Exposure to 2022-01-27 2022-02-06 Not sure [facility] SARS-CoV-2 00:00:00 13:09:00 [facility] (event) [place] Alcohol intake 2022-02-06 2022-02-06 Ex-drinker [facility] 00:00:00 00:00:00 (finding) [facility] Tobacco use and 2021-10-18 2021-10-18 Smokeless tobacco Un iversity of exposure 00:00:00 00:00:00 non-user [facility] Sex Ass[birth year] At [birth year] Universit y of 00:00:00 00:00:00 [facility] Smoking Status Start Date Stop Date Source Never smoked tobacco [facility] [place] Medications Ordered Filled Start Stop Current Ordering Indication Dosage Frequency Signature Comments Components Source Medication Medication Date Date Medication? Clinician (SIG) Name Name 2021-02 Take by Unive rs 25/iron [id number] mouth. ity of fum/folic/d 13:47: 00:00 [place] finley 16 :00 Medical (-1 Branch ORAL) 2021-02 No Take by Unive rs 25/iron 2-08 12-08 mouth. ity of fum/folic/d 13:47: 00:00 [place] finley 16 :00 Medical (-1 Branch ORAL) [...] Oral, ity of (Vibramycin 06:00: 13:12 PRE-PROCED [place] ) capsule 00 :00 URE ONCE, Medic al 100 mg 1 dose, Branch Starting on Thu01/07/22 at 0000, Until Thu01/03/22 at 0712, EDITH, Surgery/Pr ocedure, DSU Pre-op
Reason for Anti-Infec tive: Surgical Prophylaxi s
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
Duration of therapy: within 24 hours of surgery doxycycline 2021-02 No 100mg 100 mg, U nivers hyclate 03-09 Oral, ity of (Vibramycin 06:00: 13:12 PRE-PROCED [place] ) capsule 00 :00 URE ONCE, Medic al 100 mg 1 dose, Branch Starting on Thu01/07/22 at 0000, Until Thu01/03/22 at 0712, EDITH, Surgery/Pr ocedure, DSU Pre-op
Reason for Anti-Infec tive: Surgical Prophylaxi s
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
Duration of therapy: within 24 hours of [...] Intra-op sodium 2021-02- No PRN, Univers chloride -18 01-03 Starting ity of 0.9 % 14:12: 18:27 on Fri [place] irrigation 00 :53 01/03/22 Medic al solution at 0812, Branch Until Thu01/03/22 at 1227, Intra-op 2021-02 Yes Take by Univer s 25/iron 1-18 mouth. ity of fum/folic/d 10:27: [place] [address] Medical (-1 Branch ORAL) acetaminoph 2021-02 Yes 650mg Take 650 U nivers en 325 mg 1-18 mg by ity of tablet 10:27: mouth [place] [id number] every 6 Medical (six) Branch hours as needed. 2021-02 Yes Take by Univer s 25/iron 1-18 mouth. ity of fum/folic/d 10:27: [place] [facility] 51 Medical (-1 Branch ORAL) acetaminoph 2021-02 Yes 650mg Take 650 U nivers en 325 mg 1-18 mg by ity of tablet 10:27: mouth [place] 51 every 6 Medical (six) Branch hours as needed. 2021-02 Yes Take by Univer s 25/iron 1-18 mouth. ity of fum/folic/d 10:27: [place] [address] Medical (-1 Branch ORAL) acetaminoph 2021-02 Yes 650mg Take 650 U nivers en 325 mg 1-18 mg by ity of tablet 10:27: mouth [place] 51 every 6 Medical (six) Branch hours as needed. 2021-02 Yes Take by Univer s 25/iron 1-18 mouth. ity of fum/folic/d 10:27: [place] [facility] 51 Medical (-1 Branch ORAL) acetaminoph 2021-02 Yes 650mg Take 650 U nivers en 325 mg 1-18 mg by ity of tablet 10:27: mouth [place] 51 every 6 Medical (six) Branch hours as needed. 2021-02 Yes Take by Univer s 25/iron 1-18 mouth. ity of fum/folic/d 10:27: [place] [address] Medical (-1 Branch ORAL) acetaminoph 2021-02 Yes 650mg Take 650 U nivers en 325 mg 1-18 mg by ity of tablet 10:27: mouth [place] 51 every 6 Medical (six) Branch hours as needed. ibuprofen 2021-02 Yes [id number] 600mg Take 1 Univers 600 mg 1-18 tablet by ity of tablet 00:00: mouth [place] 00 every 6 Medical (six) Branch hours as needed for Pain (scale 1-3) or Pain (scale 4-6). ibuprofen 2021-02 Yes [id number] 600mg Take 1 Univers 600 mg 1-18 tablet by ity of tablet 00:00: mouth [place] 00 every 6 Medical (six) Branch hours as needed for Pain (scale 1-3) or Pain (scale 4-6). ibuprofen 2021-02 Yes [id number] 600mg Take 1 Univers 600 mg 1-18 tablet by ity of tablet 00:00: mouth [place] 00 every 6 Medical (six) Branch hours as needed for Pain (scale 1-3) or Pain (scale 4-6). ibuprofen 2021-02 Yes [id number] 600mg Take 1 Univers 600 mg 1-18 tablet by ity of tablet 00:00: mouth [place] 00 every 6 Medical (six) Branch hours as needed for Pain (scale 1-3) or Pain (scale 4-6). ibuprofen 2021-02 Yes [id number] 600mg Take 1 Univers 600 mg 1-18 tablet by ity of tablet 00:00: mouth [place] 00 every 6 Medical (six) Branch hours as needed for Pain (scale 1-3) or Pain (scale 4-6). ibuprofen 2021-02- No [id number] 600mg Take 1 Univers 600 mg 1-18 12-08 tablet by ity of tablet 00:00: 00:00 mouth [place] 00 :00 every 6 Medical (six) Branch hours as needed for Pain (scale 1-3) or Pain (scale 4-6). ibuprofen 2021-02- No [id number] 600mg Take 1 Univers 600 mg 1-18 12-08 tablet by ity of tablet 00:00: 00:00 mouth [place] 00 :00 every 6 Medical (six) Branch hours as needed for Pain (scale 1-3) or Pain (scale 4-6). doxycycline 2021-02- No [id number] 200mg Take 2 Univers hyclate 100 1-18 11-19 capsules ity of mg capsule 00:00: 05:59 by mouth [place] 00 :00 once now Medical for 1 Branch dose. doxycycline 2021-02- No [id number] 200mg Take 2 Univers hyclate 100 1-18 11-19 capsules ity of mg capsule 00:00: 05:59 by mouth [place] 00 :00 once now Medical for 1 Branch dose. doxycycline 2021-02- No [id number] 200mg Take 2 Univers hyclate 100 1-18 [...] 1-16 mouth. ity of fum/folic/d 14:51: [place] [facility] 27 Medical (-1 Branch ORAL) acetaminoph 2021-02 Yes 650mg Take 650 U nivers en 325 mg 1-16 mg by ity of tablet 14:51: mouth [place] 27 every 6 Medical (six) Branch hours as needed. 2021-02 Yes Take by Univer s 25/iron 1-16 mouth. ity of fum/folic/d 14:51: [place] [facility] 27 Medical (-1 Branch ORAL) acetaminoph 2021-02 Yes 650mg Take 650 U nivers en 325 mg 1-16 mg by ity of tablet 14:51: mouth [place] 27 every 6 Medical (six) Branch hours as needed. 2021-02 Yes Take by Univer s 25/iron 1-16 mouth. ity of fum/folic/d 14:51: [place] [address] Medical (-1 Branch ORAL) acetaminoph 2021-02 Yes 650mg Take 650 U nivers en 325 mg 1-16 mg by ity of tablet 14:51: mouth [place] 27 every 6 Medical (six) Branch hours as needed. 2021-02 Yes Take by Protalexer s 25/iron 1-16 mouth. ity of fum/folic/d 14:51: [place] [facility] 27 Medical (-1 Branch ORAL) acetaminoph 2021-02 [...] Thu12/31/21 at 0830, STAT ibuprofen 2021-02 Yes [id number] 600mg Take 1 U nivers 600 mg 1-15 tablet by ity of tablet 00:00: mouth [place] 00 every 6 Medical (six) Branch hours as needed for Pain (scale 1-3) or Pain (scale 4-6). ibuprofen 2021-02 Yes [id number] 600mg Take 1 U nivers 600 mg 1-15 tablet by ity of tablet 00:00: mouth [place] 00 every 6 Medical (six) Branch hours as needed for Pain (scale 1-3) or Pain (scale 4-6). ibuprofen 2021-02 Yes [id number] 600mg Take 1 U nivers 600 mg 1-15 tablet by ity of tablet 00:00: mouth [place] 00 every 6 Medical (six) Branch hours as needed for Pain (scale 1-3) or Pain (scale 4-6). ibuprofen 2021-02 Yes [id number] 600mg Take 1 U nivers 600 mg 1-15 tablet by ity of tablet 00:00: mouth [place] 00 every 6 Medical (six) Branch hours as needed for Pain (scale 1-3) or Pain (scale 4-6). ibuprofen 2021-02 Yes [id number] 600mg Take 1 U nivers 600 mg 1-15 tablet by ity of tablet 00:00: mouth [place] 00 every 6 Medical (six) Branch hours as needed for Pain (scale 1-3) or Pain (scale 4-6). ibuprofen 2021-02 Yes 1995 600mg Take 1 U nivers 600 mg 1-15 tablet by ity of tablet 00:00: mouth [place] 00 every 6 Medical (six) Branch hours as needed for Pain (scale 1-3) or Pain (scale 4-6). ibuprofen 2021-02 Yes [id number] 600mg Take 1 U nivers 600 mg 1-15 tablet by ity of tablet 00:00: mouth [place] 00 every 6 Medical (six) Branch hours as needed for Pain (scale 1-3) or Pain (scale 4-6). ibuprofen 2021-02 Yes [id number] 600mg Take 1 U nivers 600 mg 1-15 tablet by ity of tablet 00:00: mouth [place] 00 every 6 Medical (six) Branch hours as needed for Pain (scale 1-3) or Pain (scale 4-6). ibuprofen 2021-02 No [id number] 600mg Take 1 Univers 600 mg 1-15 11-18 tablet by ity of tablet 00:00: 00:00 mouth [place] 00 :00 every 6 Medical (six) Branch hours as needed for Pain (scale 1-3) or Pain (scale 4-6). ibuprofen 2021-02 No [id number] 600mg Take 1 Univers 600 mg 1-15 11-18 tablet by ity of tablet 00:00: 00:00 mouth [place] 00 :00 every 6 Medical (six) Branch hours as needed for Pain (scale 1-3) or Pain (scale 4-6). labetaloL 2021-02 Yes [id number] 50mg Take 0.5 Univers 100 mg 0-24 tablets by ity of tablet 00:00: mouth [place] 00 every 12 Medical (twelve) Branch hours. labetaloL 2021-02 Yes [id number] 50mg Take 0.5 Univers 100 mg 0-24 tablets by ity of tablet 00:00: mouth [place] 00 every 12 Medical (twelve) Branch hours. labetaloL 1 Yes [id number] 50mg Take 0.5 Univers 100 mg 0-24 tablets by ity of tablet 00:00: mouth [place] 00 every 12 Medical (twelve) Branch hours. labetaloL 1 Yes [id number] 50mg Take 0.5 Univers 100 mg 0-24 tablets by ity of tablet 00:00: mouth [place] 00 every 12 Medical (twelve) Branch hours. labetaloL 2021-02 Yes [id number] 50mg Take 0.5 Univers 100 mg 0-24 tablets by ity of tablet 00:00: mouth [place] 00 every 12 Medical (twelve) Branch hours. labetaloL 1 Yes [id number] 50mg Take 0.5 Univers 100 mg 0-24 tablets by ity of tablet 00:00: mouth [place] 00 every 12 Medical (twelve) Branch hours. labetaloL 1 Yes [id number] 50mg Take 0.5 Univers 100 mg 0-24 tablets by ity of tablet 00:00: mouth [place] 00 every 12 Medical (twelve) Branch hours. labetaloL 1 Yes [id number] 50mg Take 0.5 Univers 100 mg 0-24 tablets by ity of tablet 00:00: mouth [place] 00 every 12 Medical (twelve) Branch hours. labetaloL 2021-1 Yes [id number] 50mg Take 0.5 Univers 100 mg 0-24 tablets by ity of tablet 00:00: mouth [place] 00 every 12 Medical (twelve) Branch hours. labetaloL 2021-1 Yes [id number] 50mg Take 0.5 Univers 100 mg 0-24 tablets by ity of tablet 00:00: mouth [place] 00 every 12 Medical (twelve) Branch hours. labetaloL 2021-1 Yes [id number] 50mg Take 0.5 Univers 100 mg 0-24 tablets by ity of tablet 00:00: mouth [place] 00 every 12 Medical (twelve) Branch hours. labetaloL 2021-1 Yes [id number] 50mg Take 0.5 Univers 100 mg 0-24 tablets by ity of tablet 00:00: mouth [place] 00 every 12 Medical (twelve) Branch hours. labetaloL 2021-1 Yes [id number] 50mg Take 0.5 Univers 100 mg 0-24 tablets by ity of tablet 00:00: mouth [place] 00 every 12 Medical (twelve) Branch hours. labetaloL 2021-1 Yes [id number] 50mg Take 0.5 Univers 100 mg 0-24 tablets by ity of tablet 00:00: mouth [place] 00 every 12 Medical (twelve) Branch hours. labetaloL 2021-1 Yes [id number] 50mg Take 0.5 Univers 100 mg 0-24 tablets by ity of tablet 00:00: mouth [place] 00 every 12 Medical (twelve) Branch hours. labetaloL 2021-1 Yes [id number] 50mg Take 0.5 Univers 100 mg 0-24 tablets by ity of tablet 00:00: mouth [place] 00 every 12 Medical (twelve) Branch hours. labetaloL 2021-1 Yes [id number] 50mg Take 0.5 Univers 100 mg 0-24 tablets by ity of tablet 00:00: mouth [place] 00 every 12 Medical (twelve) Branch hours. labetaloL 2021-1 Yes [id number] 50mg Take 0.5 Univers 100 mg 0-24 tablets by ity of tablet 00:00: mouth [place] 00 every 12 Medical (twelve) Branch hours. labetaloL 2021-1 Yes [id number] 50mg Take 0.5 Univers 100 mg 0-24 tablets by ity of tablet 00:00: mouth [place] 00 every 12 Medical (twelve) Branch hours. labetaloL 2021-1 Yes [id number] 50mg Take 0.5 Univers 100 mg 0-24 tablets by ity of tablet 00:00: mouth [place] 00 every 12 Medical (twelve) Branch hours. labetaloL 2021-1 Yes [id number] 50mg Take 0.5 Univers 100 mg 0-24 tablets by ity of tablet 00:00: mouth [place] 00 every 12 Medical (twelve) Branch hours. labetaloL 2021-1 Yes [id number] 50mg Take 0.5 Univers 100 mg 0-24 tablets by ity of tablet 00:00: mouth [place] 00 every 12 Medical (twelve) Branch hours. labetaloL 2021-1 Yes [id number] 50mg Take 0.5 Univers 100 mg 0-24 tablets by ity of tablet 00:00: mouth [place] 00 every 12 Medical (twelve) Branch hours. labetaloL 2021-1 Yes [id number] 50mg Take 0.5 Univers 100 mg 0-24 tablets by ity of tablet 00:00: mouth [place] 00 every 12 Medical (twelve) Branch hours. labetaloL 2021-1 Yes [id number] 50mg Take 0.5 Univers 100 mg 0-24 tablets by ity of tablet 00:00: mouth [place] 00 every 12 Medical (twelve) Branch hours. labetaloL 2021-1 Yes [id number] 50mg Take 0.5 Univers 100 mg 0-24 tablets by ity of tablet 00:00: mouth [place] 00 every 12 Medical (twelve) Branch hours. labetaloL 2021-1 Yes [id number] 50mg Take 0.5 Univers 100 mg 0-24 tablets by ity of tablet 00:00: mouth [place] 00 every 12 Medical (twelve) Branch hours. labetaloL 1 Yes [id number] 50mg Take 0.5 Univers 100 mg 0-24 tablets by ity of tablet 00:00: mouth [place] 00 every 12 Medical (twelve) Branch hours. labetaloL 2021-1 Yes [id number] 50mg Take 0.5 Univers 100 mg 0-24 tablets by ity of tablet 00:00: mouth [place] 00 every 12 Medical (twelve) Branch hours. labetaloL 2021-1 Yes [id number] 50mg Take 0.5 Univers 100 mg 0-24 [...] ason for Anti-Infec tive: Documented Infection< br>Documen craole Infection Site: Urine
D uration of Therapy: 7 days cephALEXin 2021- No [id number] 500mg Take 1 Univers (KEFLEX) 11-08 capsule by ity of 500 mg 00:00: 04:59 mouth in [place] capsule 00 :00 the Medical morning Branch and 1 capsule in the evening. Do all this for 7 days. cephALEXin 2021- No [id number] 500mg Take 1 Univers (KEFLEX) 11-08 capsule by ity of 500 mg 00:00: 04:59 mouth in [place] capsule 00 :00 the Medical morning Branch and 1 capsule in the evening. Do all this for 7 days. cephALEXin 2021- No [id number] 500mg Take 1 Univers (KEFLEX) 11-08 capsule by ity of 500 mg 00:00: 04:59 mouth in [place] capsule 00 :00 the Medical morning Branch and 1 capsule in the evening. Do all this for 7 days. cyclobenzap 2021- No Take by Un cindy rine HCl 11-04 mouth. ity of (FLEXERIL 18:05: 00:00 [place] ORAL) 52 :00 [facility] Branch cyclobenzap 2021- No Take [...] (four) Branch hours as needed for Headache. 2022-0 Yes Take by Univer s 25/iron 9-19 mouth. ity of fum/folic/d 14:13: [place] [facility] 49 Medical (-1 Branch ORAL) 202-0 Yes Take by Univer s 25/iron 9-19 mouth. ity of fum/folic/d 14:13: [place] [facility] 49 Medical (-1 Branch ORAL) 202-0 Yes Take by Univer s 25/iron 9-19 mouth. ity of fum/folic/d 14:13: [place] [facility] 49 Medical (-1 Branch ORAL) 2021-0 Yes Take by Univer s 25/iron 9-19 mouth. ity of fum/folic/d 14:13: [place] [facility] 49 Medical (-1 Branch ORAL) 2021-0 Yes Take by Univer s 25/iron 9-19 mouth. ity of fum/folic/d 14:13: [place] [address] Medical (-1 Branch ORAL) 2021-0 Yes Take by Univer s 25/iron 9-19 mouth. ity of fum/folic/d 14:13: [place] [facility] 49 Medical (-1 Branch ORAL) 2021-0 Yes Take by Univer s 25/iron 9-19 mouth. ity of fum/folic/d 14:13: [place] [address] Medical (-1 Branch ORAL) 2021-0 Yes Take by Univer s 25/iron 9-19 mouth. ity of fum/folic/d 14:13: [place] [address] Medical (-1 Branch ORAL) 2021-0 Yes Take by Univer s 25/iron 9-19 mouth. ity of fum/folic/d 14:13: [place] [facility] 49 Medical (-1 Branch ORAL) 202-0 Yes Take by Univer s 25/iron 9-19 mouth. ity of fum/folic/d 14:13: [place] [facility] 49 Medical (-1 Branch ORAL) 202-0 Yes Take by Univer s 25/iron 9-19 mouth. ity of fum/folic/d 14:13: [place] [facility] 49 Medical (-1 Branch ORAL) 202-0 Yes Take by Univer s 25/iron 9-19 mouth. ity of fum/folic/d 14:13: [place] [facility] 49 Medical (-1 Branch ORAL) 2022-0 Yes Take by Univer s 25/iron 9-19 mouth. ity of fum/folic/d 14:13: [place] [address] Medical (-1 Branch ORAL) 2021-0 Yes Take by Univer s 25/iron 9-19 mouth. ity of fum/folic/d 14:13: [place] [address] Medical (-1 Branch ORAL) 2021-0 Yes Take by Univer s 25/iron 9-19 mouth. ity of fum/folic/d 14:13: [place] [address] Medical (-1 Branch ORAL) 2021-0 Yes Take by Univer s 25/iron 9-19 mouth. ity of fum/folic/d 14:13: [place] [address] Medical (-1 Branch ORAL) 2021-0 Yes Take by Univer s 25/iron 9-19 mouth. ity of fum/folic/d 14:13: [place] [address] Medical (-1 Branch ORAL) 2021-0 Yes Take by Univer s 25/iron 9-19 mouth. ity of fum/folic/d 14:13: [place] [address] Medical (-1 Branch ORAL) 2021-0 Yes Take by Univer s 25/iron 9-19 mouth. ity of fum/folic/d 14:13: [place] [address] Medical (-1 Branch ORAL) 2021-0 Yes Take by Univer s 25/iron 9-19 mouth. ity of fum/folic/d 14:13: [place] [address] Medical (-1 Branch ORAL) 2021-0 Yes Take by Univer s 25/iron 9-19 mouth. ity of fum/folic/d 14:13: [place] [address] Medical (-1 Branch ORAL) 2021-0 Yes Take by Univer s 25/iron 9-19 mouth. ity of fum/folic/d 14:13: [place] [facility] 49 Medical (-1 Branch ORAL) 2021-0 Yes Take by Univer s 25/iron 9-19 mouth. ity of fum/folic/d 14:13: [place] [address] Medical (-1 Branch ORAL) 202-0 Yes Take by Univer s 25/iron 9-19 mouth. ity of fum/folic/d 14:13: [place] [address] Medical (-1 Branch ORAL) 2022-0 Yes Take by Univer s 25/iron 9-19 mouth. ity of fum/folic/d 14:13: [place] [facility] 49 Medical (-1 Branch ORAL) 2021-0 Yes Take by Univer s 25/iron 9-19 mouth. ity of fum/folic/d 14:13: [place] [facility] 49 Medical (-1 Branch ORAL) benzonatate 2021-0 Yes [id number] 200mg Take 1 Univers 200 mg 9-08 capsule by ity of capsule 00:00: mouth (three) Medical times Branch daily as needed for Cough for up to 20 doses. benzonatate 2021-0 Yes [id number] 200mg Take 1 Univers 200 mg 9-08 capsule by ity of capsule 00:00: mouth (three) Medical times Branch daily as needed for Cough for up to 20 doses. benzonatate 2021-0 Yes [id number] 200mg Take 1 Univers 200 mg 9-08 capsule by ity of capsule 00:00: mouth (three) Medical times Branch daily as needed for Cough for up to 20 doses. ibuprofen 2021-0 Yes [id number] 600mg Take 1 Univers 600 mg 9-08 tablet by ity of tablet 00:00: mouth 00 every 6 Medical (six) Branch hours as needed for Pain (scale 4-6). benzonatate 2021-0 Yes [id number] 200mg Take 1 Univers 200 mg 9-08 capsule by ity of capsule 00:00: mouth 3 (three) Medical times Branch daily as needed for Cough for up to 20 doses. ibuprofen 2021-0 Yes [id number] 600mg Take 1 Univers 600 mg 9-08 tablet by ity of tablet 00:00: mouth [place] 00 every 6 Medical (six) Branch hours as needed for Pain (scale 4-6). benzonatate 2022-0 Yes [id number] 200mg Take 1 Univers 200 mg 9-08 capsule by ity of capsule 00:00: mouth (three) Medical times Branch daily as needed for Cough for up to 20 doses. benzonatate 2022-0 Yes [id number] 200mg Take 1 Univers 200 mg 9-08 capsule by ity of capsule 00:00: mouth (three) Medical times Branch daily as needed for Cough for up to 20 doses. benzonatate 2022-0 Yes [id number] 200mg Take 1 Univers 200 mg 9-08 capsule by ity of capsule 00:00: mouth (three) Medical times Branch daily as needed for Cough for up to 20 doses. benzonatate 2022-0 Yes [id number] 200mg Take 1 Univers 200 mg 9-08 capsule by ity of capsule 00:00: mouth (three) Medical times Branch daily as needed for Cough for up to 20 doses. benzonatate 2022-0 Yes [id number] 200mg Take 1 Univers 200 mg 9-08 capsule by ity of capsule 00:00: mouth (three) Medical times Branch daily as needed for Cough for up to 20 doses. benzonatate 2022-0 Yes [id number] 200mg Take 1 Univers 200 mg 9-08 capsule by ity of capsule 00:00: mouth () Medical times Branch daily as needed for Cough for up to 20 doses. benzonatate 2022-0 Yes [id number] 200mg Take 1 Univers 200 mg 9-08 capsule by ity of capsule 00:00: mouth (three) Medical times Branch daily as needed for Cough for up to 20 doses. benzonatate 2022-0 Yes [id number] 200mg Take 1 Univers 200 mg 9-08 capsule by ity of capsule 00:00: mouth (three) Medical times Branch daily as needed for Cough for up to 20 doses. benzonatate 2022-0 Yes [id number] 200mg Take 1 Univers 200 mg 9-08 capsule by ity of capsule 00:00: mouth (three) Medical times Branch daily as needed for Cough for up to 20 doses. benzonatate 2022-0 Yes [id number] 200mg Take 1 Univers 200 mg 9-08 capsule by ity of capsule 00:00: mouth (three) Medical times Branch daily as needed for Cough for up to 20 doses. benzonatate 2022-0 Yes [id number] 200mg Take 1 Univers 200 mg 9-08 capsule by ity of capsule 00:00: mouth (three) Medical times Branch daily as needed for Cough for up to 20 doses. benzonatate 2022-0 Yes [id number] 200mg Take 1 Univers 200 mg 9-08 capsule by ity of capsule 00:00: mouth (three) Medical times Branch daily as needed for Cough for up to 20 doses. benzonatate 2-0 Yes [id number] 200mg Take 1 [facility] 200 mg 9-08 capsule by [facility] of capsule 00:00: mouth (three) Medical times Branch daily as needed for Cough for up to 20 doses. benzonatate 2-0 Yes [id number] 200mg Take 1 [facility] 200 mg 9-08 capsule by ity of capsule 00:00: mouth (three) Medical times Branch daily as needed for Cough for up to 20 doses. benzonatate 2021-0 Yes [id number] 200mg Take 1 [facility] 200 mg 9-08 capsule by ity of capsule 00:00: mouth (three) Medical times Branch daily as needed for Cough for up to 20 doses. benzonatate 2021-0 Yes [id number] 200mg Take 1 [facility] 200 mg 9-08 capsule by ity of capsule 00:00: mouth () Medical times Branch daily as needed for Cough for up to 20 doses. benzonatate 2021-0 Yes [id number] 200mg Take 1 [facility] 200 mg 9-08 capsule by ity of capsule 00:00: mouth (three) Medical times Branch daily as needed for Cough for up to 20 doses. benzonatate 2021-0 Yes [id number] 200mg Take 1 [facility] 200 mg 9-08 capsule by ity of capsule 00:00: mouth (three) Medical times Branch daily as needed for Cough for up to 20 doses. benzonatate 2021-0 Yes [id number] 200mg Take 1 [facility] 200 mg 9-08 capsule by ity of capsule 00:00: mouth (three) Medical times Branch daily as needed for Cough for up to 20 doses. benzonatate 2-0 Yes [id number] 200mg Take 1 [facility] 200 mg 9-08 capsule by ity of capsule 00:00: mouth (three) Medical times Branch daily as needed for Cough for up to 20 doses. benzonatate 2021-0 2022- No [id number] 200mg Take 1 [facility] 200 mg 9-08 11-15 capsule by ity of capsule 00:00: 00:00 mouth 3 [place] 00 :00 (three) Medical times Branch daily as needed for Cough for up to 20 doses. benzonatate 2021- No [id number] 200mg Take 1 [facility] 200 mg 10-24 capsule by ity of capsule 00:00: 00:00 mouth 3 [place] 00 :00 (three) Medical times Branch daily as needed for Cough for up to 20 doses. benzonatate 2021- No [id number] 200mg Take 1 [facility] 200 mg 10-24 capsule by ity of capsule 00:00: 00:00 mouth 3 [place] 00 :00 (three) Medical times Branch daily as needed for Cough for up to 20 doses. ibuprofen 2021- No [id number] 600mg Take 1 [facility] 600 mg 10-24 tablet by ity of tablet 00:00: 00:00 mouth [place] 00 :00 every 6 Medical (six) Branch hours as needed for Pain (scale 4-6). ibuprofen 2021-2021- No [id number] 600mg Take 1 [facility] 600 mg 10-24 tablet by ity of tablet 00:00: 00:00 mouth [place] 00 :00 every 6 Medical (six) Branch hours as needed for Pain (scale 4-6). metoprolol 2021-0 Yes [id number] 25mg Take 1 [facility] succinate 9-02 tablet by ity o f XL 25 mg 24 00:00: mouth in [place] hr tablet 00 the Medical morning. Branch metoprolol 2021-0 Yes [id number] 25mg Take 1 [facility] succinate 9-02 tablet by ity o f XL 25 mg 24 00:00: mouth in [place] hr tablet 00 the Medical morning. Branch metoprolol 2021-0 Yes [id number] 25mg Take 1 [facility] succinate 9-02 tablet by ity o f XL 25 mg 24 00:00: mouth in [place] hr tablet 00 the Medical morning. Branch metoprolol 2021-0 Yes [id number] 25mg Take 1 [facility] succinate 9-02 tablet by ity o f XL 25 mg 24 00:00: mouth in [place] hr tablet 00 the Medical morning. Branch metoprolol 2021-0 Yes [id number] 25mg Take 1 [facility] succinate 9-02 tablet by ity o f XL 25 mg 24 00:00: mouth in [place] hr tablet 00 the Medical morning. Branch metoprolol 2021-0 Yes [id number] 25mg Take 1 [facility] succinate 9-02 tablet by ity o f XL 25 mg 24 00:00: mouth in [place] hr tablet 00 the Medical morning. Branch metoprolol 2021-0 Yes [id number] 25mg Take 1 [facility] succinate 9-02 tablet by ity o f XL 25 mg 24 00:00: mouth in [place] hr tablet 00 the Medical morning. Branch metoprolol 2021-0 Yes [id number] 25mg Take 1 [facility] succinate 9-02 tablet by ity o f XL 25 mg 24 00:00: mouth in [place] hr tablet 00 the Medical morning. Branch metoprolol 2021-0 Yes [id number] 25mg Take 1 [facility] succinate 9-02 tablet by ity o f XL 25 mg 24 00:00: mouth in [place] hr tablet 00 the Medical morning. Branch metoprolol 2021-0 Yes [id number] 25mg Take 1 [facility] succinate 9-02 tablet by ity o f XL 25 mg 24 00:00: mouth in [place] hr tablet 00 the Medical morning. Branch metoprolol 2021-0 Yes [id number] 25mg Take 1 [facility] succinate 9-02 tablet by ity o f XL 25 mg 24 00:00: mouth in [place] hr tablet 00 the Medical morning. Branch metoprolol 2021-0 Yes [id number] 25mg Take 1 [facility] succinate 9-02 tablet by ity o f XL 25 mg 24 00:00: mouth in [place] hr tablet 00 the Medical morning. Branch metoprolol 2021-0 Yes [id number] 25mg Take 1 [facility] succinate 9-02 tablet by ity o f XL 25 mg 24 00:00: mouth in [place] hr tablet 00 the Medical morning. Branch metoprolol 2021-0 2021- No [id number] 25mg Take 1 [facility] succinate 9-02 10-24 tablet by ity of XL 25 mg 24 00:00: 00:00 mouth in [place] hr tablet 00 :00 the Medical morning. Branch metoprolol 2021-0 2021- No [id number] 12.5mg Take 0.5 [facility] succinate 6-28 09-02 tablets by ity of XL 25 mg 24 00:00: 00:00 mouth [place] hr tablet 00 :00 daily. Medical Branch benzonatate 0 Yes [id number] 100mg Take 1 [facility] 100 mg 6-26 capsule by ity of capsule 00:00: mouth 3 [place] 00 (three) Medical times Branch daily as needed for Cough. benzonatate 0 Yes [id number] 100mg Take 1 [facility] 100 mg 6-26 capsule by ity of capsule 00:00: mouth 3 [place] 00 (three) Medical times Branch daily as needed for Cough. vitamin Yes [id number] 1{tbl} Take 1 [facility] D3-folic 6-26 tablet by ity of acid 125 00:00: mouth [place] mcg (5,000 00 daily. Medical unit)-1 mg Branch Tab nirmatrelvi Yes [id number] 3{tbl} Take 3 [facility] r-ritonavir 6-26 tablets by it y of (PAXLOVID, 00:00: mouth [place] EUA,) 150 00 (two) Medical mg x 2- 100 times Branch mg tablet daily. chlorphenir Yes [id number] 4mg Take 1 [facility] amine 4 mg 6-26 tablet by ity of tablet 00:00: mouth [place] 00 every 6 Medical (six) Branch hours as needed for Allergies or Runny nose. calcium/mag 0 Yes [id number] 1{each} Take 1 [facility] nesium/zinc 6-26 Each by ity o f (CALCIUM-MA 00:00: mouth [place] GNESUIUM-ZI 00 daily. Medica l NC) Branch 333-133-5 mg Tab benzonatate 0 Yes [id number] 100mg Take 1 [facility] 100 mg 6-26 capsule by ity of capsule 00:00: mouth 3 [place] 00 (three) Medical times Branch daily as needed for Cough. vitamin 2021-0 Yes [id number] 1{tbl} Take 1 [facility] D3-folic 6-26 tablet by ity of acid 125 00:00: mouth [place] mcg (5,000 00 daily. Medical unit)-1 mg Branch Tab nirmatrelvi 0 Yes [id number] 3{tbl} Take 3 [facility] r-ritonavir 6-26 tablets by it y of (PAXLOVID, 00:00: mouth [place] EUA,) 150 00 (two) Medical mg x 2- 100 times Branch mg tablet daily. chlorphenir 2022-0 Yes [id number] 4mg Take 1 [facility] amine 4 mg 6-26 tablet by ity of tablet 00:00: mouth [place] 00 every 6 Medical (six) Branch hours as needed for Allergies or Runny nose. calcium/mag 2022-0 Yes [id number] 1{each} Take 1 [facility] nesium/zinc 6-26 Each by ity o f (CALCIUM-MA 00:00: mouth [place] GNESUIUM-ZI 00 daily. Medica l NC) Branch 333-133-5 mg Tab benzonatate 2022-0 Yes [id number] 100mg Take 1 [facility] 100 mg 6-26 capsule by ity of capsule 00:00: mouth 3 [place] 00 (three) Medical times Branch daily as needed for Cough. vitamin 2022-0 Yes [id number] 1{tbl} Take 1 [facility] D3-folic 6-26 tablet by ity of acid 125 00:00: mouth [place] mcg (5,000 00 daily. Medical unit)-1 mg Branch Tab nirmatrelvi 2022-0 Yes [id number] 3{tbl} Take 3 [facility] r-ritonavir 6-26 tablets by it y of (PAXLOVID, 00:00: mouth [place] EUA,) 150 00 (two) Medical mg x 2- 100 times Branch mg tablet daily. chlorphenir 2022-0 Yes [id number] 4mg Take 1 [facility] amine 4 mg 6-26 tablet by ity of tablet 00:00: mouth [place] 00 every 6 Medical (six) Branch hours as needed for Allergies or Runny nose. calcium/mag 2022-0 Yes [id number] 1{each} Take 1 [facility] nesium/zinc 6-26 Each by ity o f (CALCIUM-MA 00:00: mouth [place] GNESUIUM-ZI 00 daily. Medica l NC) Branch 333-133-5 mg Tab benzonatate 2022-0 Yes [id number] 100mg Take 1 [facility] 100 mg 6-26 capsule by ity of capsule 00:00: mouth 3 [place] 00 (three) Medical times Branch daily as needed for Cough. benzonatate 2022-0 Yes [id number] 100mg Take 1 [facility] 100 mg 6-26 capsule by ity of capsule 00:00: mouth 3 (three) Medical times Branch daily as needed for Cough. benzonatate 2-0 Yes [id number] 100mg Take 1 [facility] 100 mg 6-26 capsule by ity of capsule 00:00: mouth 3 (three) Medical times Branch daily as needed for Cough. benzonatate 2-0 Yes [id number] 100mg Take 1 [facility] 100 mg 6-26 capsule by ity of capsule 00:00: mouth (three) Medical times Branch daily as needed for Cough. benzonatate 2021-0 Yes [id number] 100mg Take 1 [facility] 100 mg 6-26 capsule by ity of capsule 00:00: mouth (three) Medical times Branch daily as needed for Cough. benzonatate 2021-0 Yes [id number] 100mg Take 1 [facility] 100 mg 6-26 capsule by ity of capsule 00:00: mouth (three) Medical times Branch daily as needed for Cough. benzonatate 2021-0 Yes [id number] 100mg Take 1 [facility] 100 mg 6-26 capsule by ity of capsule 00:00: mouth (three) Medical times Branch daily as needed for Cough. benzonatate 2021-0 Yes [id number] 100mg Take 1 [facility] 100 mg 6-26 capsule by ity of capsule 00:00: mouth (three) Medical times Branch daily as needed for Cough. benzonatate 2021-0 Yes [id number] 100mg Take 1 [facility] 100 mg 6-26 capsule by ity of capsule 00:00: mouth (three) Medical times Branch daily as needed for Cough. benzonatate 2-0 Yes [id number] 100mg Take 1 [facility] 100 mg 6-26 capsule by ity of capsule 00:00: mouth (three) Medical times Branch daily as needed for Cough. benzonatate 2-0 Yes [id number] 100mg Take 1 [facility] 100 mg 6-26 capsule by ity of capsule 00:00: mouth 3 (three) Medical times Branch daily as needed for Cough. benzonatate 2-0 Yes [id number] 100mg Take 1 [facility] 100 mg 6-26 capsule by ity of capsule 00:00: mouth [place] (three) Medical times Branch daily as needed for Cough. benzonatate 2-0 Yes [id number] 100mg Take 1 [facility] 100 mg 6-26 capsule by ity of capsule 00:00: mouth [place] (three) Medical times Branch daily as needed for Cough. benzonatate 2-0 Yes [id number] 100mg Take 1 [facility] 100 mg 6-26 capsule by ity of capsule 00:00: mouth [place] (three) Medical times Branch daily as needed for Cough. benzonatate 2021-0 Yes [id number] 100mg Take 1 [facility] 100 mg 6-26 capsule by ity of capsule 00:00: mouth [place] (three) Medical times Branch daily as needed for Cough. benzonatate 2-0 Yes [id number] 100mg Take 1 [facility] 100 mg 6-26 capsule by ity of capsule 00:00: mouth [place] (three) Medical times Branch daily as needed for Cough. benzonatate 2021-0 Yes [id number] 100mg Take 1 [facility] 100 mg 6-26 capsule by ity of capsule 00:00: mouth [place] (three) Medical times Branch daily as needed for Cough. benzonatate 2021-0 Yes [id number] 100mg Take 1 [facility] 100 mg 6-26 capsule by ity of capsule 00:00: mouth [place] (three) Medical times Branch daily as needed for Cough. benzonatate 2-0 Yes [id number] 100mg Take 1 [facility] 100 mg 6-26 capsule by ity of capsule 00:00: mouth [place] (three) Medical times Branch daily as needed for Cough. benzonatate 2021-0 Yes [id number] 100mg Take 1 [facility] 100 mg 6-26 capsule by ity of capsule 00:00: mouth [place] (three) Medical times Branch daily as needed for Cough. benzonatate 2-0 Yes [id number] 100mg Take 1 [facility] 100 mg 6-26 capsule by ity of capsule 00:00: mouth 3 [place] (three) Medical times Branch daily as needed for Cough. benzonatate 2022-0 2022- No [id number] 100mg Take 1 [facility] 100 mg 6-26 11-15 capsule by ity of capsule 00:00: 00:00 mouth 3 [place] 00 :00 (three) Medical times Branch daily as needed for Cough. benzonatate 2021-2021- No [id number] 100mg Take 1 [facility] 100 mg 6-26 11-15 capsule by ity of capsule 00:00: 00:00 mouth 3 [place] 00 :00 (three) Medical times Branch daily as needed for Cough. benzonatate 2021-0 2021- No [id number] 100mg Take 1 [facility] 100 mg 6-26 11-15 capsule by ity of capsule 00:00: 00:00 mouth 3 [place] 00 :00 (three) Medical times Branch daily as needed for Cough. vitamin 2021- No [id number] 1{tbl} Take 1 [facility] D3-folic -11 11- tablet by ity o f acid 125 00:00: 00:00 mouth [place] mcg (5,000 00 :00 daily. Medical unit)-1 mg Branch Tab nirmatrelvi 2021- No [id number] 3{tbl} Take 3 [facility] r-ritonavir 08-11 tablets by i ty of (PAXLOVID, 00:00: 00:00 mouth 2 [place] EUA,) 150 00 :00 (two) Medical mg x 2- 100 times Branch mg tablet daily. chlorphenir 2021- No [id number] 4mg Take 1 [facility] amine 4 mg -11-04 tablet by ity of tablet 00:00: 00:00 mouth [place] 00 :00 every 6 Medical (six) Branch hours as needed for Allergies or Runny nose. calcium/mag 2021- No [id number] 1{each} Take 1 [facility] nesium/zinc -11-04 Each by ity of (CALCIUM-MA 00:00: 00:00 mouth [place] GNESUIUM-ZI 00 :00 daily. Medica l NC) Branch 333-133-5 mg Tab vitamin 2021- No [id number] 1{tbl} Take 1 [facility] D3-folic -11-04 tablet by ity o f acid 125 00:00: 00:00 mouth [place] mcg (5,000 00 :00 daily. Medical unit)-1 mg Branch Tab nirmatrelvi 2021- No [id number] 3{tbl} Take 3 [facility] r-ritonavir 08-11 tablets by i ty of (PAXLOVID, 00:00: 00:00 mouth 2 [place] EUA,) 150 00 :00 (two) Medical mg x 2- 100 times Branch mg tablet daily. chlorphenir 2021- No [id number] 4mg Take 1 [facility] amine 4 mg 08-11 tablet by ity of tablet 00:00: 00:00 mouth [place] 00 :00 every 6 Medical (six) Branch hours as needed for Allergies or Runny nose. calcium/mag 2021- No [id number] 1{each} Take 1 [facility] nesium/zinc 08-11 Each by ity of (CALCIUM-MA 00:00: 00:00 mouth [place] GNESUIUM-ZI 00 :00 daily. Medica l NC) Branch 333-133-5 mg Tab ibuprofen Yes [id number] 600mg Take 1 [facility] n[facility] 600 mg 5-19 tablet by ity of tablet 00:00: mouth [place] 00 every 6 Medical (six) Branch hours as needed for Pain (scale 4-6). ibuprofen Yes [id number] 600mg Take 1 U nivers 600 mg 5-19 tablet by ity of tablet 00:00: mouth [place] 00 every 6 Medical (six) Branch hours as needed for Pain (scale 4-6). ibuprofen Yes [id number] 600mg Take 1 U nivers 600 mg 5-19 tablet by ity of tablet 00:00: mouth [place] 00 every 6 Medical (six) Branch hours as needed for Pain (scale 4-6). ibuprofen 2021- No [id number] 600mg Take 1 [facility] 600 mg 5-19 -19 tablet by ity of tablet 00:00: 00:00 mouth [place] 00 :00 every 6 Medical (six) Branch hours as needed for Pain (scale 4-6). ibuprofen 2021- No [id number] 600mg Take 1 [facility] 600 mg 5-19 -19 tablet by ity of tablet 00:00: 00:00 mouth [place] 00 :00 every 6 Medical (six) Branch hours as needed for Pain (scale 4-6). butalbital- 2018-0 Yes 1{tbl} Take 1 [facility] [...] (Pain). Take with food or milk. ferrous 0 Yes 325mg Take 1 [facility] sulfate 325 1-06 tablet by ity of mg (65 mg 00:00: mouth 3 [place] iron) 00 (three) Medical tablet times Branch daily with meals. docusate 0 Yes 240mg Take 1 Un[facility] s calcium 240 1-06 capsule by it y of mg capsule 00:00: mouth once [place] 00 daily as Medical needed for Branch Constipati on. ibuprofen 0 Yes 600mg Take 1 Unive rs 600 [...] tablet times Branch daily with meals. docusate 202- No 240mg Take 1 Unive rs calcium 240 02-21- capsule by i ty of mg capsule 00:00: 00:00 mouth once [place] 00 :00 daily as Medical needed for Branch Constipati on. ibuprofen 2021- No 600mg Take 1 Univ ers 600 mg -07 25-19 tablet by ity of tablet 00:00: 00:00 mouth [place] 00 :00 every 6 Medical (six) Branch hours as needed for Pain (scale 1-3) or Pain (scale 4-6) (Pain). Take with food or milk. ferrous 202- No 325mg Take 1 Univer s sulfate 325 -07 25-19 tablet by it y of mg (65 mg 00:00: 00:00 mouth 3 [place] iron) 00 :00 (three) Medical tablet times Branch daily with meals. docusate 2021- No 240mg Take 1 Unive rs calcium 240 02-21-19 capsule by i ty of mg capsule 00:00: 00:00 mouth once [place] 00 :00 daily as Medical needed for Branch Constipati on. ibuprofen No 600mg Take 1 Univ ers 600 [...] Branch daily with meals. PNV 67-iron Yes [id number] 1{tbl} Take 1 [facility] ps-folate 5-10 tablet by ity o f no.1-dha 00:00: mouth [place] (VITAFOL 00 daily. Medical ULTRA) 29 Branch mg iron- 1 mg-200 mg Cap PNV 67-iron Yes [id number] 1{tbl} Take 1 [facility] ps-folate 5-10 tablet by ity o f no.1-dha 00:00: mouth [place] (VITAFOL 00 daily. Medical ULTRA) 29 Branch mg iron- 1 mg-200 mg Cap PNV 67-iron Yes [id number] 1{tbl} Take 1 [facility] ps-folate 5-10 tablet by ity o f no.1-dha 00:00: mouth [place] (VITAFOL 00 daily. Medical ULTRA) 29 Branch mg iron- 1 mg-200 mg Cap PNV 67-iron 2021- No [id number] 1{tbl} Take 1 [facility] ps-folate 5-10 11-04 tablet by ity of no.1-dha 00:00: 00:00 mouth [place] (VITAFOL 00 :00 daily. Medical ULTRA) 29 Branch mg iron- 1 mg-200 mg Cap PNV 67-iron 2021- No [id number] 1{tbl} Take 1 [facility] ps-folate 5-10 11-04 tablet by ity of no.1-dha 00:00: 00:00 mouth [place] (VITAFOL 00 :00 daily. Medical ULTRA) 29 Branch mg iron- 1 mg-200 mg Cap Immunizations Ordered Filled Immunization Date Status Comments [facility] Immunization Name Name Influenza Virus 2017-12-21 [...] 2017-12-07 Completed [facility] of 00:00:00 [facility] TDAP 2017-12-07 Completed [facility] of 00:00:00 [facility] TDAP 2017-12-07 Completed University of 00:00:00 [facility] TDAP 2017-12-07 Completed University of 00:00:00 [facility] TDAP 2017-12-07 Completed University of 00:00:00 [facility] Branch TDAP 2017-12-07 Completed University of 00:00:00 [facility] Branch TDAP 2017-12-07 Completed University of 00:00:00 [facility] Branch TDAP 2017-12-07 Completed University of 00:00:00 [facility] TDAP 2017-12-07 Completed University of 00:00:00 [facility] TDAP 2017-12-07 Completed University of 00:00:00 [facility] TDAP 2017-12-07 Completed University of 00:00:00 [place] [facility] TDAP 2017-12-07 Completed [facility] of 00:00:00 [place] [facility] TDAP 2017-12-07 Completed [facility] of 00:00:00 [place] [facility] TDAP 2017-12-07 Completed [facility] of 00:00:00 [place] [facility] TDAP 2017-12-07 Completed [facility] of 00:00:00 [place] [facility] TDAP 2017-12-07 Completed [facility] of 00:00:00 [place] [facility] TDAP 2017-12-07 Completed [facility] of 00:00:00 [place] [facility] TDAP 2017-12-07 Completed [facility] of 00:00:00 [place] [facility] TDAP 2017-12-07 Completed [facility] of 00:00:00 [place] [facility] TDAP 2017-12-07 Completed [facility] of 00:00:00 [place] [facility] TDAP 2017-12-07 Completed [facility] of 00:00:00 [place] [facility] TDAP 2017-12-07 Completed [facility] of 00:00:00 [place] [facility] TDAP 2017-12-07 Completed [facility] of 00:00:00 [place] [facility] TDAP 2017-12-07 Completed [facility] of 00:00:00 [place] [facility] TDAP 2017-12-07 Completed [facility] of 00:00:00 [place] [facility] TDAP 2017-12-07 Completed [facility] of 00:00:00 [place] [facility] TDAP 2017-12-07 Completed [facility] of 00:00:00 [place] [facility] TDAP 2017-12-07 Completed [facility] of 00:00:00 [place] [facility] TDAP 2017-12-07 Completed [facility] of 00:00:00 [place] [facility] TDAP 2017-12-07 Completed [facility] of 00:00:00 [place] [facility] TDAP 2017-12-07 Completed [facility] of 00:00:00 [place] [facility] TDAP 2017-12-07 Completed [facility] of 00:00:00 [place] [facility] TDAP 2017-12-07 Completed [facility] of 00:00:00 [place] [facility] TDAP 2017-12-07 Completed [facility] of 00:00:00 [place] [facility] TDAP 2017-12-07 Completed University of 00:00:00 [place] [facility] TDAP 2017-12-07 Completed [facility] of 00:00:00 [place] [facility] TDAP 2017-12-07 Completed [facility] of 00:00:00 [place] [facility] TDAP 2017-12-07 Completed [facility] of 00:00:00 [place] [facility] TDAP 2017-12-07 Completed [facility] of 00:00:00 [place] [facility] TDAP 2017-12-07 Completed [facility] of 00:00:00 [place] [facility] TDAP 2017-12-07 Completed [facility] of 00:00:00 [place] [facility] TDAP 2017-12-07 Completed [facility] of 00:00:00 [place] [facility] TDAP 2017-12-07 Completed [facility] of 00:00:00 [place] [facility] TDAP 2016-03-28 Completed University of 00:00:00 [place] [facility] TDAP 2016-03-28 Completed University of 00:00:00 [place] [facility] TDAP 2016-03-28 Completed [facility] of 00:00:00 [place] [facility] TDAP 2016-03-28 Completed University of 00:00:00 [place] [facility] TDAP 2016-03-28 Completed University of 00:00:00 [place] [facility] TDAP 2016-03-28 Completed University of 00:00:00 [place] [facility] TDAP 2016-03-28 Completed University of 00:00:00 [place] [facility] TDAP 2016-03-28 Completed University of 00:00:00 [place] [facility] TDAP 2016-03-28 Completed University of 00:00:00 [place] [facility] TDAP 2016-03-28 Completed University of 00:00:00 [place] [facility] TDAP 2016-03-28 Completed University of 00:00:00 [place] [facility] TDAP 2016-03-28 Completed University of 00:00:00 [place] [facility] TDAP 2016-03-28 Completed University of 00:00:00 [place] [facility] TDAP 2016-03-28 Completed University of 00:00:00 [place] [facility] TDAP 2016-03-28 Completed University of 00:00:00 [place] [facility] TDAP 2016-03-28 Completed University of 00:00:00 [place] [facility] TDAP 2016-03-28 Completed University of 00:00:00 [place] [facility] TDAP 2016-03-28 Completed University of 00:00:00 [place] [facility] TDAP 2016-03-28 Completed University of 00:00:00 [place] [facility] TDAP 2016-03-28 Completed University of 00:00:00 [place] [facility] TDAP 2016-03-28 Completed University of 00:00:00 [place] [facility] TDAP 2016-03-28 Completed University of 00:00:00 [place] [facility] TDAP 2016-03-28 Completed University of 00:00:00 [facility] TDAP 2016-03-28 Completed University of 00:00:00 [facility] TDAP 2016-03-28 Completed University of 00:00:00 [facility] TDAP 2016-03-28 Completed University of 00:00:00 [facility] TDAP 2016-03-28 Completed University of 00:00:00 [facility] TDAP 2016-03-28 Completed University of 00:00:00 [facility] TDAP 2016-03-28 Completed University of 00:00:00 [facility] TDAP 2016-03-28 Completed University of 00:00:00 [facility] TDAP 2016-03-28 Completed University of 00:00:00 [facility] TDAP 2016-03-28 Completed University of 00:00:00 [facility] TDAP 2016-03-28 Completed University of 00:00:00 [facility] TDAP 2016-03-28 Completed University of 00:00:00 [facility] TDAP 2016-03-28 Completed University of 00:00:00 [facility] TDAP 2016-03-28 Completed University of 00:00:00 [facility] TDAP 2016-03-28 Completed University of 00:00:00 [facility] TDAP 2016-03-28 Completed University of 00:00:00 [facility] TDAP 2016-03-28 Completed University of 00:00:00 [facility] TDAP 2016-03-28 Completed University of 00:00:00 [facility] TDAP 2016-03-28 Completed University of 00:00:00 [facility] TDAP 2016-03-28 Completed University of 00:00:00 [facility] TDAP 2016-03-28 Completed University of 00:00:00 [facility] Influenza Virus 2015-11-23 Completed Universit y of Vaccine Quad IM 3+ 00:00:00 [facility] Influenza Virus 2015-11-23 Completed Universit y of Vaccine [facility] IM 3+ 00:00:00 [facility] Influenza Virus 2015-11-23 Completed Universit y of Vaccine [facility] IM 3+ 00:00:00 [facility] Influenza Virus 2015-11-23 Completed Universit y of Vaccine [facility] IM 3+ 00:00:00 [facility] Influenza Virus 2015-11-23 Completed Universit y of Vaccine [facility] IM 3+ 00:00:00 [facility] Influenza Virus 2015-11-23 Completed Universit y of Vaccine [facility] IM 3+ 00:00:00 [facility] Influenza Virus 2015-11-23 Completed Universit y of Vaccine [facility] IM 3+ 00:00:00 [facility] Influenza Virus 2015-11-23 Completed Universit y of [facility] IM 3+ 00:00:00 [facility] Influenza Virus 2015-11-23 Completed Universit y of Vaccine [facility] IM 3+ 00:00:00 [facility] Influenza Virus 2015-11-23 Completed Universit y of Vaccine [facility] IM 3+ 00:00:00 [facility] Influenza Virus 2015-11-23 Completed Universit y of Vaccine [facility] IM 3+ 00:00:00 [facility] Influenza Virus 2015-11-23 Completed Universit y of Vaccine [facility] IM 3+ 00:00:00 [facility] Influenza Virus 2015-11-23 Completed Universit y of Vaccine [facility] IM 3+ 00:00:00 [facility] Influenza Virus 2015-11-23 Completed Universit y of [facility]ine [facility] IM 3+ 00:00:00 [facility] Influenza Virus 2015-11-23 Completed Universit y of Vaccine [facility] IM 3+ 00:00:00 [facility] Influenza Virus 2015-11-23 Completed Universit y of Vaccine [facility] IM 3+ 00:00:00 [facility] Influenza Virus 2015-11-23 Completed Universit y of Vaccine [facility] IM 3+ 00:00:00 [facility] Influenza Virus 2015-11-23 Completed Universit y of Vaccine [facility] IM 3+ 00:00:00 [facility] Influenza Virus 2015-11-23 Completed Universit y of Vaccine [facility] IM 3+ 00:00:00 [facility] Influenza Virus 2015-11-23 Completed Universit y of Vaccine [facility] IM 3+ 00:00:00 [facility] Influenza Virus 2015-11-23 Completed Universit y of Vaccine [facility] IM 3+ 00:00:00 [facility] Influenza Virus 2015-11-23 Completed Universit y of Vaccine [facility] IM 3+ 00:00:00 [facility] Influenza Virus 2015-11-23 Completed Universit y of Vaccine [facility] IM 3+ 00:00:00 [facility] Influenza Virus 2015-11-23 Completed Universit y of Vaccine [facility] IM 3+ 00:00:00 [facility] Influenza Virus 2015-11-23 Completed Universit y of Vaccine [facility] IM 3+ 00:00:00 [facility] Influenza Virus 2015-11-23 Completed Universit y of Vaccine [facility] IM 3+ 00:00:00 [facility] Influenza Virus 2015-11-23 Completed Universit y of Vaccine [facility] IM 3+ 00:00:00 [facility] Influenza Virus 2015-11-23 Completed Universit y of Vaccine [facility] IM 3+ 00:00:00 [facility] Influenza Virus 2015-11-23 Completed Universit y of Vaccine [facility] IM 3+ 00:00:00 [facility] Influenza Virus 2015-11-23 Completed Universit y of Vaccine [facility] IM 3+ 00:00:00 [facility] Influenza Virus 2015-11-23 Completed Universit y of Vaccine [facility] IM 3+ 00:00:00 [facility] Influenza Virus 2015-11-23 Completed Universit y of Vaccine [facility] IM 3+ 00:00:00 [facility] Influenza Virus 2015-11-23 Completed [facility]it y of Vaccine [facility] IM 3+ 00:00:00 [facility] Influenza Virus 2015-11-23 Completed [facility]it y of Vaccine [facility] IM 3+ 00:00:00 [facility] Influenza Virus 2015-11-23 Completed [facility]it y of Vaccine [facility] IM 3+ 00:00:00 [facility] Influenza Virus 2015-11-23 Completed [facility]it y of Vaccine [facility] IM 3+ 00:00:00 [facility] Influenza Virus 2015-11-23 Completed [facility]it y of Vaccine [facility] IM 3+ 00:00:00 [facility] Influenza Virus 2015-11-23 Completed [facility]it y of Vaccine [facility] IM 3+ 00:00:00 [facility] Influenza Virus 2015-11-23 Completed [facility]it y of [facility]ine [facility] IM 3+ 00:00:00 [facility] Influenza Virus 2015-11-23 Completed Universit y of Vaccine [facility] IM 3+ 00:00:00 [facility] Influenza Virus 2015-11-23 Completed [facility]it y of Vaccine [facility] IM 3+ 00:00:00 [facility] Influenza Virus 2015-11-23 Completed [facility]it y of Vaccine [facility] IM 3+ 00:00:00 [facility] Influenza Virus 2015-11-23 Completed [facility]it y of Vaccine [facility] IM 3+ 00:00:00 [facility] Vital Signs Vital Name Observation Time Observation Value Comments Source Systolic blood 2022-02-06 19:28:00 112 mm[Hg] Univer sity of pressure [facility] Diastolic blood 2022-02-06 19:28:00 75 mm[Hg] Unive rsity of pressure [facility] Heart rate 2022-02-06 19:28:00 73 /min Universi ty of [facility] Body temperature 2022-02-06 19:28:00 36.56 Fatemeh Univ ersity of [facility] Respiratory rate 2022-02-06 19:28:00 18 /min Univ ersity of [facility] Body height 2022-02-06 19:28:00 149.9 cm Universi [facility] Body weight 2022-02-06 19:28:00 58.968 kg [facility] BMI 2022-02-06 19:28:00 26.26 kg/m2 [facility] Systolic blood 2022-01-23 19:15:00 104 mm[Hg] Univer sity of pressure [facility] Diastolic blood 2022-01-23 19:15:00 75 mm[Hg] Unive rsity of pressure [facility] Heart rate 2022-01-23 19:15:00 90 /min [facility]i ty [facility] Body temperature 2022-01-23 19:15:00 36.61 Fatemeh Univ ersity of [facility] Body weight 2022-01-23 19:15:00 57.879 kg Universi [facility] BMI 2022-01-23 19:15:00 25.77 kg/m2 [facility] Systolic blood 2022-01-03 16:05:00 102 mm[Hg] Univer sity of pressure [facility] Diastolic blood 2022-01-03 16:05:00 61 mm[Hg] Unive rsity of pressure [facility] Heart rate 2022-01-03 16:05:00 92 /min Universi ty of [facility] Respiratory rate 2022-01-03 16:05:00 17 /min Univ ersity of [facility] Oxygen saturation in 2022-01-03 16:05:00 98 /min University of Arterial blood by [facility] Pulse oximetry Branch Body temperature 2022-01-03 14:46:00 36.5 Fatemeh Univ ersity of [facility] Systolic blood 2022-01-03 16:05:00 102 mm[Hg] Univer sity of pressure [facility] Diastolic blood 2022-01-03 16:05:00 61 mm[Hg] Unive rsity of pressure [facility] Heart rate 2022-01-03 16:05:00 92 /min Universi ty of [facility] Respiratory rate 2022-01-03 16:05:00 17 /min Univ ersity of [facility] Oxygen saturation in 2022-01-03 16:05:00 98 /min University of Arterial blood by [place] [facility] Pulse oximetry Branch Body temperature 2022-01-03 14:46:00 36.5 Fatemeh Univ ersity of [facility] Systolic blood 2021-12-31 21:21:00 111 mm[Hg] Univer sity of pressure [facility] Diastolic blood 2021-12-31 21:21:00 77 mm[Hg] Unive rsity of pressure [facility] Heart rate 2021-12-31 21:21:00 88 /min [facility]i [facility] Body temperature 2021-12-31 21:21:00 36.72 Fatemeh Univ ersity of [facility] Respiratory rate 2021-12-31 21:21:00 17 /min Univ ersity of [facility] Body height 2021-12-31 21:21:00 149.9 cm Universi [facility] Body weight 2021-12-31 21:21:00 59.603 kg [facility] BMI 2021-12-31 21:21:00 26.54 kg/m2 [facility] Systolic blood 2021-12-31 13:39:00 107 mm[Hg] Univer sity of pressure [facility] Diastolic blood 2021-12-31 13:39:00 63 mm[Hg] Unive rsity of pressure [facility] Heart rate 2021-12-31 13:39:00 102 /min [facility]i [facility] Respiratory rate 2021-12-31 13:39:00 17 /min Univ ersity of [facility] Oxygen saturation in 2021-12-31 13:39:00 100 /min University of Arterial blood by [place] [facility] Pulse oximetry Branch Body temperature 2021-12-31 11:20:00 37 Fatemeh Univ ersity of [facility] Body height 2021-12-31 11:20:00 149.9 cm Universi [facility] Body weight 2021-12-31 11:20:00 61.236 kg [facility] BMI 2021-12-31 11:20:00 27.27 kg/m2 Universi ty of [facility] Systolic blood 2021-12-16 18:04:00 110 mm[Hg] Univer sity of pressure [facility] Branch Diastolic blood 2021-12-16 18:04:00 74 mm[Hg] Unive rsity of pressure [facility] Heart rate 2021-12-16 18:04:00 85 /min Universi ty of [facility] Body temperature 2021-12-16 18:04:00 8.11 Fatemeh Univ ersity of [facility] Respiratory rate 2021-12-16 18:04:00 16 /min Univ ersity of [facility] Body height 2021-12-16 18:04:00 149.9 cm Universi ty of [facility] Body weight 2021-12-16 18:04:00 60.691 kg [facility]i ty [facility] BMI 2021-12-16 18:04:00 27.02 kg/m2 Universi ty of [facility] Oxygen saturation in 2021-12-16 18:04:00 100 /min [facility] Arterial blood by [facility] Pulse oximetry Branch Systolic blood 2021-11-18 18:24:00 103 mm[Hg] Univer [facility]ity of pressure [facility] [place] Diastolic blood 2021-11-18 18:24:00 70 mm[Hg] Unive rsity of pressure [facility] Heart rate 2021-11-18 18:24:00 78 /min [facility]i ty [facility] Body temperature 2021-11-18 18:24:00 37.06 Fatemeh Univ ersity of [facility] Body height 2021-11-18 18:24:00 149.9 cm [facility]i [facility] Body weight 2021-11-18 18:24:00 58.06 kg [facility]i [facility] BMI 2021-11-18 18:24:00 25.85 kg/m2 Universi ty of [facility] Systolic blood 2021-11-08 23:04:00 107 mm[Hg] Univer sity of pressure [facility] Diastolic blood 2021-11-08 23:04:00 68 mm[Hg] Unive rsity of pressure [facility] Heart rate 2021-11-08 23:04:00 94 /min [facility] Body temperature 2021-11-08 23:04:00 37.11 Fatemeh Univ ers[facility] Respiratory rate 2021-11-08 23:04:00 17 /min Univ ers[facility] Body height 2021-11-08 23:04:00 149.9 cm [facility]i [facility] Body weight 2021-11-08 23:04:00 57.607 kg [facility] BMI 2021-11-08 23:04:00 25.65 kg/m2 Univers[facility] ty [facility] Oxygen saturation in 2021-11-08 23:04:00 100 /min University of Arterial blood by [facility] Pulse oximetry Branch Systolic blood 2021-11-04 19:20:00 107 mm[Hg] Univer sity of pressure [facility] Diastolic blood 2021-11-04 19:20:00 69 mm[Hg] Unive rsity of pressure [facility] Heart rate 2021-11-04 19:20:00 93 /min [facility]i ty [facility] Body temperature 2021-11-04 19:20:00 36.78 Fatemeh Univ ers[facility] Respiratory rate 2021-11-04 19:20:00 18 /min Univ ersity [facility] Body height 2021-11-04 19:20:00 149.9 [...] 2021-10-24 22:56:34 18 /min Univ ersity [facility] Oxygen saturation in 2021-10-24 22:56:34 98 /min University of Arterial blood by [facility] Pulse oximetry Branch Body temperature 2021-10-24 20:31:00 37.78 Fatemeh [facility] ersity of [facility] Body height 2021-10-24 20:31:00 149.9 cm Universi ty of [place] [facility] [place] Body weight 2021-10-24 20:31:00 54.432 kg Universi ty of [facility] BMI 2021-10-24 20:31:00 24.24 kg/m2 Universi ty of [facility] Systolic blood 2021-10-18 14:26:00 113 mm[Hg] Univer sity of pressure [facility] Diastolic blood 2021-10-18 14:26:00 74 mm[Hg] Unive [facility] Heart rate 2021-10-18 14:26:00 84 /min Universi ty of [facility] Body temperature 2021-10-18 14:26:00 36.67 Fatemeh [facility] Body height 2021-10-18 14:26:00 149.9 cm [facility]i ty [facility] [place] Body weight 2021-10-18 14:26:00 56.7 kg Universi ty [facility] BMI 2021-10-18 14:26:00 25.25 kg/m2 Universi ty of [facility] Oxygen saturation in 2021-10-18 14:26:00 99 /min University of Arterial blood by [facility] Pulse oximetry Branch Procedures Procedure Date / Time Performing Clinician Source Performed POCT TEST 2022-02-06 00:00:00 [facility] POCT TEST 2022-01-23 00:00:00 [facility] DAY SURGERY [facility] 2022-01-07 06:01:00 Doctor Unassigned, N o [facility] DILATION AND CURETTAGE 2022-01-03 13:41:00 Zeyad Miller [facility] DAY SURGERY - [facility] 2022-01-03 06:01:00 Doctor Unassigned, No [facility] PEL[facility] > 2021-12-31 13:37:47 Linda Mayorga [facility] 14 WEEKS [facility] Branch HB ABO GROUPING 2021-12-31 12:06:00 Linda Mayorga [facility] TOTAL BETA HCG ASSAY 2021-12-31 12:02:00 Linda Mayorga [facility] URINALYSIS 2021-12-31 11:27:00 Linda Mayorga [facility] CONSENT/REFUSAL FOR 2021-12-31 10:58:37 Doctor Unassigned, No Un [facility] [place] DI[facility]NOS[facility] AND TREATMENT [facility] SCANNED LAB RESULTS 2021-12-17 05:01:00 Doctor Unassigned, No [facility] POCT URINALYSIS W/O 2021-12-16 00:00:00 Pramod Johnson [facility] SPECIFIC [facility] POCT URINALYSIS W/O 2021-11-18 00:00:00 Zeyad Miller [facility] SPECIFIC [facility] US FIRST 2021-11-14 16:40:00 Zeyad Miller [facility] TRIMESTER LESS THAN 14 [place] WEEKS WITH TRANSVAGINAL TOTAL BETA HCG ASSAY 2021-11-09 00:53:00 Fely Stern [facility] CBC WITH DIFF 2021-11-09 00:53:00 [facility] 2021-11-09 00:53:00 [facility] 2021-11-09 00:53:00 Fely Stern [facility] US FIRST 2021-11-09 00:02:00 Fely Stern [facility] TRIMESTER LESS THAN 14 [place] WEEKS WITH TRANSVAGINAL CONSENT/REFUSAL FOR 2021-11-08 22:29:54 Doctor Unassigned, No [facility]AT[facility] POCT TEST 2021-11-04 00:00:00 Zeyad Miller [facility] POCT URINALYSIS W/O 2021-11-04 00:00:00 Zeyad Miller [facility] XR CHEST 1 VW 2021-10-24 21:51:00 Karyna Canseco [place] o f [facility] POCT TEST 2021-10-24 20:47:00 Karyna Canseco [facility] ty of [facility] URINALYSIS 2021-10-24 20:46:00 Karyna Canseco [place] o f [facility] RAPID STREP SCREEN FOR 2021-10-24 20:46:00 [facility] GROUP A [facility] COVID-19 (ID NOW RAPID 2021-10-24 20:46:00 Karyna [facility]seco [facility] TESTING) [facility] Branch CONSENT/REFUSAL FOR 2021-10-24 20:21:12 Doctor Unassigned, No Un [facility] DIAGNOSIS AND TREATMENT Name Medical Branch Encounters Start End Encounter Admission Attending Care Care Encounter Source Date/Time Date/Time Type Type Clinicians Facility Department ID 2020-12-16 Emergency [facility] [id number] Univers 20:06:42 [facility] 2022-02-13 2022-02-13 Outpatient R JHONY [facility] [id number] Univers 13:20:00 13:20:00 SANDEEPCAMMY [facility] o [facility] [place] [place] 2022-02-06 2022-02-06 Outpatient R ZEYAD MILLER [facility] [id number] Univers 13:15:00 13:37:34 [facility] 2022-02-06 2022-02-06 Office [facility] [id number] Univers 13:15:00 13:37:34 Visit Elliott WRIGHT [id number] i ty [facility] [id number] [id number] Ar [place]ical [place] [id number] Branch BUILDING 2022-01-23 2022-01-23 Outpatient R ZEYAD MILLER [facility] [id number] Univers 13:00:00 13:34:31 ity [facility] 2022-01-23 2022-01-23 Office [facility] [id number] Univers 13:00:00 13:34:31 Visit Elliott WRIGHT [id number] i ty of [id number] [id number] Ar dical NAL 134 [facility] 2022-01-07 2022-01-07 Orders Doctor YESENIA [id number] [id number] Univers 00:00:00 00:00:00 Only Unassigned, KAYE [id number] ity of [place] [facility] [id number] Pet[place] as [id number] [facility] [address] [place] 2022-01-04 2022-01-04 Nurse YESENIA Evangelista [id number] Univers 00:00:00 00:00:00 Triage Julianne KAYE [id number] it y of HOSPITAL [id number] [place] as [id number] [facility] [address] [place] 2022-01-03 2022-01-03 Surgery Zeyad Miller [facility] [id number] Univers 07:50:00 10:17:00 Cam ADRIANA [id number] i ty of [id number]ICAL [id number] [facility] 020 Branch 2022-01-03 2022-01-03 Outpatient R ZEYAD MILLER SDDEANGELO [employer] ENGINEER [id number] Univers 06:58:00 10:17:00 ity of [facility] 2022-01-03 2022-01-03 Hospital Zeyad Miller [facility] [id number] Univers 06:58:00 10:17:00 Encounter Elliott WRIGHT [id number] ity of [id number]ICAL [id number] [facility] CENTER 071 Branch 2022-01-03 2022-01-03 Orders Doctor YESENIA 1.2.840.114 [id number] Univers 00:00:00 00:00:00 Only Unassigned, KAYE [id number] ity of [place] [facility] [id number] Petey as [id number] [facility] [address] [place] 2022-01-02 2022-01-02 Telephone Zeyad Miller [facility] 1.2.840.114 [id number] Univers 00:00:00 00:00:00 Cam [place] [id number] i ty of [id number] [id number] [address] 2022-01-02 2022-01-02 Telephone Zeyad Miller [facility] [id number] Univers 00:00:00 00:00:00 Cam [place] [id number] i ty of [id number] [id number] [address] 2022-01-01 2022-01-01 Telephone Zeyad Miller [facility] [id number] Univers 00:00:00 00:00:00 Cam [place] [id number] i ty of [id number] [id number] [address] 2021-12-31 2021-12-31 Outpatient R ZEYAD MILLER [facility] [id number] Univers 15:00:00 16:10:03 ity of [facility] 2021-12-31 2021-12-31 [facility] [id number] Univers 15:00:00 16:10:03 Visit Cam [place] [id number] i ty of [facility] [id number] [id number] [address] 2021-12-31 2021-12-31 [facility] [id number] Univers 05:23:00 08:48:00 LINDA ity of [facility] 2021-12-31 2021-12-31 [facility] 1.2.840.114 [id number] Univers 05:23:00 08:48:00 Linda S [place] [id number] i ty of [facility] [id number] [id number] [address] 2021-12-31 2021-12-31 Telephone Zeyad Miller [facility] 1.2.840.114 [id number] Univers 00:00:00 00:00:00 Cam [place] [id number] i ty of [place] [id number] [id number] Ar dical NAL 134 [facility] 2021-12-31 2021-12-31 Prep For Zeyad Miller [facility] 1.2.840.114 [id number] Univers 00:00:00 00:00:00 Surgery Cam [place] [id number] i ty of [place] [id number] [id number] Ar dical NAL 134 [facility] 2021-12-23 2021-12-23 Telephone Zeyad Miller [facility] 1.2.840.114 [id number] Univers 00:00:00 00:00:00 Cam [place] [id number] i ty of [facility] [id number] [id number] Ar dical NAL 134 [facility] 2021-12-17 2021-12-17 Circus Artist Carlos A, Adc Lab Main [facility] [id number] Univers 13:45:00 14:00:00 Visit Zeyad [place] [id number] ity of [place] [id number] [id number] Ar dical NAL 353 [facility] 2021-12-17 2021-12-17 Outpatient R ZEYAD MILLER [facility] [id number] Univers 13:45:00 13:45:00 ity of [facility] 2021-12-17 2021-12-17 Orders Doctor YESENIA 1.2.840.114 [id number] Univers 00:00:00 00:00:00 Only Unassigned, KAYE [id number] ity of [place] [facility] [id number] Pet[place] as [id number] [address] 2021-12-16 2021-12-16 Outpatient R PRAMOD JOHNSON [facility] B [id number] Univers 13:00:00 13:27:45 TRIPRAMOD GREGORY ity of [facility] 2021-12-16 2021-12-16 [facility] 1.2.840.114 [id number] Univers 13:00:00 13:27:45 Pramod QURESHI [id number] i ty of [place] [id number] [id number] [address] 2021-12-11 2021-12-[address] [facility] 1.2.840.114 [id number] Univers 00:00:00 00:00:00 Cam KIERA [id number] it y of [id number] [id number] [address] 2021-12-09 2021-12-09 Patient [facility] 1.2.840.114 [id number] Univers 00:00:00 00:00:00 Secure Msg Symone [place] [id number] ity of [place] 4.2.7.2.[place] [id number] Ar dical NAL [address] [place] [address] 2021-12-09 2021-12-09 Telephone Zeyad Miller [facility] 1.2.840.114 [id number] Univers 00:00:00 00:00:00 Elliott [place] [id number] i ty of [place] [id number] [id number] Ar dical NAL [address] [place] [address] 2021-12-06 2021-12-06 Telephone [facility] [id number] Univers 00:00:00 00:00:00 Symone [place] [id number] ity of [place] [id number] [phone] Ar dical NAL [address] [place] [address] 2021-11-18 2021-11-18 Outpatient R ZEYAD MILLER [facility] [id number] Univers 13:15:00 14:25:26 ity of [facility] 2021-11-18 2021-11-18 Routine Miller, [facility] [id number] Univers 13:15:00 14:25:26 Cam [place] [id number] ity of Visit [id number] [id number] Ar dic[address] 2021-11-15 2021-11-15 Outpatient R [facility]UL [facility] [id number] Univers 11:00:00 11:00:00 ity of [facility] 2021-11-14 2021-11-14 Outpatient R [facility] [id number] Univers 10:59:59 23:59:00 ity of [facility] 2021-11-14 2021-11-14 [facility] 1.2.840.114 [id number] Univers 10:59:59 23:59:00 Encounter Cam [place] [id number] ity of [id number] [id number] [address] 2021-11-12 2021-11-12 Outpatient R [facility] [id number] Univers 13:00:00 13:00:00 ity [facility] 2021-11-11 2021-11-11 Outpatient R [facility] [id number] Univers 08:00:00 08:00:00 ity of [facility] 2021-11-09 2021-11-09 Telephone [facility] 1.2.840.114 [id number] Univers 00:00:00 00:00:00 Cam [place] 350.1.13.10 i ty of [place] [phone] Ar dic[address] 2021-11-08 2021-11-08 Emergency X JARRED, [facility] ERT [id number] Univers 18:06:00 21:13:00 FELY ity [facility] 2021-11-08 2021-11-08 [facility] 1.2.840.114 [id number] Univers 18:06:00 21:13:00 Fely WRIGHT 350.1.13.10 i ty [place] [id number] [address] 2021-11-08 2021-11-08 Outpatient R ZEYAD MILLER [facility] [id number] Univers 11:15:00 11:15:00 ity of [facility] 2021-11-08 2021-11-08 Telephone [facility] 1.2.840.114 [id number] Univers 00:00:00 00:00:00 Elliott WRIGHT 350.1.13.10 i ty [place] [id number] Ar dical NAL 134 [facility] 2021-11-06 2021-11-06 Circus Artist 2, [facility] [place] 1.2.840.114 [id number] Univers 11:15:00 11:30:00 Visit Zeyad Miller ADRIANA 350.1.13.10 it[place] of [place] [phone] Ar dical NAL 353 [facility] 2021-11-06 2021-11-06 Outpatient R PAUL ZEYAD [facility] [id number] Univers 11:15:00 11:15:00 ity of [facility] 2021-11-06 2021-11-06 Case [facility] 1.2.115.527 [id number] Univers 00:00:00 00:00:00 Management Elliott WRIGHT 350.1.13.10 ity of [place] [phone] Ar dical NAL 134 [facility] 2021-11-04 2021-11-04 Circus Artist 2, Adc Lab [facility] 1.2.840.114 [id number] Univers 15:15:00 15:15:00 Visit Zeyad MillerKRISTEN 350.1.13.10 ity of [place] [id number] Ar dical NAL 353 [facility] 2021-11-04 2021-11-04 Outpatient R ZEYAD MILLER [facility] [id number] Univers 15:15:00 15:05:11 ity of [facility] 2021-11-04 2021-11-04 Initial Zeyad Miller [facility] 1.2.479.885 [id number] Univers 14:00:00 14:59:36 Mariangel Gallagher ADRIANA 350.1.13.10 ity of [place] [id number] Ar dical NAL 134 [facility] 2021-10-29 2021-10-29 Outpatient R WILMAUMANGISABELLEANANTH PRAMOD [facility] B [id number] Univers 13:00:00 13:00:00 TARIQPRAMOD [place] itjessica [facility] 2021-10-24 2021-10-24 Emergency X Karyna CANSECO [facility] ERT [id number] Univers 15:37:00 17:57:00 ity [facility] 2021-10-24 2021-10-24 Emergency Karyna Canseco [facility] 1.2.840.114 [id number] Univers 15:37:00 17:57:00 Alejandra WRIGHT 350.1.13.10 i ty of [place] [id number] [facility] [address] [place] 2021-10-18 2021-10-18 [facility] [id number] Univers 09:40:00 09:41:47 SYMONE ward o f [facility] 2021-10-18 2021-10-18 [facility] 1.2.840.114 [id number] Univers 09:40:00 09:41:47 Visit Symone WRIGHT 350.1.13.10 ity of [place] [phone] Ar dicfl NAL 059 [facility] 2021-08-28 2021-08-28 Outpatient AMBREEN_FAR [facility] [address] [place] 04:20:00 04:20:00 RAHAT 0713 da [facility] 2021-08-28 2021-08-28 Telephone [facility] 1.2.041.250 [id number] Univers 00:00:00 00:00:00 Davidadalidcammy ADRIANA 350.1.13.10 ity of [place] [phone] [address] 2021-08-12 2021-08-12 Telephone [facility] 1.2.040.629 [id number] Univers 00:00:00 00:00:00 Sandeepcammy ADRIANA 350.1.13.10 ity of [place] [phone] [address] 2021-08-11 2021-08-11 Emergency X SINGER [facility] ERT [id number] Univers 02:31:00 06:46:00 MARQUES ward [facility] 2021-08-11 2021-08-11 Emergency [facility] 1.2.422.944 [id number] Univers 02:31:00 06:46:00 Marques WRIGHT 350.1.13.10 i ty of [place] [id number] [facility] [address] [place] 2021-08-11 2021-08-11 Orders Doctor YESENIA 1.2.840.114 [id number] Univers 00:00:00 00:00:00 Only Unassigned, KAYE 350.1.13.10 ity of [place] [facility] 4.2.7.2.686 Petey as [phone] [facility] [address] 2021-08-09 2021-08-09 Telephone [facility] 1.2.925.485 [id number] Univers 00:00:00 00:00:00 Sandeepcammy ADRIANA 350.1.13.10 ity of [place] [id number] [address] 2021-08-02 2021-08-02 Outpatient R JHONY [facility] [id number] Univers 08:00:00 08:00:00 SYMONE ward o f [facility] 2021-08-01 2021-08-01 Outpatient R JHONY [facility] [id number] Univers 08:00:00 23:59:00 SYMONE antunez [facility] 2021-07-11 2021-07-11 Outpatient R [facility] [id number] Univers 09:00:00 09:33:26 SYMONE antunez [facility] 2021-07-11 2021-07-11 Office [facility] 1.2.840.114 [id number] Univers 09:00:00 09:33:26 Visit Symone WRIGHT 350.1.13.10 ity of [facility] [place] [id number] Ar dical NAL 9 [facility] 2021-07-11 2021-07-11 Outpatient R [facility] [id number] Univers 09:00:00 09:33:[address] [facility] [place] [place] 2021-07-11 2021-07-11 Outpatient R [facility] [id number] Univers 09:00:00 09:33:[address] [facility] [place] [place] 2021-07-11 2021-07-11 Orders Doctor YESENIA 1.2.840.114 [id number] Univers 00:00:00 00:00:00 Only Unassigned, KAYE 350.1.13.10 ity of [place] [facility] 4.2.7.2.686 Petey as [id number] [address] 2021-07-08 2021-07-08 Telephone [facility] 1.2.713.981 [id number] Univers 00:00:00 00:00:00 Symone WRIGHT 350.1.13.10 ity of [facility] 4[place] [id number] Ar dical NAL 059 [facility] 2021-06-19 2021-06-19 Outpatient GC_SWHAOMC_ PRIV PRIV 220 [id number] [facility] 10:10:00 10:10:00 Black_D [id number] Medica l 2021-06-18 2021-06-18 Outpatient GC_SWHAOMC_ PRIV PRIV 220 [id number] [facility] 10:09:00 10:09:00 Black_D [id number] Medica l 2021-06-17 2021-06-17 Outpatient GC_SWOMC_ PRIV PRIV 220 [id number] [facility] 11:36:00 11:36:00 Black_D [id number] Medica l 2020-08-15 2020-08-15 Outpatient GC_SWOMC_ PRIV PRIV 220 [id number] [facility] 04:42:00 04:42:00 Black_D [id number] Medica l 2020-07-04 2020-07-04 Emergency [facility] 1.2.795.101 [id number] Univers 15:27:00 18:58:00 Drea [place] 350.1.13.10 i ty of [place].2.[place] [id number] [facility] [address] 2020-07-04 2020-07-04 Orders Doctor YESENIA 1.2.840.114 [id number] Univers 00:00:00 00:00:00 Only Unassigned, KAYE 350.1.13.10 [facility] 4.2.7.2.686 Petey as [id number] [facility] [address] 2020-06-11 2020-06-11 Outpatient janette_karyna [facility] [address] [place] 01:17:00 01:17:00 0426 [facility] 2020-05-08 2020-05-08 [facility] 1.2.840.114 [id number] Univers 00:00:00 00:00:00 Outreach Kenneth SUBRAMANIAN 350.1.13.10 i ty of [facility] 4.2.7.2.[place] [id number] Ar dical [address] 2019-07-20 2019-07-20 Telephone Kevin [facility] 1.2.776.036 [id number] Univers 00:00:00 00:00:00 Amina Krishnamurthy RESEARCH ENGINEER 350.1.13.[address] [facility] 4.2.7.2.686 [place] as MATERNAL [id number] Med ical & CHILD 107 [facility] 2019-07-20 2019-07-20 Patient Doctor [facility] 1.2.840.114 [id number] Univers 00:00:00 00:00:00 Secure Msg Unassigned, RESEARCH ENGINEER 350.1.13.10 ity of [place] [facility] 4.2.7.2.686 [place]ey as MATERNAL [id number] Med ical & CHILD 107 [facility] 2019-07-07 2019-07-07 Telephone Kbsydni [facility] 1.2.840.114 [id number] Univers 00:00:00 00:00:00 Dian C RESEARCH ENGINEER 350.1.13.[address] [facility] 4.2.7.2.686 [place] MATERNAL [phone] Med ical & CHILD [address] [place] [address] 2019-07-07 2019-07-07 Letter Kbsydni [facility] 1.2.531.658 [id number] Univers 00:00:00 00:00:00 (Out) Dian Carranza RESEARCH ENGINEER 350.1.13.[address] [facility] 4.2.7.2.686 [place] MATERNAL [id number] Med ical & CHILD [address] [place] [address] 2019-07-06 2019-07-06 Case Sherif [facility] 1.2.123.209 [id number] Univers 00:00:00 00:00:00 Management Pattie RESEARCH ENGINEER 350.1.13.[address] [facility] 4.2.7.2.686 [place] as MATERNAL [id number] Med ical & CHILD 124 [facility] 2019-07-01 2019-07-01 Office [facility], [facility] 1 .2.840.114 [id number] [facility] 09:04:44 09:45:26 Visit Pattie Gorman RESEARCH ENGINEER 350.1.13.[address] [facility] 4.2.7.2.686 [place] as MATERNAL [phone] Med ical & CHILD 107 [facility] 2019-07-01 2019-07-01 Office Provider, [facility] 1.2.563.228 [id number] 09:04:44 09:45:26 Visit Marianna RESEARCH ENGINEER 350.1.13.10 Temp REGIONAL 4.2.7.2.686 MATERNAL [id number] & CHILD [address] [place] [address] 2019-07-01 2019-07-01 Outpatient R SHERIF [facility] [id number] Univers 09:00:00 09:00:00 PATTIE antunez [facility] 2019-06-29 2019-06-29 Patient Doctor [facility] 1.2.840.114 [id number] Univers 00:00:00 00:00:00 Secure Msg Unassigned, RESEARCH ENGINEER 350.1.13.[address] [place] [facility] 4.2.7.2.686 Petey as MATERNAL [id number] [facility] [address] [place] [address] 2019-06-28 2019-06-28 [facility]ici [facility] 1.2.840.114 [id number] Univers 15:04:17 15:39:02 ne Visit Tayakaty Krishnamurthy RESEARCH ENGINEER 350.1.13.[address] [facility] 4.2.7.2.686 [place] as MATERNAL [phone] [facility] [address] [place] [address] 2019-06-28 2019-06-28 Outpatient R DHILLON [facility] [id number] Univers 15:30:00 15:30:00 [facility] 2019-06-28 2019-06-28 Telephone [facility] 1.2.840.114 [id number] Univers 00:00:00 00:00:00 Dian Carranza RESEARCH ENGINEER 350.1.13.10 ity of [place] [address]..7.2.686 Petey as MATERNAL [id number] [facility] & CHILD [address] [place] [address] Results Test Description Test Time Test Comments Results Result Comments Source POCT TEST 2022-02-06 19:26:00 Test Item Value Reference Range Interpretation Comme nts POCT PREG (test code = 1605) Negative On board controls acceptable with C Line (test code = 3574) Yes POCT PREG LOT # (test code = 3575) POCT PREG TEST DATE (test code = 3576) [facility] [id number] 19:26:00 Test Item Value Reference Range Interpretation Comments POCT PREG (test code = 1605) Negative On board controls acceptable with C Yes Line (test code = 3574) POCT PREG LOT # (test code = 3575) POCT PREG TEST DATE (test code = 3576) [facility] [id number] 19:31:00 Test Item Value Reference Range Interpretation Comments POCT PREG (test code = 1605) Positive On board controls acceptable with C Yes Line (test code = 3574) POCT PREG LOT # (test code = 3575) POCT PREG TEST DATE (test code = 3576) [facility] [id number] 19:31:00 Test Item Value Reference Range Interpretation Comments POCT PREG (test code = 1605) Positive On board controls acceptable with C Yes Line (test code = 3574) POCT PREG LOT # (test code = 3575) POCT PREG TEST DATE (test code = 3576) [facility] BETA HCG [id number] 13:00:19 Test Item Value Reference Range Interpretation Comments BETA HCG (test See_Comment [Automated m essage] code = The system [facility] h [id number]) generated this result transmit carole reference range : Non- fe male and male patien ts: <5 mIU/mL. The reference range was not used to interpret this result as normal/abnormal . CHARU (test code Gestational Age ? ? = CHARU) ?Range (mIU/mL) 1-10 ?Weeks ?21-11632290-13 Weeks ?10241-70855476-87 Weeks ?2432-46987556-11 Weeks ?3130-841386 Biotin has been reported to cause a negative bias, interpret results relative to patient's use of biotin. [facility] and Screen - ONCE [id number] 12:53:38 Test Item Value Reference Range Interpretation Comments ABO & RH (test code O Positive Performe d at [facility] = 20) Laboratory Serv [facility] [place] [address]Qzkw Free: [phone] A No. [id number] IAT (test code = Negative Performed a t [facility] 1185) Laboratory Serv [facility] [place] [address]Kkka Free: [phone] A No. [id number] [facility] URINALYSIS W/O SPECIFIC [id number] 18:51:00 Test Item Value Reference Range Interpretation [...] code = 3257) n/a Negative - Negative [facility] URINALYSIS W/O SPECIFIC [id number] 18:22:00 Test Item Value Reference Range Interpretation [...] code = 3257) Negative Negative - Negative [facility] [id number] 01:57:44 Test Item Value Reference Range Interpretation Comments BETA HCG (test See_Comment [Automated m essage] code = The system [employer] [id number]) generated this result transmit carole reference range : Non- fe male and male patien ts: <5 mIU/mL. The reference range was not used to interpret this result as normal/abnormal . CHARU (test code Gestational Age ? ? = CHARU) ?Range (mIU/mL) 1-10 ?Weeks ?47-47294301-00 Weeks ?88804-95854044-36 Weeks ?8480-28067933-89 Weeks ?1700-681633 Biotin has been reported to cause a negative bias, interpret results relative to patient's use of biotin. [facility] acute hospital WITH [id number] 01:00:42 Test Item Value Reference Range Interpretation Comments WBC (test code = See_Comment [Automated message] 6690-2) The system [employer] generated this result transmitted ref erence range: 4.30 - 1 1.10 10*3/?L. The re ference range was not u sed to interpret this result as normal/abnor mal. RBC (test code = See_Comment [Automated message] 389-8) The system [employer] generated this result transmitted ref erence range: [...] RDW-SD (test code 41.4 fL 39-49.9 = 37845-1) RDW-CV (test code 12.3 % 12-15.5 = 788-0) PLT (test code = See_Comment [Automated message] 907-3) The system [employer] generated this result transmitted ref erence range: 166 - 35 8 10*3/?L. The re ference range was not u sed to interpret this result as normal/abnor mal. MPV (test code = 10.5 fL 9.5-12.9 39156-5) NRBC/100 WBC (test See_Comment [Automat ed message] code = 7473415080) The [employer] m which generated this result transmitted ref erence range: 0.0 - 10 .0 /100 WBCs. The refer ence range was not u sed to interpret this result as normal/abnor mal. NRBC x10^3 (test See_Comment [Automated message] code = 8427445253) The syste m which generated this result transmitted ref erence range: 10*3/?L. The reference range was not used to interpr et this result as normal/abnormal . GRAN MAT (NEUT) % 64.1 % (test code = 770-8) IMM GRAN % (test 0.40 % code = 3543055205) LYMPH % (test code 24.1 % = 736-9) MONO % (test code 7.4 % = 5905-5) EOS % (test code = 3.5 % 713-8) BASO % (test code 0.5 % = 706-2) GRAN MAT 5.42 10*3/uL 1.88-7.09 x10^3(ANC) (test code = 2624622180) IMM GRAN x10^3 0.03 10*3/uL 0-0.06 (test code = 0714113982) LYMPH x10^3 (test 2.04 10*3/uL 1.32-3.29 code = 731-0) MONO x10^3 (test 0.63 10*3/uL 0.33-0.92 code = 742-7) EOS x10^3 (test 0.30 10*3/uL 0.03-0.39 code = 711-2) BASO x10^3 (test 0.04 10*3/uL 0.01-0.07 code = 704-7) [facility] [id number] 00:53:00 Test Item Value Reference Range Interpretation Comments POCT PREG (test code = 1605) positive Lab Interpretation (test code = Normal 73906-3) [facility] URINALYSIS W/O SPECIFIC [id number] 19:18:00 Test Item Value Reference Range Interpretation Comments POCT PH U (test code = 3254) n/a 5-8 POCT U LEUK EST (test code = n/a Negative - Negative 8003) POCT U NIT (test code = 3262) n/a Negative - Negative POCT U PROT (test code = 3259) negative Negative - Negative POCT U GLU (test code = 3256) negative Negative - Negative POCT U KETONE (test code = 3258) n/a Negative - Negative POCT U BLD (test code = 3257) n/a Negative - Negative [facility] URINALYSIS W/O SPECIFIC [id number] 19:18:00 Test Item Value Reference Range Interpretation [...] code = 3257) n/a Negative - Negative [facility] [id number] 19:16:00 Test Item Value Reference Range Interpretation Comments POCT PREG (test code = 1605) Positive On board controls acceptable with C Yes Line (test code = 3574) POCT PREG LOT # (test code = 3575) POCT PREG TEST DATE (test code = 3576) [facility] [id number] 19:16:00 Test Item Value Reference Range Interpretation Comments POCT PREG (test code = 1605) Positive On board controls acceptable with C Yes Line (test code = 3574) POCT PREG LOT # (test code = 3575) POCT PREG TEST DATE (test code = 3576) [facility] [id number] 20:47:00 Test Item Value Reference Range Interpretation Comments POCT PREG (test code = 1605) Negative On board controls acceptable with Present C Line (test code = 3574) POCT PREG LOT # (test code = 3575) [id number] POCT PREG TEST DATE (test 01/15/2023 code = 3576) Lab Interpretation (test code = Normal 39123-9) [facility] TEST, THINPREP, [id number] 17:38:20 Test Item Value Reference Range Interpretation Comments SOURCE: (test Cervical/Endo code = 8001) cervical SLIDES: (test 1 code = 8011) LMP: (test code = 06/30/2021 8021) SPECIMEN (NOTE) Satisfactory f or ADEQUACY: (test evaluation. Endocervical code = 37481) cells/transfor mation zone component present. INTERPRETATION: NILM/NO (test code = EPITH. --------- 61073) ABNORMALITY;S -------- EE BELOW NEGATIVE FO R INTRAEPITHELIAL LESION OR MALIGNANCY ( NILM) --------- --------- --------- - CASTING MACHINE SET UP OPERATOR: Cherie Neal (test code = 8101) LOCATION: (test (NOTE) Specimens pr ocessed and code = 10882) [facility] at [facility], [address] [place], [place] [id number], , CLIA: [id number] CPT: (test code = (NOTE) 17370 UNLE SS OTHERWISE 8140) INDICATED, COMP UTER [...] as applicable. HPV HIGH RISK WITH GENOTYPE, [id number] 17:35:09 Test Item Value Reference Range Interpretation Comments HPV HIGH RISK INTERP NEGATIVE NEGATIVE (test code = 41560) HPV 16 (test code = NEGATIVE 18943) HPV 18 (test code = NEGATIVE 57919) HPV, HR, OTHER NEGATIVE Testing meth odology is GENOTYPES (test code real-ti me PCR utilizing = 26454) hydrolysis prob es with the Bianka Chucky [...] ALL TESTING PERFORM ED ATCLINICAL PATH OLOGY [facility], [facility]. [address] [place] [address] [id number] LABORATORY DIRE CTOR: EVERARDO BRANTLEY M.D. CLIA NUMBER [id number] [facility] ACCREDITA ON NO. VAGINAL PATHOGENS DNA [id number] 16:12:33 Test Item Value Reference Range Interpretation Comments VENKAT SPECIES (test NEGATIVE NEGATIVE code = ) G. VAGINALIS (test NEGATIVE NEGATIVE code = 54892) T. VAGINALIS (test NEGATIVE NEGATIVE UNLESS O THERWISE code = ) INDICATED, ALL TESTING [facility]FORMED [facility], [facility]. [address] [place] [address] 7875 4 LABORATORY DIRE CTOR: EVERARDO BRANTLEY M.D. CLIA NUMBER [id number] [facility] ACCREDITATI ON NO.
[2022-04-12] MEDS ORDERED: ONDANSETRON 4 MG/2 ML VIAL ONE (22:41)
[2022-04-12] MEDS ORDERED: NA CHLORIDE 0.9% 1,000 ML ONE (22:41)
[2022-04-12] MEDS ORDERED: KETOROLAC 30 MG/ML INJ ONE (22:41)
[2022-04-12 22:56] LABS: Absolute Lymphocytes (CBC) 1.9 K/uL (0.7-4.9); Hematocrit 43.7 % (36.0-45.0); Lymphocytes % 24.5 % (15.3-44.8); MCV 91.2 fL (80-100); MPV 9.1 fL (7.6-11.3); RBC Red Blood Cell Count 4.79 M/uL (3.86-4.86)
[2022-04-12 23:19] LABS: ALT/SGPT 22 U/L (13-56); AST/SGOT 20 U/L (15-37); Albumin 4.7 g/dL (3.4-5.0); Alkaline Phosphatase 87 U/L (45-117); BUN Blood Urea Nitrogen 10 mg/dL (7-18); Bicarbonate 29 mmol/L (21-32); Bilirubin Total 0.4 mg/dL (0.2-1.0); Glomerular Filtration Rate 115 ml/min (=/>90); Glucose Level 102 mg/dL (74-106); Lipase 20 U/L (13-75); Potassium 3.6 mmol/L (3.5-5.1); Protein, Total 9.5 g/dL (6.4-8.2); Sodium Level 137 mmol/L (136-145)
[2022-04-12 23:22] LABS: HCG, Quantitative < 1 mIU/mL (1-3)
--- NOTE | 2022-04-13 00:17 | EDPHYS ---
Physician Documentation [facility] Name: Patricia Monroe Age: 26 yrs Sex: Female : 1995 Arrival Date: 04/12/2022 Time: 22:03 Bed 16 Private MD: ED Physician Jonathan Crook HPI: 04/12 22:39 This 26 yrs old Female presents to ER via Ambulatory with complaints of bs3 Nausea/Vomiting, Dizziness, Leg Pain. 22:39 26yo hx of migraines pw nausea, vomiting and dizziness. Symptoms started last night she bs3 notes that she took her sumatriptan last night and then developed nausea vomiting she also notes tingling in her left forearm several days ago she reports tingling in her right forearm but not currently she notes that she could feel it but she felt like it was asleep denies any history of dropping objects denies any changes in her vision denies any weakness in any of her extremities no history of MS no history of MS in her family she notes that she currently has epigastric pain as well no fevers or chills no chest pain shortness of breath. 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 - Social history:: Smoking status: Patient denies any tobacco usage or history of. ROS: 22:39 Constitutional: Negative for fever, chills bs3 22:39 All other systems are negative. Exam: 22:39 Constitutional: This is a well developed, well nourished patient who is awake, alert, bs3 and in no acute distress. Head/Face: Normocephalic, atraumatic. Eyes: Pupils equal round and reactive to light, extra-ocular motions intact. Lids and lashes normal. ENT: mmm, no posterior phyarngeal erythema Neck: Trachea midline, no thyromegaly, no neck stiffness Chest/axilla: Normal chest wall appearance and motion. Nontender with no deformity. No lesions are appreciated. Cardiovascular: Regular rate and rhythm with a normal S1 and S2. symmetric pulses in upper extremities Respiratory: Lungs have equal breath sounds bilaterally, clear to auscultation, no respiratory distress Abdomen/GI: Soft, tender in epigastric region and slight ruq tenderness Back: No spinal tenderness. No costovertebral tenderness. Full range of motion. MS/ Extremity: Pulses equal, no cyanosis. Neurovascular intact. Full, normal range of motion. Neuro: Awake and alert, GCS 15, oriented to person, place, time, and situation. Cranial nerves II-XII grossly intact. Motor strength 5/5 in all extremities. Sensory grossly intact. Psych: Awake, alert, with orientation to person, place and time. Behavior, mood, and affect are within normal limits. Vital Signs: 22:12 BP 128 / 80; Pulse 87; Resp 16; Temp 98.4(O); Pulse Ox 100% on R/A; Weight 58.97 kg ll3 (R); Height 4 ft. 10 in. (147.32 cm) (R); Pain 6/10; 22:30 BP 114 / 81; Pulse 90; Resp 18; Pulse Ox 100% on R/A; eh3 22:12 Body Mass Index 27.17 (58.97 kg, 147.32 cm) ll3 MDM: 22:14 Patient medically screened. bs3 22:39 Differential diagnosis: Nonspecific abd pain, gastritis, cholecystitis, pancreatitis, bs3 viral gastroenteritis, gastroenteritis, considered ms but no neuro deficit on exam, not consistent with cva, she has an NIH of 0 and reports tingling on in a small area of her forearm, possible electroloyte abnormality. Data reviewed: vital signs, nurses notes. 04/13 00:14 ED course: labs normal, pt refused medications, us non diagnostic, but not consistent bs3 with biliary colic, advised return prec. 00:16 Independent interpretation of the following test(s) in the Emergency Department bs3 Radiology Department Ultrasound: My interpretation is no gallstones, perichole fluid. ED course: pt feeling better, refused full fluids/meds. 04/12 22:29 Order name: CBC with Diff bs3 04/12 21: Order name: Comprehensive Metabolic Panel bs3 04/12 22:29 Order name: Lipase bs3 04/12 21:29 Order name: HCG-Quantitative bs3 04/12 22:59 Order name: CBC with Automated Diff; Complete Time: 00:14 EDMS 04/12 23:23 Order name: Comprehensive Metabolic Panel; Complete Time: 00:14 EDMS 04/12 22:29 Order name: US Abdomen Limited bs3 04/12 23:23 Order name: Lipase; Complete Time: 00:14 EDMS 04/12 23:23 Order name: HCG, Quantitative; Complete Time: 00:14 EDMS Administered Medications: 04/12 22:52 Drug: NS 0.9% 1000 ml Route: IV; Rate: 1000 ml; Site: left antecubital; ll3 22:52 Not Given (Patient Refused): Ketorolac 15 mg IVP once ll3 22:52 Not Given (Patient Refused): Ondansetron 4 mg IVP once; over 2 minutes ll3 Disposition Summary: 04/13/22 00:17 Discharge Ordered Location: Home bs3 Problem: new bs3 Symptoms: have improved bs3 Condition: Stable bs3 Diagnosis - Nausea with vomiting, unspecified bs3 Followup: bs3 - With: Private Physician - When: 1 - 2 days - Reason: Re-evaluation by your physician Forms: - Medication Reconciliation Form bs3 - Thank You Letter bs3 - Antibiotic Education bs3 - Prescription Opioid Use bs3 Signatures: Dispatcher [employer] Alyx Feliciano RN RN ll3 Jonathan Crook MD MD bs3 Corrections: (The following items were deleted from the chart) 22:19 22:15 Home Meds: Sumatriptan Sub-Q; ll3 ll3
--- NOTE | 2022-04-13 00:17 | ER ---
Nurse's Notes [facility] Name: Patricia Monroe Age: 26 yrs Sex: Female : 1995 Arrival Date: 04/12/2022 Time: 22:03 Bed 16 Private MD: Diagnosis: Nausea with vomiting, unspecified Presentation: 04/12 22:12 Chief complaint: Patient states: C/o N/V, SOB, dizziness, H/A, left leg pain 6/10, and ll3 pens and needles feeling in left arm, states left arm and leg felt numb last night, states symptoms began at 2300 yesterday. Coronavirus screen: Vaccine status: Patient reports being unvaccinated. Coronavirus screen: headache, nausea, shortness of breath, vomiting. Ebola Screen: No symptoms or risks identified at this time. Initial Sepsis Screen: Does the patient meet any 2 criteria? No. Patient's initial sepsis screen is negative. Does the patient have a suspected source of infection? No. Patient's initial sepsis screen is negative. Risk Assessment: Do you want to hurt yourself or someone else? Patient reports no desire to harm self or others. Onset of symptoms was April 11, 2022 at 23:00. 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 - Social history:: Smoking status: Patient denies any tobacco usage or history of. Screenin:[address] [facility] ED Fall Risk Assessment (Adult) Score/Fall Risk Level 0 - 2 = Low Risk. Abuse eh3 screen: Denies threats or abuse. Denies injuries from another. Nutritional screening: No deficits noted. Tuberculosis screening: No symptoms or risk factors identified. Assessment: 22:30 General: Appears in no apparent distress. uncomfortable, Behavior is cooperative, eh3 appropriate for age. Pain: Complains of pain in left leg and abdomen. Neuro: Level of Consciousness is awake, alert, obeys commands, Oriented to person, place, time, situation. Neuro: Reports dizziness, numbness in left arm and left leg. Cardiovascular: Capillary refill < 3 seconds Patient's skin is warm and dry. Respiratory: Airway is patent Respiratory effort is even, unlabored, Respiratory pattern is regular, symmetrical. GI: Abdomen is round non-distended, Reports nausea, vomiting. : No signs and/or symptoms were reported regarding the genitourinary system. EENT: No signs and/or symptoms were reported regarding the EENT system. Derm: No signs and/or symptoms reported regarding the dermatologic system. Musculoskeletal: Circulation, motion, and sensation intact. Range of motion: intact in all extremities. Vital Signs: 22:12 BP 128 / 80; Pulse 87; Resp 16; Temp 98.4(O); Pulse Ox 100% on R/A; Weight 58.97 kg ll3 (R); Height 4 ft. 10 in. (147.32 cm) (R); Pain 6/10; 22:30 BP 114 / 81; Pulse 90; Resp 18; Pulse Ox 100% on R/A; eh3 22:12 Body Mass Index 27.17 (58.97 kg, 147.32 cm) ll3 ED Course: 22:03 Patient arrived in ED. ja2 22:14 Jonathan Crook MD is Attending Physician. bs3 22:15 Triage completed. ll3 22:15 Arm band placed on Patient placed in an exam room, on a stretcher, on pulse oximetry. ll3 22:30 Patient has correct armband on for positive identification. Bed in low position. Call 3 light in reach. Side rails up X2. Adult w/ patient. Pulse ox on. NIBP on. Door closed. Noise minimized. Lights dimmed. Warm blanket given. 22:52 Initial lab(s) drawn, by me, sent to lab. Inserted saline lock: 20 gauge in left ll3 antecubital area, using aseptic technique. Blood collected. 23:51 Abdomen Limited In Process Unspecified. EDMS 04/13 00:16 Missed attempt(s): 22 gauge in right antecubital area. ll3 00:26 No provider procedures requiring assistance completed. IV discontinued, intact, ll3 bleeding controlled, No redness/swelling at site. Pressure dressing applied. Administered Medications: 04/12 22:52 Drug: NS 0.9% 1000 ml Route: IV; Rate: 1000 ml; Site: left antecubital; 3 22:52 Not Given (Patient Refused): Ketorolac 15 mg IVP once ll3 22:52 Not Given (Patient Refused): Ondansetron 4 mg IVP once; over 2 minutes ll3 Medication: 04/13 00:26 VIS not applicable for this client. 3 Outcome: 00:17 Discharge ordered by . bs3 00:26 Discharged to home ambulatory. ll3 00:26 Condition: stable 00:26 Discharge instructions given to patient, Instructed on discharge instructions, follow up and referral plans. Demonstrated understanding of instructions, follow-up care. 00: Patient left the ED. 3 Signatures: Dispatcher [employer] EDMS Medina Francois Lynsea RN RN 3 Richelle Watson RN RN eh3 Jonathan Crook MD MD bs3 Corrections: (The following items were deleted from the chart) 04/12 22:19 22:15 Home Meds: Sumatriptan Sub-Q; ll3 3 04/13 00:04 04/12 22:30 General: Appears in no apparent distress. uncomfortable, Behavior is eh3 cooperative, appropriate for age, 3 04/13 00:04 04/12 22:30 Pain: Complains of pain in abdomen and left leg 3 3
[2022-04-13 00:42] VITALS: TEMP 98.4; O2SAT 100
[2022-04-13 01:04] VITALS: BP 114/81
--- NOTE | 2022-04-13 18:57 | RAD REPORT ---
EXAM DESCRIPTION: US - Abdomen Exam Limited - 04/12/2022 11:37 pm CLINICAL HISTORY: [id number] female with abdominal pain. COMPARISON: None. TECHNIQUE: Fontaine scale sonography of the limited right upper quadrant abdomen. FINDINGS: LIVER: Incompletely visualized, visualized portions of which are within normal limits mor phology and echogenicity GALLBLADDER: Nonshadowing echogenicity within the lumen may reflect sludge. No gallbladder wall thic kening pericholecystic fluid or cholelithiasis. Negative sonographic Pisano's sign. BILIARY TRACT: No significant abnormalities noted. The common bile duct measures 3 mm. IMPRESSION: 1. Nonshadowing echogenicity within the lumen may reflect sludge. 2. No specific sonographic findings noted to suggest etiology of the patient's symptoms. Electronically signed by: Paulette Huston MD 04/13/2022 12:09 AM MOTOR BLOCK MECHANIC Due to temporary technical issues with the PACS/Fluency reporting system, reports are being signed by the in house radiologists without review as a courtesy to insure prompt reporting. The interpreting radiologist is fully responsible for the content of the report.
== END 2022-04-13 00:26 | disposition home or self-care (01) ==
LOC: ER 22:00
DX: R11.2 Nausea with vomiting, unspecified (principal)
CPT/HCPCS: 85025; 36415; 84702; 83690; 80053; 76705; 99284; J7030; J2405